=== PATIENT | male | born 1945 | race Caucasian/White ===

== ENCOUNTER → 2016-09-13 | Outpatient (CLI) | payer OTHER, MEDICARE ==
[~2016-09-13] MED LIST: ASPI81TA28 PO; ATOR-24 PO; CIPR-255 PO; CLOP1TAB15 PO; GLIP-199 PO; LEVO175T3 PO; NTRGSL/4 UT; OXYC5TAB PO; POLYSOL4 OPR; ZNTT/150 PO
--- NOTE | 2016-09-13 12:56 | DIAGNOSTIC IMAGING REPORT ---
MRI OF THE BRAIN WITHOUT AND WITH IV CONTRAST CLINICAL HISTORY: Moderate cognitive impairment. COMPARISON STUDY: MRI the brain November 24, 2015. TECHNIQUE: Utilizing a 1.5 Eryn magnet and dedicated coil, multiplanar, multiecho imaging of the brain was performed pre and postcontrast administration. IV administration of 8 mL of Gadavist contrast was uneventful. FINDINGS: There are no areas of restricted diffusion. No acute intracranial hemorrhage, midline shift or mass effect is present. No intracranial mass or pathologic enhancement is present. There is moderate cerebral atrophy and moderate white matter T2 hyperintensity which suggests small vessel disease. Basilar cisterns are patent. There are no extra axial collections. Flow-voids for the major intracranial vessels are present. Calvarial signal is normal. Orbits and sinuses are unremarkable. The appearance of the brain is similar to exam of November 05, 2015. IMPRESSION: 1. No acute intracranial findings. 2. No intracranial masses or pathologic enhancement. 3. Moderate cerebral atrophy and small vessel disease, similar to exam of November 05, 2015. Electronically signed by: Ted Bell M.D. 09/13/2016 12:54 PM Dictated Date/Time: 09/13/2016 12:50 PM
== END | disposition home or self-care (01) ==
LOC: C.MRI 11:56
PROVIDERS: ATTEND Psychiatry & Neurology Neurology
DX: G31.84 Mild cognitive impairment of uncertain or unknown etiology (principal)

== ENCOUNTER → 2016-11-13 | Day surgery (SDC) | payer OTHER, MEDICARE ==
[2016-10-27 15:32] VITALS: Ht 170.2 cm; Wt 77.7 kg
[~2016-11-13] VITALS: Ht 170.2 cm; Wt 77.7 kg
[~2016-11-13] MED LIST changes: +500ML BSS 0.3ML EPI 1:1000PF IRRIG ONE; +ACETAMINOPHEN 325 MG TAB PO PRN; +AMVISC PLUS 0.8ML SYRINGE INT OCU ONE; -ATOR-24 PO; +ATROPINE SULFATE 0.1 MG/ML 5ML SYR IV PRN; +BRIMONIDINE TART 0.2% OP SOLN PER DROP CHARGE ONE; +BSS FLUSH ONE; -CIPR-255 PO; +ENDOCOAT 0.85ML SYRINGE INT OCU ONE; +EpINEphrine INJ 1MG/ML AMP 1 MG/ML AMP ONE; +LACTATED RINGER'S 1000ML 500 ML IV SCH; +LIDOCAINE 4% OP SOLN DROP CHARGE ONE; +LIDOCAINE 4% OP SOLN DROP CHARGE OPR SCH; +LIDOCAINE HCL 1% MPF 2 ML VIAL ONE; +LIDOCAINE HCL 2% 2 ML VIAL (20MG/ML) ONE; +MIDAZOLAM HCL 1 MG/ML 2ML VIAL ONE; +MIX: 3ML BSS AND 1ML EPI(PF) TOP ONE; +MOXIFLOXACIN OPH SOLN PER DROP CHARGE ONE; +ONDANSETRON INJ 2 MG/ML 2 ML VIAL ONE; -OXYC5TAB PO; +POVIDONE-IODINE OP SOLN 30 ML BTL ONE; +PROPARACAINE 0.5% OP SOLN PER DROP CHARGE OPR SCH; +PROPOFOL IV EMULSION 10 MG/ML 20 ML VIAL IV ONE; +TOBRAMYCIN/DEXAMETHASONE OPH OINT PER APPLN CHARGE ONE
[2016-11-13] MEDS: PHENYLEPHRINE HCL 2.5% OP SOLN PER DROP CHARGE OPR SCH ×2 (07:29→07:34)
[2016-11-13] MEDS: TROPICAMIDE 1% OP SOLN PER DROP CHARGE OPR SCH ×2 (07:30→07:35)
[2016-11-13] MEDS: CYCLOPENTOLATE HCL 1% OP SOLN PER DROP CHARGE OPR SCH ×2 (07:31→07:36)
[2016-11-13] MEDS: KETOROLAC 0.5% OP SOLN PER DROP CHARGE OPR SCH ×2 (07:32→07:37)
[2016-11-13] MEDS: MOXIFLOXACIN OPH SOLN PER DROP CHARGE OPR SCH ×2 (07:33→07:45)
--- NOTE | 2016-11-13 07:47 | History & Physical Bridge - [place] ---
H&P Re-Evaluation Bridge Note: I have examined the patient, reviewed the History & Physical and in the interval since the performance of the History & Physical I have noted the following changes of clinical significance: No changes noted
--- NOTE | 2016-11-13 08:59 | Discharge Instructions-SurgCtr ---
Discharge Instructions Date of Service Nov 13, 2016. Visit Reason for Visit: Cataract Right Eye Discharge Discharge Diagnosis / Problem: cataract right eye Discharge Goals Goal(s): Improve function Activity Recommendations Activity Limitations: per Instructions/Follow-up section Lifting Limitations: no more than 5 pounds Anesthesia . Post Anesthesia Instructions: If you have had General Anesthesia or IV Sedation: * Do not drive today. * Resume driving when surgeon permits. * Do not make important decisions or sign legal documents today. * Call surgeon for: 1. Temperature elevations greater than 101 degrees F. 2. Uncontrollable pain. 3. Excessive bleeding. 4. Persistent nausea and vomiting. 5. Medication intolerance (nausea, vomiting or rash). * For nausea and vomiting use only clear liquids such as: tea, soda, bouillon until nausea subsides, then gradually increase diet as tolerated. * If you have any concerns or questions, call your surgeon's office. If physician is unavailable and it is an emergency, call 911 or go to the nearest emergency room. . Instructions / Follow-Up Instructions / Follow-Up ACTIVITY RECOMMENDATIONS: * Light activities * You may walk outside, read, watch television. * Mild irritation and blurred vision are common for the first few days, redness around the white part of the eye is common. MEDICATIONS: Resume previous medications unless instructed otherwise by your surgeon. Eye drops (today and tomorrow): Ofloxacin - one drop in operative eye every 2 hours while awake Prednisolone 1% - one drop in operative eye every 2 hours while awake Prolensa - one drop operative eye 1 times daily SPECIAL CARE INSTRUCTIONS: * If any problems or concerns, please call Dr. Henriquez's office at . * Keep plastic shield taped over eye to sleep at night. * Keep plastic shield taped over eye except to administer eye drops. * Keep plastic shield on until office visit the following day. FOLLOW UP VISIT: Follow-up with Dr. Henriquez in the [facility] [place] [facility] office as scheduled. If not already scheduled, please call the office at . Diet Recommendations Home Diet: resume previous diet Procedures Procedures Performed: Right Cataract Phacoemulsification With Intraocular Lens Implant Pending Studies Studies pending at discharge: no Medical Emergencies . Who to Call and When: Medical Emergencies: If at any time you feel your situation is an emergency, please call 911 immediately. . Non-Emergent Contact Non-Emergency issues call your: Neurology Epilepsy Physician . . "Provider Documentation" section prepared by Agusto Henriquez. .
--- NOTE | 2016-11-13 09:03 | [facility] Operative Report ---
Operative Report Operative Date Nov 13, 2016. Pre-Operative Diagnosis Cataract Right Eye Post-Operative Diagnosis Same Procedure(s) Performed Right Cataract Phacoemulsification With Intraocular Lens Implant Surgeon Dr. Henriquez Jewel Gauger Surgeon(s) None Estimated Blood Loss 0 Findings cataract right eye Specimens None Anesthesia general with LMA Complication(s) None Disposition Recovery Room / PACU Implants MX60 20.5 Indications decreased vision right eye Description of Procedure After informed consent was obtained in the holding area the patient was wheeled back to the operating room where cardiac monitoring leads and oxygen by nasal cannula was administered by Anesthesia. Gentle IV sedation was given, and the patient's right eye was prepped and draped in usual sterile fashion. A wire lid speculum was placed into the right eye and the operating microscope was swung into position. Using 0.12 forceps and a Supersharp blade a paracentesis port was made 3 o'clock hours away from the 9 o'clock position of the patient's right eye. 1% non-preserved Lidocaine was then injected into the anterior chamber for anesthesia. A 2.2 mm keratotome blade was then used to make a shelved clear corneal incision at the 9 o'clock position of the right eye. Amvisc was injected into the anterior chamber and a cystotome and Utrata forceps were used to perform a curvilinear capsulorrhexis. BSS on a hydrodissection cannula was used to hydrodissect the lens nucleus away from the capsular bag. The phacoemulsification handpiece was then used in a stop and chop fashion to remove the lens nucleus. The irrigation and aspiration handpiece was then used to remove the residual cortical material. Amvisc was injected into the capsular bag and anterior chamber and a Bausch & Lomb MX60 20.5 Diopter intraocular lens was injected into the capsular bag. Irrigation and aspiration handpiece was used to remove the residual viscoelastic material. The wounds were hydrated and noted to be watertight. The wire lid speculum was removed from the eye. Vigamox, Brimonidine, and TobraDex ointment were placed on the eye and it was shielded. It should be noted that EndoCoat was used extensively during the case to protect the cornea endothelium. A mixture of 1ml of 1% nonpreserved epinephrine in 3ml of bss was injected into the eye at the beginning of the case to aid with pupillary dilation in this flomax patient. DISPOSITION: The patient tolerated the procedure well and was wheeled to the post anesthesia care unit in stable condition. I attest to the content of the Intraoperative Record and any orders documented therein. Any exceptions are noted below. I attest to the content of the Intraoperative Record and any orders documented therein. Any exceptions are noted below.
[2016-11-13 09:50] VITALS: TEMP 36.7
--- NOTE | 2016-11-13 09:57 | Anesthesia Progress Nt - [facility] ---
Anesthesia Post Op Note Date & Time Nov 13, 2016 at 09:57 Vital Signs Pain Intensity: 0 Vital Signs Past 12 Hours Date Time Temp Pulse Resp B/P (MAP) Pulse Ox O2 Delivery O2 Flow Rate FiO2 11/13/16 09:42 78 19 92 11/13/16 09:42 78 19 11/13/16 09:41 36.4 74 16 135/85 95 Room Air 11/13/16 09:41 135/85 11/13/16 09:37 78 32 11/13/16 09:37 77 32 97 11/13/16 09:36 164/96 11/13/16 09:32 72 15 11/13/16 09:32 73 15 99 11/13/16 09:30 167/95 11/13/16 09:27 73 12 11/13/16 09:27 72 12 98 11/13/16 09:26 154/98 11/13/16 09:22 71 14 99 11/13/16 09:22 71 14 11/13/16 09:21 152/93 11/13/16 09:20 73 15 99 11/13/16 09:20 73 15 11/13/16 09:15 73 15 145/101 99 11/13/16 09:15 73 15 11/13/16 09:14 77 22 11/13/16 09:14 77 22 98 11/13/16 09:11 143/92 11/13/16 09:09 73 15 11/13/16 09:09 73 15 98 11/13/16 09:06 152/97 11/13/16 09:04 71 4 152/95 99 11/13/16 09:04 36.4 73 16 152/95 99 Diffusion Mask 6 11/13/16 09:04 71 4 11/13/16 07:17 36.6 89 16 126/84 (98) 96 Room Air Notes Mental Status: alert / awake / arousable, participated in evaluation Pt Amnestic to Procedure: Yes Nausea / Vomiting: adequately controlled Pain: adequately controlled Airway Patency, RR, SpO2: stable & adequate BP & HR: stable & adequate Hydration State: stable & adequate Anesthetic Complications: no major complications apparent
[2016-11-13 10:17] VITALS: BP 121/77; PULSE 78; O2SAT 94
== END | disposition home or self-care (01) ==
LOC: X.SURG 06:53
PROVIDERS: ATTEND Ophthalmology
DX: H25.11 Age-related nuclear cataract, right eye (principal); E11.9 Type 2 diabetes mellitus without complications; G30.9 Alzheimer's disease, unspecified; F02.80 Dementia in other diseases classified elsewhere, unspecified severity, without behavioral disturbance, psychotic disturbance, mood disturbance, and anxiety; E03.9 Hypothyroidism, unspecified; F17.210 Nicotine dependence, cigarettes, uncomplicated; Z79.82 Long term (current) use of aspirin; Z79.899 Other long term (current) drug therapy

== ENCOUNTER → 2017-01-22 | Day surgery (SDC) | payer OTHER, MEDICARE ==
[2016-12-20 11:32] VITALS: Ht 170.2 cm; Wt 77.7 kg
[~2017-01-22] VITALS: Ht 170.2 cm; Wt 77.7 kg
[~2017-01-22] MED LIST changes: +EpHEDrine SULFATE INJ 50 MG/ML AMP IV PRN; +FENTANYL CITRATE INJ 50 MCG/1 ML 2 ML VIAL ONE; +LIDOCAINE 4% OP SOLN DROP CHARGE OPL SCH; -LIDOCAINE 4% OP SOLN DROP CHARGE OPR SCH; -LIDOCAINE HCL 2% 2 ML VIAL (20MG/ML) ONE; -ONDANSETRON INJ 2 MG/ML 2 ML VIAL ONE; +PROPARACAINE 0.5% OP SOLN PER DROP CHARGE OPL SCH; -PROPARACAINE 0.5% OP SOLN PER DROP CHARGE OPR SCH
[2017-01-22] MEDS: PHENYLEPHRINE HCL 2.5% OP SOLN PER DROP CHARGE OPL SCH ×2 (07:34→07:41)
[2017-01-22] MEDS: TROPICAMIDE 1% OP SOLN PER DROP CHARGE OPL SCH ×2 (07:35→07:42)
[2017-01-22] MEDS: CYCLOPENTOLATE HCL 1% OP SOLN PER DROP CHARGE OPL SCH ×2 (07:36→07:43)
[2017-01-22] MEDS: KETOROLAC 0.5% OP SOLN PER DROP CHARGE OPL SCH ×2 (07:37→07:45)
[2017-01-22] MEDS: MOXIFLOXACIN OPH SOLN PER DROP CHARGE OPL SCH ×2 (07:38→07:48)
--- NOTE | 2017-01-22 09:17 | Discharge Instructions-SurgCtr ---
Discharge Instructions Date of Service Jan 22, 2017. Visit Reason for Visit: Cataract Left Eye Discharge Discharge Diagnosis / Problem: cataract left eye Discharge Goals Goal(s): Improve function Activity Recommendations Activity Limitations: per Instructions/Follow-up section Lifting Limitations: no more than 5 pounds Anesthesia . Post Anesthesia Instructions: If you have had General Anesthesia or IV Sedation: * Do not drive today. * Resume driving when surgeon permits. * Do not make important decisions or sign legal documents today. * Call surgeon for: 1. Temperature elevations greater than 101 degrees F. 2. Uncontrollable pain. 3. Excessive bleeding. 4. Persistent nausea and vomiting. 5. Medication intolerance (nausea, vomiting or rash). * For nausea and vomiting use only clear liquids such as: tea, soda, bouillon until nausea subsides, then gradually increase diet as tolerated. * If you have any concerns or questions, call your surgeon's office. If physician is unavailable and it is an emergency, call 911 or go to the nearest emergency room. . Instructions / Follow-Up Instructions / Follow-Up ACTIVITY RECOMMENDATIONS: * Light activities * You may walk outside, read, watch television. * Mild irritation and blurred vision are common for the first few days, redness around the white part of the eye is common. MEDICATIONS: Resume previous medications unless instructed otherwise by your surgeon. Eye drops (today and tomorrow): Ofloxacin - one drop in operative eye every 2 hours while awake Prednisolone 1% - one drop in operative eye every 2 hours while awake Prolensa - one drop operative eye 1 times daily SPECIAL CARE INSTRUCTIONS: * If any problems or concerns, please call Dr. Henriquez's office at . * Keep plastic shield taped over eye to sleep at night. * Keep plastic shield taped over eye except to administer eye drops. * Keep plastic shield on until office visit the following day. FOLLOW UP VISIT: Follow-up with Dr. Henriquez in the [place] office as scheduled. If not already scheduled, please call the office at . Diet Recommendations Home Diet: resume previous diet Procedures Procedures Performed: Left Cataract Phacoemulsification With Intraocular Lens Implant Pending Studies Studies pending at discharge: no Medical Emergencies . Who to Call and When: Medical Emergencies: If at any time you feel your situation is an emergency, please call 911 immediately. . Non-Emergent Contact Non-Emergency issues call your: Graphic Design Assistant . . "Provider Documentation" section prepared by Agusto Henriquez. .
--- NOTE | 2017-01-22 09:18 | [facility] Operative Report ---
Operative Report Operative Date Jan 22, 2017. Pre-Operative Diagnosis Cataract Left Eye Post-Operative Diagnosis Same Procedure(s) Performed Left Cataract Phacoemulsification With Intraocular Lens Implant Surgeon Dr. Henriquez Water Service Supervisor Surgeon(s) None Estimated Blood Loss 0 mL Findings cataract left eye Fluids (cc crystalloids) see anesthesia record Specimens None Drains none Anesthesia local with sedation Complication(s) None Disposition Recovery Room / PACU Implants mx60 20.5 Indications decreased vision left eye Description of Procedure After informed consent was obtained in the holding area the patient was wheeled back to the operating room where cardiac monitoring leads and oxygen by nasal cannula was administered by Anesthesia. Gentle IV sedation was given, and the patient's left eye was prepped and draped in usual sterile fashion. A wire lid speculum was placed into the left eye and the operating microscope was swung into position. Using 0.12 forceps and a Supersharp blade a paracentesis port was made 2 o'clock hours away from the 3 o'clock position of the patient's left eye. 1% non-preserved Lidocaine was then injected into the anterior chamber for anesthesia. A 2.0 mm keratotome blade was then used to make a shelved clear corneal incision at the 3 o'clock position of the left eye. Amvisc was injected into the anterior chamber and a cystotome and Utrata forceps were used to perform a curvilinear capsulorrhexis. BSS on a hydrodissection cannula was used to hydrodissect the lens nucleus away from the capsular bag. The phacoemulsification handpiece was then used in a stop and chop fashion to remove the lens nucleus. The irrigation and aspiration handpiece was then used to remove the residual cortical material. Amvisc was injected into the capsular bag and anterior chamber and a Bausch & Lomb MX60 20.5 Diopter intraocular lens was injected into the capsular bag. Irrigation and aspiration handpiece was used to remove the residual viscoelastic material. The wounds were hydrated and noted to be watertight. The wire lid speculum was removed from the eye. Vigamox, Brimonidine, and TobraDex ointment were placed on the eye and it was shielded. It should be noted that EndoCoat was used extensively during the case to protect the cornea endothelium. DISPOSITION: The patient tolerated the procedure well and was wheeled to the post anesthesia care unit in stable condition. I attest to the content of the Intraoperative Record and any orders documented therein. Any exceptions are noted below. I attest to the content of the Intraoperative Record and any orders documented therein. Any exceptions are noted below.
--- NOTE | 2017-01-22 09:46 | Anesthesia Progress Nt - [facility] ---
Anesthesia Post Op Note Date & Time Jan 22, 2017 at 09:46 Vital Signs Pain Intensity: 0 Vital Signs Past 12 Hours Date Time Temp Pulse Resp B/P (MAP) Pulse Ox O2 Delivery O2 Flow Rate FiO2 01/22/17 07:22 36.6 88 16 109/76 (87) 96 Room Air Notes Mental Status: alert / awake / arousable, participated in evaluation Pt Amnestic to Procedure: Yes Nausea / Vomiting: adequately controlled Pain: adequately controlled Airway Patency, RR, SpO2: stable & adequate BP & HR: stable & adequate Hydration State: stable & adequate Anesthetic Complications: no major complications apparent
[2017-01-22 09:58] VITALS: BP 102/66; PULSE 67; TEMP 36.8; O2SAT 99
== END | disposition home or self-care (01) ==
LOC: X.SURG 07:12
PROVIDERS: ATTEND Ophthalmology
DX: H25.12 Age-related nuclear cataract, left eye (principal); E11.9 Type 2 diabetes mellitus without complications; E07.9 Disorder of thyroid, unspecified; G30.9 Alzheimer's disease, unspecified; F02.80 Dementia in other diseases classified elsewhere, unspecified severity, without behavioral disturbance, psychotic disturbance, mood disturbance, and anxiety; Z85.118 Personal history of other malignant neoplasm of bronchus and lung

== ENCOUNTER 2017-03-12 22:12 | Emergency (ER) | payer OTHER, MEDICARE ==
[~2017-03-12] VITALS: Ht 175.3 cm; Wt 92.4 kg
[~2017-03-12 22:12] MED LIST changes: -500ML BSS 0.3ML EPI 1:1000PF IRRIG ONE; -ACETAMINOPHEN 325 MG TAB PO PRN; -AMVISC PLUS 0.8ML SYRINGE INT OCU ONE; -ATROPINE SULFATE 0.1 MG/ML 5ML SYR IV PRN; -BRIMONIDINE TART 0.2% OP SOLN PER DROP CHARGE ONE; -BSS FLUSH ONE; -ENDOCOAT 0.85ML SYRINGE INT OCU ONE; -EpHEDrine SULFATE INJ 50 MG/ML AMP IV PRN; -EpINEphrine INJ 1MG/ML AMP 1 MG/ML AMP ONE; -FENTANYL CITRATE INJ 50 MCG/1 ML 2 ML VIAL ONE; -LACTATED RINGER'S 1000ML 500 ML IV SCH; -LIDOCAINE 4% OP SOLN DROP CHARGE ONE; -LIDOCAINE 4% OP SOLN DROP CHARGE OPL SCH; -LIDOCAINE HCL 1% MPF 2 ML VIAL ONE; -MIDAZOLAM HCL 1 MG/ML 2ML VIAL ONE; -MIX: 3ML BSS AND 1ML EPI(PF) TOP ONE; -MOXIFLOXACIN OPH SOLN PER DROP CHARGE ONE; -POVIDONE-IODINE OP SOLN 30 ML BTL ONE; -PROPARACAINE 0.5% OP SOLN PER DROP CHARGE OPL SCH; -PROPOFOL IV EMULSION 10 MG/ML 20 ML VIAL IV ONE; -TOBRAMYCIN/DEXAMETHASONE OPH OINT PER APPLN CHARGE ONE
[2017-03-12 22:33] VITALS: TEMP 36.5; Ht 175.3 cm; Wt 92.4 kg
[2017-03-12 23:02] LABS: BASO % 0.6 %; BASO ABS # 0.05 K/uL (0-0.2); COMPLETE YES; EOS % 4.3 %; HEMATOCRIT 46.9 % (42-52); IG% 1.6 %; LYMPH % 31.5 %; MEAN CELL VOLUME 99.6 fL (80-100); MEAN CORPUSCULAR HEMOGLOBIN 36.9 pg (25-34); MEAN CORPUSCULAR HGB CONC 37.1 g/dl (32-36); MEAN PLATELET VOLUME 10.6 fL (7.4-10.4); PLATELET COUNT 194 K/uL (130-400); RED BLOOD COUNT 4.71 M/uL (4.7-6.1); WHITE BLOOD COUNT 8.89 K/uL (4.8-10.8)
--- NOTE | 2017-03-12 23:14 | EMERGENCY ROOM VISIT NOTE ---
History Report prepared by Jan: Cheri Fried Under the Supervision of: Dr. Edgar Andrade M.D. 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 History of Present Illness The patient is a 71 year old male who presents to the Emergency Room with complaints of altered mental status that started 2 hours ago. The patient is unable to state the year or president. Per the patient's , AMS is normal for him. The patient notes he does not normally wear oxygen. He has inhalers at home but does not use them. The patient's states that he smokes 1 pack of cigarettes or more per day. She notes that the patient experienced a severe headache 3 hours ago and he was very confused. The patient states that he felt like the room was spinning. She reports that he has a history of headaches that occur about once per month. The patient has not been previously diagnosed with migraines. The patient vomited before coming to the ED but did not feel any better afterwards. He has not eaten in 7 1/2 hours. He was supposed to get blood work today but he refused to go. The patient's states that he is supposed to take glipizide every day but does not want to take it. The patient denies having a headache or dizziness at this time. He denies any shortness of breath, chest pain, cough, or abdominal pain. The patient was experiencing headache, nausea, vomiting, and dizziness. Source of History: patient, spouse/significant other Onset: 2 hours ago Position: other (global) Quality: other (AMS) Associated Symptoms: + headache, + nausea, + vomiting, No cough, No chest pain, No SOB, No abdominal pain Note: Additional symptoms: dizziness. Review of Systems See HPI for pertinent positives and negatives. A total of ten systems were reviewed and were otherwise negative. Past Medical & Surgical Medical Problems: (1) AAA (abdominal aortic aneurysm) (2) Carotid stenosis, non-symptomatic (3) CKD (chronic kidney disease) stage 3, GFR 30-59 ml/min (4) Coronary artery disease (5) Diabetes (6) Hyperlipidemia (7) Lung nodule (8) Malignant neoplasm of bladder (9) Malignant neoplasm of ureter (10) NH (myocardial infarction) (11) Primary cancer of right upper lobe of lung Surgical Problems: (1) History of left-sided carotid endarterectomy (2) S/P AAA repair (3) S/P angioplasty (4) S/P appendectomy (5) S/P cardiac catheterization (6) S/P colonoscopy with polypectomy (7) S/P coronary artery stent placement (8) S/p cystourethroscopy (9) S/P laparoscopic cholecystectomy (10) S/p nephrectomy (11) S/P rotator cuff repair (12) S/P tonsillectomy and adenoidectomy Family History FH: CAD (coronary artery disease) FATHER FH: colon cancer MOTHER AUNT Hypertension Stroke GRANDFATHER Social History Smoking Status: Current Every Day Smoker Alcohol Use: none Drug Use: none Marital Status: Housing Status: lives with significant other Occupation Status: retired Current/Historical Medications Scheduled Ciprofloxacin Hcl (Cipro), 500 MG PO BID Allergies Coded Allergies: Iodinated Diagnostic Agents (Verified Allergy, Intermediate, swelling, ) Physical Exam Vital Signs Date Time Temp Pulse Resp B/P (MAP) Pulse Ox O2 Delivery O2 Flow Rate FiO2 03/13/17 03:58 93 15 157/98 94 03/13/17 03:01 83 17 142/97 95 Room Air 03/13/17 02:20 84 03/13/17 02:01 85 23 146/89 96 Room Air 03/13/17 01:01 94 23 147/83 95 Room Air 03/13/17 00:01 95 17 123/82 93 Room Air 03/12/17 23:47 96 17 118/79 92 Room Air 03/12/17 23:01 97 17 115/82 93 Room Air 03/12/17 22:33 36.5 99 18 118/83 97 Nasal Cannula 2.0 03/12/17 22:26 100 Physical Exam GENERAL: Awake, alert, fatigued appearing, in no distress HENT: Normocephalic, atraumatic. Dry mucus membranes. EYES: Normal conjunctiva. Sclera non-icteric. NECK: Supple. No nuchal rigidity. FROM. No JVD. RESPIRATORY: Clear to auscultation. CARDIAC: Regular rate, normal rhythm. Extremities warm and well perfused. Pulses equal. ABDOMEN: Soft, non-distended. No tenderness to palpation. No rebound or guarding. No masses. Obese. RECTAL: Deferred. MUSCULOSKELETAL: Chest examination reveals no tenderness. The back is symmetrical on inspection without obvious abnormality. There is no CVA tenderness to palpation. No joint edema. LOWER EXTREMITIES: Calves are equal size bilaterally and non-tender. No edema. No discoloration. NEURO: Normal sensorium. No sensory or motor deficits noted. SKIN: No rash or jaundice noted. Medical Decision & Procedures ER Provider Diagnostic Interpretation: Radiology results as stated below per my review and radiologist interpretation: CHEST X-RAY: Mild cardiomegaly. No focal consolidation. CT HEAD: Comparison 10/25/2015 and MRI 09/13/2016 No intracranial hemorrhage, mass effect or CT evidence of large vascular territory acute infarct. Ventricles are within limits and midline. Chronic and involutional changes. Visualized paranasal sinuses, mastoid, and orbits are within limits. REPEAT EKG: Sinus rhythm, first degree AV block, rate of 90, QRS 144. Unchanged from earlier today Laboratory Results 03/12/17 22:39 Red Blood Count 4.71, Mean Corpuscular Volume 99.6, Mean Corpuscular Hemoglobin 36.9, Mean Corpuscular Hemoglobin Concent 37.1, Mean Platelet Volume 10.6, Neutrophils (%) (Auto) 56.0, Lymphocytes (%) (Auto) 31.5, Monocytes (%) (Auto) 6.0, Eosinophils (%) (Auto) 4.3, Basophils (%) (Auto) 0.6, Neutrophils # (Auto) 4.99, Lymphocytes # (Auto) 2.80, Monocytes # (Auto) 0.53, Eosinophils # (Auto) 0.38, Basophils # (Auto) 0.05 03/12/17 22:39 Test 03/12/17 22:39 03/12/17 22:57 03/13/17 00:10 03/13/17 01:39 White Blood Count 8.89 K/uL (4.8-10.8) Red Blood Count 4.71 M/uL (4.7-6.1) Hemoglobin 17.4 g/dL (14.0-18.0) Hematocrit 46.9 % (42-52) Mean Corpuscular Volume 99.6 fL (80-100) Mean Corpuscular Hemoglobin 36.9 pg (25-34) Mean Corpuscular Hemoglobin Concent 37.1 g/dl (32-36) Platelet Count 194 K/uL (130-400) Mean Platelet Volume 10.6 fL (7.4-10.4) Neutrophils (%) (Auto) 56.0 % Lymphocytes (%) (Auto) 31.5 % Monocytes (%) (Auto) 6.0 % Eosinophils (%) (Auto) 4.3 % Basophils (%) (Auto) 0.6 % Neutrophils # (Auto) 4.99 K/uL (1.4-6.5) Lymphocytes # (Auto) 2.80 K/uL (1.2-3.4) Monocytes # (Auto) 0.53 K/uL (0.11-0.59) Eosinophils # (Auto) 0.38 K/uL (0-0.5) Basophils # (Auto) 0.05 K/uL (0-0.2) RDW Standard Deviation 49.6 fL (36.4-46.3) RDW Coefficient of Variation 13.6 % (11.5-14.5) Immature Granulocyte % (Auto) 1.6 % Immature Granulocyte # (Auto) 0.14 K/uL (0.00-0.02) Anion Gap 11.0 mmol/L (3-11) Est Creatinine Clear Calc Drug Dose 45.2 ml/min Estimated GFR () 47.0 Estimated GFR (Non- 40.6 BUN/Creatinine Ratio 10.3 (10-20) Calcium Level 8.6 mg/dl (8.5-10.1) Total Bilirubin 0.3 mg/dl (0.2-1) Direct Bilirubin mg/dl (0-0.2) Aspartate Amino Transf (AST/SGOT) 35 U/L (15-37) Alanine Aminotransferase (ALT/SGPT) 92 U/L (12-78) Alkaline Phosphatase 135 U/L (45-117) Total Protein 6.6 gm/dl (6.4-8.2) Albumin 3.6 gm/dl (3.4-5.0) Lipase 137 U/L (73-393) Thyroid Stimulating Hormone (TSH) 66.500 uIu/ml (0.300-4.500) Free Thyroxine 0.38 ng/dl (0.80-1.60) Chemistry Specimen Hemolysis Bedside Glucose 224 mg/dl (70-99) Urine Color YELLOW Urine Appearance CLEAR (CLEAR) Urine pH 6.5 (4.5-7.5) Urine Specific Mobile 1.016 (1.000-1.030) Urine Protein 2+ (NEG) Urine Glucose (UA) TRACE (NEG) Urine Ketones NEG (NEG) Urine Occult Blood NEG (NEG) Urine Nitrite POS (NEG) Urine Bilirubin NEG (NEG) Urine Urobilinogen NEG (NEG) Urine Leukocyte Esterase NEG (NEG) Urine WBC (Auto) >30 /hpf (0-5) Urine RBC (Auto) 0-4 /hpf (0-4) Urine Hyaline Casts (Auto) 5-10 /lpf (0-5) Urine Epithelial Cells (Auto) >30 /lpf (0-5) Urine Bacteria (Auto) NEG (NEG) Urine Renal Epithelial Cells /lpf (0-5) Bedside Troponin I 0.060 ng/ml (0-0.045) Test 03/13/17 01:43 Troponin I 0.052 ng/ml (0-0.045) Laboratory results reviewed by me Medications Administered Medications (Trade) Dose Ordered Sig/Chari Route Start Time Stop Time Status Last Admin Dose Admin Ciprofloxacin (Cipro Tab) 500 mg NOW STAT PO 03/13/17 01:44 03/13/17 01:47 DC 03/13/17 01:58 500 MG Aspirin (Aspirin Chew) 324 mg NOW STAT PO 03/13/17 03:14 03/13/17 03:16 DC 03/13/17 03:38 324 MG ECG Indication: other (dizziness) Rate (beats per minute): 102 Rhythm: sinus tachycardia Findings: 1st degree AV block, RBBB, no acute ischemic change Comparison ECG Date: Change: RBBB is new in comparison to April 27, 2016. ED Course 2236: The patient was evaluated in room A9B. A complete history and physical exam was performed. 0144: Cipro Tab 500 mg PO. 0200: The patient's point of care troponin was 0.06. Since asymptomatic, will confirm with serum troponin. Medical Decision I reviewed the patient's past medical history, medications, and the nursing notes as described above. 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 On note, patient has been non-complaint with all of his medications, including his plavix and synthroid for an unknown period of time. On arrival the patient reports resolution of sx. EKG shows RBBB, which is new from prior but otherwise no signs of acute ischemia. CXR negative for PNA. Labs notable for elevated TSH 66 and dereased Free T4 0.38, Cr 1.6 approximate to prior values. Initial trop negative approximately 2 hours after episode of symptoms. UA with +nitriate and great than [address] head negative with 6 hours of patient's DE LEÓN therefore SAH not likely. Given patient's cardiac hx and ? of episode of n/v as anginal equivalent repeat trop send and was elevate to 0.052. Repeat EKG with persistent RBBB but no signs of acute ischemia. Thus it was recommended to patent he be admitted but patient was adamant that he would not stay because he does not likely staying in hospitals and he "feels fine". Patient demonstrates full decision making capacity of risk and benefits with a bedside. Patient follows with Dr. Hernandez, [facility], and so case with d/w Gela Solano cards on-call so as to facility close cards f /u. Given patient with marginal trop elevation, non-ischemic EKG and no chest pain recs that primary cardiac etiology unlikely. Rather, likely related to his non-compliance and numerous metabolic imbalances. Recs that primary emphasis should be f/u with his pcp to re-establish compliance with his medications. Note will be forwarded to so he is aware and patient will f/u as needed. Findings and plan for follow-up reviewed with patient. Patient agreeable and d/c'd AMA per discharge instructions. Medication Reconcilliation Current Medication List: was personally reviewed by me Blood Pressure Screening Patient's blood pressure: Elevated blood pressure Blood pressure disposition: Referred to PCP Impression Primary Impression: Headache Additional Impressions: Vertigo Nausea & vomiting Urinary tract infection Elevated troponin Right bundle branch block (RBBB) Scribe Attestation The scribe's documentation has been prepared under my direction and personally reviewed by me in its entirety. I confirm that the note above accurately reflects all work, treatment, procedures, and medical decision making performed by me. Departure Information Dispostion Home / Self-Care Prescriptions Ciprofloxacin Hcl (CIPRO) 500 Mg Tab 500 MG PO BID, #14 TAB Prov: Edgar Andrade M.D. 03/13/17 Referrals Vik Charles M.D. (PCP) Jelani Hernandez D.O. 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 Your evaluation demonstrated abnormalities that are consistent with your noncompliance with your medications, including and rising troponin during your observation, elevated TSH and low thyroid hormone. You were also found to have a urinary tract infection. Take your antibiotic as prescribed. Resume taking your medications as prescribed. We recommended admission for further management but you declined. However, you did not want to be admitted and preferred to be discharged AGAINST MEDICAL ADVICE. Please note, by leaving AGAINST MEDICAL ADVICE you risk a worse condition, disability, and . However, we're open 24 hours a day and 7 days a week if you were to change your mind or have any worsening symptoms and should not hesitate to return. Return to the emergency department for worsening symptoms as described in the accompanying instructions. Problem Qualifiers
[2017-03-13 00:13] LABS: BLOOD UREA NITROGEN 17 mg/dl (7-18); BUN/CREATININE RATIO 10.3 (10-20); CALCIUM 8.6 mg/dl (8.5-10.1); CARBON DIOXIDE 26 mmol/L (21-32); CHLORIDE 103 mmol/L (98-107); CREATININE 1.66 mg/dl (0.60-1.40); GLUCOSE 221 mg/dl (70-99); POTASSIUM 4.7 mmol/L (3.5-5.1); SODIUM 140 mmol/L (136-145)
[2017-03-13 00:18] LABS: ALKALINE PHOSPHATASE 135 U/L (45-117); ALT/SGPT 92 U/L (12-78); AST/SGOT 35 U/L (15-37)
[2017-03-13 00:47] LABS: URINE APPEARANCE CLEAR (CLEAR); URINE BILIRUBIN NEG (NEG); URINE COLOR YELLOW; URINE EPITHELIAL CELL AUTO >30 /lpf (0-5); URINE NITRITE POS (NEG); URINE PH 6.5 (4.5-7.5); URINE SPECIFIC GRAVITY 1.016 (1.000-1.030); UROBILINOGEN NEG (NEG); ZZUR CULT IF INDIC CLEAN CATCH YES
[2017-03-13 00:50] LABS: MANUAL MICROSCOPIC REQUIRED? NO; REVIEW REQ? YES
[2017-03-13] MEDS ORDERED: CIPROFLOXACIN 500 MG TAB PO STA (01:44)
[2017-03-13] MEDS ORDERED: CIPR-255 PO (01:49)
[2017-03-13] MEDS ORDERED: ASPIRIN 81 MG CHEW PO STA (03:14)
[2017-03-13 03:58] VITALS: BP 157/98; PULSE 93; O2SAT 94
--- NOTE | 2017-03-13 06:23 | DIAGNOSTIC IMAGING REPORT ---
CHEST ONE VIEW PORTABLE CLINICAL HISTORY: ABDOMINAL PAIN/GI pain COMPARISON STUDY: 04/16/2016 FINDINGS: Moderate cardiac megaly. Diaphragms smooth. Lungs are clear. Old fracture of the clavicles bilaterally. IMPRESSION: Moderate cardiomegaly. Otherwise negative study. The above report was generated using voice recognition software. It may contain grammatical, syntax or spelling errors. Electronically signed by: Jak Reardon M.D. 03/13/2017 6:22 AM Dictated Date/Time: 03/13/2017 6:22 AM
--- NOTE | 2017-03-13 06:50 | DIAGNOSTIC IMAGING REPORT ---
CT HEAD WITHOUT CONTRAST (CT) CLINICAL HISTORY: NA, vertigo. COMPARISON STUDY: 10/25/2015 TECHNIQUE: Axial CT of the brain is performed from the vertex to the skull base. IV contrast was not administered for this examination. A dose lowering technique was utilized adhering to the principles of ALARA. CT DOSE: 614.27 mGy.cm FINDINGS: No intra or extra-axial mass lesions are visualized. There is no CT evidence of acute cortical infarction. There is no evidence of midline shift. There is no acute hemorrhage. No calvarial fractures are visualized. There are patchy white matter hypodensities likely on a small vessel basis. There is no evidence of pathologic ventricular dilatation. There is no evidence of acute sinusitis IMPRESSION: No acute intracranial findings Electronically signed by: David Rodriguez M.D. 03/13/2017 6:49 AM Dictated Date/Time: 03/13/2017 6:48 AM
--- NOTE | 2017-03-16 12:06 | Pharmacy Progress Note ---
ED Pharmacist Culture FollowUp Date of Service: Mar 16, 2017. Patient was sent home with a prescription for Ciprofloxacin 500mg PO BID x 7 days, which should cover the CoN Staph growing from the patient's URINE culture (I spoke with Jay in [facility] to determine if sensitivity was tested and it was).
== END 2017-03-13 04:01 | disposition left against medical advice (07) ==
LOC: EDBD 22:12 → C.EDA 22:13
DX: R51 Headache (principal); R42 Dizziness and giddiness; R11.2 Nausea with vomiting, unspecified; N39.0 Urinary tract infection, site not specified; R79.89 Other specified abnormal findings of blood chemistry; I45.10 Unspecified right bundle-branch block; N18.3 Chronic kidney disease, stage 3 (moderate); E11.22 Type 2 diabetes mellitus with diabetic chronic kidney disease; E03.9 Hypothyroidism, unspecified; J44.9 Chronic obstructive pulmonary disease, unspecified; F17.210 Nicotine dependence, cigarettes, uncomplicated; Z82.49 Family history of ischemic heart disease and other diseases of the circulatory system; Z80.0 Family history of malignant neoplasm of digestive organs; Z82.3 Family history of stroke; Z95.5 Presence of coronary angioplasty implant and graft

== ENCOUNTER → 2017-06-29 | Outpatient (CLI) | payer OTHER, MEDICARE ==
[~2017-06-29] MED LIST changes: -ASPI81TA28 PO; +CIPR-255 PO; -CLOP1TAB15 PO; -GLIP-199 PO; -LEVO175T3 PO; -NTRGSL/4 UT; -POLYSOL4 OPR; -ZNTT/150 PO
--- NOTE | 2017-06-29 13:21 | DIAGNOSTIC IMAGING REPORT ---
(CHEST) THORAX WITHOUT CT DOSE: 338.32 mGycm HISTORY: C34.90 Adenocarcinoma of lung, stage 1 [id number] TECHNIQUE: Multiaxial CT images of the chest were performed without contrast. A dose lowering technique was utilized adhering to the principles of ALARA. COMPARISON: Outside hospital chest CT 12/05/2016. FINDINGS: There again noted postoperative changes consistent with a prior right upper lobectomy. A few linear scarlike densities within the right lung remain stable. There are suture material within the right hilum and along the right mediastinal border. Trace mucoid material within the right mainstem bronchus. Emphysema. A few scattered subpleural nodular densities are again noted within the lungs. These are not simply changed and are likely benign. Dominant subpleural nodule within the right lower lobe on image 127 measures 4 mm. No new or suspicious pulmonary nodules identified. Old, healed right-sided rib fractures. No suspicious lytic or blastic osseous lesions. Limited views of the upper abdomen demonstrate a normal liver and spleen. No mediastinal or hilar lymphadenopathy. Calcified subcarinal lymph nodes are again noted. Calcified plaque within the aortic arch. Normal caliber thoracic aorta. No pneumothorax. No pleural effusions. IMPRESSION: 1. No significant change compared the prior study. 2. No evidence for metastatic disease within the chest. 3. Prior right upper lobectomy. Electronically signed by: Miko Vazquez M.D. 06/29/2017 1:20 PM Dictated Date/Time: 06/29/2017 1:02 PM
== END | disposition home or self-care (01) ==
LOC: C.CTS 12:17
PROVIDERS: ATTEND Surgery
DX: C34.90 Malignant neoplasm of unspecified part of unspecified bronchus or lung (principal)

== ENCOUNTER 2018-01-04 11:41 | Inpatient (IN) | payer OTHER, MEDICARE ==
[~2018-01-04] VITALS: Ht 177.8 cm; Wt 83.5 kg
[~2018-01-04 11:41] MED LIST changes: +ASPI81TA28 PO; -CIPR-255 PO; +CLOP1TAB15 PO; +GLIP-197 PO; +LEVO200T6 PO; +NTRGSL/4 UT; +RANI150T3 PO
[2018-01-04] MEDS ORDERED: SODIUM CHLORIDE 0.9% 1000ML 1,000 ML IV STA (12:08)
--- NOTE | 2018-01-04 12:28 | DIAGNOSTIC IMAGING REPORT ---
SINGLE VIEW CHEST CLINICAL HISTORY: Generalized weakness. FINDINGS: An AP, portable, upright chest radiograph is compared to study dated 10/22/2017 and correlated with chest CT dated 06/29/2017. The examination is degraded by portable technique and patient rotation. The heart is enlarged and there is atherosclerotic calcification of the thoracic aorta. The pulmonary vasculature is noncongested. Emphysema and chronic interstitial thickening are similar to previous. There is volume loss and postoperative change consistent with previous right-sided pulmonary resection. No airspace consolidation is identified typical for pneumonia. No large pleural effusion or pneumothorax is seen. The skeletal structures are osteopenic. Degenerative change is noted throughout the thoracic spine. IMPRESSION: 1. Cardiomegaly and emphysema with no acute cardiopulmonary abnormality. 2. There are postoperative changes from right upper lobe resection. Electronically signed by: Valdemar Low M.D. 01/04/2018 12:26 PM Dictated Date/Time: 01/04/2018 12:22 PM
[2018-01-04] MEDS ORDERED: ATOR-24 PO (12:38)
[2018-01-04] MEDS ORDERED: GLIP10TA9 PO (12:38)
[2018-01-04 12:55] LABS: BASO % 0.2 %; BASO ABS # 0.03 K/uL (0-0.2); EOS % 0.3 %; EOS ABS # 0.05 K/uL (0-0.5); HEMATOCRIT 48.4 % (42-52); HEMOGLOBIN 16.8 g/dL (14.0-18.0); IG# 0.36 K/uL (0.00-0.02); LYMPH % 11.7 %; MEAN CELL VOLUME 99.6 fL (80-100); MEAN CORPUSCULAR HEMOGLOBIN 34.6 pg (25-34); MEAN CORPUSCULAR HGB CONC 34.7 g/dl (32-36); MEAN PLATELET VOLUME 10.4 fL (7.4-10.4); MONO % 5.8 %; MONO ABS # 0.89 K/uL (0.11-0.59); NEUT % 79.7 %; PLATELET COUNT 212 K/uL (130-400); RED CELL DISTRIBUTION WIDTH SD 51.2 fL (36.4-46.3); WHITE BLOOD COUNT 15.33 K/uL (4.8-10.8)
[2018-01-04 13:17] LABS: PTT PATIENT 26.4 SECONDS (21.0-31.0)
--- NOTE | 2018-01-04 13:34 | DIAGNOSTIC IMAGING REPORT ---
HEAD WITHOUT CONTRAST (CT) CLINICAL HISTORY: 72 years-old Male presenting with EVALUATE WEAKNESS. TECHNIQUE: Multidetector CT imaging of the head was performed without the use of intravenous contrast. IV contrast: None. A dose lowering technique was used consistent with the principles of ALARA (as low as reasonably achievable). COMPARISON: 03/13/2017. CT DOSE (mGy.cm): The estimated cumulative dose is 1277.12 mGycm. 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 Ventricles and sulci normal in size. Periventricular and subcortical white matter hypoattenuation, nonspecific but likely indicative of chronic small vessel ischemic change. Old lacunar infarcts in the basal ganglia. No mass effect or midline shift. No hemorrhage or acute territorial infarct. No extra-axial fluid collection. Paranasal sinuses and mastoid air cells clear. Calvarium intact. Intracranial atherosclerosis noted. Bilateral [place] lenses of the globes are absent. IMPRESSION: 1. Chronic small vessel ischemic change. No acute intracranial abnormality. 2. Basal ganglia lacunar infarcts are chronic though new from prior. Electronically signed by: Nick Adame M.D. 01/04/2018 1:33 PM Dictated Date/Time: 01/04/2018 1:28 PM
[2018-01-04 13:39] LABS: ALBUMIN 3.7 gm/dl (3.4-5.0); CALCIUM 8.6 mg/dl (8.5-10.1); CKMB 3.7 ng/ml (0.5-3.6); CREATININE 1.39 mg/dl (0.60-1.40); TOTAL PROTEIN 7.1 gm/dl (6.4-8.2)
[2018-01-04] MEDS ORDERED: ASPIRIN 81 MG CHEW PO STA (13:44)
[2018-01-04] MEDS ORDERED: NovoLIN-R INSULIN PER UNIT CHARGE IV STA (13:52)
[2018-01-04 14:12] LABS: POTASSIUM 4.6 mmol/L (3.5-5.1)
--- NOTE | 2018-01-04 14:36 | History and Physical ---
History & Physical Date & Time of Service: Jan 04, 2018 at 14:36 Chief Complaint: Chest Pain/Confusion Primary Care Physician: Vik Charles M.D. History of Present Illness Source: patient, spouse The patient is a 72 year old male who presents to the Emergency Room after malaise in the [facility]. Patient was reportedly having poor appetite at home but then ate many foods at the fair. Also history of nonadherence to home dose glipizide for diabetes. Patient received aspirin 324 mg in the ED for concern of cardiac chest pain given history of CAD with stents but patient denied chest pain when assessed at bedside by hospitalist. He described the chest discomfort at the fair as a pain all over the body from chest to abdomen to back and it was a feeling like the body was "closing down on on him." Patient is a poor historian about medical issues and other health history from his . No acute complaints of symptoms at the bedside when assessed by hospitalist. Patient was found to be hyperglycemic. 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 (19) VA (myocardial infarction) (20) Nausea (21) Nausea & vomiting (22) Pneumonia (23) Precordial chest pain (24) Primary cancer of right upper lobe of lung (25) Retrosternal chest pain (26) Right bundle branch block (RBBB) (27) Urinary tract infection (28) Vertigo Surgical Problems: (1) History of left-sided carotid endarterectomy (2) S/P AAA repair (3) S/P angioplasty (4) S/P appendectomy (5) S/P cardiac catheterization (6) S/P colonoscopy with polypectomy (7) S/P coronary artery stent placement (8) S/p cystourethroscopy (9) S/P laparoscopic cholecystectomy (10) S/p nephrectomy (11) S/P rotator cuff repair (12) S/P tonsillectomy and adenoidectomy Family History FH: CAD (coronary artery disease) FATHER FH: colon cancer MOTHER AUNT Hypertension Stroke GRANDFATHER Social History Smoking Status: Current Every Day Smoker Drug Use: none Marital Status: Housing status: lives with family Occupational Status: retired Immunizations History of Influenza Vaccine: Unknown History of Tetanus Vaccine?: Unknown Tetanus Immunization Date: Jun 17, 2005 History of Pneumococcal: Unknown History of Hepatitis B Vaccine: Unknown Allergies Coded Allergies: Iodinated Diagnostic Agents (Verified Allergy, Intermediate, swelling, ) Home Medications Scheduled Aspirin (Aspirin Ec), 81 MG PO DAILY Atorvastatin (Lipitor), 40 MG PO DAILY Glipizide (Glucotrol), 10 MG PO DAILY Levothyroxine Sodium (Levothyroxine Sodium), 200 MCG PO DAILY Nitroglycerin (Nitrostat), 0.4 MG UT PRN Ranitidine Hcl (Zantac), 150 MG PO DAILY Review of Systems Constitutional: No fever Eyes: No worsening of vision ENT: No hearing loss Respiratory: No cough, No wheezing, No shortness of breath, No dyspnea on exertion, No dyspnea at rest Cardiovascular: + problem reported (generalized pain all over the chest abdomen and back at the fair. no pain currently) Abdomen: + problem reported (generalized pain all over the chest abdomen and back at the fair. no pain currently), No nausea, No vomiting, No diarrhea, No constipation Musculoskeletal: No joint pain, No muscle pain, No swelling Genitourinary - Male: No dysuria Neurologic: No paralysis, No numbness/tingling Psychiatric: No substance abuse Endocrine: No fatigue Hematologic / Lymphatic: No abnormal bleeding/bruising Integumentary: No rash, No itch Physical Exam Vital Signs Date Time Temp Pulse Resp B/P (MAP) Pulse Ox O2 Delivery O2 Flow Rate FiO2 01/04/18 14:00 100 01/04/18 13:06 88 Room Air 01/04/18 11:55 109 01/04/18 11:45 94 Room Air 01/04/18 11:45 94 Room Air 01/04/18 11:45 37.3 105 18 122/80 94 Room Air General Appearance: no apparent distress Head: normocephalic, atraumatic Eyes: normal inspection, EOMI, sclerae normal ENT: hearing grossly normal, pharynx normal Neck: no JVD, trachea midline Respiratory/Chest: chest non-tender, lungs clear, normal breath sounds, no respiratory distress, no accessory muscle use Cardiovascular: no JVD, + pertinent finding (mild tachycardia) Abdomen/GI: normal bowel sounds, non tender, soft, no organomegaly, no pulsatile mass Back: normal inspection, no CVA tenderness, no muscle spasm Extremities/Musculoskelatal: no calf tenderness Neurologic/Psych: statistical assistant II-XII nml as tested, no motor/sensory deficits, alert, normal mood/affect, + pertinent finding (poor historian, history of dementia) Skin: warm/dry Diagnostics Laboratory Results Results Past 24 Hours Test 01/04/18 12:45 Range/Units White Blood Count 15.33 4.8-10.8 K/uL Red Blood Count 4.86 4.7-6.1 M/uL Hemoglobin 16.8 14.0-18.0 g/dL Hematocrit 48.4 42-52 % Mean Corpuscular Volume 99.6 80-100 fL Mean Corpuscular Hemoglobin 34.6 25-34 pg Mean Corpuscular Hemoglobin Concent 34.7 32-36 g/dl Platelet Count 212 130-400 K/uL Mean Platelet Volume 10.4 7.4-10.4 fL Neutrophils (%) (Auto) 79.7 % Lymphocytes (%) (Auto) 11.7 % Monocytes (%) (Auto) 5.8 % Eosinophils (%) (Auto) 0.3 % Basophils (%) (Auto) 0.2 % Neutrophils # (Auto) 12.20 1.4-6.5 K/uL Lymphocytes # (Auto) 1.80 1.2-3.4 K/uL Monocytes # (Auto) 0.89 0.11-0.59 K/uL Eosinophils # (Auto) 0.05 0-0.5 K/uL Basophils # (Auto) 0.03 0-0.2 K/uL RDW Standard Deviation 51.2 36.4-46.3 fL RDW Coefficient of Variation 14.0 11.5-14.5 % Immature Granulocyte % (Auto) 2.3 % Immature Granulocyte # (Auto) 0.36 0.00-0.02 K/uL Prothrombin Time 10.6 9.0-12.0 SECONDS Prothromb Time International Ratio 1.0 0.9-1.1 Activated Partial Thromboplast Time 26.4 21.0-31.0 SECONDS Partial Thromboplastin Ratio 1.0 Sodium Level 133 136-145 mmol/L Potassium Level 4.6 3.5-5.1 mmol/L Chloride Level 97 98-107 mmol/L Carbon Dioxide Level 28 21-32 mmol/L Anion Gap 8.0 3-11 mmol/L Blood Urea Nitrogen 22 7-18 mg/dl Creatinine 1.39 0.60-1.40 mg/dl Est Creatinine Clear Calc Drug Dose 50.1 ml/min Estimated GFR () 57.9 Estimated GFR (Non- 49.9 BUN/Creatinine Ratio 15.7 10-20 Random Glucose 353 70-99 mg/dl Calcium Level 8.6 8.5-10.1 mg/dl Magnesium Level 2.2 1.8-2.4 mg/dl Total Bilirubin 0.7 0.2-1 mg/dl Direct Bilirubin 0-0.2 mg/dl Aspartate Amino Transf (AST/SGOT) 20 15-37 U/L Alanine Aminotransferase (ALT/SGPT) 25 12-78 U/L Alkaline Phosphatase 118 45-117 U/L Total Creatine Kinase 89 39-308 U/L Creatine Kinase MB 3.7 0.5-3.6 ng/ml Creatine Kinase MB Ratio 4.2 0-3.0 Troponin I 0.091 0-0.045 ng/ml Total Protein 7.1 6.4-8.2 gm/dl Albumin 3.7 3.4-5.0 gm/dl Lipase 96 73-393 U/L Beta-Hydroxybutyric Acid 0.2-2.81 mg/dL Thyroid Stimulating Hormone (TSH) 1.350 0.300-4.500 uIu/ml Chemistry Specimen Hemolysis Impression Assessment and Plan Hyperglycemia likely due to medication non adherence as per patient's patient should be taking glipizide 10 mg daily at home but sometimes declines recently went to [employer] and may have eaten foods high in sugars received 10 units of regular insulin in the ED when blood sugar glucose 353 on comprehensive metabolic panel outpatient lab 12/24/2017 HEMOGLOBIN, A1C 8.1 will repeat HbA1c as inpatient ordered glipizide 10 mg to ensure some baseline glucose control likely will need additional insulin pharmacy glycemic control consulted possible Hypertension in the ED on admission systolic 122. not on blood pressure medications at home as per his as his blood pressure generally controlled when initially seen buy hospitalist systolic blood pressure noted to be 185 and asked nurse to stop IV fluids enalaprilat IV ordered in case further blood pressure control needed however on repeat without medication the blood pressure 128 systolic hold enalaprilat IV continue to monitor BP History of CAD with stents / history of dyslipidemia with elevate triglycerides trend troponins in the ED when evaluated by hospitalist patient denied chest pain was given aspirin 324 mg in the ED monitor on telemetry continue aspirin and statin evaluate whether patient needs to be on aspirin and plavix Mildly tachycardic to 105 when evaluated by hospitalist in the ED hold off Levothyroxine for now. normal TSH History of Hypothyroidism on Levothyroxine hold off medication and monitor heart rate Leukocytosis WBC on admission 15. Infection workup - send UA and blood cultures currently afebrile consider whether antibiotics needed History of malignancies in the past and in remission as per his History of one kidney due to nephrectomy in the past review of outpatient labs suggests chronic kidney disease monitor renal function History of Vascular dementia patient is a poor historian Yodit [phone] Code Status: after discussion with patient and his , their wishes are DO NOT INTUBATE however medical team can do Chest Compressions and Defibrillations if needed DVT ppx Resuscitation Status VTE Prophylaxis Will order VTE Prophylaxis: Yes
[2018-01-04] MEDS ORDERED: DEXTROSE 50% 50 ML SYR IV PRN (14:45)
[2018-01-04] MEDS ORDERED: GLUCOSE 10 TABS/TUBE PO PRN (14:45)
[2018-01-04] MEDS ORDERED: GLUCOSE 40% GEL 15 GM TUBE PO PRN (14:45)
[2018-01-04] MEDS ORDERED: CARBOHYDRATES FOR HYPOGLYCEMIA PO PRN (14:45)
[2018-01-04] MEDS ORDERED: GLUCAGON FOR INJ 1 MG VIAL SQ PRN (14:45)
[2018-01-04] MEDS ORDERED: PHARMACY GLYCEMIC MGMT CONSULT SCH (14:57)
[2018-01-04 16:00] VITALS: BP 161/99; PULSE 97; TEMP 36.6; O2SAT 96; Ht 177.8 cm; Wt 83.5 kg
[2018-01-04] MEDS ORDERED: INSULIN ASPART 100 UNITS/ML 3 ML PEN SC SCH (16:00)
--- NOTE | 2018-01-04 16:26 | Pharmacy Progress Note ---
Glycemic Control Intl Consult Date of Service Jan 04, 2018. Scope Glycemic Pharmacist consulted by Dr Hodgson on 01/04/18 for glycemic control and to write orders per [facility] inpatient glycemic control protocol Objective Weight (Kilograms): 84.40 Accuchecks BSG (last 24hrs): Test 01/04/18 12:45 01/04/18 15:17 01/04/18 15:55 Random Glucose 353 mg/dl (70-99) Bedside Glucose 227 mg/dl (70-99) 228 mg/dl (70-99) Laboratory Data (last 24hrs) Test 01/04/18 12:45 Anion Gap 8.0 mmol/L BUN/Creatinine Ratio 15.7 Blood Urea Nitrogen 22 mg/dl Creatinine 1.39 mg/dl Potassium Level 4.6 mmol/L Sodium Level 133 mmol/L White Blood Count 15.33 K/uL Red Blood Count 4.86 M/uL Hemoglobin 16.8 g/dL Hematocrit 48.4 % Mean Corpuscular Volume 99.6 fL Mean Corpuscular Hemoglobin 34.6 pg Mean Corpuscular Hemoglobin Concent 34.7 g/dl Platelet Count 212 K/uL Mean Platelet Volume 10.4 fL Neutrophils (%) (Auto) 79.7 % Lymphocytes (%) (Auto) 11.7 % Monocytes (%) (Auto) 5.8 % Eosinophils (%) (Auto) 0.3 % Basophils (%) (Auto) 0.2 % Neutrophils # (Auto) 12.20 K/uL Lymphocytes # (Auto) 1.80 K/uL Monocytes # (Auto) 0.89 K/uL Eosinophils # (Auto) 0.05 K/uL Basophils # (Auto) 0.03 K/uL HbA1c Test 01/04/18 12:45 Recent Pertinent Medications Outpatient Anti-diabetic Regimen: * Glipizide 10mg daily * A1c = 8.1 % (12/25/17) Risk Factors for Insulin Resistance: * None identified at this time Assessment & Plan ASSESSMENT: * Patient admitted with hyperglycemia secondary to medication non-adherence. Recent HbA1c was 8.1% from outpatient records, indicating suboptimal control. Unclear insulin needs and given liquid diet, will give conservative dose of Lantus. * BSG was 353 upon admission, but trended down to 227 after 10 units of IV insulin given in ED. PLAN FOR INPATIENT GLYCEMIC CONTROL: * Continue outpatient oral diabetes medications per Dr. Hodgson - he wants patient to receive Glipizide 10mg qAM breakfast * Basal insulin with LANTUS SQ BID per scale * 0 units if BSG 119 or less * 5 units if BSG 120-159 * 10 units if BSG 160 or higher * Correctional Insulin with NOVOLOG per scale ACHS or Q6hrs while NPO * Goal Range: Low 110 mg/dL - High 150 mg/dL * Correction Factor: 40 mg/dL/unit * Nutritional / Prandial insulin per carb ratio of 1 unit per 15 grams CHO consumed * Please note that the plan above was derived based on current level of insulin resistance and hospital stress. These recommendations are appropriate for inpatient admission only. Plan of care upon discharge will need to be reassessed to avoid potential outpatient hypo/hyperglycemia. Thank you.
[2018-01-04] MEDS ORDERED: ENALAPRILAT IV 1.25 MG in DEXTROSE 5% 25ML 25 ML IV ONE (16:30)
[2018-01-04] MEDS: INSULIN ASPART 100 UNITS/ML 3 ML PEN SC SCH ×3 (17:37→20:21)
--- NOTE | 2018-01-04 17:43 | EMERGENCY ROOM VISIT NOTE ---
History Report prepared by Jan: Fiona Barone Under the Supervision of: Dr. Germán Sorensen M.D. First contact with patient: 12:01 Chief Complaint: CHEST PAIN Stated Complaint: CHEST PAIN/CONFUSION History of Present Illness The patient is a 72 year old male who presents to the Emergency Room with complaints of an episode of chest pain that onset today. Per , the patient was complaining of chest pain and abdominal pain last night. The patient presents to the ED from the [facility]. His called 911 because he was complaining of chest pain and seemed more confused than normal. She notes that he has a history of dementia and non insulin dependent type 2 diabetes. The patient notes that he doesn't currently have chest pain and that the last time he remembers having pain as last night. Per EMS, the patient's glucose level was 435. The patient notes that he was eating "whatever he could get his hands on at the [facility]". His states that his appetite had been off lately. The patient complains of fatigue and urinary symptoms. Pt denies LOC, headache , fevers, chills, diaphoresis, visual changes, neck pain, chest pain, breathing difficulties, nausea, vomiting, abdominal pain, back pain, melena, hematochezia , numbness, weakness, lymphadenopathy, rash, or other complaints. Per , the patient has a 90% blockage on his right carotid artery pending surgery. Source of History: patient, EMS, nursing staff Onset: today Position: chest Quality: other (pain) Timing: resolved Associated Symptoms: + urinary symptoms, + fatigue Review of Systems See HPI for pertinent positives and negatives. A total of ten systems were reviewed and were otherwise negative. 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 (12) TX (myocardial infarction) (13) Primary cancer of right upper lobe of lung Surgical Problems: (1) History of left-sided carotid endarterectomy (2) S/P AAA repair (3) S/P angioplasty (4) S/P appendectomy (5) S/P cardiac catheterization (6) S/P colonoscopy with polypectomy (7) S/P coronary artery stent placement (8) S/p cystourethroscopy (9) S/P laparoscopic cholecystectomy (10) S/p nephrectomy (11) S/P rotator cuff repair (12) S/P tonsillectomy and adenoidectomy Family History FH: CAD (coronary artery disease) FATHER FH: colon cancer MOTHER AUNT Hypertension Stroke GRANDFATHER Social History Smoking Status: Current Every Day Smoker Alcohol Use: none Drug Use: none Marital Status: Housing Status: lives with significant other Occupation Status: retired Current/Historical Medications Scheduled Aspirin (Aspirin Ec), 81 MG PO DAILY Atorvastatin (Lipitor), 40 MG PO DAILY Glipizide (Glucotrol), 10 MG PO DAILY Levothyroxine Sodium (Levothyroxine Sodium), 200 MCG PO DAILY Nitroglycerin (Nitrostat), 0.4 MG UT PRN Ranitidine Hcl (Zantac), 150 MG PO DAILY Allergies Coded Allergies: Iodinated Diagnostic Agents (Verified Allergy, Intermediate, swelling, ) Physical Exam Vital Signs Date Time Temp Pulse Resp B/P (MAP) Pulse Ox O2 Delivery O2 Flow Rate FiO2 01/04/18 14:30 101 16 125/85 97 Nasal Cannula 2.0 01/04/18 14:00 100 01/04/18 13:06 88 Room Air 01/04/18 11:55 109 01/04/18 11:45 94 Room Air 01/04/18 11:45 94 Room Air 01/04/18 11:45 37.3 105 18 122/80 94 Room Air Physical Exam GENERAL: Awake, alert, tired-appearing, in no distress HENT: Normocephalic, atraumatic. Oropharynx unremarkable. EYES: Normal conjunctiva. Sclera non-icteric. NECK: Supple. No nuchal rigidity. FROM. No masses. RESPIRATORY: Clear to auscultation. No wheezes. No rales. Normal respiratory effort. CARDIAC: Borderline tachycardic rate. Normal rhythm. No murmurs. No rubs. Extremities warm and well perfused. Pulses equal. No JVD. GI: Soft, non-distended. No tenderness to palpation. No rebound or guarding. No masses. RECTAL: Deferred. MUSCULOSKELETAL: Atraumatic. Chest examination reveals no tenderness. The back is symmetrical on inspection without obvious abnormality. There is no CVA tenderness to palpation. No joint edema. LOWER EXTREMITIES: Calves are equal size bilaterally and non-tender. No edema. No discoloration. NEURO: Slightly confused on fine detail otherwise normal sensorium. No focal sensory or motor deficits noted. Normal [id number]. Normal rapid alternating movements. SKIN: No rash or jaundice noted. Medical Decision & Procedures ER Provider Diagnostic Interpretation: Radiology results as stated below per my review and radiologist interpretation: HEAD WITHOUT CONTRAST (CT) CLINICAL HISTORY: 72 years-old Male presenting with EVALUATE WEAKNESS. TECHNIQUE: Multidetector CT imaging of the head was performed without the use of intravenous contrast. IV contrast: None. A dose lowering technique was used consistent with the principles of ALARA (as low as reasonably achievable). COMPARISON: 03/13/2017. CT DOSE (mGy.cm): The estimated cumulative dose is 1277.12 mGycm. FINDINGS: Jig Boring [employer] topogram: Unremarkable. Ventricles and sulci normal in size. Periventricular and subcortical white matter hypoattenuation, nonspecific but likely indicative of chronic small vessel ischemic change. Old lacunar infarcts in the basal ganglia. No mass effect or midline shift. No hemorrhage or acute territorial infarct. No extra-axial fluid collection. Paranasal sinuses and mastoid air cells clear. Calvarium intact. Intracranial atherosclerosis noted. Bilateral [place] lenses of the globes are absent. IMPRESSION: 1. Chronic small vessel ischemic change. No acute intracranial abnormality. 2. Basal ganglia lacunar infarcts are chronic though new from prior. Electronically signed by: Nick Adame M.D. 01/04/2018 1:33 PM Dictated Date/Time: 01/04/2018 1:28 PM SINGLE VIEW CHEST CLINICAL HISTORY: Generalized weakness. FINDINGS: An AP, portable, upright chest radiograph is compared to study dated 10/22/2017 and correlated with chest CT dated 06/29/2017. The examination is degraded by portable technique and patient rotation. The heart is enlarged and there is atherosclerotic calcification of the thoracic aorta. The pulmonary vasculature is noncongested. Emphysema and chronic interstitial thickening are similar to previous. There is volume loss and postoperative change consistent with previous right-sided pulmonary resection. No airspace consolidation is identified typical for pneumonia. No large pleural effusion or pneumothorax is seen. The skeletal structures are osteopenic. Degenerative change is noted throughout the thoracic spine. IMPRESSION: 1. Cardiomegaly and emphysema with no acute cardiopulmonary abnormality. 2. There are postoperative changes from right upper lobe resection. Electronically signed by: Valdemar Low M.D. 01/04/2018 12:26 PM Dictated Date/Time: 01/04/2018 12:22 PM Laboratory Results 01/04/18 12:45 Red Blood Count 4.86, Mean Corpuscular Volume 99.6, Mean Corpuscular Hemoglobin 34.6, Mean Corpuscular Hemoglobin Concent 34.7, Mean Platelet Volume 10.4, Neutrophils (%) (Auto) 79.7, Lymphocytes (%) (Auto) 11.7, Monocytes (%) (Auto) 5.8, Eosinophils (%) (Auto) 0.3, Basophils (%) (Auto) 0.2, Neutrophils # (Auto) 12.20, Lymphocytes # (Auto) 1.80, Monocytes # (Auto) 0.89, Eosinophils # (Auto) 0.05, Basophils # (Auto) 0.03 01/04/18 12:45 Test 01/04/18 12:45 White Blood Count 15.33 K/uL (4.8-10.8) Red Blood Count 4.86 M/uL (4.7-6.1) Hemoglobin 16.8 g/dL (14.0-18.0) Hematocrit 48.4 % (42-52) Mean Corpuscular Volume 99.6 fL (80-100) Mean Corpuscular Hemoglobin 34.6 pg (25-34) Mean Corpuscular Hemoglobin Concent 34.7 g/dl (32-36) Platelet Count 212 K/uL (130-400) Mean Platelet Volume 10.4 fL (7.4-10.4) Neutrophils (%) (Auto) 79.7 % Lymphocytes (%) (Auto) 11.7 % Monocytes (%) (Auto) 5.8 % Eosinophils (%) (Auto) 0.3 % Basophils (%) (Auto) 0.2 % Neutrophils # (Auto) 12.20 K/uL (1.4-6.5) Lymphocytes # (Auto) 1.80 K/uL (1.2-3.4) Monocytes # (Auto) 0.89 K/uL (0.11-0.59) Eosinophils # (Auto) 0.05 K/uL (0-0.5) Basophils # (Auto) 0.03 K/uL (0-0.2) RDW Standard Deviation 51.2 fL (36.4-46.3) RDW Coefficient of Variation 14.0 % (11.5-14.5) Immature Granulocyte % (Auto) 2.3 % Immature Granulocyte # (Auto) 0.36 K/uL (0.00-0.02) Prothrombin Time 10.6 SECONDS (9.0-12.0) Prothromb Time International Ratio 1.0 (0.9-1.1) Activated Partial Thromboplast Time 26.4 SECONDS (21.0-31.0) Partial Thromboplastin Ratio 1.0 Anion Gap 8.0 mmol/L (3-11) Est Creatinine Clear Calc Drug Dose 50.1 ml/min Estimated GFR () 57.9 Estimated GFR (Non- 49.9 BUN/Creatinine Ratio 15.7 (10-20) Calcium Level 8.6 mg/dl (8.5-10.1) Magnesium Level 2.2 mg/dl (1.8-2.4) Total Bilirubin 0.7 mg/dl (0.2-1) Direct Bilirubin mg/dl (0-0.2) Aspartate Amino Transf (AST/SGOT) 20 U/L (15-37) Alanine Aminotransferase (ALT/SGPT) 25 U/L (12-78) Alkaline Phosphatase 118 U/L (45-117) Total Creatine Kinase 89 U/L (39-308) Creatine Kinase MB 3.7 ng/ml (0.5-3.6) Creatine Kinase MB Ratio 4.2 (0-3.0) Pro-B-Type Natriuretic Peptide 1466 pg/ml (0-900) Total Protein 7.1 gm/dl (6.4-8.2) Albumin 3.7 gm/dl (3.4-5.0) Lipase 96 U/L (73-393) Thyroid Stimulating Hormone (TSH) 1.350 uIu/ml (0.300-4.500) Chemistry Specimen Hemolysis Laboratory results reviewed by me Medications Administered Medications (Trade) Dose Ordered Sig/Chari Route Start Time Stop Time Status Last Admin Dose Admin Sodium Chloride 1,000 ml @ 125 mls/hr Q8H STAT IV 01/04/18 12:08 01/04/18 14:42 DC 01/04/18 13:57 125 MLS/HR Aspirin (Aspirin Chew) 324 mg NOW STAT PO 01/04/18 13:44 01/04/18 13:45 DC 01/04/18 13:57 324 MG Insulin Human Regular (novoLIN-R U-100 PER UNIT) 10 units NOW STAT IV 01/04/18 13:52 01/04/18 13:54 DC 01/04/18 14:01 10 UNITS ECG Per My Interpretation Indication: chest pain Rate (beats per minute): 109 Rhythm: sinus tachycardia Findings: RBBB, other (Inferior q waves, no ST elevation) ED Course 1205: The patient was evaluated in room C11. A complete history and physical exam was performed. 1208: Ordered Sodium Chloride 1,000 ml @ 125 mls/hr IV. 1300: Upon reexamination, the patient was resting comfortably. I discussed the test results and treatment plan with him. The patient will be evaluated for further management. 1344: Ordered Aspirin 324 mg PO. 1351: Upon reexamination, the patient was resting comfortably. I discussed the test results and treatment plan with patient's and family. The patient will be evaluated for further management. 1352: Ordered Insulin Human Regular 10 units IV. 1353: Discussed the patient's case with Tiesha Rodriguez PA-C, Hospitalist Gela. The patient will be evaluated for further treatment and disposition. Medical Decision Prior records/ancillary studies reviewed and summarized above. Nursing notes reviewed and agree them. Additional history obtained from the patient's The patient's history was concerning for altered mental status. Differential diagnosis: Etiologies such as infection, hypoglycemia, electrolyte abnormalities, cardiac sources, intracerebral event, toxicologic, neurologic, as well as others were entertained. Physical examination: As above. Nonfocal. ER treatment provided: IV Lock Normal saline hydration at 125 mL an hour. Oral aspirin Supplemental oxygen IV insulin On reassessment the patient felt better. Diagnostics interpretation by me: ECG: No acute ischemia or dysrhythmia The labs revealed a mild leukocytosis on CBC. Chemistry panel revealed moderate hyperglycemia. The patient was found to have an elevated troponin. Urinalysis was pending. Imaging studies: CT scan and chest x-ray as above. The patient has hyperglycemia, altered mental status, complaint of chest pain and had an elevated troponin. Further management will be necessary. Evaluation of his urinalysis will also be necessary. Consultation: A consultation was placed with the hospitalist. The case was discussed and diagnostics were reviewed. The patient was evaluated in the ER for further treatment. Medication Reconcilliation Current Medication List: was personally reviewed by me Blood Pressure Screening Patient's blood pressure: Normal blood pressure Consults Time Called: 1352 Consulting Physician: Tiesha Rodriguez PA-C, Hospitalkristin Ren. Returned Call: [phone]: Discussed the patient's case with Tiesha Rodriguez PA-C, Hospitalist Gela. The patient will be evaluated for further treatment and disposition. Impression Primary Impression: Altered mental status Additional Impressions: Elevated troponin Hypoglycemia Leukocytosis Scribe Attestation The scribe's documentation has been prepared under my direction and personally reviewed by me in its entirety. I confirm that the note above accurately reflects all work, treatment, procedures, and medical decision making performed by me. Departure Information Dispostion Being Evaluated By Hospitalist Vik Wasserman M.D. (PCP) Patient Instructions My [facility] Problem Qualifiers
[2018-01-04 18:53] VITALS: BP 146/88; PULSE 92; TEMP 37.4; O2SAT 96
[2018-01-04] MEDS ORDERED: PNEUMOCOCCAL POLYSACCHARIDES 25 MCG/0.5 ML VIAL/SYR IM. ONE (19:30)
[2018-01-04] MEDS ORDERED: PNEUMOCOCCAL ADMINISTRATION CHARGE ONE (19:30)
[2018-01-04] MEDS: INSULIN GLARGINE SOLOSTAR 100 UNITS/ML 3 ML PEN SC SCH (20:22)
[2018-01-04 23:39] VITALS: BP 172/115; PULSE 95; TEMP 37.6; O2SAT 97
[2018-01-05] VITALS (11 sets, daily range): BP systolic 87–144; BP diastolic 59–86; PULSE 65–90; TEMP 36.9–37.3; O2SAT 93–97
[2018-01-05] MEDS ORDERED: CLONIDINE HCL 0.1 MG TAB PO PRN
[2018-01-05 02:27] LABS: BASO % 0.3 %; BASO ABS # 0.04 K/uL (0-0.2); EOS % 0.6 %; EOS ABS # 0.08 K/uL (0-0.5); HEMATOCRIT 47.5 % (42-52); HEMOGLOBIN 16.3 g/dL (14.0-18.0); IG# 0.32 K/uL (0.00-0.02); LYMPH % 15.7 %; MEAN CELL VOLUME 99.2 fL (80-100); MEAN CORPUSCULAR HGB CONC 34.3 g/dl (32-36); MEAN PLATELET VOLUME 10.2 fL (7.4-10.4); MONO % 5.1 %; MONO ABS # 0.71 K/uL (0.11-0.59); NEUT ABS # 10.63 K/uL (1.4-6.5); PLATELET COUNT 190 K/uL (130-400); RED CELL DISTRIBUTION WIDTH CV 13.8 % (11.5-14.5); RED CELL DISTRIBUTION WIDTH SD 49.6 fL (36.4-46.3); WHITE BLOOD COUNT 13.98 K/uL (4.8-10.8)
[2018-01-05 02:55] LABS: ALBUMIN 3.4 gm/dl (3.4-5.0); CALCIUM 8.1 mg/dl (8.5-10.1); CREATININE 1.05 mg/dl (0.60-1.40); TOTAL PROTEIN 6.3 gm/dl (6.4-8.2)
[2018-01-05] MEDS: INSULIN ASPART 100 UNITS/ML 3 ML PEN SC SCH ×6 (04:19→20:20)
[2018-01-05 06:39] LABS: HEMOGLOBIN A1C 8.8 % (4.5-5.6)
[2018-01-05] MEDS: ATORVASTATIN 40 MG TAB PO SCH (08:08)
[2018-01-05] MEDS: ASPIRIN 81 MG ECTAB PO SCH (08:09)
[2018-01-05] MEDS: RANITIDINE HCL 150 MG TAB PO SCH (08:09)
[2018-01-05] MEDS: INSULIN GLARGINE SOLOSTAR 100 UNITS/ML 3 ML PEN SC SCH ×2 (08:11→20:21)
[2018-01-05] MEDS ORDERED: LEVOTHYROXINE 200 MCG TAB PO SCH (09:00)
[2018-01-05] MEDS ORDERED: AMLODIPINE BESYLATE 5 MG TAB PO SCH (09:00)
[2018-01-05] MEDS ORDERED: PERFLUTREN LIPID MICROSPHERE (DEFINITY) IV ONE (11:21)
--- NOTE | 2018-01-05 12:34 | Pharmacy Progress Note ---
Pharmacy Glycemic Short Note 2 Date of Service Jan 05, 2018. OUTPATIENT ANTIDIABETIC REGIMEN: * Glipizide 10mg daily * A1c = 8.1 % (12/25/17) Item Value Date Time Bedside Glucose 251 mg/dl H 01/05/18 1119 Bedside Glucose 212 mg/dl H 01/05/18 0718 Bedside Glucose 205 mg/dl H 01/05/18 0416 Bedside Glucose 143 mg/dl H 01/04/18 2359 Random Glucose 187 mg/dl H 01/05/18 0217 Bedside Glucose 184 mg/dl H 01/04/18 195 ASSESSMENT: * Patient admitted with hyperglycemia secondary to medication non-adherence. Recent HbA1c was 8.1% from outpatient records, indicating suboptimal control. * Blood sugars remain above goal, despite having Glipizide + Lantus + Novolog CR and CF * Further titrate Lantus dose up and tighten CR and CF, continue Glipizide as inpatient per Dr Hodgson PLAN FOR INPATIENT GLYCEMIC CONTROL: * Basal insulin - INCREASE * Lantus SQ BID * 0 units BSG < 100mg/dl * 10 units BSG 100-140mg/dl * 15 units BSG > 140mg/dl * Bolus insulin * NovoLog per scale ACHS or Q6hrs while NPO * Goal Range: Low 110 mg/dL - High 140 mg/dL * TIGHTEN: Correction Factor: 20 mg/dL/unit * TIGHTEN: Nutritional / Prandial insulin per carb ratio of 1 unit per 7 grams CHO consumed PLAN FOR DISCHARGE: * At this time patient would benefit from daily Lantus, unknown dose at this time, still titrating, and discontinuing Glipizide, as it does not seem to be helping glycemic control very much.
--- NOTE | 2018-01-05 13:02 | ECHOCARDIOGRAM REPORT ---
*NOTICE TO RECEIVING [employer] This information is strictly Confidential and protected under [place] law. [place] law prohibits you from making any further disclosure of this information unless further disclosure is expressly permitted by the written consent of the person to whom it pertains or is authorized by law. A general authorization for the release of medical or other information is not sufficient for this purpose. Hospital accepts no responsibility if the information is made available to any other person, INCLUDING THE PATIENT. Interpretation Summary * Name: PATRICK MARSHALL Study Date: 01/05/2018 10:33 AM BP: 144/86 mmHg * Patient Location: C.2T\S\S242\S\1 HR: 87 * : 1945 (M/d/yyy) Gender: Male Height: 70 in * Age: 72 yrs Ethnicity: CA Weight: 184 lb * Ordering Physician: Jemal Hodgson * Referring Physician: Self, Referred * Performed By: Micky Yin RDCS * * Reason For Study: Mildly elevated troponins, rule out wall motion abnormalities * BSA: 2.0 m2 * -- Conclusions -- * The left ventricular wall motion is normal. * There is mild concentric left ventricular hypertrophy. * Left ventricular systolic function is normal. * Ejection Fraction = 50-55%. * The right ventricular systolic function is normal. * No significant valvular pathology. Procedure Details * A complete two-dimensional transthoracic echocardiogram was performed (2D, M-mode, Doppler and color flow Doppler). * The study was technically difficult, but visualization was adequate with the administration of Definity ultrasound contrast. * A contrast injection of Definity was performed to improve assessment of LV function. * Contrast was injected into an intravenous site in the right arm. * One vial of Definity ultrasound contrast was diluted in normal saline to a total volume of 10 ml. A total of '3' ml of solution was administered during imaging. * Lot # [id number] of Definity utilized for procedure. * Expiration date . * The attending nurse who injected the contrast agent was Radha Ramires RN. Left Ventricle * The left ventricle is normal in size. * There is mild concentric left ventricular hypertrophy. * Left ventricular systolic function is normal. * Ejection Fraction = 50-55%. * The left ventricular wall motion is normal. Right Ventricle * The right ventricle is normal size. * The right ventricular systolic function is normal. Atria * The left atrial size is normal. * Right atrial size is normal. * No ASD detected; PFO is not assessed. Mitral Valve * The mitral valve anatomy is normal. * Significant mitral regurgitation is absent. Tricuspid Valve * The tricuspid valve anatomy is normal. * Significant tricuspid regurgitation is absent. Aortic Valve * The aortic valve is normal in structure and function. * Aortic stenosis is absent. * There is no significant aortic regurgitation. Great Vessels * The aortic root and proximal ascending aorta are normal sized. Pericardium/Pleural * There is no pericardial effusion. MMode 2D Measurements and Calculations IVSd 1.3 cm IVSs 1.6 cm LVIDd 4.3 cm LVIDs 3.0 cm LVPWd 1.3 cm LVPWs 1.7 cm IVS/LVPW 0.99 FS 28.7 % EDV(Teich) 81.8 ml ESV(Teich) 36.3 ml EF(Teich) 55.6 % EDV(cubed) 77.9 ml ESV(cubed) 28.3 ml EF(cubed) 63.7 % % IVS thick 27.2 % % LVPW thick 31.8 % LV mass(C)d 200.6 grams LV mass(C)dI 99.6 grams/m\S\2 LV mass(C)s 190.7 grams LV mass(C)sI 94.7 grams/m\S\2 SV(Teich) 45.4 ml SI(Teich) 22.6 ml/m\S\2 SV(cubed) 49.7 ml SI(cubed) 24.6 ml/m\S\2 EPSS 0.78 cm Ao root diam 3.5 cm Ao root area 9.6 cm\S\2 ACS 1.4 cm LA dimension 3.7 cm asc Aorta Diam 3.3 cm LA/Ao 1.0 LVOT diam 2.2 cm LVOT area 3.8 cm\S\2 LVAd ap4 22.2 cm\S\2 LVLd ap4 7.3 cm EDV(MOD-sp4) 55.4 ml EDV(sp4-el) 57.7 ml LVAs ap4 16.0 cm\S\2 LVLs ap4 7.4 cm ESV(MOD-sp4) 29.3 ml ESV(sp4-el) 29.4 ml EF(MOD-sp4) 47.2 % EF(sp4-el) 49.0 % LVAd ap2 24.0 cm\S\2 LVLd ap2 7.0 cm EDV(MOD-sp2) 67.3 ml EDV(sp2-el) 70.0 ml LVAs ap2 17.0 cm\S\2 LVLs ap2 6.8 cm ESV(MOD-sp2) 35.2 ml ESV(sp2-el) 35.9 ml EF(MOD-sp2) 47.6 % EF(sp2-el) 48.7 % LVLd %diff -3.50 % EDV(MOD-bp) 60.1 ml LVLs %diff -7.79 % ESV(MOD-bp) 33.2 ml EF(MOD-bp) 44.7 % SV(MOD-sp4) 26.2 ml SI(MOD-sp4) 13.0 ml/m\S\2 SV(MOD-sp2) 32.1 ml SI(MOD-sp2) 15.9 ml/m\S\2 SV(MOD-bp) 26.9 ml SI(MOD-bp) 13.3 ml/m\S\2 SV(sp4-el) 28.3 ml SI(sp4-el) 14.0 ml/m\S\2 SV(sp2-el) 34.1 ml SI(sp2-el) 16.9 ml/m\S\2 Doppler Measurements and Calculations PA V2 max 64.9 cm/sec PA max PG 1.7 mmHg
--- NOTE | 2018-01-05 18:55 | Progress Note ---
Progress Note Date of Service Jan 05, 2018. Progress Note Subjective: Patient denies chest pain or abdominal pain or shortness of breath Physical Exam General Appearance: no apparent distress Head: normocephalic, atraumatic Eyes: normal inspection, EOMI ENT: hearing grossly normal, pharynx normal Neck: no JVD, trachea midline Respiratory/Chest: chest non-tender, lungs clear, normal breath sounds, no respiratory distress, no accessory muscle use Cardiovascular: no JVD, regular rate Abdomen/GI: normal bowel sounds, non tender, soft, no organomegaly Back: normal inspection, no CVA tenderness, no muscle spasm Extremities/Musculoskelatal: no calf tenderness, no edema Neurologic/Psych: awake and alert, verbal Assessment and Plan Hyperglycemia admission date: likely due to medication non adherence as per patient's ; patient should be taking glipizide 10 mg daily at home but sometimes declines; recently went to [employer] and may have eaten foods high in sugars; received 10 units of regular insulin in the ED when blood sugar glucose 353 on comprehensive metabolic panel outpatient lab 12/24/2017 HEMOGLOBIN, A1C 8.1 will repeat HbA1c as inpatient as 8.8 pharmacy glycemic control consulted Blood sugars remain above goal, despite having Glipizide + Lantus + Novolog CR and CF Further titrate Lantus dose up and tighten CR and CF, continue Glipizide as inpatient per Dr Hodgson PLAN FOR INPATIENT GLYCEMIC CONTROL: * Basal insulin - INCREASE * Lantus SQ BID * 0 units BSG < 100mg/dl * 10 units BSG 100-140mg/dl * 15 units BSG > 140mg/dl * Bolus insulin * NovoLog per scale ACHS or Q6hrs while NPO * Goal Range: Low 110 mg/dL - High 140 mg/dL * TIGHTEN: Correction Factor: 20 mg/dL/unit * TIGHTEN: Nutritional / Prandial insulin per carb ratio of 1 unit per 7 grams CHO consumed Labile blood pressure in the ED on admission systolic 122. not on blood pressure medications at home as per his as his blood pressure generally controlled when initially seen buy hospitalist systolic blood pressure noted to be 185 and asked nurse to stop IV fluids but the blood pressure in the 120s systolic was given clonidine overnight when blood pressure elevated was started on amlodipine 5 mg daily with blood pressure low normotensive will hold further amlodipine for now History of CAD with stents / history of dyslipidemia with elevate triglycerides trend troponins in the ED when evaluated by hospitalist patient denied chest pain was given aspirin 324 mg in the ED monitor on telemetry continue aspirin and statin no wall motion abnormality on echocardiogram 01/05/18 * The left ventricular wall motion is normal. * There is mild concentric left ventricular hypertrophy. * Left ventricular systolic function is normal. * Ejection Fraction = 50-55%. * The right ventricular systolic function is normal. * No significant valvular pathology. Mildly tachycardic to 105 when evaluated by hospitalist in the ED tachycardia has resolved will resume Levothyroxine home dose starting 01/06/18 History of Hypothyroidism on Levothyroxine normal TSH will resume Levothyroxine home dose starting 01/06/18 Leukocytosis WBC on admission 15,000 downtrended to 13,000 without antibiotics and without fever blood cultures from emergency room pending UA still awaiting to be sent History of malignancies in the past and in remission as per his history of LUNG CANCER: Was diagnosed with adenocarcinoma of his right upper lobe that was resected by Dr. Hernandez from [facility] in 01/2016. 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 S/P left radical nephroureterectomy by Dr. 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 CKD. monitor renal function ABDOMINAL AORTIC ANEURYSM: S/P Zenith stent graft repair of his AAA by Dr. Austin 04/06/09. CAROTID DISEASE: s/p left CEA (2000) now with right asymptomatic carotid stenosis at per his outpatient notes 01/09/2018 11:00 AM Presurgical Assessment Education5 [facility] PERIPHERAL VASCULAR DISEASE: History of Underwent recannulization of total right SFA occlusion with angioplasty balloons/stents 10/27/[address] Cali History of Vascular dementia patient is a poor historian Yodit [phone] Code Status: after discussion with patient and his , their wishes are DO NOT INTUBATE however medical team can do Chest Compressions and Defibrillations if needed DVT ppx
[2018-01-06 02:50] VITALS: BP 124/84; PULSE 76; TEMP 37.1; O2SAT 100
[2018-01-06] MEDS ORDERED: LEVOTHYROXINE 200 MCG TAB PO SCH (06:00)
[2018-01-06 07:16] LABS: BASO % 0.3 %; BASO ABS # 0.04 K/uL (0-0.2); EOS % 1.5 %; EOS ABS # 0.21 K/uL (0-0.5); HEMATOCRIT 49.1 % (42-52); HEMOGLOBIN 16.4 g/dL (14.0-18.0); IG# 0.31 K/uL (0.00-0.02); LYMPH % 17.8 %; LYMPH ABS # 2.48 K/uL (1.2-3.4); MEAN CELL VOLUME 98.8 fL (80-100); MEAN CORPUSCULAR HGB CONC 33.4 g/dl (32-36); MEAN PLATELET VOLUME 9.7 fL (7.4-10.4); MONO % 7.9 %; NEUT % 70.3 %; PLATELET COUNT 189 K/uL (130-400); RED CELL DISTRIBUTION WIDTH CV 13.7 % (11.5-14.5); RED CELL DISTRIBUTION WIDTH SD 48.6 fL (36.4-46.3); WHITE BLOOD COUNT 13.94 K/uL (4.8-10.8)
[2018-01-06 07:24] VITALS: BP 123/82; PULSE 86; TEMP 37; O2SAT 90
[2018-01-06] MEDS: INSULIN ASPART 100 UNITS/ML 3 ML PEN SC SCH ×2 (07:58→13:35)
[2018-01-06] MEDS: ATORVASTATIN 40 MG TAB PO SCH (08:00)
[2018-01-06] MEDS: ASPIRIN 81 MG ECTAB PO SCH (08:00)
[2018-01-06] MEDS: RANITIDINE HCL 150 MG TAB PO SCH (08:00)
[2018-01-06] MEDS: INSULIN GLARGINE SOLOSTAR 100 UNITS/ML 3 ML PEN SC SCH (08:04)
[2018-01-06 11:13] VITALS: BP 116/72; PULSE 80; TEMP 36.8; O2SAT 96
--- NOTE | 2018-01-06 12:32 | Pharmacy Progress Note ---
Pharmacy Glycemic Short Note 2 Date of Service Jan 06, 2018. OUTPATIENT ANTIDIABETIC REGIMEN: * Glipizide 10mg daily * A1c = 8.1 % (12/25/17) Item Value Date Time Bedside Glucose 114 mg/dl H 01/06/18 1125 Bedside Glucose 127 mg/dl H 01/06/18 0728 Bedside Glucose 148 mg/dl H 01/05/182010 Bedside Glucose 93 mg/dl 01/05/18 1617 ASSESSMENT: * Patient admitted with hyperglycemia secondary to medication non-adherence. Recent HbA1c was 8.1% from outpatient records, indicating suboptimal control. * Blood sugars at goal, only need to change Lantus dosing slightly to ensure patient gets 12 units Q12 blood sugar at goal PLAN FOR INPATIENT GLYCEMIC CONTROL: * Basal insulin - INCREASE * Lantus SQ BID * 0 units BSG < 100mg/dl * 12 units BSG 100-140mg/dl * 15 units BSG > 140mg/dl * Bolus insulin * NovoLog per scale ACHS or Q6hrs while NPO * Goal Range: Low 110 mg/dL - High 140 mg/dL * Correction Factor: 20 mg/dL/unit * Nutritional / Prandial insulin per carb ratio of 1 unit per 7 grams CHO consumed RECOMMENDATION FOR DISCHARGE: * Recommend starting Lantus 25 units SQ Daily and titrating per outpatient provider. * Recommend discontinuing Glipizide as it does not seem to be helping glycemic control very much.
--- NOTE | 2018-01-06 13:02 | Progress Note ---
Internal Med Progress Note Date of Service: Jan 06, 2018. Provider Documentation: Subjective: Patient denies chest pain or abdominal pain or shortness of breath Physical Exam General Appearance: no apparent distress Head: normocephalic, atraumatic Eyes: normal inspection, EOMI ENT: hearing grossly normal Neck: no JVD, trachea midline Respiratory/Chest: chest non-tender, lungs clear, normal breath sounds, no respiratory distress, no accessory muscle use Cardiovascular: no JVD, regular rate Abdomen/GI: normal bowel sounds, non tender, soft, no organomegaly Extremities/Musculoskelatal: no calf tenderness, no edema Neurologic/Psych: awake and alert, verbal ASSESSMENT & PLAN: Hospital Progress and Discharge Plan Hyperglycemia secondary to poorly controlled Diabetes Mellitus Type 2 admission date: likely due to medication non adherence as per patient's ; patient should be taking glipizide 10 mg daily at home but sometimes declines; recently went to [place] and may have eaten foods high in sugars; received 10 units of regular insulin in the ED when blood sugar glucose 353 on comprehensive metabolic panel outpatient lab 12/24/2017 HEMOGLOBIN, A1C 8.1 will repeat HbA1c as inpatient as 8.8 pharmacy glycemic control consulted and recommends that patient be off glipizide and be on Lantus (glargine insulin) 25 units daily Labile blood pressure in the ED on admission systolic 122. not on blood pressure medications at home as per his as his blood pressure generally controlled when initially seen buy hospitalist systolic blood pressure noted to be 185 and asked nurse to stop IV fluids but the blood pressure in the 120s systolic was given clonidine overnight when blood pressure elevated was started on amlodipine 5 mg daily with blood pressure low normotensive will hold further blood pressure medications History of CAD with stents / history of dyslipidemia with elevate triglycerides trend troponins in the ED when evaluated by hospitalist patient denied chest pain was given aspirin 324 mg in the ED monitor on telemetry continue aspirin and statin no wall motion abnormality on echocardiogram 01/05/18 * The left ventricular wall motion is normal. * There is mild concentric left ventricular hypertrophy. * Left ventricular systolic function is normal. * Ejection Fraction = 50-55%. * The right ventricular systolic function is normal. * No significant valvular pathology. 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 Hernandez from [facility] in 01/2016. 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 S/P left radical nephroureterectomy by Dr. 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 Chronic Kidney Disease ABDOMINAL AORTIC ANEURYSM: S/P Zenith stent graft repair of his AAA by Dr. Austin 04/06/09. CAROTID DISEASE: s/p left CEA (2000) now with right asymptomatic carotid stenosis at per his outpatient notes 01/09/2018 11:00 AM Presurgical Assessment Education5 [facility] Surgery [facility] PERIPHERAL VASCULAR DISEASE: History of Underwent recannulization of total right SFA occlusion with angioplasty balloons/stents 10/27/[address] Cali History of Vascular dementia Discharge instructions Please stop glipizide medication. Use Lantus (glargine insulin) 25 units daily. Monitor blood sugars at least once daily and bring the glucose levels readings to your primary care doctor. Give juice to drink if blood sugar less than 70 and reduce or stop Lantus use for that day. Try to maintain patient's blood sugar between 100 to 200. Follow your primary care doctor's advice on further diabetes management Upcoming appointments 01/09/2018 11:00 AM Presurgical Assessment Education5 [facility] 01/10/2018 2:20 PM Vik Charles MD [facility] Date: 01/17/2018 Time: 7:15 AM Status: Scheduled [place] [facility] [place] [id number] 01/28/2018 1:45 PM Donte Black MD Hematology/Oncology [facility] Vital Signs: Date Time Temp Pulse Resp B/P (MAP) Pulse Ox O2 Delivery O2 Flow Rate FiO2 01/06/18 11:13 36.8 80 18 116/72 (87) 96 01/06/18 08:00 Room Air 01/06/18 07:24 37.0 86 18 123/82 (96) 90 Room Air 01/06/18 02:50 37.1 76 18 124/84 (97) 100 Room Air 01/05/18 22:56 37.3 81 18 119/82 (94) 97 Room Air 01/05/18 20:00 Room Air 01/05/18 18:44 37.0 88 20 96/61 (73) 94 Room Air 01/05/18 16:00 Room Air 01/05/18 15:04 90 23 87/59 (68) 96 Room Air 01/05/18 15:02 90 22 97/63 (74) 95 Room Air 01/05/18 15:01 37.2 81 19 102/68 (79) 93 Room Air Lab Results: Results Past 24 Hours Test 01/05/18 16:17 01/05/18 20:11 01/06/18 02:15 01/06/18 06:39 Range/Units Bedside Glucose 93 148 70-99 mg/dl Urine Color DK YELLOW Urine Appearance CLEAR CLEAR Urine pH 5.0 4.5-7.5 Urine Specific [place] 1.031 1.000-1.030 Urine Protein 2+ NEG Urine Glucose (UA) 2+ NEG Urine Ketones NEG NEG Urine Occult Blood NEG NEG Urine Nitrite NEG NEG Urine Bilirubin NEG NEG Urine Urobilinogen NEG NEG Urine Leukocyte Esterase NEG NEG Urine WBC (Auto) 1-5 0-5 /hpf Urine RBC (Auto) 0-4 0-4 /hpf Urine Hyaline Casts (Auto) 1-5 0-5 /lpf Urine Epithelial Cells (Auto) 5-10 0-5 /lpf Urine Bacteria (Auto) NEG NEG White Blood Count 13.94 4.8-10.8 K/uL Red Blood Count 4.97 4.7-6.1 M/uL Hemoglobin 16.4 14.0-18.0 g/dL Hematocrit 49.1 42-52 % Mean Corpuscular Volume 98.8 80-100 fL Mean Corpuscular Hemoglobin 33.0 25-34 pg Mean Corpuscular Hemoglobin Concent 33.4 32-36 g/dl Platelet Count 189 130-400 K/uL Mean Platelet Volume 9.7 7.4-10.4 fL Neutrophils (%) (Auto) 70.3 % Lymphocytes (%) (Auto) 17.8 % Monocytes (%) (Auto) 7.9 % Eosinophils (%) (Auto) 1.5 % Basophils (%) (Auto) 0.3 % Neutrophils # (Auto) 9.80 1.4-6.5 K/uL Lymphocytes # (Auto) 2.48 1.2-3.4 K/uL Monocytes # (Auto) 1.10 0.11-0.59 K/uL Eosinophils # (Auto) 0.21 0-0.5 K/uL Basophils # (Auto) 0.04 0-0.2 K/uL RDW Standard Deviation 48.6 36.4-46.3 fL RDW Coefficient of Variation 13.7 11.5-14.5 % Immature Granulocyte % (Auto) 2.2 % Immature Granulocyte # (Auto) 0.31 0.00-0.02 K/uL Test 01/06/18 07:28 01/06/18 11:25 Range/Units Bedside Glucose 127 114 70-99 mg/dl Microbiology Results 01/06/18 Urine Culture, Received Pending
[2018-01-06] MEDS ORDERED: INSDGIPEN SC ×2 (14:02→15:08)
[2018-01-06] MEDS ORDERED: BLOO1KIT92 ×2 (14:03→15:08)
[2018-01-06] MEDS ORDERED: LANC-393 ×2 (14:12→15:08)
--- NOTE | 2018-01-06 14:23 | Discharge Instructions ---
Discharge Instructions Date of Service Jan 06, 2018. Admission Reason for Admission: Hyperglycemia; Hypertension Discharge Discharge Diagnosis / Problem: Hyperglycemia secondary to poorly controlled Diabetes Mellitus Type 2 Discharge Goals Goal(s): Improve disease control Activity Recommendations Activity Limitations: per Instructions/Follow-up section . Instructions / Follow-Up Instructions / Follow-Up Hospital Progress and Discharge Plan Hyperglycemia secondary to poorly controlled Diabetes Mellitus Type 2 admission date: likely due to medication non adherence as per patient's ; patient should be taking glipizide 10 mg daily at home but sometimes declines; recently went to [employer] and may have eaten foods high in sugars; received 10 units of regular insulin in the ED when blood sugar glucose 353 on comprehensive metabolic panel outpatient lab 12/24/2017 HEMOGLOBIN, A1C 8.1 will repeat HbA1c as inpatient as 8.8 pharmacy glycemic control consulted and recommends that patient be off glipizide and be on Lantus (glargine insulin) 25 units daily Labile blood pressure in the ED on admission systolic 122. not on blood pressure medications at home as per his as his blood pressure generally controlled when initially seen [facility] hospitalist systolic blood pressure noted to be 185 and asked nurse to stop IV fluids but the blood pressure in the 120s systolic was given clonidine overnight when blood pressure elevated was started on amlodipine 5 mg daily with blood pressure low normotensive will hold further blood pressure medications History of CAD with stents / history of dyslipidemia with elevate triglycerides trend troponins in the ED when evaluated by hospitalist patient denied chest pain was given aspirin 324 mg in the ED monitor on telemetry continue aspirin and statin no wall motion abnormality on echocardiogram 01/05/18 * The left ventricular wall motion is normal. * There is mild concentric left ventricular hypertrophy. * Left ventricular systolic function is normal. * Ejection Fraction = 50-55%. * The right ventricular systolic function is normal. * No significant valvular pathology. 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 Hernandez from [facility] in 01/2016. 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 S/P left radical nephroureterectomy by Dr. 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 Chronic Kidney Disease ABDOMINAL AORTIC ANEURYSM: S/P Zenith stent graft repair of his AAA by Dr. Austin 04/06/09. CAROTID DISEASE: s/p left CEA (2000) now with right asymptomatic carotid stenosis at per his outpatient notes 01/09/2018 11:00 AM Presurgical Assessment Education5 [facility] Surgery [facility] PERIPHERAL VASCULAR DISEASE: History of Underwent recannulization of total right SFA occlusion with angioplasty balloons/stents 10/27/[address] Cali History of Vascular dementia Discharge instructions Please stop glipizide medication. Use Lantus (glargine insulin) 25 units daily. Monitor blood sugars at least once daily and bring the glucose levels readings to your primary care doctor. Give juice to drink if blood sugar less than 70 and reduce or stop Lantus use for that day. Try to maintain patient's blood sugar between 100 to 200. Follow your primary care doctor's advice on further diabetes management Upcoming appointments 01/09/2018 11:00 AM Presurgical Assessment Education5 [facility] 01/10/2018 2:20 PM Vik Charles MD [facility] Date: 01/17/2018 Time: 7:15 AM Status: Scheduled Location: [place] [facility] [place]: [place] [id number] 01/28/2018 1:45 PM Donte Black MD Hematology/Oncology [facility] Current Hospital Diet Patient's current hospital diet: Diabetes Type 2 Diet Discharge Diet Recommended Diet: Diabetes Type 2 Diet Pending Studies Studies pending at discharge: no Laboratory Results 01/06/18 06:39 Red Blood Count 4.97, Mean Corpuscular Volume 98.8, Mean Corpuscular Hemoglobin 33.0, Mean Corpuscular Hemoglobin Concent 33.4, Mean Platelet Volume 9.7, Neutrophils (%) (Auto) 70.3, Lymphocytes (%) (Auto) 17.8, Monocytes (%) (Auto) 7.9, Eosinophils (%) (Auto) 1.5, Basophils (%) (Auto) 0.3, Neutrophils # (Auto) 9.80, Lymphocytes # (Auto) 2.48, Monocytes # (Auto) 1.10, Eosinophils # (Auto) 0.21, Basophils # (Auto) 0.04 01/05/18 02:17 Test 01/04/18 12:45 01/04/18 16:14 01/04/18 16:27 01/05/18 02:17 Prothrombin Time 10.6 SECONDS (9.0-12.0) Prothromb Time International Ratio 1.0 (0.9-1.1) Activated Partial Thromboplast Time 26.4 SECONDS (21.0-31.0) Partial Thromboplastin Ratio 1.0 Estimated Average Glucose 206 mg/dl Hemoglobin A1c 8.8 % (4.5-5.6) Magnesium Level 2.2 mg/dl (1.8-2.4) Direct Bilirubin mg/dl (0-0.2) Total Creatine Kinase 89 U/L (39-308) Creatine Kinase MB 3.7 ng/ml (0.5-3.6) Creatine Kinase MB Ratio 4.2 (0-3.0) Pro-B-Type Natriuretic Peptide 1466 pg/ml (0-900) Lipase 96 U/L (73-393) Thyroid Stimulating Hormone (TSH) 1.350 uIu/ml (0.300-4.500) Chemistry Specimen Hemolysis Beta-Hydroxybutyric Acid 1.90 mg/dL (0.2-2.81) Procalcitonin 0.06 ng/ml (0-0.5) Lactic Acid Level 1.5 mmol/L (0.4-2.0) Anion Gap 7.0 mmol/L (3-11) Est Creatinine Clear Calc Drug Dose 64.7 ml/min Estimated GFR () 81.2 Estimated GFR (Non- 70.1 BUN/Creatinine Ratio 20.8 (10-20) Calcium Level 8.1 mg/dl (8.5-10.1) Total Bilirubin 0.8 mg/dl (0.2-1) Aspartate Amino Transf (AST/SGOT) 14 U/L (15-37) Alanine Aminotransferase (ALT/SGPT) 21 U/L (12-78) Alkaline Phosphatase 85 U/L (45-117) Troponin I 0.062 ng/ml (0-0.045) Total Protein 6.3 gm/dl (6.4-8.2) Albumin 3.4 gm/dl (3.4-5.0) Globulin 2.9 gm/dl (2.5-4.0) Albumin/Globulin Ratio 1.2 (0.9-2) Test 01/06/18 02:15 01/06/18 06:39 01/06/18 11:25 Urine Color DK YELLOW Urine Appearance CLEAR (CLEAR) Urine pH 5.0 (4.5-7.5) Urine Specific [place] 1.031 (1.000-1.030) Urine Protein 2+ (NEG) Urine Glucose (UA) 2+ (NEG) Urine Ketones NEG (NEG) Urine Occult Blood NEG (NEG) Urine Nitrite NEG (NEG) Urine Bilirubin NEG (NEG) Urine Urobilinogen NEG (NEG) Urine Leukocyte Esterase NEG (NEG) Urine WBC (Auto) 1-5 /hpf (0-5) Urine RBC (Auto) 0-4 /hpf (0-4) Urine Hyaline Casts (Auto) 1-5 /lpf (0-5) Urine Epithelial Cells (Auto) 5-10 /lpf (0-5) Urine Bacteria (Auto) NEG (NEG) White Blood Count 13.94 K/uL (4.8-10.8) Red Blood Count 4.97 M/uL (4.7-6.1) Hemoglobin 16.4 g/dL (14.0-18.0) Hematocrit 49.1 % (42-52) Mean Corpuscular Volume 98.8 fL (80-100) Mean Corpuscular Hemoglobin 33.0 pg (25-34) Mean Corpuscular Hemoglobin Concent 33.4 g/dl (32-36) Platelet Count 189 K/uL (130-400) Mean Platelet Volume 9.7 fL (7.4-10.4) Neutrophils (%) (Auto) 70.3 % Lymphocytes (%) (Auto) 17.8 % Monocytes (%) (Auto) 7.9 % Eosinophils (%) (Auto) 1.5 % Basophils (%) (Auto) 0.3 % Neutrophils # (Auto) 9.80 K/uL (1.4-6.5) Lymphocytes # (Auto) 2.48 K/uL (1.2-3.4) Monocytes # (Auto) 1.10 K/uL (0.11-0.59) Eosinophils # (Auto) 0.21 K/uL (0-0.5) Basophils # (Auto) 0.04 K/uL (0-0.2) RDW Standard Deviation 48.6 fL (36.4-46.3) RDW Coefficient of Variation 13.7 % (11.5-14.5) Immature Granulocyte % (Auto) 2.2 % Immature Granulocyte # (Auto) 0.31 K/uL (0.00-0.02) Bedside Glucose 114 mg/dl (70-99) Date/Time Source Procedure Growth Status 01/04/18 16:27 Blood Blood Culture - Preliminary NO GROWTH TO DATE. Resulted 01/06/18 02:15 Urine , Clean Catch Urine Culture Pending Received Hemoglobin A1c Test 01/04/18 12:45 Range/Units Estimated Average Glucose 206 mg/dl Hemoglobin A1c 8.8 H 4.5-5.6 % Medical Emergencies . Who to Call and When: Medical Emergencies: If at any time you feel your situation is an emergency, please call 911 immediately. . Non-Emergent Contact Non-Emergency issues call your: Primary Care Provider, Specialist Call Non-Emergent contact if: you have any medication questions . . "Provider Documentation" section prepared by Jemal Hodgson. .
--- NOTE | 2018-01-06 14:24 | Discharge Summary ---
Discharge Summary Date of Service Jan 06, 2018. Discharge Summary Admission Date: Jan 04, 2018 at 14:33 Discharge Date: Jan 06, 2018 Discharge Disposition: Home with services Principal Diagnosis: Hyperglycemia secondary to poorly controlled Diabetes Mellitus Type 2 Secondary Diagnoses/Problems: Labile blood pressure Leukocytosis History of CAD with stents / history of dyslipidemia with elevate triglycerides History of Hypothyroidism on Levothyroxine history of right asymptomatic carotid stenosis Medication Reconciliation New Medications: Blood Glucose Monitoring Suppl ([employer] Verio W/Device) 1 Kit Kit UNIT, #1 Lancets ([employer] Lancets) 1 Mis Mis UNIT, #30 Insulin Glargine (Lantus Solostar) 100 Unit/Ml Inj 25 UNITS SC DAILY for 30 Days, #30 PEN Continued Medications: Aspirin (Aspirin Ec) 81 Mg Tab 81 MG PO DAILY Atorvastatin (Lipitor) 40 Mg Tab 40 MG PO DAILY, TAB Levothyroxine Sodium (Levothyroxine Sodium) 200 Mcg Tab 200 MCG PO DAILY Nitroglycerin (Nitrostat) 0.4 Mg Tab 0.4 MG UT PRN, BTL Ranitidine Hcl (Zantac) 150 Mg Tab 150 MG PO DAILY, TAB Discontinued Medications: Glipizide (Glucotrol) 10 Mg Tab 10 MG PO DAILY, TAB Admission Information HPI (per Admitting provider): The patient is a 72 year old male who presents to the Emergency Room after malaise in the [facility]. Patient was reportedly having poor appetite at home but [place] Also history of nonadherence to home dose glipizide for diabetes. Patient received aspirin 324 mg in the ED for concern of cardiac chest pain given history of CAD with stents but patient denied chest pain when assessed at bedside by hospitalist. He [place] chest [place] as a pain all over the body from chest to abdomen to back and it was a feeling like the body was "closing down on on him." Patient is a poor historian about medical issues and other health history from his . No acute complaints of symptoms at the bedside when assessed by hospitalist. Patient was found to be hyperglycemic. Denied lightheadedness or vomiting Physical Exam (per Admitting): General Appearance: no apparent distress Head: normocephalic, atraumatic Eyes: normal inspection, EOMI, sclerae normal ENT: hearing grossly normal, pharynx normal Neck: no JVD, trachea midline Respiratory/Chest: chest non-tender, lungs clear, normal breath sounds, no respiratory distress, no accessory muscle use Cardiovascular: no JVD, + pertinent finding (mild tachycardia) Abdomen/GI: normal bowel sounds, non tender, soft, no organomegaly, no pulsatile mass Back: normal inspection, no CVA tenderness, no muscle spasm Extremities/Musculoskelatal: no calf tenderness Neurologic/Psych: correctional guard II-XII nml as tested, no motor/sensory deficits, alert , normal mood/affect, + pertinent finding (poor historian, history of dementia) Skin: warm/dry Hospital Course Hospital Progress and Discharge Plan Hyperglycemia secondary to poorly controlled Diabetes Mellitus Type 2 admission date: likely due to medication non adherence as per patient's ; patient should be taking glipizide 10 mg daily at home but sometimes declines; recently went to [employer] and may have eaten foods high in sugars; received 10 units of regular insulin in the ED when blood sugar glucose 353 on comprehensive metabolic panel outpatient lab 12/24/2017 HEMOGLOBIN, A1C 8.1 will repeat HbA1c as inpatient as 8.8 pharmacy glycemic control consulted and recommends that patient be off glipizide and be on Lantus (glargine insulin) 25 units daily Labile blood pressure in the ED on admission systolic 122. not on blood pressure medications at home as per his as his blood pressure generally controlled when initially seen [facility] hospitalist systolic blood pressure noted to be 185 and asked nurse to stop IV fluids but the blood pressure in the 120s systolic was given clonidine overnight when blood pressure elevated was started on amlodipine 5 mg daily with blood pressure low normotensive will hold further blood pressure medications History of CAD with stents / history of dyslipidemia with elevate triglycerides trend troponins in the ED when evaluated by hospitalist patient denied chest pain was given aspirin 324 mg in the ED monitor on telemetry continue aspirin and statin no wall motion abnormality on echocardiogram 01/05/18 * The left ventricular wall motion is normal. * There is mild concentric left ventricular hypertrophy. * Left ventricular systolic function is normal. * Ejection Fraction = 50-55%. * The right ventricular systolic function is normal. * No significant valvular pathology. 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 Hernandez from [facility] in 01/2016. history of BLADDER CANCER: 04/28 he underwent RURBT at [facility], [place], [place] with pathology showing "Low grade papillary urothelial cancer without lamina propria or muscularis propria invasion". S/P left radical nephroureterectomy by Dr. 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 Chronic Kidney Disease ABDOMINAL AORTIC ANEURYSM: S/P Zenith stent graft repair of his AAA by Dr. Austin 04/06/09. CAROTID DISEASE: s/p left CEA (2000) now with right asymptomatic carotid stenosis at per his outpatient notes 01/09/2018 11:00 AM Presurgical Assessment Education5 [facility] Surgery [facility] PERIPHERAL VASCULAR DISEASE: History of Underwent recannulization of total right SFA occlusion with angioplasty balloons/stents 10/27/[address] Cali History of Vascular dementia Discharge instructions Please stop glipizide medication. Use Lantus (glargine insulin) 25 units daily. Monitor blood sugars at least once daily and bring the glucose levels readings to your primary care doctor. Give juice to drink if blood sugar less than 70 and reduce or stop Lantus use for that day. Try to maintain patient's blood sugar between 100 to 200. Follow your primary care doctor's advice on further diabetes management Upcoming appointments 01/09/2018 11:00 AM Presurgical Assessment Education5 [facility] 01/10/2018 2:20 PM Vik Charles MD [facility] Date: 01/17/2018 Time: 7:15 AM Status: Scheduled Location: [facility] Room: [place] [id number] 01/28/2018 1:45 PM Donte Black MD Hematology/Oncology [facility] Total time spent on discharge = 40 minutes This includes examination of the patient, discharge planning, medication reconciliation, and communication with other providers. Discharge Instructions see above
[2018-01-06 14:43] VITALS: BP 116/72; PULSE 80; TEMP 36.8; O2SAT 96
[2018-01-06 15:07] VITALS: BP 133/86; PULSE 84; TEMP 36.9; O2SAT 92
== END 2018-01-06 17:07 | disposition home health service (06) | DRG 639 ==
LOC: EDBD 11:41 → C.EDC 11:44 → C.2T 14:33 → ENRESERV 14:43
PROVIDERS: ADMIT Hospitalist; ATTEND Hospitalist
DX: E11.65 Type 2 diabetes mellitus with hyperglycemia (principal); Z91.14 Patient's other noncompliance with medication regimen; Z91.11 Patient's noncompliance with dietary regimen; R09.89 Other specified symptoms and signs involving the circulatory and respiratory systems; I12.9 Hypertensive chronic kidney disease with stage 1 through stage 4 chronic kidney disease, or unspecified chronic kidney disease; D72.829 Elevated white blood cell count, unspecified; R79.89 Other specified abnormal findings of blood chemistry; R00.0 Tachycardia, unspecified; R41.82 Altered mental status, unspecified; N18.9 Chronic kidney disease, unspecified; I25.10 Atherosclerotic heart disease of native coronary artery without angina pectoris; E03.9 Hypothyroidism, unspecified; E78.5 Hyperlipidemia, unspecified; E78.1 Pure hyperglyceridemia; I73.9 Peripheral vascular disease, unspecified; F01.50 Vascular dementia, unspecified severity, without behavioral disturbance, psychotic disturbance, mood disturbance, and anxiety; F17.200 Nicotine dependence, unspecified, uncomplicated; Z95.5 Presence of coronary angioplasty implant and graft; Z90.5 Acquired absence of kidney; Z90.6 Acquired absence of other parts of urinary tract; Z79.82 Long term (current) use of aspirin; Z79.84 Long term (current) use of oral hypoglycemic drugs; Z79.899 Other long term (current) drug therapy; Z91.041 Radiographic dye allergy status

== ENCOUNTER 2018-07-16 19:35 | Inpatient (IN) ==
[2018-07-16] MEDS ORDERED: CEFEPIME 2,000 MG in SYRINGE 7.5 ML IV STA (20:03)
[2018-07-16] MEDS ORDERED: ALBUT/IPRATROP 3MG/0.5MG NEB 3 ML VIAL NEB STA (20:03)
[2018-07-16] MEDS ORDERED: SODIUM CHLORIDE 0.9% 1000ML 1,000 ML IV ONE (20:03)
[2018-07-16 20:39] LABS: Basophils # (auto) 0.02 K/uL (0-0.2); Basophils % (auto) 0.2 %; Eosinophils # (auto) 0.01 K/uL (0-0.5); Eosinophils % (auto) 0.1 %; Hematocrit (blood only) 56.1 % (42-52); Hemoglobin 19.6 g/dL (14.0-18.0); Immature Granulocytes # (auto) 0.11 K/uL (0.00-0.02); Immature Granulocytes % (auto) 1.1 %; Lymphocytes # (auto) 1.23 K/uL (1.2-3.4); Lymphocytes % (auto) 11.9 %; Mean Corpuscular Volume 102.6 fL (80-100); Mean Platelet Volume 10.7 fL (7.4-10.4); Monocytes # (auto) 1.18 K/uL (0.11-0.59); Monocytes % (auto) 11.4 %; Neutrophils # (auto) 7.82 K/uL (1.4-6.5); Neutrophils % (auto) 75.3 %; Platelet Count 122 K/uL (130-400); RDW Coefficient of Variation 14.3 % (11.5-14.5); Red Blood Count 5.47 M/uL (4.7-6.1); White Blood Count 10.37 K/uL (4.8-10.8)
[2018-07-16 20:44] LABS: Mean Corpuscular Hgb Conc 34.9 g/dL (32-36)
--- NOTE | 2018-07-16 20:47 | XRay Report ---
SINGLE VIEW CHEST CLINICAL HISTORY: Sepsis. FINDINGS: 2 AP, portable, upright chest radiographs are compared to study dated 01/04/2018 and correla tequila with chest CT dated 01/08/2018. The heart is enlarged and there is atherosclerotic calcification o f the thoracic aorta. The pulmonary vasculature is noncongested. Enlargement of the central pulmonary arteries indicates pulmonary artery hypertension. A coronary artery stent is noted. Emphysema and ch ronic interstitial thickening are unchanged. There are postoperative changes and volume loss are cons istent with previous right-sided pulmonary resection. No airspace consolidation or large pleural effu kobe is identified. No pneumothorax is seen. The skeletal structures are osteopenic. There are healed bilateral rib fractures. Chronic posttraumatic deformity is seen in the clavicles. IMPRESSION: 1. Cardiomegaly, emphysema, and postoperative change from right-sided pulmonary resection as above. 2. No acute cardiopulmonary abnormality is seen. Electronically signed by: Valdemar Low M.D. 07/16/2018 8:46 PM
[2018-07-16 20:54] LABS: Influenza B virus by PCR Neg for Influ B (Neg)
--- NOTE | 2018-07-16 20:57 | CT Scan Report ---
CT SCAN OF THE BRAIN WITHOUT IV CONTRAST CLINICAL HISTORY: Generalized weakness. COMPARISON STUDY: CT of the brain dated 01/04/2018. TECHNIQUE: Unenhanced axial CT scan of the brain is performed from the vertex to the skull base. A do se lowering technique was utilized adhering to the principles of ALARA. CT DOSE: 884.08 mGy.cm FINDINGS: Brain parenchyma: There are age-related involutional changes noting moderate confluent subcortical a nd periventricular microangiopathic change. Chronic lacunar infarcts are noted in the right internal capsule and the left caudate head. There is no hemorrhage, mass effect, or evidence of acute territor ial ischemia by CT criteria. [place]-white matter differentiation is preserved. No extra-axial fluid col lection is seen. Ventricles, sulci, cisterns: Prominent secondary to involutional change. Intracranial vasculature: There is atherosclerotic calcification of the cavernous carotid and vertebr al arteries. Calvarium: Unremarkable. Sinuses and mastoids: The visualized paranasal sinuses are clear. The mastoid air cells are well pneu matized. Orbits: The bony orbits are grossly intact. There are bilateral ocular lens implants. IMPRESSION: There is no hemorrhage, mass effect, or evidence of acute territorial ischemia by CT madalyn che. Electronically signed by: Valdemar Low M.D. 07/16/2018 8:56 PM
[2018-07-16 21:08] LABS: Appearance Urine Clear (Clear); Bacteria Urine Automated Negative (Negative); Bilirubin Urine Negative (Negative); Blood Urine Negative (Negative); Cast Urine Automated 0 /lpf (0-5); Color Urine Dark Yellow; Epithelial Cell Urine Auto 0-5 /lpf (0-5); Glucose Urine UA 2+ (Negative); Ketones Urine Trace (Negative); Leukocyte Esterase Urine Negative (Negative); Nitrite Urine Negative (Negative); Protein Urine 2+ (Negative); RBC Urine Automated 0-4 /hpf (0-4); Specific Gravity Urine 1.023 (1.000-1.030); Urobilinogen Urine Negative (Negative); WBC Urine Automated 0 /hpf (0-5)
[2018-07-16] MEDS ORDERED: OSELTAMIVIR PHOSPHATE 75 MG CAP PO STA (21:19)
[2018-07-16 21:33] LABS: Partial Thromboplastin Ratio 1.1; Partial Thromboplastin Time 30.8 Seconds (21.0-31.0); Prothrombin Time 10.7 Seconds (9.0-12.0)
[2018-07-16 21:46] LABS: BUN Creatinine Ratio 14.6 (10-20); Calcium 8.7 mg/dl (8.5-10.1); Creatinine Clr Calc Pharmacy 46.4 ml/min; Est GFR (African American) 53.2; Est GFR (Non-African American) 45.9; Potassium 4.3 mmol/L (3.5-5.1)
[2018-07-16] MEDS ORDERED: SODIUM CHLORIDE 0.9% 1000ML 500 ML IV ONE (21:47)
--- NOTE | 2018-07-16 21:55 | Emergency Department Note ---
Entered by Gretel Elkins acting as a scribe for Valdemar Oro MD History of Present Illness General Chief complaint: Weakness Stated complaint: WEAKNESS, CAN'T EAT RIGHT, JUST NOT HIMSELF Time Seen by Provider: 07/16/18 19:52 Source: patient History of Present Illness Onset (ago): day(s) (yesterday) Location: upper extremity and lower extremity Pain Consistency: + other (worsening) Quality: + other (weakness) Associated symptoms: + denies other symptoms (diarrhea, abdominal pain, urinary symptoms), + loss of appetite and + other (urinary incontinence, chronic bilateral leg pain); no chest pain, no cough, no fever/chills (fever), no nausea/vomiting (vomiting) and no shortness of breath The patient is a 72 year old male who presents to the Emergency Room with complaints of worsening weakness starting yesterday. The patient�s states that the patient has been very weak. She states that he hasn�t been able to walk. She reports that today she decided to bring him in because he couldn�t even sit up on his own to eat. She notes that he hasn�t really eaten or drank anything for the last 2 days. She states that along with this, he stated having urinary incontinence which is not usual for him. The patient complains of chronic bilateral leg pain. The patient denies fever, cough, vomiting, diarrhea, chest pain, abdominal pain, urinary burning, and shortness of breath. Home Medications Home Medications Medication Instructions Recorded Confirmed Type ASPIRIN (ASPIRIN EC) 81 mg PO DAILY #0 10/22/17 History LEVOTHYROXINE SODIUM 200 mcg PO DAILY 90 Days #0 tab 10/22/17 History Nitroglycerin (Nitrostat) 0.4 mg UT PRN #0 btl 10/22/17 History Ranitidine Hcl (ZANTAC) 150 mg PO DAILY #0 tab 10/22/17 History ATORVASTATIN (LIPITOR) 40 mg PO DAILY #0 tab 01/04/18 History Blood Glucose Monitoring Suppl unit #1 01/06/18 Rx (Onetouch Verio W/Device) Insulin Glargine (Lantus Solostar) 25 unit SC DAILY 30 Days #30 pen 01/06/18 Rx LANCETS (ONETOUCH DELICA LANCETS) unit #30 01/06/18 Rx Allergies Allergy/AdvReac Type Severity Reaction Status Date / Time Iodinated Contrast- Oral and Allergy Intermediate swelling Verified 01/04/18 12:39 IV Dye Past Med/Surg History Medical History Coronary artery disease (Chronic) Diabetes (Chronic) "type 2" GA (myocardial infarction) (Chronic) "2008 and 2013 s/p multiple stent placements " Hyperlipidemia (Chronic) CKD (chronic kidney disease) stage 3, GFR 30-59 ml/min (Chronic) Lung nodule AAA (abdominal aortic aneurysm) (Chronic) Nausea (Acute) Carotid stenosis, non-symptomatic (Chronic) Primary cancer of right upper lobe of lung (Chronic) Malignant neoplasm of ureter (Chronic) Malignant neoplasm of bladder (Chronic) Hyperglycemia Hypertension Surgical History S/P AAA repair (Resolved) S/P angioplasty (Resolved) "04/09/09 Bare metal stent to circumflex and RCA " S/P cardiac catheterization (Resolved) S/p nephrectomy (Resolved) "left nephrectomy with partial ureterectomy" S/P coronary artery stent placement (Resolved) S/P tonsillectomy and adenoidectomy S/P appendectomy (Chronic) History of left-sided carotid endarterectomy (Chronic) S/P colonoscopy with polypectomy (Chronic) S/P laparoscopic cholecystectomy (Chronic) "with umbilical hernia repair" S/P rotator cuff repair (Chronic) Family History Other Family history non-contributory Social History marital status: Current Living Situation: Spouse current occupational status: retired Feels Safe at Home: Yes Smoking Status: Current every day smoker Review of Systems See HPI for pertinent positives & negatives. and A total of 10 systems reviewed and were otherwise negative Physical Exam Vital Signs Vital Signs - 24 hr 07/16/18 19:44 07/16/18 20:01 07/16/18 20:02 Temperature 36.7 C Temperature Source Oral Sepsis Recent Fever Within 48 Hours No Sepsis New/Unexplained Change in Mental Status No Sepsis Action Taken by Nursing No Action Required Pulse Rate 121 H Respiratory Rate 20 Blood Pressure 134/85 Blood Pressure Mean 101 Pulse Oximetry 94 93 89 L Oxygen Delivery Method Room Air Room Air Room Air GENERAL: Patient is in no acute distress. HEENT: No acute trauma, normocephalic atraumatic, mucous membranes are dry, no nasal congestion, no scleral icterus. NECK: No stridor, no adenopathy, no meningismus, trachea is midline. LUNGS: Diminished breath sounds with bilateral wheezes and increased respiratory rate. No respiratory distress. HEART: Tachycardic with regular rhythm. No murmurs. ABDOMEN: Soft, nontender, bowel sounds positive, no hernias, no peritonitis. EXTREMITIES: No cyanosis or edema, full range of motion of all the joints without pain or difficulty, no signs for acute trauma. NEUROLOGIC: Oriented x 3, no acute motor or sensory deficits, no focal weakness. No cerebellar deficits or pronator drift. SKIN: No rash, no jaundice, no diaphoresis. Course 1955: Past medical records reviewed. The patient was evaluated in room A2, and a complete history and physical examination were performed. 2150: I reevaluated the patient and updated him on his test results. I discussed the treatment plan with him. He verbally agrees and understands. 2153: I reviewed the patient's case with ROSLYN Benedict. She will evaluate the patient for further management. Consultations Consultation #1: I reviewed the patient's case with ROSLYN Benedict. She will evaluate the patient for further management. Time: 21:54 Administered Medications Discontinued Medications Albuterol (Duoneb) 3 ml NEB NOW STA Stop: 07/16/18 20:04 Last Admin: 07/16/18 20:21 Dose: 3 ml Documented by: [id number] Cefepime HCl 2,000 mg/ Syringe 20 mls @ 5.5 mls/min IV NOW STA Stop: 07/16/18 20:06 Last Admin: 07/16/18 20:34 Dose: 5.5 mls/min Documented by: [id number] Sodium Chloride (Nss 1000ml) 1,000 mls @ 999 mls/hr IV .Q1H1M ONE Stop: 07/16/18 21:03 Last Infusion: 07/16/18 21:41 Dose: 0 mls/hr Documented by: [id number] Admin: 07/16/18 20:34 Dose: 999 mls/hr Documented by: [id number] Oseltamivir Phosphate (Tamiflu) 75 mg PO NOW STA Stop: 07/16/18 21:20 Last Admin: 07/16/18 21:27 Dose: 75 mg Documented by: [id number] Medical Decision Making Differential Diagnosis Differential diagnoses include dehydration, sepsis, bacteremia, pneumonia or bronchitis, UTI, anemia, electrolyte imbalance, influenza or flu like illness, cellulitis, stroke. Medical Records Attestation: I reviewed the patient's medical records. Home Medications Current Medication List: was personally reviewed by me Laboratory Data Attestation: I reviewed the patient's lab results. Result diagrams: 07/16/18 20:18 07/16/18 21:13 Lab Results 07/16/18 07/16/18 07/16/18 Range/Units 20:10 20:14 20:18 WBC 10.37 (4.8-10.8) K/uL RBC 5.47 (4.7-6.1) M/uL Hgb 19.6 H (14.0-18.0) g/dL Hct 56.1 H (42-52) % MCV 102.6 H (80-100) fL MCH 35.8 H (25-34) pg MCHC 34.9 (32-36) g/dL RDW Std Deviation 54.0 H (36.4-46.3) fL RDW Coeff of [place] 14.3 (11.5-14.5) % Plt Count 122 L (130-400) K/uL MPV 10.7 H (7.4-10.4) fL Immature Gran % (Auto) 1.1 % Neut % (Auto) 75.3 % Lymph % (Auto) 11.9 % [place] % (Auto) 11.4 % Eos % (Auto) 0.1 % Baso % (Auto) 0.2 % Immature Gran # (Auto) 0.11 H (0.00-0.02) K/uL Neut # (Auto) 7.82 H (1.4-6.5) K/uL Lymph # (Auto) 1.23 (1.2-3.4) K/uL [place] # (Auto) 1.18 H (0.11-0.59) K/uL Eos # (Auto) 0.01 (0-0.5) K/uL Baso # (Auto) 0.02 (0-0.2) K/uL PT INR APTT PTT Ratio Sodium Potassium Chloride Carbon Dioxide Anion Gap BUN Creatinine Est Cr Clr Drug Dosing Est GFR ( Amer) Est GFR (Non-Af Amer) BUN/Creatinine Ratio Glucose Lactate (0.4-2.0) mmol/L Calcium Total Bilirubin AST ALT Alkaline Phosphatase Total Protein Albumin Globulin Albumin/Globulin Ratio Specimen Hemolysis Urine Color Dark Yellow Urine Appearance Clear (Clear) Urine pH 5.0 (4.5-7.5) Ur Specific [place] 1.023 (1.000-1.030) Urine Protein 2+ H (Negative) Urine Glucose (UA) 2+ H (Negative) Urine Ketones Trace H (Negative) Urine Blood Negative (Negative) Urine Nitrite Negative (Negative) Urine Bilirubin Negative (Negative) Urine Urobilinogen Negative (Negative) Ur Leukocyte Esterase Negative (Negative) Urine WBC (Auto) 0 (0-5) /hpf Urine RBC (Auto) 0-4 (0-4) /hpf U Hyaline Cast (Auto) 0 (0-5) /lpf U Epithel Cells (Auto) 0-5 (0-5) /lpf Urine Bacteria (Auto) Negative (Negative) Influenza Type A (PCR) Pos for Influ A A* (Neg) Influenza Type B (PCR) Neg for Influ B (Neg) 07/16/18 07/16/18 07/16/18 Range/Units 20:18 20:18 20:18 WBC (4.8-10.8) K/uL RBC (4.7-6.1) M/uL Hgb (14.0-18.0) g/dL Hct (42-52) % MCV (80-100) fL MCH (25-34) pg MCHC (32-36) g/dL RDW Std Deviation (36.4-46.3) fL RDW Coeff of [place] (11.5-14.5) % Plt Count (130-400) K/uL MPV (7.4-10.4) fL Immature Gran % (Auto) % Neut % (Auto) % Lymph % (Auto) % [place] % (Auto) % Eos % (Auto) % Baso % (Auto) % Immature Gran # (Auto) (0.00-0.02) K/uL Neut # (Auto) (1.4-6.5) K/uL Lymph # (Auto) (1.2-3.4) K/uL [place] # (Auto) (0.11-0.59) K/uL Eos # (Auto) (0-0.5) K/uL Baso # (Auto) (0-0.2) K/uL PT Cancelled INR Cancelled APTT Cancelled PTT Ratio Cancelled Sodium Cancelled Potassium Cancelled Chloride Cancelled Carbon Dioxide Cancelled Anion Gap Cancelled BUN Cancelled Creatinine Cancelled Est Cr Clr Drug Dosing Cancelled Est GFR ( Amer) Cancelled Est GFR (Non-Af Amer) Cancelled BUN/Creatinine Ratio Cancelled Glucose Cancelled Lactate 1.9 (0.4-2.0) mmol/L Calcium Cancelled Total Bilirubin Cancelled AST Cancelled ALT Cancelled Alkaline Phosphatase Cancelled Total Protein Cancelled Albumin Cancelled Globulin Cancelled Albumin/Globulin Ratio Cancelled Specimen Hemolysis Urine Color Urine Appearance (Clear) Urine pH (4.5-7.5) Ur Specific [place] (1.000-1.030) Urine Protein (Negative) Urine Glucose (UA) (Negative) Urine Ketones (Negative) Urine Blood (Negative) Urine Nitrite (Negative) Urine Bilirubin (Negative) Urine Urobilinogen (Negative) Ur Leukocyte Esterase (Negative) Urine WBC (Auto) (0-5) /hpf Urine RBC (Auto) (0-4) /hpf U Hyaline Cast (Auto) (0-5) /lpf U Epithel Cells (Auto) (0-5) /lpf Urine Bacteria (Auto) (Negative) Influenza Type A (PCR) (Neg) Influenza Type B (PCR) (Neg) 07/16/18 07/16/18 Range/Units 21:13 21:13 WBC (4.8-10.8) K/uL RBC (4.7-6.1) M/uL Hgb (14.0-18.0) g/dL Hct (42-52) % MCV (80-100) fL MCH (25-34) pg MCHC (32-36) g/dL RDW Std Deviation (36.4-46.3) fL RDW Coeff of [place] (11.5-14.5) % Plt Count (130-400) K/uL MPV (7.4-10.4) fL Immature Gran % (Auto) % Neut % (Auto) % Lymph % (Auto) % [place] % (Auto) % Eos % (Auto) % Baso % (Auto) % Immature Gran # (Auto) (0.00-0.02) K/uL Neut # (Auto) (1.4-6.5) K/uL Lymph # (Auto) (1.2-3.4) K/uL [place] # (Auto) (0.11-0.59) K/uL Eos # (Auto) (0-0.5) K/uL Baso # (Auto) (0-0.2) K/uL PT 10.7 INR 1.0 APTT 30.8 PTT Ratio 1.1 Sodium 134 L Potassium 4.3 Chloride 98 Carbon Dioxide 27 Anion Gap 9.0 BUN 22 H Creatinine 1.49 H Est Cr Clr Drug Dosing 46.4 Est GFR ( Amer) 53.2 Est GFR (Non-Af Amer) 45.9 BUN/Creatinine Ratio 14.6 Glucose 179 H Lactate (0.4-2.0) mmol/L Calcium 8.7 Total Bilirubin AST ALT Alkaline Phosphatase Total Protein Albumin Globulin Albumin/Globulin Ratio Specimen Hemolysis Urine Color Urine Appearance (Clear) Urine pH (4.5-7.5) Ur Specific [place] (1.000-1.030) Urine Protein (Negative) Urine Glucose (UA) (Negative) Urine Ketones (Negative) Urine Blood (Negative) Urine Nitrite (Negative) Urine Bilirubin (Negative) Urine Urobilinogen (Negative) Ur Leukocyte Esterase (Negative) Urine WBC (Auto) (0-5) /hpf Urine RBC (Auto) (0-4) /hpf U Hyaline Cast (Auto) (0-5) /lpf U Epithel Cells (Auto) (0-5) /lpf Urine Bacteria (Auto) (Negative) Influenza Type A (PCR) (Neg) Influenza Type B (PCR) (Neg) Imaging Data Radiologist's Impression: Radiology results as stated below per my review and the radiologist's interpretation: SINGLE VIEW CHEST CLINICAL HISTORY: Sepsis. FINDINGS: 2 AP, portable, upright chest radiographs are compared to study dated 01/04/2018 and correlated with chest CT dated 01/08/2018. The heart is enlarged and there is atherosclerotic calcification of the thoracic aorta. The pulmonary vasculature is noncongested. Enlargement of the central pulmonary arteries indicates pulmonary artery hypertension. A coronary artery stent is noted. Emphysema and chronic interstitial thickening are unchanged. There are postoperative changes and volume loss are consistent with previous right-sided pulmonary resection. No airspace consolidation or large pleural effusion is identified. No pneumothorax is seen. The skeletal structures are osteopenic. There are healed bilateral rib fractures. Chronic posttraumatic deformity is seen in the clavicles. IMPRESSION: 1. Cardiomegaly, emphysema, and postoperative change from right-sided pulmonary resection as above. 2. No acute cardiopulmonary abnormality is seen. Electronically signed by: Valdemar Low M.D. 07/16/2018 8:[address] SCAN OF THE BRAIN WITHOUT IV CONTRAST CLINICAL HISTORY: Generalized weakness. COMPARISON STUDY: CT of the brain dated 01/04/2018. TECHNIQUE: Unenhanced axial CT scan of the brain is performed from the vertex to the skull base. A dose lowering technique was utilized adhering to the principles of ALARA. CT DOSE: 884.08 mGy.cm FINDINGS: Brain parenchyma: There are age-related involutional changes noting moderate confluent subcortical and periventricular microangiopathic change. Chronic lacunar infarcts are noted in the right internal capsule and the left caudate head. There is no hemorrhage, mass effect, or evidence of acute territorial ischemia by CT criteria. [place]-white matter differentiation is preserved. No extra-axial fluid collection is seen. Ventricles, sulci, cisterns: Prominent secondary to involutional change. Intracranial vasculature: There is atherosclerotic calcification of the cavernous carotid and vertebral arteries. Calvarium: Unremarkable. Sinuses and mastoids: The visualized paranasal sinuses are clear. The mastoid air cells are well pneumatized. Orbits: The bony orbits are grossly intact. There are bilateral ocular lens implants. IMPRESSION: There is no hemorrhage, mass effect, or evidence of acute territori al ischemia by CT criteria. Electronically signed by: Valdemar Low M.D. 07/16/2018 8:56 PM ECG Data Attestation: I personally reviewed and interpreted this ECG as follows: Indication: weakness Rate (beats per minute): 118 Rhythm: sinus tachycardia Findings: + other (old inferior infarct) and + RBBB; no ST elevation Comparison ECG Date: from (01/05/2018) Change: the following changes noted (increased rate) Blood Pressure Blood Pressure Findings: Normal blood pressure Blood Pressure Disposition: did not require urgent referral MDM Narrative There is no leukocytosis. The patient is not anemic, his hemoglobin is actually elevated consistent with dehydration. Platelet count slightly low at 122. No coagulopathy. There was a slight elevation to the creatinine, this is consistent with some dehydration. No significant electrolyte abnormality requiring correction. Lactic acid level was not elevated making severe sepsis less likely. Urinalysis showed some dehydration, no signs of infection. Influe nza testing was positive for influenza A. Chest x-ray did not show pneumonia or CHF. Brain CT showed no acute bleed or mass-effect. Blood cultures are pending. EKG showed a sinus tachycardia, no acute ischemia. The patient presents with weakness. He was wheezing on exam and seemed slightly short of breath. He was given a DuoNeb, he was given IV saline, he received a liter bolus and then a 500 cc bolus. He received IV cefepime as antibiotic coverage. He was given oral Tamiflu when the influenza test was noted positive. He received a dose of IV Solu-Medrol. The patient is in need of a hospital stay. He is tachycardic, dehydrated, short of breath and weak. He does appear to suffering from an exacerbation of COPD. I think this all stems from influenza. He is in no condition for discharge. I discussed the findings with the patient and his , I talked with case management. The on-call hospitalist has been consulted. The patient does seem improved since treatment here in the ED. Impression & Plan Tachycardia, Dehydration, Weakness, Influenza A, COPD exacerbation Critical Care Time I have personally spent greater than 34 minutes of critical care time in the direct management of this patient. This includes bedside care, interpretation of diagnostic studies and testing, discussion with consultants, the patient, and family members, and other required patient management activities. This 34 minutes is in excess of all separately billable procedures. Critical Care Time: Yes Total Critical Care Time: 34 Discharge Plan Visit Data Chief Complaint: Weakness Stated Complaint: WEAKNESS, CAN'T EAT RIGHT, JUST NOT HIMSELF ED Provider: Valdemar Oro Discharge Problem: Tachycardia, Dehydration, Weakness, Influenza A, COPD exacerbation Patient Disposition: Being Evaluated by Hospitalist Forms Stand Alone Forms: My [facility] Prescriptions Prescriptions: No Action ASPIRIN (ASPIRIN EC) 81 MG tablet 81 mg PO DAILY Qty: 0 RF: 0 LEVOTHYROXINE SODIUM 200 MCG tablet 200 mcg PO DAILY 90 Days Qty: 0 RF: 0 Nitroglycerin (Nitrostat) 0.4 MG tablet 0.4 mg UT PRN Qty: 0 RF: 0 Ranitidine Hcl (ZANTAC) 150 MG tablet 150 mg PO DAILY Qty: 0 RF: 0 ATORVASTATIN (LIPITOR) 40 MG tablet 40 mg PO DAILY Qty: 0 RF: 0 Blood Glucose Monitoring Suppl ([employer] Verio W/Device) 1 KIT [id number] Qty: 1 RF: 0 Insulin Glargine (Lantus Solostar) 100 UNIT/ML INJECTION 25 unit SC DAILY 30 Days Qty: 30 RF: 0 LANCETS (StoneCast[employer] PartnersTOUCH DELICA LANCETS) 1 MIS MIS Qty: 30 RF: 0 Referrals Referrals: Vik Charles [Primary Care Provider] - The scribe's documentation has been prepared under my direction and personally reviewed by me in its entirety. I confirm that the note above accurately reflects all work, treatment, procedures, and medical decision making performed by me.
[2018-07-16] MEDS ORDERED: methylPREDNISolone 60 MG in SYRINGE 1 ML IV STA (21:57)
--- NOTE | 2018-07-16 23:09 | History & Physical Report ---
Date of Service July 16, 2018 Assessment & Plan (1) Influenza A: This is a 72yo M with a PMH of CAD (s/p stents), PVD (s/p R fem pop stent in 2018), CKD III (s/p nephrectomy), DM II, h/o lung cancer (s/p RUL resection), hypothyroidism, vascular dementia and other medical problems listed below who presents with generalized weakness since yesterday and was found to have influenza A. -Afebrile, tachycardic, no leukocytosis, lactate wnl -Underlying lung disease from longstanding tobacco use, lung cancer s/p RUL resection -Mild hypoxia at 89% requiring 2L NC. Now 97% on 2L NC. Diffuse wheezing on lung exam -Initially there was concern for sepsis so blood cultures obtained, given dose o f cefepime in ED -No evidence of infiltrate on CXR, urinalysis clean. Will not continue antibiotics at this time -IV fluid resuscitation, with improvement of HR to 102 -Continue Tamiflu (renally dosed), solu-medrol 40mg Q8H, Xopenex nebs Q6H -PT/OT evaluation, conditioning -Supplemental O2 to maintain sat >92% -Two step test prior to discharge home (2) Abnormal hemoglobin: Hgb elevated at 19 upon admission (baseline ~16) -Ddx hemoconcentration in setting of dehydration vs. polycythemia -Monitor with CBC. Expect improvement tomrorow (3) Type 2 diabetes mellitus: A1c of 9.3 in Apr 2018 -Repeat a1c -Hold home agents -Basal/bolus insulin while in-patient -[facility] (4) Coronary artery disease: S/p stents, h/o stable angina -No chest pain -EKG without acute ischemic changes -Sublingual NTG PRN, EKG if chest pain -Continue aspirin, statin (5) CKD (chronic kidney disease) stage 3, GFR 30-59 ml/min: S/p L nephrectomy in 2007 Cr elevated at 1.49 in setting of dehydration (baseline Cr ~1.2) -Expect improvement with IV fluid resuscitation -Avoid nephrotoxic agents when able -BMP in AM (6) PVD (peripheral vascular disease): S/p Fem/pop artery revascularization with stent in 2018 at [facility] [place] -Follow up with Dr. Cali next month -Continue aspirin, plavix (7) Hypothyroidism: Continue levothyroxine (8) Primary cancer of right upper lobe of lung: S/p RUL resection by Dr. Pittman in 2016 (9) Malignant neoplasm of bladder: H/o bladder neck and anterior bladder cancer resection in 2016 -Following with Dr. Price DVT Ppx: SQ heparin Code status: FULL per discussion with patient and (POA) PCP: Araceli Dispo: Admitted to [facility]. Discharge planning ordered. Patient seen in collaboration with Dr. Aguilar. Please see addendum. History of Present Illness Chief Complaint: generalized weakness, malaise Primary Care Provider: Vik Charles This is a 72yo M with a PMH of CAD (s/p stents), PVD (s/p R fem pop stent in 2018), CKD III (s/p nephrectomy), DM II, h/o lung cancer (s/p RUL resection), hypothyroidism, vascular dementia and other medical problems listed below who presents with generalized weakness since yesterday. Most of history obtained from at bedside due to patient being hard of hearing and having vascular dementia. Patient was in normal state of health until yesterday, when he began to complain of a headache and generalized aching, especially in legs. Was also having difficulty ambulating from bedroom to bathroom, requiring his 's help. This is unusual for him, since he can ambulate independently at baseline. Had an episode of urinary and fecal incontinence this morning. was instructed to bring patient to ED for further evaluation. Patient is afebrile. Heart rate initially elevated at 121 but has decreased to 102 after IV fluid resuscitation. Oxygen saturation 94% on 2 L NC. Influenza A is positive. CT head without acute abnormality. Chest x-ray with cardiomegaly and emphysema but no evidence of infiltrates. Urinalysis without evidence of infection. Has had decreased appetite for the past few days, as well as a dry cough. Denies fever, chills, headache, lightheadedness, chest pain, shortness of breath, nausea, vomiting, abdominal pain, dysuria or diarrhea. Patient with significant smoking history, currently smoking 1-1.5 ppd. Allergies Allergy/AdvReac Type Severity Reaction Status Date / Time Iodinated Contrast- Oral and Allergy Intermediate swelling Verified 07/16/18 23:28 IV Dye Home Medications Home Medications Medication Instructions Recorded Confirmed Type aspirin 81 mg PO DAILY 07/16/18 07/16/18 History atorvastatin 40 mg PO HS 07/16/18 07/16/18 History clopidogrel 75 mg PO DAILY 07/16/18 07/16/18 History glipizide 10 mg PO BID 07/16/18 07/16/18 History levothyroxine 100 mcg PO 3XWK 07/16/18 07/16/18 History levothyroxine 200 mcg PO 4XWK 07/16/18 07/16/18 History nitroglycerin [Nitrostat] 1 tab SUBLINGUAL UD 07/16/18 07/16/18 History ranitidine HCl 150 mg PO HS PRN 07/16/18 07/16/18 History Past Med/Surg History Medical History Hypothyroidism (Chronic) PVD (peripheral vascular disease) (Chronic) Vascular dementia (Chronic) Tobacco use disorder (Chronic) Type 2 diabetes mellitus (Chronic) Coronary artery disease (Chronic) LA (myocardial infarction) (Chronic) "2008 and 2013 s/p multiple stent placements " CKD (chronic kidney disease) stage 3, GFR 30-59 ml/min (Chronic) Carotid stenosis, non-symptomatic (Chronic) Primary cancer of right upper lobe of lung (Chronic) Malignant neoplasm of ureter (Chronic) Malignant neoplasm of bladder (Chronic) Surgical History S/P AAA repair (Resolved) S/p nephrectomy (Resolved) "left nephrectomy with partial ureterectomy" S/P coronary artery stent placement (Resolved) S/P tonsillectomy and adenoidectomy (Chronic) S/P appendectomy (Chronic) History of left-sided carotid endarterectomy (Chronic) S/P colonoscopy with polypectomy (Chronic) S/P laparoscopic cholecystectomy (Chronic) "with umbilical hernia repair" S/P rotator cuff repair (Chronic) Social History Preferred Language: Korean Communication Ability: Impaired Communication Ability Comment: deaf/[place]- took hearing aide home Bilingual Trainer Required: No Beliefs That Will Affect Care: None marital status: Current Living Situation: Spouse current occupational status: retired Feels Safe at Home: Yes Smoking Status: Current every day smoker Hx Alcohol Use: No Review of Systems Constitutional: + body aches, + malaise, + weakness and + anorexia; no fever and no chills Eyes: no worsening vision Ear, Nose, Mouth, Throat: + hearing loss (chronic); no sore throat and no dysphagia Respiratory: + cough, + dyspnea on exertion and + wheezing; no change in sputum, no hemoptysis and no stopping breathing during sleep Cardiovascular: no chest pain, no radiating jaw, neck or arm pain, no dyspnea on exertion, no palpitations and no edema Gastrointestinal: + fecal incontinence; no abdominal pain, no nausea and no vomiting Genitourinary (Male): + urinary incontinence; no dysuria Musculoskeletal: + joint pain and + stiffness; no muscle weakness Integumentary: no rash, no skin ulcer and no change in skin color Neurologic: no localized weakness, no numbness and no paresthesia Physical Exam Vital Signs (Past 24 Hours): Last Vital Signs Temp 36.7 C 07/16/18 19:44 Pulse 107 H 07/16/18 22:28 Resp 22 07/16/18 22:28 BP 131/86 07/16/18 22:28 Pulse Ox 95 07/16/18 22:28 Physical Exam: General Appearance: WD/WN, no apparent distress, resting comfortably Head: normocephalic, atraumatic Eyes: normal inspection, PERRL, EOMI ENT: hard of hearing, pharynx normal (dry mucous membranes) Neck: supple, no JVD, no adenopathy Respiratory/Chest: Expiratory wheezes noted in bilateral lung medrano. No rales or rhonci. No respiratory distress or accessory muscle use Cardiovascular: tachycardic, regular rhythm, no murmur, BLE warm to touch, PT and DP pulses 1+, no BLE edema Abdomen/GI: normal bowel sounds, soft, non-tender to palpation Extremities/Musculoskelatal: normal inspection, no calf tenderness, normal capillary refill, no pedal edema Neurologic/Psych: alert, normal mood/affect, oriented x 2, pleasantly confused Skin: normal color, warm/dry Results & Data Laboratory Results Short CBC 07/16/18 Range/Units 20:18 WBC 10.37 (4.8-10.8) K/uL Hgb 19.6 H (14.0-18.0) g/dL Hct 56.1 H (42-52) % Plt Count 122 L (130-400) K/uL BMP 07/16/18 07/16/18 20:18 21:13 Sodium Cancelled 134 L Potassium Cancelled 4.3 Chloride Cancelled 98 Carbon Dioxide Cancelled 27 BUN Cancelled 22 H Creatinine Cancelled 1.49 H Glucose Cancelled 179 H Calcium Cancelled 8.7 Urine 07/16/18 Range/Units 20:14 Urine Color Dark Yellow Urine Appearance Clear (Clear) Urine pH 5.0 (4.5-7.5) Ur Specific Ortley 1.023 (1.000-1.030) Urine Protein 2+ H (Negative) Urine Glucose (UA) 2+ H (Negative) Diagnostic Findings CT head: IMPRESSION: There is no hemorrhage, mass effect, or evidence of acute territorial ischemia by CT criteria. CXR: IMPRESSION: 1. Cardiomegaly, emphysema, and postoperative change from right-sided pulmonary resection as above. 2. No acute cardiopulmonary abnormality is seen. ECG Rhythm: sinus tachycardia Additional Comments: Old inferior infarct, + RBBB, no ST elevation Comparison ECG Date: from (01/05/2018) Change: the following changes noted (increased rate) Code Status & VTE Plan Code Status FULL VTE Prophylaxis Plan VTE Prophylaxis will be ordered: Yes Supervising Physician Co-Signing Physician Notes HISTORY: Record reviewed. Patient interviewed and examined. Care coordinated with Tiesha Rodriguez PA-C. Please refer to her documentation for patient's history. Briefly, 72 YO M with history of ischemic heart disease, COPD, lung cancer, dementia, and other problems. Presented to ED with 2 day history of malaise, poor PO intake, cough. EXAM: General- no distress ENT- hard of hearing Lungs- scattered rhonchi, diffuse moderate wheezing; no respiratory distress Cardiovascular- RRR; no murmur or gallop appreciated; no JVD; no pretibial edema Abdomen- + bowel sounds, soft, nontender Extremities- no cyanosis; no calf tenderness Neuro- alert, moderately confused Skin- warm & dry DATA: Hemoglobin 19.6, white count 10,370, platelet count 122,000. BUN 22, creatinine 1.49. Random glucose 179. UA showed 2+ glucose, trace ketones, negative nitrite, negative leukocyte esterase, 0 WBCs, no bacteria. Nasopharyngeal swab for influenza A was positive. Other lab studies as noted. Chest x-ray showed postsurgical changes, cardiomegaly, emphysema, no infiltrates. CT head demonstrated age-related atrophy and small vessel ischemic changes, no apparent acute event. EKG performed at 0022 reviewed and demonstrated sinus tachycardia at 100/ minute, right bundle branch block, possible age-indeterminate inferior infarct. ASSESSMENT AND PLAN: Influenza A. Rx with oseltamivir. Dehydration. IV fluids. Exacerbation COPD. IV steroids, nebs. Elevated H/H. ? hemoconcentration. ? secondary polycythemia secondary to COPD. Follow H/H. DM Expected elevated blood sugars due to acute illness + steroids. Lantus / NovoLog per protocol. Dementia. Monitor for delirium. Please refer to JEWELL Rodriguez's documentation for discussion of other issues.
[2018-07-17] MEDS ORDERED: GLUCAGON FOR INJ 1 MG VIAL SQ PRN (00:06)
[2018-07-17] MEDS ORDERED: CARBOHYDRATES FOR HYPOGLYCEMIA PO PRN (00:06)
[2018-07-17] MEDS ORDERED: ACETAMINOPHEN 325 MG TAB PO PRN (00:06)
[2018-07-17] MEDS ORDERED: SODIUM CHLORIDE 0.9% 1000ML 1,000 ML IV SCH ×2 (00:06→20:00)
[2018-07-17] MEDS ORDERED: POLYETHYLENE (MIRALAX) 17 GM PACK PO PRN (00:06)
[2018-07-17] MEDS ORDERED: GLUCOSE 10 TABS/TUBE PO PRN (00:06)
[2018-07-17] MEDS ORDERED: DEXTROSE 50% 50 ML SYRINGE IV PRN (00:06)
[2018-07-17] MEDS ORDERED: GLUCOSE 40% GEL 15 GM TUBE PO PRN (00:06)
[2018-07-17] MEDS ORDERED: ONDANSETRON INJ 2 MG/ML 2 ML VIAL IV PRN (00:06)
[2018-07-17] MEDS ORDERED: NITROGLYCERIN SL 0.4 MG/TAB TAB SL PRN (00:06)
[2018-07-17] MEDS: LEVALBUTEROL HCL 0.63 MG/3 ML NEB NEB SCH ×4 (01:59→19:09)
[2018-07-17] MEDS: INSULIN GLARGINE SOLOSTAR 100 UNITS/ML 3 ML PEN SC SCH ×4 (02:04→20:55)
[2018-07-17] MEDS: methylPREDNISolone 40 MG in SYRINGE 0 ML IV SCH ×3 (02:05→17:23)
[2018-07-17] MEDS: INSULIN ASPART 100 UNITS/ML 3 ML PEN SC SCH ×7 (02:06→20:55)
[2018-07-17] MEDS: OSELTAMIVIR PHOSPHATE SUSP 30 MG/5 ML UDP PO SCH ×2 (02:06→20:44)
[2018-07-17] MEDS: HEPARIN SOD 5,000 UNIT/0.5 ML VIAL SQ SCH ×4 (05:30→20:55)
[2018-07-17] MEDS ORDERED: INFLUENZA ADMINISTRATION CHARGE ONE (06:00)
[2018-07-17] MEDS ORDERED: INFLUENZA VACCINE HIGH DOSE 65+ 0.5 ML SYR IM ONE (06:00)
[2018-07-17] MEDS ORDERED: LEVOTHYROXINE SODIUM 200 MCG TABLET PO SCH (06:00)
[2018-07-17 07:31] LABS: Hematocrit (blood only) 50.6 % (42-52); Hemoglobin 17.1 g/dL (14.0-18.0); Mean Corpuscular Hgb Conc 33.8 g/dL (32-36); Mean Corpuscular Volume 102.8 fL (80-100); Mean Platelet Volume 10.4 fL (7.4-10.4); Platelet Count 113 K/uL (130-400); RDW Coefficient of Variation 14.4 % (11.5-14.5); RDW Standard Deviation 54.6 fL (36.4-46.3); Red Blood Count 4.92 M/uL (4.7-6.1); White Blood Count 5.87 K/uL (4.8-10.8)
[2018-07-17 08:03] LABS: BUN Creatinine Ratio 15.5 (10-20); Creatinine Clr Calc Pharmacy 48.2 ml/min; Est GFR (African American) 56.9; Est GFR (Non-African American) 49.1; Potassium 4.5 mmol/L (3.5-5.1)
[2018-07-17] MEDS: CLOPIDOGREL BISULFATE 75 MG TAB PO SCH (08:36)
[2018-07-17 09:48] LABS: Estimated Average Glucose 240 mg/dl
--- NOTE | 2018-07-17 19:44 | Hospitalist Progress Note ---
Date of Service July 17, 2018 Assessment & Plan (1) Influenza A: This is a 72yo M with a PMH of CAD (s/p stents), PVD (s/p R fem pop stent in 2018), CKD III (s/p nephrectomy), DM II, h/o lung cancer (s/p RUL resection), hypothyroidism, vascular dementia and other medical problems listed below who presents with generalized weakness since yesterday and was found to have influenza A. -Afebrile, tachycardic, no leukocytosis, lactate wnl -Underlying lung disease from longstanding tobacco use, lung cancer s/p RUL resection -Initially there was concern for sepsis so blood cultures obtained, given dose of cefepime in ED -No evidence of infiltrate on CXR, urinalysis clean. Will hold antibiotics at this time -Heart rate stable -Continue Tamiflu (renally dosed), Xopenex nebs Q6H -will transition from solumedrol to prednisone -PT/OT evaluation -Supplemental O2 to maintain sat >92% (2) Abnormal hemoglobin: Hgb elevated at 19 upon admission (baseline ~16) hemoconcentration in setting of dehydration Hgb as 17 today after IV fluids (3) Type 2 diabetes mellitus: A1c of 9.3 in Apr 2018 -Repeat a1c -Hold home agents -Basal/bolus insulin while in-patient -[facility] (4) Coronary artery disease: S/p stents, h/o stable angina -No chest pain -EKG without acute ischemic changes -Sublingual NTG PRN, EKG if chest pain -Continue aspirin, statin (5) CKD (chronic kidney disease) stage 3, GFR 30-59 ml/min: S/p L nephrectomy in 2007 Cr elevated at 1.49 in setting of dehydration (baseline Cr ~1.2) -creatinine downtrended to 1.41 after IV fluids -continue IV fluids (6) PVD (peripheral vascular disease): S/p Fem/pop artery revascularization with stent in 2017 at [facility] [place] -Follow up with Dr. Cali next month -Continue aspirin, plavix (7) Hypothyroidism: Continue levothyroxine (8) Primary cancer of right upper lobe of lung: S/p RUL resection by Dr. Pittman in 2016 (9) Malignant neoplasm of bladder: H/o bladder neck and anterior bladder cancer resection in 2016 -Following with Dr. Price DVT Ppx: SQ heparin Code status: FULL per discussion with patient and (POA) Subjective Patient is hard of hearing. Patient with some rhonchi on exam. Patient denies other medial concerns such as pain. Extended conversation difficult to carry given patient's hearing impairments Physical Exam Vital Signs (Past 24 Hours): Last Vital Signs Temp 36.7 C 07/17/18 16:08 Pulse 91 H 07/17/18 19:10 Resp 18 07/17/18 19:10 BP 163/89 H 07/17/18 16:08 Pulse Ox 92 07/17/18 19:10 Constitutional: WD/WN, vitals as above Eyes: PERRL, conjunctivae normal, anicteric sclerae EOM intact bilaterally ENMT: Ears: + hearing impairment Neck: normal visual inspection and trachea midline Respiratory: Auscultation: + rhonchi Cardiovascular: Rate/Rhythm: regular rhythm Gastrointestinal (Abdomen): normal bowel sounds, soft, nontender, no hepatosplenomegaly Musculoskeletal: Head/Neck/Chest: normocephalic and head atraumatic Neurologic: PERRL, EOMI, accommodation nl, no face palsy, no dysarthria Psychiatric: Orientation: alert
[2018-07-17] MEDS ORDERED: ATORVASTATIN 40 MG TAB PO SCH (21:00)
[2018-07-18] MEDS: LEVALBUTEROL HCL 0.63 MG/3 ML NEB NEB SCH ×3 (02:07→13:54)
[2018-07-18] MEDS: HEPARIN SOD 5,000 UNIT/0.5 ML VIAL SQ SCH ×2 (05:20→12:22)
[2018-07-18] MEDS ORDERED: LEVOTHYROXINE SODIUM 200 MCG TABLET PO SCH (06:00)
[2018-07-18 06:15] LABS: Hematocrit (blood only) 48.3 % (42-52); Hemoglobin 16.7 g/dL (14.0-18.0); Mean Corpuscular Hgb Conc 34.6 g/dL (32-36); Mean Corpuscular Volume 100.6 fL (80-100); Mean Platelet Volume 10.2 fL (7.4-10.4); Platelet Count 121 K/uL (130-400); RDW Coefficient of Variation 13.9 % (11.5-14.5); White Blood Count 13.86 K/uL (4.8-10.8)
[2018-07-18 06:42] LABS: Calcium 7.8 mg/dl (8.5-10.1); Creatinine Clr Calc Pharmacy 59.1 ml/min; Est GFR (African American) 73.5; Est GFR (Non-African American) 63.4; Potassium 4.3 mmol/L (3.5-5.1)
[2018-07-18] MEDS: OSELTAMIVIR PHOSPHATE SUSP 30 MG/5 ML UDP PO SCH (07:51)
[2018-07-18] MEDS: CLOPIDOGREL BISULFATE 75 MG TAB PO SCH (07:51)
[2018-07-18] MEDS: INSULIN ASPART 100 UNITS/ML 3 ML PEN SC SCH ×2 (08:59→12:22)
[2018-07-18] MEDS: INSULIN GLARGINE SOLOSTAR 100 UNITS/ML 3 ML PEN SC SCH (08:59)
[2018-07-18] MEDS ORDERED: predniSONE 20 MG TAB PO SCH (09:00)
[2018-07-18] MEDS ORDERED: SODIUM CHLORIDE 0.9% 1000ML 1,000 ML IV SCH (12:30)
--- NOTE | 2018-07-18 15:51 | Hospitalist Progress Note ---
Date of Service July 18, 2018 Assessment & Plan (1) Influenza A: This is a 72yo M with a PMH of CAD (s/p stents), PVD (s/p R fem pop stent in 2018), CKD III (s/p nephrectomy), DM II, h/o lung cancer (s/p RUL resection), hypothyroidism, vascular dementia and other medical problems listed below who presents with generalized weakness since yesterday and was found to have influenza A and perhaps -Afebrile, tachycardic, no leukocytosis, lactate wnl -Underlying lung disease from longstanding tobacco use, lung cancer s/p RUL resection -Initially there was concern for sepsis so blood cultures obtained, given dose of cefepime in ED; No evidence of infiltrate on CXR, urinalysis clean. Will hold antibiotics at this time; Heart rate stable -patient breathing on room air -does not need scheduled nebulizers treatments at this time -oseltamivir 30 mg BID for 4 more days -will stop all steroids to prevent steroid induced hyperglycemia and because respiratory status has improved -PT/OT evaluations were performed and patient has been ambulatory (2) Abnormal hemoglobin: Hgb elevated at 19 upon admission (baseline ~16) hemoconcentration in setting of dehydration Hgb as 17 today after IV fluids (3) Type 2 diabetes mellitus: Type 2 Diabetes Mellitus not on longer term current use of insulin with hyperglycemia, Medical Noncompliance -Patient has been refusing insulin from nurses and has had episodes of hyperglycemia -as per patient's , patient's diabetes control has been a problem at home -Medical doctor has discussed with patient's that with a Hemglobin A1c of 10, that oral medications such as glipizide is unlikely to make any remarkable difference in patient's overall glucose control. have discussed with his to come in to hospital to learn how to give insulin shots to patient for when he goes home -continue glipizide as 20 mg total daily in case patient continues to be noncompliant to insulin use -New discharge medication of Lantus (glargine) 5 units daily Paper prescription written for 1 blood glucose meter and 30 test strips compatible with blood glucose meter and also 30 insulin pen needles (4) Coronary artery disease: S/p stents, h/o stable angina -No chest pain -EKG without acute ischemic changes -Sublingual NTG PRN, EKG if chest pain -Continue aspirin, statin (5) CKD (chronic kidney disease) stage 3, GFR 30-59 ml/min: Acute Kidney Injury on CKD (chronic kidney disease) stage 3, GFR 30-59 ml/min from Dehydration, S/p L nephrectomy in 2007 creatinine downtrended to baseline with IV fluids (6) PVD (peripheral vascular disease): S/p [place] [facility] [place]Follow up with Dr. Cali next month -Continue aspirin, plavix (7) Hypothyroidism: Continue levothyroxine (8) Primary cancer of right upper lobe of lung: S/p RUL resection by Dr. Pittman in 2016 (9) Malignant neoplasm of bladder: H/o bladder neck and anterior bladder cancer resection in 2016 -Following with Dr. Price DVT Ppx: SQ heparin Patient's Alida Code status: FULL per discussion with patient and (POA) Discharge Diagnosis Influenza A, COPD, Acute Kidney Injury on CKD (chronic kidney disease) stage 3, GFR 30-59 ml/min from Dehydration, Type 2 Diabetes Mellitus not on longer term current use of insulin with hyperglycemia, Medical Noncompliance Discharge Instructions Discharge to Home to care of his New discharge medication of oseltamivir 30 mg BID for 4 more days New discharge medication of Lantus (glargine) 5 units daily Paper prescription written for 1 blood glucose meter and 30 test strips compatible with blood glucose meter and also 30 insulin pen needles 07/24/2018 1:00 PM Provider Deja Layton MD Department [facility] 08/13/2018 10:30 AM Provider [address] Department Radiology [facility] 08/13/2018 1:00 PM [facility] Department Radiology [address] 08/13/2018 3:00 PM Provider [address] Radiology [address] 08/19/2018 1:00 PM Provider Marcia Cali MD Department Vascular Surgery, [facility] 08/19/2018 3:30 PM Provider Jelani Hernandez DO Department Cardiology, [facility] 09/13/2018 9:20 AM Provider Vik Charles MD Department [facility] Subjective Patient has been breathing on room air. His breathing sounds has improved. He have been seen to be ambulatory Patient denies acute pain. Has auditory impairments and difficult to carry out extended conversations Patient has been refusing insulin from nurses and has had episodes of hyperglycemia as per patient's , patient's diabetes control has been a problem at home Medical doctor has discussed with patient's that with a Hemglobin A1c of 10, that oral medications such as glipizide is unlikely to make any remarkable difference in patient's overall glucose control. have discussed with his to come in to hospital to learn how to give insulin shots to patient for when he goes home Physical Exam Vital Signs (Past 24 Hours): Last Vital Signs Temp 36.7 C 07/18/18 15:00 Pulse 70 07/18/18 15:00 Resp 20 07/18/18 15:00 BP 137/73 07/18/18 15:00 Pulse Ox 90 07/18/18 15:00 Constitutional: WD/WN, vitals as above Eyes: PERRL, conjunctivae normal, anicteric sclerae EOM intact bilaterally ENMT: Ears: + hearing impairment Neck: normal visual inspection and trachea midline Respiratory: normal respiratory effort, lungs clear to auscultation Cardiovascular: Rate/Rhythm: regular rhythm Gastrointestinal (Abdomen): normal bowel sounds, soft, nontender, no hepatosp lenomegaly Musculoskeletal: Head/Neck/Chest: normocephalic and head atraumatic Neurologic: PERRL, EOMI, accommodation nl, no face palsy, no dysarthria Psychiatric: Orientation: alert
[2018-07-18] MEDS ORDERED: glipiZIDE ER 2.5 MG TABCR PO ONE (15:53)
--- NOTE | 2018-07-18 16:09 | Discharge Summary ---
Date of Service July 18, 2018 Admission HPI Per Admitting Provider This is a 72yo M with a PMH of CAD (s/p stents), PVD (s/p R fem pop stent in 2018), CKD III (s/p nephrectomy), DM II, h/o lung cancer (s/p RUL resection), hypothyroidism, vascular dementia and other medical problems listed below who presents with generalized weakness since yesterday. Most of history obtained from at bedside due to patient being hard of hearing and having vascular dementia. Patient was in normal state of health until yesterday, when he began to complain of a headache and generalized aching, especially in legs. Was also having difficulty ambulating from bedroom to bathroom, requiring his 's help. This is unusual for him, since he can ambulate independently at baseline. Had an episode of urinary and fecal incontinence this morning. was instructed to bring patient to ED for further evaluation. Patient is afebrile. Heart rate initially elevated at 121 but has decreased to 102 after IV fluid resuscitation. Oxygen saturation 94% on 2 L NC. Influenza A is positive. CT head without acute abnormality. Chest x-ray with cardiomegaly and emphysema but no evidence of infiltrates. Urinalysis without evidence of infection. Has had decreased appetite for the past few days, as well as a dry cough. Denies fever, chills, headache, lightheadedness, chest pain, shortness of breath, nausea, vomiting, abdominal pain, dysuria or diarrhea. Patient with significant smoking history, currently smoking 1-1.5 ppd. Admission Exam Per Admitting Provider General Appearance: WD/WN, no apparent distress, resting comfortably Head: normocephalic, atraumatic Eyes: normal inspection, PERRL, EOMI ENT: hard of hearing, pharynx normal (dry mucous membranes) Neck: supple, no JVD, no adenopathy Respiratory/Chest: Expiratory wheezes noted in bilateral lung medrano. No rales or rhonci. No respiratory distress or accessory muscle use Cardiovascular: tachycardic, regular rhythm, no murmur, BLE warm to touch, PT and DP pulses 1+, no BLE edema Abdomen/GI: normal bowel sounds, soft, non-tender to palpation Extremities/Musculoskelatal: normal inspection, no calf tenderness, normal capillary refill, no pedal edema Neurologic/Psych: alert, normal mood/affect, oriented x 2, pleasantly confused Skin: normal color, warm/dry Principal Diagnosis Influenza A, COPD, Acute Kidney Injury on CKD (chronic kidney disease) stage 3, GFR 30-59 ml/min from Dehydration, Type 2 Diabetes Mellitus not on longer term current use of insulin with hyperglycemia, Medical Noncompliance Discharge Exam Constitutional WD/WN, vitals as above Eyes PERRL, conjunctivae normal, anicteric sclerae EOM intact bilaterally ENMT Ears: + hearing impairment Neck normal visual inspection and trachea midline Respiratory normal respiratory effort, lungs clear to auscultation Auscultation: + rhonchi Cardiovascular Rate/Rhythm: regular rhythm Gastrointestinal (Abdomen) normal bowel sounds, soft, nontender, no hepatosplenomegaly Musculoskeletal Head/Neck/Chest: normocephalic and head atraumatic Neurologic PERRL, EOMI, accommodation nl, no face palsy, no dysarthria Psychiatric Orientation: alert Discharge Data Allergies Allergy/AdvReac Type Severity Reaction Status Date / Time Iodinated Contrast- Oral and Allergy Intermediate swelling Verified 07/16/18 23:28 IV Dye Consultations 07/16/18 22:06 ED Decision to Admit Stat 07/17/18 00:06 Consult Case Management - Discharge Planning Routine Ordered Studies 07/16/18 20:06 CT head/brain wo con Stat Hospital Course (1) Influenza A: This is a 72yo M with a PMH of CAD (s/p stents), PVD (s/p R fem pop stent in 2018), CKD III (s/p nephrectomy), DM II, h/o lung cancer (s/p RUL resection), hypothyroidism, vascular dementia and other medical problems listed below who presents with generalized weakness since yesterday and was found to have in fluenza A and perhaps -Afebrile, tachycardic, no leukocytosis, lactate wnl -Underlying lung disease from longstanding tobacco use, lung cancer s/p RUL resection -Initially there was concern for sepsis so blood cultures obtained, given dose of cefepime in ED; No evidence of infiltrate on CXR, urinalysis clean. Will hold antibiotics at this time; Heart rate stable -patient breathing on room air -does not need scheduled nebulizers treatments at this time -oseltamivir 30 mg BID for 4 more days -will stop all steroids to prevent steroid induced hyperglycemia and because respiratory status has improved -PT/OT evaluations were performed and patient has been ambulatory (2) Abnormal hemoglobin: Hgb elevated at 19 upon admission (baseline ~16) hemoconcentration in setting of dehydration Hgb as 17 today after IV fluids (3) Type 2 diabetes mellitus: Type 2 Diabetes Mellitus not on longer term current use of insulin with hyperglycemia, Medical Noncompliance -Patient has been refusing insulin from nurses and has had episodes of hyperglycemia -as per patient's , patient's diabetes control has been a problem at home -Medical doctor has discussed with patient's that with a Hemglobin A1c of 10, that oral medications such as glipizide is unlikely to make any remarkable difference in patient's overall glucose control. have discussed with his to come in to hospital to learn how to give insulin shots to patient for when he goes home -continue glipizide as 20 mg total daily in case patient continues to be noncompliant to insulin use -New discharge medication of Lantus (glargine) 5 units daily Paper prescription written for 1 blood glucose meter and 30 test strips compatible with blood glucose meter and also 30 insulin pen needles (4) Coronary artery disease: S/p stents, h/o stable angina -No chest pain -EKG without acute ischemic changes -Sublingual NTG PRN, EKG if chest pain -Continue aspirin, statin (5) CKD (chronic kidney disease) stage 3, GFR 30-59 ml/min: Acute Kidney Injury on CKD (chronic kidney disease) stage 3, GFR 30-59 ml/min from Dehydration, S/p L nephrectomy in 2007 creatinine downtrended to baseline with IV fluids (6) PVD (peripheral vascular disease): S/p Fem/pop artery revascularization with stent in 2017 at [facility] [place] -Follow up with Dr. Cali next month -Continue aspirin, plavix (7) Hypothyroidism: Continue levothyroxine (8) Primary cancer of right upper lobe of lung: S/p RUL resection by Dr. Pittman in 2016 (9) Malignant neoplasm of bladder: H/o bladder neck and anterior bladder cancer resection in 2016 -Following with Dr. Price DVT Ppx: SQ heparin Patient's Alida Code status: FULL per discussion with patient and (POA) Discharge Diagnosis Influenza A, COPD, Acute Kidney Injury on CKD (chronic kidney disease) stage 3, GFR 30-59 ml/min from Dehydration, Type 2 Diabetes Mellitus not on longer term current use of insulin with hyperglycemia, Medical Noncompliance Discharge Instructions Discharge to Home to care of his New discharge medication of oseltamivir 30 mg BID for 4 more days New discharge medication of Lantus (glargine) 5 units daily Paper prescription written for 1 blood glucose meter and 30 test strips compatible with blood glucose meter and also 30 insulin pen needles 07/24/2018 1:00 PM Provider Deja Layton MD Department [facility] 08/13/2018 10:30 AM Provider [address] Department Radiology [facility] 08/13/2018 1:00 PM Provider [address] Department Radiology [facility] 08/13/2018 3:00 PM Provider [address] Radiology [facility] 08/19/2018 1:00 PM Provider Marcia Cali MD Department Vascular Surgery, [facility] 08/19/2018 3:30 PM Provider Jelani Hernandez DO Department Cardiology, [facility] 09/13/2018 9:20 AM Provider Vik Charles MD Department [facility] Total Time Total Time Spent Total Time Spent (In Minutes): 40 minutes Total Time Includes: Examination of the Patient, Discharge Planning and Medication Reconciliation Discharge Plan Discharge Items Patient Disposition: Home - Home Health Services Reason For Visit: GENERALIZED WEAKNESS,FLU A Discharge Diagnosis: Influenza A, Acute Kidney Injury on CKD (chronic kidney disease) stage 3, GFR 30-59 ml/min from Dehydration, Type 2 Diabetes Mellitus no t on longer term current use of insulin with hyperglycemia, Medical Noncompliance Condition: Good Discharge Goals: Improve disease control Activity: Resume your previous activity Non-emergency contact: Primary Care Provider Call non-emergency contact if: you have any medication questions Follow-up/Referrals: Vik Charles [Primary Care Provider] - Diet: Carb Consistent or DM2 Addtl Provider Instructions: Discharge to Home to care of his New discharge medication of oseltamivir 30 mg BID for 4 more days New discharge medication of Lantus (glargine) 5 units daily Paper prescription written for 1 blood glucose meter and 30 test strips compatible with blood glucose meter and also 30 insulin pen needles 07/24/2018 1:00 PM Provider Deja Layton MD Department [facility] 08/13/2018 10:30 AM Provider [address] Rad[address] 08/13/2018 1:00 PM Provider [address] Rad[address] 08/13/2018 3:00 PM Provider [address] Rad[address] 08/19/2018 1:00 PM Provider Marcia Cali MD Department Vascular Surgery, [facility] 08/19/2018 3:30 PM Provider Jelani Hernandez DO Department Cardiology, [facility] 09/13/2018 9:20 AM Provider Vik Charles MD Department [facility] Prescriptions: New oseltamivir [Tamiflu] 30 mg capsule 30 mg PO BID 4 Days Qty: 8 RF: 0 insulin glargine U-300 conc 300 unit/mL (1.5 mL) insulin pen 5 units SQ DAILY 30 Days Qty: 0.6 RF: 0 Continued atorvastatin 40 mg tablet 40 mg PO HS RF: 0 glipizide 10 mg tablet extended release 24hr 10 mg PO BID RF: 0 clopidogrel 75 mg tablet 75 mg PO DAILY RF: 0 nitroglycerin [Nitrostat] 0.4 mg Tablet, Sublingual 1 tab Sublingual UD RF: 0 levothyroxine 200 mcg tablet 200 mcg PO 4XWK RF: 0 levothyroxine 200 mcg tablet 100 mcg PO 3XWK RF: 0 ranitidine HCl 150 mg Tablet 150 mg PO HS PRN (Reason: Heartburn) RF: 0 aspirin 81 mg Tablet,Delayed Release (Dr/Ec) 81 mg PO DAILY RF: 0 Stand-Alone Forms: [facility] Discharge Orders: Discharge Order (Routine); Ordered 07/18/18 Ordered By: Jemal Hodgson Admission Data Admit Date/Time: 07/16/18 22:55 Attending Provider: Jemal Hodgson Admit Provider: Germán Aguilar Primary Care Provider: Oesterling,Vik Other Providers: Germán Aguilar Service: Telemetry Other Interventions: Discharge Summary Assessment (RN) Last Done: 07/18/18 11:17
[2018-07-19] MEDS ORDERED: INSULIN GLARGINE SOLOSTAR 100 UNITS/ML 3 ML PEN SC SCH (09:00)
== END 2018-07-18 17:15 | disposition home health service (06) ==
LOC: ED 19:35 → 2W 22:55

== ENCOUNTER 2018-07-20 13:14 | Observation (INO) ==
--- NOTE | 2018-07-20 13:43 | XRay Report ---
XR chest 1V portable HISTORY: weakness COMPARISON: Chest 07/16/2018. FINDINGS: Slightly rotated study. The heart remains mildly enlarged. No pneumothorax. No pleural effu sions. Emphysema. Mild interstitial thickening again noted at the lung bases. No new focal lung conso lidations to suggest pneumonia. No evidence for pulmonary edema. Old, healed bilateral clavicle fract ures. There are postoperative changes within the right lung. IMPRESSION: No change in the mild cardiomegaly, emphysema, and postoperative changes within the right hemithorax. No acute process within the chest. Electronically signed by: Miko Vazquez M.D. 07/20/2018 1:41 PM
[2018-07-20] MEDS ORDERED: ALBUT/IPRATROP 3MG/0.5MG NEB 3 ML VIAL NEB STA ×2 (13:57→15:43)
[2018-07-20] MEDS ORDERED: methylPREDNISolone 125 MG/2 ML VIAL IV STA (15:43)
--- NOTE | 2018-07-20 16:17 | History & Physical Report ---
Date of Service July 20, 2018 Assessment & Plan (1) Hypoxia: (2) Influenza: (3) COPD (chronic obstructive pulmonary disease): This is a 73yo M with a PMH of CAD (s/p stents), PVD (s/p R fem pop stent in 2018), CKD III (s/p nephrectomy), DM II, h/o lung cancer (s/p RUL resection), hypothyroidism, vascular dementia and other medical problems listed below who presents with hypoxia and shortness of breath. -Has starting smoking again since discharge in setting of Flu A, COPD exacerbation -Strongly encouraged smoking cessation -Given solu-medrol 125mg in ED. Will reassess need for continued steroids tomorrow -Continue droplet precautions, Tamiflu -Duonebs QIDR -Supplemental O2 PRN, will likely need for O2 upon discharge (4) Type 2 diabetes mellitus: Poorly controlled DM II, with a1c of 10 - states patient is forgetful about what he eats due to dementia -Hold home agents -Glycemic consult placed in setting of IV steroids, recommendations for discharge -BSG AC HS (5) Coronary artery disease: S/p stents, h/o stable angina -No chest pain -EKG without acute changes -Sublingual NTG PRN, EKG if chest pain -Continue aspirin, statin (6) PVD (peripheral vascular disease): S/p Fem/pop artery [place] [facility] [place]Follow up with Dr. Cali next month -Continue aspirin, plavix (7) CKD (chronic kidney disease) stage 3, GFR 30-59 ml/min: S/p L nephrectomy in 2007 Patient refused blood draw in ED. Will be attempted again on the floor -Baseline Cr ~1.2 (8) Vascular dementia: Monitor for delirium One-to-one ordered due to vascular dementia (9) Hypothyroidism: Continue levothyroxine (10) Primary cancer of right upper lobe of lung: S/p RUL resection by Dr. Pittman in 2016 (11) Malignant neoplasm of bladder: H/o bladder neck and anterior bladder cancer resection in 2016 -Following with Dr. Price DVT Ppx: SQ heparin Code status: FULL per discussion with patient and (POA) PCP: [facility]is[facility]andana Dispo: Observation med tele. Discharge planning ordered. Patient seen in collaboration with Dr. Hodgson. Please see addendum. History of Present Illness Chief Complaint: hypoxia, SOB Primary Care Provider: Vik Charles This is a 73yo M with a PMH of CAD (s/p stents), PVD (s/p R fem pop stent in 2018), CKD III (s/p nephrectomy), DM II, h/o lung cancer (s/p RUL resection), hypothyroidism, vascular dementia and other medical problems listed below who presents with hypoxia and shortness of breath. Was recently admitted to our service from 07/16/18-07/18/18 for acute hypoxia in setting of Influenza A and COPD exacerbation. Patient was treated with Tamiflu and steroids and was saturating at 90% on room air by time of discharge. Was noted to be hypoxic at 82% on room air by home health nurse yesterday and encouraged to come to ED, but patient refused. Was seen at [facility] weekend clinic today and found to be hypoxic at 84%. states that patient has been smoking at home since discharge and she has noticed "gurgling sounds" in his throat. Still generally weak and more confused than baseline. Has been taking tamiflu and new regimen for DM II (a1c of 10 during last admission). Denies fever, chills, lightheadedness, chest pain, palpitations, nausea, vomiting, diarrhea or constipation. No BLE edema. Allergies Allergy/AdvReac Type Severity Reaction Status Date / Time Iodinated Contrast- Oral and Allergy Intermediate swelling Verified 07/20/18 14:59 IV Dye Home Medications Home Medications Medication Instructions Recorded Confirmed Type aspirin 81 mg PO QAM 07/16/18 07/20/18 History atorvastatin 40 mg PO HS 07/16/18 07/20/18 History clopidogrel 75 mg PO QAM 07/16/18 07/20/18 History glipizide 10 mg PO BID 07/16/18 07/20/18 History levothyroxine 100 mcg PO 3XWK 07/16/18 07/20/18 History levothyroxine 200 mcg PO 4XWK 07/16/18 07/20/18 History nitroglycerin [Nitrostat] 1 tab SUBLINGUAL UD 07/16/18 07/20/18 History ranitidine HCl 150 mg PO HS PRN 07/16/18 07/20/18 History oseltamivir [Tamiflu] 30 mg PO BID 4 Days #8 cap 07/18/18 07/20/18 Rx insulin glargine U-300 conc 5 units SQ QAM 07/20/18 07/20/18 History Past Med/Surg History Medical History Hypothyroidism (Chronic) PVD (peripheral vascular disease) (Chronic) Vascular dementia (Chronic) Tobacco use disorder (Chronic) Type 2 diabetes mellitus (Chronic) Coronary artery disease (Chronic) UT (myocardial infarction) (Chronic) "2008 and 2013 s/p multiple stent placements " CKD (chronic kidney disease) stage 3, GFR 30-59 ml/min (Chronic) Carotid stenosis, non-symptomatic (Chronic) Primary cancer of right upper lobe of lung (Chronic) Malignant neoplasm of ureter (Chronic) Malignant neoplasm of bladder (Chronic) Surgical History S/P AAA repair (Resolved) S/p nephrectomy (Resolved) "left nephrectomy with partial ureterectomy" S/P coronary artery stent placement (Resolved) S/P tonsillectomy and adenoidectomy (Chronic) S/P appendectomy (Chronic) History of left-sided carotid endarterectomy (Chronic) S/P colonoscopy with polypectomy (Chronic) S/P laparoscopic cholecystectomy (Chronic) "with umbilical hernia repair" S/P rotator cuff repair (Chronic) Family History Father Heart attack Mother Colon cancer Social History Preferred Language: [place] Communication Ability: Impaired Communication Ability Comment: [place] with hearing aides Historic Sites Supervisor Required: No Beliefs That Will Affect Care: None marital status: Current Living Situation: Spouse current occupational status: retired Other Information That Helps Us Care for You: No Feels Safe at Home: Yes Safety Concerns: Feels Safe At This Time Smoking Status: Current every day smoker Hx Alcohol Use: No Hx Substance Use: No Review of Systems All systems reviewed & are unremarkable except as noted in HPI & below Physical Exam Vital Signs (Past 24 Hours): Last Vital Signs Temp 36.4 C L 07/20/18 13:19 Pulse 89 07/20/18 15:31 Resp 20 07/20/18 15:31 BP 119/76 07/20/18 15:31 Pulse Ox 93 07/20/18 15:31 Physical Exam: General Appearance: WD/WN, no apparent distress, resting comfortably Head: normocephalic, atraumatic Eyes: normal inspection, PERRL, EOMI ENT: hearing grossly normal, pharynx normal (moist mucous membranes) Neck: supple, no JVD, no adenopathy Respiratory/Chest: Rhonci and scattered wheezes noted. No rales. No respiratory distress or accessory muscle use. Saturating at 93% on 2L NC Cardiovascular: regular rate, rhythm, no murmur, normal peripheral pulses Abdomen/GI: normal bowel sounds, soft, non-tender to palpation Extremities/Musculoskelatal: normal inspection, no calf tenderness, normal capillary refill, no pedal edema Neurologic/Psych: alert, normal mood/affect, oriented x 3 Skin: normal color, warm/dry Supervising Physician Co-Signing Physician Notes I have seen and examined the patient with physician anesthetic assistant and agree with the assessment and plan as above and would like to comment that Patient returns to the hospital after being brought back by is for shortness of breath and hypoxia. he was recently discharged from previous hospitalization for influenza A when he was discharged while maintaining oxygen saturation on room air He has not yet completed the full course of Tamiflu yet for Influenza A. While post-viral induced pneumonia is possible, on chest X ray there is no evidence for pneumonia as per radiologist reading. Patient has smoking history and has emphysema and apparently used tobacco products when he was discharged home. Likely this episode of hypoxia is due to COPD exacerbation from tobacco use. On previous hospitalization, patient was resistant to taking insulin. Patient's reports that she has been able to give to him insulin that he was discharged on as HbA1c of 10 of Type 2 Diabetes Mellitus and originally only on glipizide at home. Because it is unclear whether patient will taking insulin from nursing staff, would hold off further steroids for respiratory purposes. He already got steroids in the ER. Main treatment at this time would be scheduled nebulizer treatments and oxygen to maintain oxygen saturation between 88 to 92%. Would give azithromycin in context of COPD exacerbation otherwise agree with assessment and plan as documented by physician anesthetic assistant On physical Exam general: no acute distress Lungs: has rhonchi, no wheezing, on nasal cannula Heart: regular rate Abdomen: soft, nontender, bowel sounds present Extremities: no edema Neuro: awake, alert, verbal (1) COPD (chronic obstructive pulmonary disease) COPD type: unspecified COPD Qualified Code(s): J44.9 - Chronic obstructive pulmonary disease, unspecified
--- NOTE | 2018-07-20 17:30 | Emergency Department Note ---
Entered by Ricardo Wei acting as a scribe for Germán Sorensen MD ED Provider Note CHIEF COMPLAINT: hypoxia HISTORY OF PRESENT ILLNESS: The patient is a 73 year old male who presents to the Emergency Room with hypoxia found at his PCPs office prior to arrival. Records show that the patients oxygen saturation was in the low 80s at the office today, and he was sent to the ER for a chest x-ray and further workup. Family states that yesterday the patients oxygen levels were dropping with walking when being evaluated by his home health nurse. The patient was discharged two days ago from the hospital for weakness and influenza. Family reports that the patient is still taking Tamiflu and has two days remaining. She states that the patient is chronically weak and was diagnosed with dementia in 2016. The patient states that he is unsure if the supplemental oxygen has improved his breathing. Family denies recent changes in his cough. She notes that the patient does not usually have breathing treatments at home. The patient has a history of cancer in the right upper lung with surgical removal of a tumor. Pt denies LOC, headache, fevers, chills, diaphoresis, visual changes, loss of appetite, neck pain, chest pain, nausea, vomiting, abdominal pain, back pain, melena, hematochezia, urinary symptoms, numbness, lymphadenopathy, rash, or other complaints. REVIEW OF SYSTEMS: See HPI for pertinent positives and negatives. A total of ten systems were reviewed and were otherwise negative. PMHx/PSHx: hypothyroidism, diabetes, PVD, dementia, COPD, CAD, SC, CKD, lung cancer, AAA SOCIAL HISTORY: Patient lives at home. PHYSICAL EXAM: GENERAL: Awake, alert, well-appearing, in no distress HENT: Normocephalic, atraumatic. Oropharynx unremarkable. EYES: Normal conjunctiva. Sclera non-icteric. NECK: Inspection normal. Non-tender. Supple. No nuchal rigidity. FROM. No masses. RESPIRATORY: Wheezing and coarse breath sounds bilaterally. No rales. Increased work of breathing. CARDIAC: Normal rate. Normal rhythm. No murmurs. No rubs. Extremities warm and well perfused. Pulses equal. No JVD. GI: Soft, non-distended. No tenderness to palpation. No rebound or guarding. No masses. RECTAL: Deferred. MUSCULOSKELETAL: Atraumatic. Chest examination reveals no tenderness. The back is symmetrical on inspection without obvious abnormality. There is no CVA tenderness to palpation. No joint edema. LOWER EXTREMITIES: Calves are equal size bilaterally and non-tender. No edema. No discoloration. NEURO: Demented sensorium. No sensory or motor deficits noted. SKIN: No rash or jaundice noted. EMERGENCY DEPARTMENT COURSE: 1343: Past medical records reviewed. The patient was evaluated in room C1A, and a complete history and physical examination were performed. 1536: I updated the family. The patient has refused bloodwork. 1541: I consulted Tiesha Rodriguez PA-C: [facility] Hospitalist with Dr. Hodgson. The patient will be reevaluated for hospitalization. 1553: The nurse states that the patient is also refusing medications. Patient to be admitted by the [facility] team. MEDICAL DECISION MAKING: Prior records/ancillary studies reviewed. Patient was admitted for weakness and influenza. Outpatient office visit reviewed. The patient had a pulse oximetry of 84%. Triage Nursing notes reviewed and agree them. Additional history obtained from the family. The patient's history was concerning for shortness of breath. Differential diagnosis: Etiologies such as pneumonia, COPD, reactive airway disease, CHF, cardiac isch emia, pulmonary embolism, pneumothorax, musculoskeletal, infections, gastrointestinal, as well as others were entertained. Physical examination: As above. Requiring supplemental oxygen. The patient has wheezing and coarse breath sounds. ER treatment provided: Supplemental oxygen DuoNeb On reassessment the patient felt better. Solu-Medrol and DuoNeb were ordered and patient refused. Diagnostic interpretation by me: The electrocardiogram was negative for pathologic change. Laboratory testing including blood cultures were ordered. The nurse was unable to get blood work from his IV placement. The patient refused additional blood work. Imaging studies: Chest x-ray performed and was negative for any obvious pneumonia. No acute pathology noted. The patient has COPD history. He has influenza. He has hypoxia requiring supplemental oxygen. Consultation: A consultation was placed with the hospitalist. The case was discussed and diagnostics were reviewed. The patient was evaluated in the ER for further treatment. IMPRESSION: Hypoxia, influenza, COPD PLAN: evaluation by hospitalist ATTESTATION: The scribe's documentation has been prepared under my direction and personally reviewed by me in its entirety. I confirm that the note above accurately reflects all work, treatment, procedures, and medical decision making performed by me. 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) Malignant neoplasm of bladder (Chronic) Surgical History S/P AAA repair (Resolved) S/p nephrectomy (Resolved) "left nephrectomy with partial ureterectomy" S/P coronary artery stent placement (Resolved) S/P tonsillectomy and adenoidectomy (Chronic) S/P appendectomy (Chronic) History of left-sided carotid endarterectomy (Chronic) S/P colonoscopy with polypectomy (Chronic) S/P laparoscopic cholecystectomy (Chronic) "with umbilical hernia repair" S/P rotator cuff repair (Chronic) Family History Father Heart attack Mother Colon cancer Social History Preferred Language: Greek Beliefs That Will Affect Care: None marital status: Current Living Situation: Spouse current occupational status: retired Feels Safe at Home: Yes Smoking Status: Current every day smoker Hx Alcohol Use: No Results & Data Vital Signs Vital Signs - 24 hr 07/20/18 13:19 07/20/18 13:24 07/20/18 13:31 Temperature 36.4 C L Temperature Source Oral Sepsis Recent Fever Within 48 Hours No Sepsis New/Unexplained Change in Mental Status No Sepsis Action Taken by Nursing No Action Required Pulse Rate 98 H 90 Pulse Rate from SpO2 Sensor 90 Respiratory Rate 20 20 Blood Pressure 115/75 118/82 Blood Pressure Mean 88 94 Blood Pressure Position Sitting Pulse Oximetry 89 L 89 L 97 Oxygen Delivery Method Room Air Room Air Nasal Cannula Oxygen Flow Rate 0 2 07/20/18 13:34 07/20/18 15:31 Temperature Temperature Source Sepsis Recent Fever Within 48 Hours Sepsis New/Unexplained Change in Mental Status Sepsis Action Taken by Nursing Pulse Rate 89 Pulse Rate from SpO2 Sensor 90 Respiratory Rate 20 Blood Pressure 119/76 Blood Pressure Mean 90 Blood Pressure Position Pulse Oximetry 96 93 Oxygen Delivery Method Nasal Cannula Nasal Cannula Oxygen Flow Rate 2 2 Home Medications Current Medication List: was personally reviewed by me Administered Medications Discontinued Medications Albuterol (Duoneb) 3 ml NEB NOW STA Stop: 07/20/18 13:58 Last Admin: 07/20/18 14:36 Dose: 3 ml Documented by: [id number] Albuterol (Duoneb) 3 ml NEB NOW STA Stop: 07/20/18 15:44 Last Admin: 07/20/18 15:59 Dose: Not Given Documented by: [id number] Methylprednisolone (Solumedrol) 125 mg IV NOW STA Stop: 07/20/18 15:44 Last Admin: 07/20/18 15:59 Dose: Not Given Documented by: [id number] Imaging Data Radiologist's Impression: Radiology results as stated below per my review and the radiologist's interpretation: XR chest 1V portable HISTORY: weakness COMPARISON: Chest 07/16/2018. FINDINGS: Slightly rotated study. The heart remains mildly enlarged. No pneumot horax. No pleural effusions. Emphysema. Mild interstitial thickening again noted at the lung bases. No new focal lung consolidations to suggest pneumonia. No evidence for pulmonary edema. Old, healed bilateral clavicle fractures. There are postoperative changes within the right lung. IMPRESSION: No change in the mild cardiomegaly, emphysema, and postoperative changes within the right hemithorax. No acute process within the chest. Electronically signed by: Miko Vazquez M.D. 07/20/2018 1:41 PM ECG Data Attestation: I personally reviewed and interpreted this ECG as follows: Indication: weakness Rate (beats per minute): 91 Rhythm: sinus with SA Findings: + Q waves (Inferior); no PVC, no ST depression and no ST elevation Blood Pressure Blood Pressure Findings: Normal blood pressure Blood Pressure Disposition: did not require urgent referral Discharge Plan Visit Data Chief Complaint: Congestion Stated Complaint: LOW OXYGEN,CHEST CONGESTION ED Provider: Germán Sorensen Discharge Problem: Hypoxia, Influenza, COPD (chronic obstructive pulmonary disease) Patient Disposition: Being Evaluated by Hospitalist Forms Stand Alone Forms: My [facility] Prescriptions Prescriptions: No Action atorvastatin 40 mg tablet 40 mg PO HS RF: 0 glipizide 10 mg tablet extended release 24hr 10 mg PO BID RF: 0 clopidogrel 75 mg tablet 75 mg PO QAM RF: 0 nitroglycerin [Nitrostat] 0.4 mg Tablet, Sublingual 1 tab Sublingual UD RF: 0 levothyroxine 200 mcg tablet 200 mcg PO 4XWK RF: 0 levothyroxine 200 mcg tablet 100 mcg PO 3XWK RF: 0 ranitidine HCl 150 mg Tablet 150 mg PO HS PRN (Reason: Heartburn) RF: 0 aspirin 81 mg Tablet,Delayed Release (Dr/Ec) 81 mg PO QAM RF: 0 oseltamivir [Tamiflu] 30 mg capsule 30 mg PO BID 4 Days Qty: 8 RF: 0 insulin glargine U-300 conc 300 unit/mL (1.5 mL) insulin pen 5 units SQ QAM RF: 0 Referrals Referrals: Vik Charles [Primary Care Provider] - Discharge Problem: COPD (chronic obstructive pulmonary disease) Qualifiers: COPD type: unspecified COPD Qualified Code(s): J44.9 - Chronic obstructive pulmonary disease, unspecified The scribe's documentation has been prepared under my direction and personally reviewed by me in its entirety. I confirm that the note above accurately reflects all work, treatment, procedures, and medical decision making performed by me.
[2018-07-20] MEDS ORDERED: NITROGLYCERIN SL 0.4 MG/TAB TAB SL PRN (18:16)
[2018-07-20] MEDS ORDERED: ACETAMINOPHEN 325 MG TAB PO PRN (18:16)
[2018-07-20] MEDS ORDERED: GLUCOSE 10 TABS/TUBE PO PRN (18:16)
[2018-07-20] MEDS ORDERED: DEXTROSE 50% 50 ML SYRINGE IV PRN (18:16)
[2018-07-20] MEDS ORDERED: GLUCOSE 40% GEL 15 GM TUBE PO PRN (18:16)
[2018-07-20] MEDS ORDERED: GLUCAGON FOR INJ 1 MG VIAL SQ PRN (18:16)
[2018-07-20] MEDS ORDERED: CARBOHYDRATES FOR HYPOGLYCEMIA PO PRN (18:16)
[2018-07-20 18:28] LABS: Basophils # (auto) 0.03 K/uL (0-0.2); Basophils % (auto) 0.3 %; Eosinophils # (auto) 0.12 K/uL (0-0.5); Eosinophils % (auto) 1.2 %; Hematocrit (blood only) 46.9 % (42-52); Hemoglobin 16.3 g/dL (14.0-18.0); Immature Granulocytes # (auto) 0.11 K/uL (0.00-0.02); Immature Granulocytes % (auto) 1.1 %; Lymphocytes # (auto) 2.38 K/uL (1.2-3.4); Lymphocytes % (auto) 24.2 %; Mean Corpuscular Hgb Conc 34.8 g/dL (32-36); Mean Corpuscular Volume 101.5 fL (80-100); Mean Platelet Volume 10.3 fL (7.4-10.4); Monocytes # (auto) 0.78 K/uL (0.11-0.59); Monocytes % (auto) 7.9 %; Neutrophils % (auto) 65.3 %; Platelet Count 112 K/uL (130-400); RDW Coefficient of Variation 13.9 % (11.5-14.5); RDW Standard Deviation 52.1 fL (36.4-46.3); Red Blood Count 4.62 M/uL (4.7-6.1); White Blood Count 9.82 K/uL (4.8-10.8)
[2018-07-20] MEDS ORDERED: AZITHROMYCIN 500 MG in DEXTROSE 5% 250 ML IV STA (18:28)
[2018-07-20 18:47] LABS: Alanine Aminotransferase 40 U/L (12-78); Albumin Level 2.8 gm/dl (3.4-5.0); Aspartate Aminotransferase 27 U/L (15-37); BUN Creatinine Ratio 20.3 (10-20); Blood Urea Nitrogen 26 mg/dl (7-18); Calcium 7.5 mg/dl (8.5-10.1); Carbon Dioxide 31 mmol/L (21-32); Chloride 99 mmol/L (98-107); Creatinine Clr Calc Pharmacy 52.2 ml/min; Est GFR (African American) 63.5; Est GFR (Non-African American) 54.8; Glucose 252 mg/dl (70-99); Magnesium 1.8 mg/dl (1.8-2.4); Potassium 3.5 mmol/L (3.5-5.1); Sodium 135 mmol/L (136-145)
[2018-07-20 18:59] LABS: Alkaline Phosphatase 88 U/L (45-117); Bilirubin,Total 0.8 mg/dl (0.2-1); Globulin 2.9 gm/dl (2.5-4.0); Total Protein 5.7 gm/dl (6.4-8.2); Troponin I < 0.015 ng/ml (0-0.045)
[2018-07-20 19:12] LABS: T4 Free Thyroxine 1.14 ng/dl (0.8-1.6)
[2018-07-20] MEDS ORDERED: PHARMACY GLYCEMIC MGMT CONSULT PRN (19:29)
[2018-07-20 19:39] LABS: Appearance Urine Clear (Clear); Bacteria Urine Automated Negative (Negative); Bilirubin Urine Negative (Negative); Blood Urine Negative (Negative); Color Urine Dark Yellow; Epithelial Cell Urine Auto 0-5 /lpf (0-5); Glucose Urine UA 2+ (Negative); Ketones Urine Negative (Negative); Leukocyte Esterase Urine Negative (Negative); Nitrite Urine Negative (Negative); Protein Urine 1+ (Negative); RBC Urine Automated 0-4 /hpf (0-4); Specific Gravity Urine 1.026 (1.000-1.030); Urobilinogen Urine Positive (Negative)
[2018-07-20] MEDS: LEVALBUTEROL HCL 0.63 MG/3 ML NEB NEB SCH (19:45)
[2018-07-20] MEDS ORDERED: INSULIN GLARGINE SOLOSTAR 100 UNITS/ML 3 ML PEN SC ONE (20:15)
[2018-07-20] MEDS ORDERED: INFLUENZA VACCINE HIGH DOSE 65+ 0.5 ML SYR IM ONE (21:00)
[2018-07-20] MEDS ORDERED: INFLUENZA ADMINISTRATION CHARGE ONE (21:00)
[2018-07-20] MEDS: ATORVASTATIN 40 MG TAB PO SCH (21:02)
[2018-07-20] MEDS: INSULIN ASPART 100 UNITS/ML 3 ML PEN SC SCH ×2 (21:05→23:55)
[2018-07-20] MEDS: HEPARIN SOD 5,000 UNIT/0.5 ML VIAL SQ SCH (21:06)
[2018-07-20] MEDS: OSELTAMIVIR PHOSPHATE SUSP 30 MG/5 ML UDP PO SCH (21:12)
[2018-07-20] MEDS ORDERED: QUETIAPINE FUMARATE 25 MG TABLET PO PRN (22:47)
[2018-07-21] MEDS: LEVALBUTEROL HCL 0.63 MG/3 ML NEB NEB SCH ×4 (01:36→19:17)
[2018-07-21] MEDS: INSULIN ASPART 100 UNITS/ML 3 ML PEN SC SCH ×5 (04:33→20:39)
[2018-07-21] MEDS: HEPARIN SOD 5,000 UNIT/0.5 ML VIAL SQ SCH ×4 (04:33→20:49)
[2018-07-21] MEDS ORDERED: LEVOTHYROXINE SODIUM 200 MCG TABLET PO SCH (06:30)
[2018-07-21] MEDS: ASPIRIN 81 MG ECTAB PO SCH (10:25)
[2018-07-21] MEDS: CLOPIDOGREL BISULFATE 75 MG TAB PO SCH (10:26)
[2018-07-21] MEDS: AZITHROMYCIN 250 MG TAB PO SCH (10:26)
[2018-07-21] MEDS ORDERED: INSULIN GLARGINE SOLOSTAR 100 UNITS/ML 3 ML PEN SC ONE ×3 (11:00→12:15)
[2018-07-21] MEDS: OSELTAMIVIR PHOSPHATE SUSP 30 MG/5 ML UDP PO SCH ×2 (11:34→20:38)
--- NOTE | 2018-07-21 12:22 | Hospitalist Progress Note ---
Date of Service July 21, 2018 Assessment & Plan (1) Hypoxia: This is a 73yo M with a PMH of CAD (s/p stents), PVD (s/p R fem pop stent in 2018), CKD III (s/p nephrectomy), DM II, h/o lung cancer (s/p RUL resection), hypothyroidism, vascular dementia and other medical problems listed below who returns to the hospital after being brought back by his on 07/20/18 for shortness of breath and hypoxia. he was recently discharged from previous hospitalization for influenza A and when he was discharged on 07/18/18, he was able to maintaining oxygen saturation on room air On re-admission on 07/20/18 chest X ray, there is no evidence for pneumonia as per radiologist reading. Patient has smoking history and has emphysema and apparently used tobacco products when he was discharged home. Likely this episode of hypoxia is due to COPD exacerbation from tobacco use procalcitonin level also negative for pneumonia patient was given solu-medrol 125mg in ED for COPD exacerbation secondary to smoking. was also given 500 mg IV azithromycin on admission for pulmonary coverage because of COPD, with plans for daily azithromycin further steroids was stopped because of patient's nonadherence to insulin from nursing staff as seen from previous hospitalization while patient was ordered for scheduled nebulizer treatments, he has declined from respiratory therapist have asked case picker to see if patient can get nebulizer machine after hospital stay patient continues to have hypoxia less than 90% as per nursing staff but has refused to wear the nasal cannula Patient's Medical Noncompliance is likely to limit hospital staff to help him with his health and increase the chances of hospital re-admission (2) Influenza: continue Tamiflu if patient accepts the medications (3) COPD (chronic obstructive pulmonary disease): as described above (4) Type 2 diabetes mellitus: Type 2 Diabetes Mellitus not on longer term current use of insulin with hyperglycemia, Medical Noncompliance -recent HbA1c of 10 and had previously been intermittently taking glipizide 10 mg BID -Patient had been refusing insulin from nurses on previous hospital stay and has had episodes of hyperglycemia; subsequently was discharged to care of his on 07/18/18 with discharge medication of Lantus (glargine) 5 units daily with outpatient plans to increase with follow up to family medical doctor -patient's reports he has been able to take Lantus at home -on this current hospital presentation, pharmacy glycemic consult requested because of patient's Medical Noncompliance. (5) Coronary artery disease: S/p stents, h/o stable angina -No chest pain -EKG without acute changes -Sublingual NTG PRN, EKG if chest pain -Continue aspirin, statin (6) PVD (peripheral vascular disease): S/p Fem/pop artery revascularization with stent in 2018 at [facility] -Continue aspirin, plavix -outpatient vascular studies and appointment dates 08/13/2018 10:30 AM Provider [address] Department Radiology [address] 08/13/2018 1:00 PM Provider [address] Department Radiology [address] 08/13/2018 3:00 PM Provider [address] Radiology [address] 08/19/2018 1:00 PM Provider Marcia Cali MD Department Vascular Surgery, [facility] (7) CKD (chronic kidney disease) stage 3, GFR 30-59 ml/min: S/p L nephrectomy in 2007 (8) Vascular dementia: Patient's Medical Noncompliance is likely to limit hospital staff to help him with his health and increase the chances of hospital re-admission no labs drawn on 07/21/18 due to patient's lack of cooperation (9) Hypothyroidism: Continue levothyroxine (10) Primary cancer of right upper lobe of lung: S/p RUL resection by Dr. Pittman in 2016 (11) Malignant neoplasm of bladder: H/o bladder neck and anterior bladder cancer resection in 2016 -Following with Dr. Price DVT Ppx: SQ heparin Code status: FULL Patient's Alida Subjective Patient has declined oxygen nasal cannula despite oxygen saturation below 90%. Patient also declining nebulizer treatments as per respiratory service Patient has stated to medical doctor that he does not the recommended medical treatments and he feels fine Medical doctor also discussed the need for insulin for the Type 2 Diabetes Mellitus, and patient appears to be not interested in taking this Medical doctor also discussed with patient that when he does not adhere to medical treatments he will likely have medical problems that will lead him to return to hospital and that he has has been under the care of his . Patient has poor insight. Physical Exam Vital Signs (Past 24 Hours): Last Vital Signs Temp 36.6 C 07/21/18 07:36 Pulse 83 07/21/18 08:00 Resp 18 07/21/18 07:36 BP 138/81 07/21/18 07:36 Pulse Ox 90 07/21/18 07:36 Constitutional: WD/WN, vitals as above Eyes: EOM intact bilaterally ENMT: external ear and nose normal, oropharynx normal Neck: trachea midline, no thyromegaly Respiratory: normal respiratory effort, lungs clear to auscultation Cardiovascular: Rate/Rhythm: regular rate Gastrointestinal (Abdomen): normal bowel sounds, soft, nontender, no hepatosplenomegaly Musculoskeletal: Head/Neck/Chest: normocephalic and head atraumatic Neurologic: CN's II-XI intact bilaterally Psychiatric: Orientation: alert Insight: + poor insight (1) COPD (chronic obstructive pulmonary disease) COPD type: unspecified COPD Qualified Code(s): J44.9 - Chronic obstructive pulmonary disease, unspecified
--- NOTE | 2018-07-21 13:39 | Pharmacy Report ---
Glycemic Control Consultation - Date of Service July 21, 2018 - Scope Scope: Glycemic Pharmacist consulted by KRYSTA Benedict on 07/20 for glycemic control and to write orders per [facility] inpatient glycemic control protocol - Objective Weight: 88.2 kg Accuchecks BSG (last 24hrs): 07/20/18 07/20/18 07/20/18 17:53 18:19 20:13 Glucose 252 H POC Glucose 263 H 293 H 07/20/18 07/21/18 07/21/18 23:52 03:24 07:33 Glucose POC Glucose 201 H 92 111 H 07/21/18 11:51 Glucose POC Glucose 276 H Laboratory Data (last 24hrs): 07/20/18 18:19 Potassium 3.5 Carbon Dioxide 31 Anion Gap 5.0 Creatinine 1.28 Est Cr Clr Drug Dosing 52.2 - Recent Pertinent Medications Outpatient Anti-diabetic Regimen: * Glipizide XL 10 mg BID * Lantus 5 units qAM (this was just started on discharge of last admission) * A1c = 10 % 07/17/18 The patient is currently receiving: * Basal insulin: Received Lantus 25 units last evening; currently ordered a BID scale for 10,15, or 20 units * Correctional Insulin: Novolog Correction per scale ACHS Goal Range: Low 110 mg/dL - High 140 mg/dL Correction Factor: 25 mg/dL/unit * Prandial insulin: Per carb ratio of 1 unit per 10 grams CHO consumed * Oral Agents: None at this time Risk Factors for Insulin Resistance: * Infection: on Tamiflu and Zithromax * Diet: type 2 diabetes - Assessment & Plan Assessment & Plan: ASSESSMENT: * Mr. Reeves was admitted last evening for for hypoxia and influenza. He has a history of type 2 diabetes, not well controlled, due to his refusal of insulin until the last discharge from the hospital. He also has vascular dementia so has times that he refuses his medical treatment, including insulin. * He received 25 units of Lantus last evening and BSGs had dropped significantly from 252 -> 92 mg/dL this AM. He is now refusing most of his insulin and BSGs have increased. The nurse is going to call back if unable to give him his Lantus and lunch Novolog coverage. In the meantime, will plan to continue a weight-based regimen of basal + bolus insulin. If he continues to refuse insulin, may need to consider resuming his glipizide to provide some form of glycemic control; although, would run the risk of hypoglycemia if he has decreased po intake. PLAN FOR INPATIENT GLYCEMIC CONTROL: * Hold outpatient oral diabetes medications - may consider resuming if patient continues to refuse insulin * Basal insulin * Lantus 15 units x 1 now, then * Lantus BID per the following scale: * 10 units for BSG < 120 * 15 units for BSG 120-180 * 20 units for BSG > 180 * Bolus insulin * NovoLog per scale ACHS or Q6hrs while NPO * Goal Range: Low 110 mg/dL - High 140 mg/dL * Correction Factor: 25 mg/dL/unit * Nutritional / Prandial insulin per carb ratio of 1 unit per 10 grams CHO consumed * Please note that the plan above was derived based on current level of insulin resistance and hospital stress. These recommendations are appropriate for inpatient admission only. Plan of care upon discharge will need to be reassessed to avoid potential outpatient hypo/hyperglycemia. Thank you.
[2018-07-21 15:56] LABS: Hematocrit (blood only) 47.6 % (42-52); Hemoglobin 16.7 g/dL (14.0-18.0); Mean Corpuscular Hgb Conc 35.1 g/dL (32-36); Mean Corpuscular Volume 100.2 fL (80-100); Mean Platelet Volume 10.3 fL (7.4-10.4); Platelet Count 114 K/uL (130-400); RDW Coefficient of Variation 13.6 % (11.5-14.5); RDW Standard Deviation 50.4 fL (36.4-46.3); Red Blood Count 4.75 M/uL (4.7-6.1); White Blood Count 9.93 K/uL (4.8-10.8)
[2018-07-21 16:14] LABS: BUN Creatinine Ratio 19.7 (10-20); Calcium 7.9 mg/dl (8.5-10.1); Creatinine Clr Calc Pharmacy 56.7 ml/min; Est GFR (African American) 69.3; Est GFR (Non-African American) 59.8; Potassium 3.8 mmol/L (3.5-5.1)
[2018-07-21] MEDS: ATORVASTATIN 40 MG TAB PO SCH (20:38)
[2018-07-21] MEDS: INSULIN GLARGINE SOLOSTAR 100 UNITS/ML 3 ML PEN SC SCH (20:39)
[2018-07-22] MEDS: LEVALBUTEROL HCL 0.63 MG/3 ML NEB NEB SCH ×2 (01:42→07:42)
[2018-07-22] MEDS: HEPARIN SOD 5,000 UNIT/0.5 ML VIAL SQ SCH ×2 (06:04→13:40)
[2018-07-22] MEDS ORDERED: LEVOTHYROXINE SODIUM 100 MCG TABLET PO SCH (06:30)
[2018-07-22 07:35] LABS: Hematocrit (blood only) 49.1 % (42-52); Mean Corpuscular Hgb Conc 34.6 g/dL (32-36); Mean Platelet Volume 10.6 fL (7.4-10.4); Platelet Count 120 K/uL (130-400); RDW Coefficient of Variation 13.7 % (11.5-14.5); RDW Standard Deviation 50.4 fL (36.4-46.3); Red Blood Count 4.91 M/uL (4.7-6.1); White Blood Count 11.08 K/uL (4.8-10.8)
[2018-07-22 08:14] LABS: Calcium 8.1 mg/dl (8.5-10.1); Creatinine Clr Calc Pharmacy 57.4 ml/min; Est GFR (African American) 70.8; Est GFR (Non-African American) 61.1; Potassium 3.8 mmol/L (3.5-5.1)
[2018-07-22] MEDS: AZITHROMYCIN 250 MG TAB PO SCH (09:00)
[2018-07-22] MEDS: INSULIN GLARGINE SOLOSTAR 100 UNITS/ML 3 ML PEN SC SCH (09:00)
[2018-07-22] MEDS: INSULIN ASPART 100 UNITS/ML 3 ML PEN SC SCH ×2 (09:00→12:23)
[2018-07-22] MEDS: CLOPIDOGREL BISULFATE 75 MG TAB PO SCH (09:00)
[2018-07-22] MEDS: ASPIRIN 81 MG ECTAB PO SCH (09:01)
[2018-07-22] MEDS: OSELTAMIVIR PHOSPHATE SUSP 30 MG/5 ML UDP PO SCH (09:03)
[2018-07-22] MEDS ORDERED: ALBUTEROL 0.5% NEB SOLN 2.5 MG/0.5 ML VIAL NEB PRN (13:45)
[2018-07-22] MEDS ORDERED: ALBUT/IPRATROP 3MG/0.5MG NEB 3 ML VIAL NEB PRN (14:09)
[2018-07-22] MEDS ORDERED: ALBUT/IPRATROP 3MG/0.5MG NEB 3 ML VIAL NEB SCH (14:13)
--- NOTE | 2018-07-22 15:11 | Hospitalist Progress Note ---
Date of Service July 22, 2018 Assessment & Plan (1) Hypoxia: This is a 73yo M with a PMH of CAD (s/p stents), PVD (s/p R fem pop stent in 2018), CKD III (s/p nephrectomy), DM II, h/o lung cancer (s/p RUL resection), hypothyroidism, vascular dementia and other medical problems listed below who returns to the hospital after being brought back by his on 07/20/18 for shortness of breath and hypoxia. he was recently discharged from previous hospitalization for influenza A and when he was discharged on 07/18/18, he was able to maintaining oxygen saturation on room air On re-admission on 07/20/18 chest X ray, there is no evidence for pneumonia as per radiologist reading. Patient has smoking history and has emphysema and apparently used tobacco products when he was discharged home. Likely this episode of hypoxia is due to COPD exacerbation from tobacco use procalcitonin level also negative for pneumonia patient was given solu-medrol 125mg in ED for COPD exacerbation secondary to smoking. was also given 500 mg IV azithromycin on admission for pulmonary coverage because of COPD, with plans for daily azithromycin further steroids was stopped because of patient's nonadherence to insulin from nursing staff as seen from previous hospitalization while patient was ordered for scheduled nebulizer treatments, he has declined from respiratory therapist have asked protective services case worker to see if patient can get nebulizer machine after hospital stay patient continues to have hypoxia less than 90% as per nursing staff but has refused to wear the nasal cannula Patient's Medical Noncompliance is likely to limit hospital staff to help him with his health and increase the chances of hospital re-admission 07/22/18: patient breathing without distress, on room air with oxygen saturation in low 90s, continue on azithromycin, prescription made for azithromycin for 3 more days for antibiotic coverage in context of COPD exacerbations (2) Influenza: patient continued Tamiflu, patient can complete the Tamiflu medications that patient had received on last hospitalization for which his reports she has the pills left over. No new prescription or Tamiflu needed (3) COPD (chronic obstructive pulmonary disease): as described above (4) Type 2 diabetes mellitus: Type 2 Diabetes Mellitus not on longer term current use of insulin with hyperglycemia, Medical Noncompliance -recent HbA1c of 10 and had previously been intermittently taking glipizide 10 mg BID -Patient had been refusing insulin from nurses on previous hospital stay and has had episodes of hyperglycemia; subsequently was discharged to care of his on 07/18/18 with discharge medication of Lantus (glargine) 5 units daily with outpatient plans to increase with follow up to family medical doctor -patient's reports he has been able to take Lantus at home -on this current hospital presentation, pharmacy glycemic consult requested because of patient's Medical Noncompliance -pharmacy glycemic consult did report patient received Lantus 25 units during this hospitalization without hypoglyemic effects will discharge with with prescription for Lantus 15 units daily and outpatient monitoring with home gluconometer to avoid hypoglycemia (target glucose should be between 140 to 180) (5) Coronary artery disease: S/p stents, h/o stable angina -No chest pain -EKG without acute changes -Sublingual NTG PRN, EKG if chest pain -Continue aspirin, statin (6) PVD (peripheral vascular disease): S/p Fem/pop artery revascularization with stent in 2018 at [facility] [place] -Continue aspirin, plavix -outpatient vascular studies and appointment dates 08/13/2018 10:30 AM Provider [address] Department Radiology [facility] 08/13/2018 1:00 PM Provider [address] Department Radiology [address] 08/13/2018 3:00 PM Provider [address] Department Radiology [address] 08/19/2018 1:00 PM Provider Marcia Cali MD Department Vascular Surgery, [facility] (7) CKD (chronic kidney disease) stage 3, GFR 30-59 ml/min: S/p L nephrectomy in 2007 stable renal function (8) Vascular dementia: Patient's Medical Noncompliance is likely to limit hospital staff to help him with his health and increase the chances of hospital re-admission Patient will be discharged to care of his Patient has a [facility] case manger and requests have been sent whether patient qualifies for [facility] services (9) Hypothyroidism: Continue levothyroxine (10) Primary cancer of right upper lobe of lung: S/p RUL resection by Dr. Pittman in 2016 (11) Malignant neoplasm of bladder: H/o bladder neck and anterior bladder cancer resection in 2016 -Following with Dr. Price DVT Ppx: SQ heparin Code status: FULL Patient's Alida Discharge Instructions Discharge to home under care of his patient can complete the Tamiflu medications that patient had received on last hospitalization for which his reports she has the pills left over. No new prescription or Tamiflu needed prescription made for azithromycin for 3 more days for antibiotic coverage in context of COPD exacerbations discharge with prescription for Lantus 15 units daily and outpatient monitoring with home gluconometer to avoid hypoglycemia (target glucose should be between 140 to 180) it security project manager: is working on having patient's be able to nut picker nebulizer machine with as needed albuterol/ipratroprium nebulizer treatments for shortness of breath or wheezing Patient has a [facility] case manger and requests have been sent whether patient qualifies for [facility] Follow up appointments 07/24/2018 1:00 PM Provider Deja Layton MD [facility] Patient been able to breath on room air while and maintain oxygen saturation in low 90s. No respiratory distress and lungs sound clear on exam. Patient denies acute plain. Have discussed with patient's and protective services case worker on discharge plans Physical Exam Vital Signs (Past 24 Hours): Last Vital Signs Temp 36.6 C 07/22/18 10:48 Pulse 86 07/22/18 10:48 Resp 18 07/22/18 10:48 BP 106/73 07/22/18 10:48 Pulse Ox 91 07/22/18 10:48 Constitutional: WD/WN, vitals as above Eyes: EOM intact bilaterally ENMT: external ear and nose normal, oropharynx normal Neck: trachea midline, no thyromegaly Respiratory: normal respiratory effort, lungs clear to auscultation Cardiovascular: Rate/Rhythm: regular rate Gastrointestinal (Abdomen): normal bowel sounds, soft, nontender, no hepatosplenomegaly Musculoskeletal: Head/Neck/Chest: normocephalic and head atraumatic Neurologic: CN's II-XI intact bilaterally Psychiatric: Orientation: alert Insight: + poor insight (1) COPD (chronic obstructive pulmonary disease) COPD type: unspecified COPD Qualified Code(s): J44.9 - Chronic obstructive pulmonary disease, unspecified
--- NOTE | 2018-07-23 13:29 | Discharge Summary ---
Date of Service July 22, 2018 Admission HPI Per Admitting Provider This is a 73yo M with a PMH of CAD (s/p stents), PVD (s/p R fem pop stent in 2018), CKD III (s/p nephrectomy), DM II, h/o lung cancer (s/p RUL resection), hypothyroidism, vascular dementia and other medical problems listed below who presents with hypoxia and shortness of breath. Was recently admitted to our service from 07/16/18-07/18/18 for acute hypoxia in setting of Influenza A and COPD exacerbation. Patient was treated with Tamiflu and steroids and was saturating at 90% on room air by time of discharge. Was noted to be hypoxic at 82% on room air by home health nurse yesterday and encouraged to come to ED, but patient refused. Was seen at [facility] weekend clinic today and found to be hypoxic at 84%. states that patient has been smoking at home since discharge and she has noticed "gurgling sounds" in his throat. Still generally weak and more confused than baseline. Has been taking tamiflu and new regimen for DM II (a1c of 10 during last admission). Denies fever, chills, lightheadedness, chest pain, palpitations, nausea, vomiting, diarrhea or constipation. No BLE edema. Admission Exam Per Admitting Provider General Appearance: WD/WN, no apparent distress, resting comfortably Head: normocephalic, atraumatic Eyes: normal inspection, PERRL, EOMI ENT: hearing grossly normal, pharynx normal (moist mucous membranes) Neck: supple, no JVD, no adenopathy Respiratory/Chest: Rhonci and scattered wheezes noted. No rales. No respiratory distress or accessory muscle use. Saturating at 93% on 2L NC Cardiovascular: regular rate, rhythm, no murmur, normal peripheral pulses Abdomen/GI: normal bowel sounds, soft, non-tender to palpation Extremities/Musculoskelatal: normal inspection, no calf tenderness, normal c apillary refill, no pedal edema Neurologic/Psych: alert, normal mood/affect, oriented x 3 Skin: normal color, warm/dry Principal Diagnosis Influenza, COPD exacerbation, Hypoxia (resolved), Tobacco Use, Type 2 diabetes mellitus without detention current use of insulin, Dementia, Medically noncompliant Discharge Exam Constitutional WD/WN, vitals as above Eyes EOM intact bilaterally ENMT external ear and nose normal, oropharynx normal Neck trachea midline, no thyromegaly Respiratory normal respiratory effort, lungs clear to auscultation Cardiovascular Rate/Rhythm: regular rate Gastrointestinal (Abdomen) normal bowel sounds, soft, nontender, no hepatosplenomegaly Musculoskeletal Head/Neck/Chest: normocephalic and head atraumatic Neurologic CN's II-XI intact bilaterally Psychiatric Orientation: alert Insight: + poor insight Discharge Data Allergies Allergy/AdvReac Type Severity Reaction Status Date / Time Iodinated Contrast- Oral and Allergy Intermediate swelling Verified 07/20/18 14:59 IV Dye Consultations 07/20/18 15:43 ED Decision to Admit Stat 07/20/18 18:16 Consult Case Management - Discharge Planning Routine Hospital Course (1) Hypoxia: This is a 73yo M with a PMH of CAD (s/p stents), PVD (s/p R fem pop stent in 2018), CKD III (s/p nephrectomy), DM II, h/o lung cancer (s/p RUL resection), hypothyroidism, vascular dementia and other medical problems listed below who returns to the hospital after being brought back by his on 07/20/18 for shortness of breath and hypoxia. he was recently discharged from previous hospitalization for influenza A and when he was discharged on 07/18/18, he was able to maintaining oxygen saturation on room air On re-admission on 07/20/18 chest X ray, there is no evidence for pneumonia as per radiologist reading. Patient has smoking history and has emphysema and apparently used tobacco products when he was discharged home. Likely this episode of hypoxia is due to COPD exacerbation from tobacco use procalcitonin level also negative for pneumonia patient was given solu-medrol 125mg in ED for COPD exacerbation secondary to smoking. was also given 500 mg IV azithromycin on admission for pulmonary coverage because of COPD, with plans for daily azithromycin further steroids was stopped because of patient's nonadherence to insulin from nursing staff as seen from previous hospitalization while patient was ordered for scheduled nebulizer treatments, he has declined from respiratory therapist have asked case picker to see if patient can get nebulizer machine after hospital stay patient continues to have hypoxia less than 90% as per nursing staff but has refused to wear the nasal cannula Patient's Medical Noncompliance is likely to limit hospital staff to help him with his health and increase the chances of hospital re-admission 07/22/18: patient breathing without distress, on room air with oxygen saturation in low 90s, continue on azithromycin, prescription made for azithromycin for 3 more days for antibiotic coverage in context of COPD exacerbations (2) Influenza: patient continued Tamiflu, patient can complete the Tamiflu medications that patient had received on last hospitalization for which his reports she has the pills left over. No new prescription or Tamiflu needed (3) COPD (chronic obstructive pulmonary disease): as described above (4) Type 2 diabetes mellitus: Type 2 Diabetes Mellitus not on longer term current use of insulin with hyperglycemia, Medical Noncompliance -recent HbA1c of 10 and had previously been intermittently taking glipizide 10 mg BID -Patient had been refusing insulin from nurses on previous hospital stay and has had episodes of hyperglycemia; subsequently was discharged to care of his on 07/18/18 with discharge medication of Lantus (glargine) 5 units daily with outpatient plans to increase with follow up to family medical doctor -patient's reports he has been able to take Lantus at home -on this current hospital presentation, pharmacy glycemic consult requested because of patient's Medical Noncompliance -pharmacy glycemic consult did report patient received Lantus 25 units during this hospitalization without hypoglyemic effects will discharge with with prescription for Lantus 15 units daily and outpatient monitoring with home gluconometer to avoid hypoglycemia (target glucose should be between 140 to 180) (5) Coronary artery disease: S/p stents, h/o stable angina -No chest pain -EKG without acute changes -Sublingual NTG PRN, EKG if chest pain -Continue aspirin, statin (6) PVD (peripheral vascular disease): S/p Fem/pop artery revascularization with stent in 2018 at [facility] [place] -Continue aspirin, plavix -outpatient vascular studies and appointment dates 08/13/2018 10:30 AM [facility] Department Radiology [facility] 08/13/2018 1:00 PM Provider KELLI Kev [facility] Department Radiology [facility] 08/13/2018 3:00 PM Provider [address] Department Radiology [facility] 08/19/2018 1:00 PM Provider Marcia Cali MD Department Vascular Surgery, [facility] (7) CKD (chronic kidney disease) stage 3, GFR 30-59 ml/min: S/p L nephrectomy in 2008 stable renal function (8) Vascular dementia: Patient's Medical Noncompliance is likely to limit hospital staff to help him with his health and increase the chances of hospital re-admission Patient will be discharged to care of his Patient has a [facility] case manger and requests have been sent whether patient qualifies for [facility] (9) Hypothyroidism: Continue levothyroxine (10) Primary cancer of right upper lobe of lung: S/p RUL resection by Dr. Pittman in 2016 (11) Malignant neoplasm of bladder: H/o bladder neck and anterior bladder cancer resection in 2016 -Following with Dr. Price DVT Ppx: SQ heparin Code status: FULL Patient's Alida Discharge Instructions Discharge to home under care of his patient can complete the Tamiflu medications that patient had received on last hospitalization for which his reports she has the pills left over. No new prescription or Tamiflu needed prescription made for azithromycin for 3 more days for antibiotic coverage in context of COPD exacerbations discharge with prescription for Lantus 15 units daily and outpatient monitoring with home gluconometer to avoid hypoglycemia (target glucose should be between 140 to 180) business control manager: is working on having patient's be able to bead picker nebulizer machine with as needed albuterol/ipratroprium nebulizer treatments for shortness of breath or wheezing [facility] and requests have been sent whether patient qualifies for [facility] Follow up appointments 07/24/2018 1:00 PM Provider Deja Layton MD [facility] Total Time Total Time Spent Total Time Spent (In Minutes): 40 minutes Total Time Includes: Examination of the Patient, Discharge Planning and Medication Reconciliation Discharge Plan Discharge Items Patient Disposition: Home - Home Health Services Reason For Visit: LOW OXYGEN,CHEST CONGESTION Discharge Diagnosis: Influenza, COPD exacerbation, Hypoxia (resolved), Tobacco Use, Type 2 diabetes mellitus 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 No new prescription or Tamiflu needed prescription made for azithromycin for 3 more days for antibiotic coverage in context of COPD exacerbations discharge with prescription for Lantus 15 units daily and outpatient monitoring with home gluconometer to avoid hypoglycemia (target glucose should be between 140 to 180) business control manager: is working on having patient's be able to bead picker nebulizer machine with as needed albuterol/ipratroprium nebulizer treatments for shortness of breath or wheezing Patient has a [facility] case manger and requests have been sent whether patient qualifies for [facility] Follow up appointments 07/24/2018 1:00 PM Provider Deja Layton MD [facility] Prescriptions: New Lantus Solostar U-100 Insulin 100 unit/mL (3 mL) insulin pen 15 unit subcut DAILY 30 Days Qty: 6 RF: 0 azithromycin [Zithromax] 250 mg Tablet 250 mg PO QAM 3 Days Qty: 3 RF: 0 ipratropium-albuterol 0.5 mg-3 mg(2.5 mg base)/3 mL Solution For Nebulization 3 ml NEB Q6H PRN (Reason: shortness of breath or wheezing) 30 Days Qty: 60 RF: 0 Continued atorvastatin 40 mg tablet 40 mg PO HS RF: 0 glipizide 10 mg tablet extended release 24hr 10 mg PO BID RF: 0 clopidogrel 75 mg tablet 75 mg PO QAM RF: 0 nitroglycerin [Nitrostat] 0.4 mg Tablet, Sublingual 1 tab Sublingual UD RF: 0 levothyroxine 200 mcg tablet 200 mcg PO 4XWK RF: 0 levothyroxine 200 mcg tablet 100 mcg PO 3XWK RF: 0 ranitidine HCl 150 mg Tablet 150 mg PO HS PRN (Reason: Heartburn) RF: 0 aspirin 81 mg Tablet,Delayed Release (Dr/Ec) 81 mg PO QAM RF: 0 Discontinued insulin glargine U-300 conc 300 unit/mL (1.5 mL) insulin pen 5 units SQ QAM RF: 0 Stand-Alone Forms: My [facility] Discharge Orders: Discharge Order (Routine); Ordered 07/22/18 Ordered By: Jemal Hodgson Admission Data Admit Date/Time: 07/20/18 17:13 Attending Provider: Jemal Hodgson Admit Provider: Jemal Hodgson Primary Care Provider: Vik Charles Other Providers: Jemal Hodgson Service: Telemetry Other Interventions: Discharge Summary Assessment (RN) Last Done: 07/22/18 16:21 DC Date/Time DO NOT enter until pt leaves facility: 07/22/18 18:03
== END 2018-07-22 18:03 | disposition home health service (06) ==
LOC: 2W 13:14 → ED 13:14 → 2W 17:42

== ENCOUNTER 2019-06-10 12:07 | Inpatient (IN) ==
[2019-06-10] MEDS ORDERED: ACETAMINOPHEN 1,000 MG/100 ML VIAL IV STA (12:38)
[2019-06-10] MEDS ORDERED: SODIUM CHLORIDE 0.9% 1000ML 1,000 ML IV ONE ×2 (12:38→13:48)
--- NOTE | 2019-06-10 13:09 | XRay Report ---
XR chest 1V portable HISTORY: 73 years-old Male SEPSIS acute sepsis COMPARISON: Chest radiograph 12/24/2018 TECHNIQUE: Portable AP view of the chest FINDINGS: Cardiac silhouette is enlarged, unchanged. Calcified plaque of the thoracic aortic arch. Emphysema. S urgical suture material is noted about the right hilum. There is no pneumothorax, pleural effusion, f ocal airspace consolidation or overt pulmonary edema. Chronic interstitial coarsening of the lung bas es. Degenerative changes of the shoulders and spine. Healed remote fractures of the bilateral clavicl es. IMPRESSION: 1. Emphysema without acute process. 2. Cardiomegaly. ACT 112: Negative or not required by law. The above report was generated using voice recognition software. It may contain grammatical, syntax o r spelling errors. Electronically signed by: Arnaldo Medellin M.D. 06/10/2019 1:07 PM
[2019-06-10] MEDS ORDERED: PIPERACILLIN/TAZOBACTAM 4.5 GM/120 ML BAG IV ONE (13:23)
[2019-06-10] MEDS ORDERED: DAPTOmycin 425 MG in SYRINGE 0 ML IV ONE (13:23)
[2019-06-10] MEDS ORDERED: PIPERACILL/TAZOBAC CONSULT ACTIVE PRN (13:23)
[2019-06-10 13:24] LABS: INR 1.2 (0.9-1.1); Partial Thromboplastin Ratio 1.2; Partial Thromboplastin Time 31.4 Seconds (21.0-31.0); Prothrombin Time 11.9 Seconds (9.0-12.0)
[2019-06-10] MEDS ORDERED: MAGNESIUM SULFATE / D5W 1 GM/100 ML BAG IV ONE ×2 (13:29→15:34)
[2019-06-10 13:41] LABS: Influenza A virus by PCR Neg for Influ A (Neg); Influenza B virus by PCR Neg for Influ B (Neg)
[2019-06-10] MEDS ORDERED: SODIUM CHLORIDE 0.9% 1000ML 250 ML IV ONE (13:48)
[2019-06-10] MEDS ORDERED: SODIUM CHLORIDE 0.9% 1000ML 500 ML IV ONE (13:48)
--- NOTE | 2019-06-10 14:45 | Emergency Department Note ---
Entered by Naida Trujillo acting as a scribe for Catracho Espinal MD History of Present Illness General Chief complaint: Weakness Stated complaint: cardiac Time Seen by Provider: 06/10/19 12:34 Source: patient and EMS Mode of arrival: EMS Limitations: other (dementia) History of Present Illness Onset (ago): hour(s) (unknown time) Location: head (weakness) Pain Consistency: + other (persistent) Quality: + other (weakness) Associated symptoms: + weakness Treatments prior to arrival: none The patient is a 73 year old male presenting to the Emergency Department via EMS complaining of persistent weakness starting at an unknown time. EMS reports that the patient was complaining of weakness that started at an unknown time. 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 They note that the patient isnt able to answer most questions due to his dementia. They add that the patient is currently prescribed Bactrim. The HPI and ROS are limited due to dementia. Home Medications Home Medications Medication Instructions Recorded Confirmed Type aspirin 81 mg PO QAM 07/16/18 06/10/19 History atorvastatin 40 mg PO HS 07/16/18 06/10/19 History clopidogrel 75 mg PO QAM 07/16/18 06/10/19 History glipizide 10 mg PO BID 07/16/18 06/10/19 History levothyroxine 100 mcg PO MOWEFR 07/16/18 06/10/19 History levothyroxine 200 mcg PO SUTUTHSA 07/16/18 06/10/19 History nitroglycerin [Nitrostat] 1 tab SUBLINGUAL UD 07/16/18 06/10/19 History famotidine 20 mg PO 06/10/19 06/10/19 History metformin 1,000 mg PO DAILY 06/10/19 06/10/19 History sulfamethoxazole-trimethoprim 1 tab PO BID 06/10/19 06/10/19 History Allergies Allergy/AdvReac Type Severity Reaction Status Date / Time Iodinated Contrast Media Allergy Intermediate swelling Verified 06/10/19 13:35 Past Med/Surg History Medical History AAA (abdominal aortic aneurysm) Carotid stenosis, non-symptomatic (Chronic) CKD (chronic kidney disease) stage 3, GFR 30-59 ml/min (Chronic) Coronary artery disease (Chronic) Dyslipidemia History of nonmelanoma skin cancer Hypothyroidism (Chronic) Malignant neoplasm of bladder (Chronic) Malignant neoplasm of ureter (Chronic) ME (myocardial infarction) (Chronic) "2008 and 2013 s/p multiple stent placements " Primary cancer of right upper lobe of lung (Chronic) PVD (peripheral vascular disease) (Chronic) Tobacco use disorder (Chronic) Type 2 diabetes mellitus (Chronic) Vascular dementia (Chronic) Surgical History History of left-sided carotid endarterectomy (Chronic) S/P AAA repair (Resolved) S/P appendectomy (Chronic) S/P colonoscopy with polypectomy (Chronic) S/P coronary artery stent placement (Resolved) S/P laparoscopic cholecystectomy (Chronic) "with umbilical hernia repair" S/p nephrectomy (Resolved) "left nephrectomy with partial ureterectomy" S/P rotator cuff repair (Chronic) S/P tonsillectomy and adenoidectomy (Chronic) Family History Father Myocardial infarction Mother Colon cancer Social History Preferred Language: Setswana Communication Ability: Impaired 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 Physical Exam Vital Signs Vital Signs - 24 hr 06/10/19 12:26 06/10/19 12:50 06/10/19 12:53 Temperature 37.9 C H Temperature Source Oral Pulse Rate 128 H Pulse Rate [Apical] 125 H Pulse Rhythm [Apical] Regular Respiratory Rate 22 24 Respiratory Effort / Characteristics Respiratory Depth Normal Normal Respiratory Pattern Blood Pressure 89/66 L Blood Pressure [Left Arm] 89/62 L Blood Pressure Mean 73 Blood Pressure Mean [Left Arm] 71 Blood Pressure Position [Left Arm] Pulse Oximetry 96 98 98 Oxygen Delivery Method Nasal Cannula Nasal Cannula Nasal Cannula Oxygen Flow Rate 3 3 2 Sepsis Recent Fever Within 48 Hours Yes Sepsis New/Unexplained Change in Mental Status Yes Sepsis Action Taken by Nursing Physician Notified 06/10/19 13:04 06/10/19 14:00 06/10/19 14:20 Temperature Temperature Source Pulse Rate Pulse Rate [Apical] 118 H 97 H 95 H Pulse Rhythm [Apical] Regular Regular Regular Respiratory Rate 18 24 20 Respiratory Effort / Characteristics Non-Labored Non-Labored Respiratory Depth Normal Normal Normal Respiratory Pattern Regular Blood Pressure Blood Pressure [Left Arm] 93/67 L 77/49 L 91/54 L Blood Pressure Mean Blood Pressure Mean [Left Arm] 75 58 66 Blood Pressure Position [Left Arm] Sitting Sitting Pulse Oximetry 98 100 95 Oxygen Delivery Method Nasal Cannula Nasal Cannula Nasal Cannula Oxygen Flow Rate 3 3 3 Sepsis Recent Fever Within 48 Hours Sepsis New/Unexplained Change in Mental Status Sepsis Action Taken by Nursing 06/10/19 14:40 Temperature Temperature Source Pulse Rate Pulse Rate [Apical] 90 Pulse Rhythm [Apical] Regular Respiratory Rate 18 Respiratory Effort / Characteristics Non-Labored Respiratory Depth Normal Respiratory Pattern Blood Pressure Blood Pressure [Left Arm] 76/40 L Blood Pressure Mean Blood Pressure Mean [Left Arm] 52 Blood Pressure Position [Left Arm] Lying Pulse Oximetry 100 Oxygen Delivery Method Nasal Cannula Oxygen Flow Rate 3 Sepsis Recent Fever Within 48 Hours Sepsis New/Unexplained Change in Mental Status Sepsis Action Taken by Nursing GENERAL: Awake, alert, well-appearing, in no acute distress HENT: Normocephalic, atraumatic. Oropharynx unremarkable. EYES: Normal conjunctiva. Sclera non-icteric. NECK: Supple. No nuchal rigidity. FROM. No JVD. RESPIRATORY: Distant lung sounds. CARDIAC: Regular rate, normal rhythm. Extremities warm and well perfused. Pulses equal. ABDOMEN: Soft, non-distended. No tenderness to palpation. No rebound or guarding. No masses. RECTAL: Deferred. MUSCULOSKELETAL: Chest examination reveals no tenderness. The back is symmetrical on inspection without obvious abnormality. There is no CVA tenderness to palpation. No joint edema. LOWER EXTREMITIES: Calves are equal size bilaterally and non-tender. No edema. No discoloration. NEURO: Normal sensorium. No sensory or motor deficits noted. SKIN: No rash or jaundice noted. Course Course 1236: The patient was evaluated in room A11B, and a complete history and physical examination were performed. 1323: I discussed the patient's case with Beata oCle PA-C. Dr. [facility] hospitalist will evaluate the patient for further management. 1338: I updated the patient at this time. The patients family at the bedside. They state that the patient has been severely weak. They explain that the patient wasnt able to get out of bed. They note that the patient is currently on an antibiotic for a UTI. They add that the patient has never been previously anemic or had black or tarry stool. Administered Medications Famotidine (Pepcid) 20 mg PO HS EUN Stop: 07/10/19 20:59 Last Admin: 06/14/19 20:23 Dose: 20 mg Documented by: [id number] Admin: 06/13/19 20:59 Dose: 20 mg Documented by: [id number] Admin: 06/12/19 20:30 Dose: 20 mg Documented by: [id number] Admin: 06/11/19 20:42 Dose: 20 mg Documented by: [id number] Admin: 06/10/19 20:46 Dose: Not Given Documented by: [id number] Ceftriaxone Sodium 2,000 mg/ (Dextrose) 70 mls @ 100 mls/hr IV Q24H EUN; Protocol Stop: 06/27/19 12:59 Last Admin: 06/15/19 14:14 Dose: Not Given Documented by: [id number] Infusion: 06/14/19 13:39 Dose: 0 mls/hr Documented by: [id number] Admin: 06/14/19 12:52 Dose: 100 mls/hr Documented by: [id number] Infusion: 06/13/19 15:12 Dose: 0 mls/hr Documented by: [id number] Admin: 06/13/19 14:30 Dose: 100 mls/hr Documented by: [id number] Insulin Aspart (Novolog Flexpen) 0 units SC ACHS EUN Stop: 07/11/19 16:29 Last Admin: 06/15/19 12:48 Dose: 5 units Documented by: [id number] Cosigned by: [id number] Admin: 06/15/19 08:54 Dose: 6 units Documented by: [id number] Cosigned by: [id number] Admin: 06/14/19 20:56 Dose: 1 units Documented by: [id number] Cosigned by: [id number] Admin: 06/14/19 16:51 Dose: 18 units Documented by: [id number] Cosigned by: [id number] Admin: 06/14/19 12:02 Dose: 5 units Documented by: [id number] Cosigned by: [id number] Admin: 06/14/19 09:00 Dose: 5 units Documented by: [id number] Cosigned by: [id number] Admin: 06/14/19 08:47 Dose: Not Given Documented by: [id number] Cosigned by: [id number] Admin: 06/13/19 20:54 Dose: 2 units Documented by: [id number] Cosigned by: [id number] Admin: 06/13/19 17:23 Dose: 2 units Documented by: [id number] Cosigned by: [id number] Admin: 06/13/19 11:54 Dose: 4 units Documented by: [id number] Cosigned by: [id number] Admin: 06/13/19 07:48 Dose: 6 units Documented by: [id number] Cosigned by: [id number] Admin: 06/12/19 20:46 Dose: 7 units Documented by: [id number] Cosigned by: [id number] Admin: 06/12/19 17:01 Dose: 11 units Documented by: [id number] Cosigned by: [id number] Admin: 06/12/19 11:49 Dose: 11 units Documented by: [id number] Cosigned by: [id number] Admin: 06/12/19 08:34 Dose: 11 units Documented by: [id number] Cosigned by: [id number] Admin: 06/11/19 20:51 Dose: 10 units Documented by: [id number] Cosigned by: [id number] Admin: 06/11/19 16:45 Dose: 8 units Documented by: [id number] Cosigned by: [id number] Insulin Glargine (Lantus Solostar Pen) 30 units SC BID EUN Stop: 07/13/19 08:59 Last Admin: 06/15/19 08:55 Dose: 30 units Documented by: [id number] Cosigned by: [id number] Admin: 06/14/19 20:55 Dose: 30 units Documented by: [id number] Cosigned by: [id number] Admin: 06/14/19 08:48 Dose: 30 units Documented by: [id number] Cosigned by: [id number] Admin: 06/13/19 20:53 Dose: 30 units Documented by: [id number] Cosigned by: [id number] Admin: 06/13/19 07:49 Dose: 30 units Documented by: [id number] Cosigned by: [id number] Lactobacillus Acidophilus (Floranex) 4 tab PO QIDM EUN Stop: 07/13/19 16:59 Last Admin: 06/15/19 12:47 Dose: 4 tab Documented by: [id number] Admin: 06/15/19 07:46 Dose: 4 tab Documented by: [id number] Admin: 06/14/19 20:23 Dose: 4 tab Documented by: [id number] Admin: 06/14/19 16:50 Dose: 4 tab Documented by: [id number] Admin: 06/14/19 12:01 Dose: 4 tab Documented by: [id number] Admin: 06/14/19 08:47 Dose: 4 tab Documented by: [id number] Admin: 06/13/19 20:50 Dose: 4 tab Documented by: [id number] Admin: 06/13/19 17:24 Dose: 4 tab Documented by: [id number] Levothyroxine Sodium (Synthroid) 200 mcg PO [id number] [facility] Stop: 07/12/19 06:29 Last Admin: 06/15/19 06:17 Dose: 200 mcg Documented by: [id number] Admin: 06/14/19 06:31 Dose: 200 mcg Documented by: [id number] Admin: 06/12/19 05:52 Dose: Not Given Documented by: [id number] Levothyroxine Sodium (Synthroid) 100 mcg PO MoWeFr@30 [facility] Stop: 07/11/19 06:29 Last Admin: 06/13/19 06:28 Dose: 100 mcg Documented by: [id number] Admin: 06/11/19 06:04 Dose: 100 mcg Documented by: [id number] Miscellaneous (Remove Nicoderm Patch) 1 ea N/A [id number] [facility] Stop: 07/13/19 08:58 Last Admin: 06/15/19 07:47 Dose: 1 ea Documented by: [id number] Admin: 06/14/19 08:48 Dose: 1 ea Documented by: [id number] Admin: 06/13/19 07:49 Dose: 1 ea Documented by: [id number] Nicotine (Nicoderm Cq) 21 mg TD QAM [facility] Stop: 07/12/19 15:14 Last Admin: 06/15/19 07:46 Dose: 21 mg Documented by: [id number] Admin: 06/14/19 09:32 Dose: 21 mg Documented by: [id number] Admin: 06/13/19 07:47 Dose: 21 mg Documented by: [id number] Admin: 06/12/19 16:59 Dose: 21 mg Documented by: [id number] Discontinued Medications Sodium Chloride (Nss 1000ml) 1,000 mls @ 999 mls/hr IV .Q1H1M ONE Stop: 06/10/19 13:38 Last Infusion: 06/10/19 14:08 Dose: 0 mls/hr Documented by: [id number] Admin: 06/10/19 12:53 Dose: 999 mls/hr Documented by: [id number] Acetaminophen (Ofirmev) 1,000 mg in 100 mls @ 400 mls/hr IV NOW STA Stop: 06/10/19 12:52 Last Infusion: 06/10/19 14:07 Dose: 0 mls/hr Documented by: [id number] Infusion: 06/10/19 13:10 Dose: 0 mls/hr Documented by: [id number] Admin: 06/10/19 12:53 Dose: 400 mls/hr Documented by: [id number] Piperacillin Sod/Tazobactam Sod (Zosyn) 4.5 gm in 120 mls @ 240 mls/hr IV NOW ONE Stop: 06/10/19 13:52 Last Infusion: 06/10/19 15:00 Dose: 0 mls/hr Documented by: [id number] Admin: 06/10/19 14:01 Dose: 240 mls/hr Documented by: [id number] Daptomycin 425 mg/ Syringe 8.5 mls @ 4.25 mls/min IV NOW ONE; Protocol Stop: 06/10/19 13:24 Last Admin: 06/10/19 14:08 Dose: 4.25 mls/min Documented by: [id number] Magnesium Sulfate/Dextrose (Magnesium Sulfate / D5w) 1 gm in 100 mls @ 100 mls/hr IV ONE ONE Stop: 06/10/19 14:28 Last Infusion: 06/10/19 15:00 Dose: 0 mls/hr Documented by: [id number] Admin: 06/10/19 14:01 Dose: 100 mls/hr Documented by: [id number] Sodium Chloride (Nss 1000ml) 1,000 mls @ 999 mls/hr IV .Q1H1M ONE Stop: 06/10/19 14:48 Last Infusion: 06/10/19 14:41 Dose: 0 mls/hr Documented by: [id number] Admin: 06/10/19 14:03 Dose: 999 mls/hr Documented by: [id number] Sodium Chloride (Nss 1000ml) 250 mls @ 999 mls/hr IV .Q16M ONE Stop: 06/10/19 14:03 Last Infusion: 06/10/19 15:46 Dose: 0 mls/hr Documented by: [id number] Admin: 06/10/19 15:30 Dose: 999 mls/hr Documented by: [id number] Sodium Chloride (Nss 1000ml) 500 mls @ 999 mls/hr IV .Q31M ONE Stop: 06/10/19 14:18 Last Infusion: 06/10/19 15:30 Dose: 0 mls/hr Documented by: [id number] Admin: 06/10/19 15:00 Dose: 999 mls/hr Documented by: [id number] Magnesium Sulfate/Dextrose (Magnesium Sulfate / D5w) 1 gm in 100 mls @ 100 mls/hr IV ONE ONE Stop: 06/10/19 16:33 Last Infusion: 06/10/19 17:26 Dose: 0 mls/hr Documented by: [id number] Admin: 06/10/19 16:20 Dose: 100 mls/hr Documented by: [id number] Calcium Gluconate 1,000 mg/ (Sodium Chloride) 60 mls @ 240 mls/hr IV NOW STA Stop: 06/10/19 15:48 Last Infusion: 06/10/19 16:47 Dose: 0 mls/hr Documented by: [id number] Admin: 06/10/19 16:20 Dose: 240 mls/hr Documented by: [id number] Piperacillin Sod/Tazobactam (Sod 3.375 gm/ Dextrose) 115 mls @ 28.75 mls/hr IV Q8H [facility]; Protocol Stop: 06/20/19 19:59 Last Infusion: 06/13/19 13:27 Dose: 0 mls/hr Documented by: [id number] Admin: 06/13/19 11:54 Dose: 28.8 mls/hr Documented by: [id number] Infusion: 06/13/19 08:58 Dose: 0 mls/hr Documented by: [id number] Admin: 06/13/19 04:45 Dose: 28.8 mls/hr Documented by: [id number] Infusion: 06/13/19 00:25 Dose: 0 mls/hr Documented by: [id number] Admin: 06/12/19 20:38 Dose: 28.8 mls/hr Documented by: [id number] Infusion: 06/12/19 15:42 Dose: 0 mls/hr Documented by: [id number] Admin: 06/12/19 11:42 Dose: 28.8 mls/hr Documented by: [id number] Infusion: 06/12/19 08:39 Dose: 0 mls/hr Documented by: [id number] Admin: 06/12/19 04:39 Dose: 28.8 mls/hr Documented by: [id number] Infusion: 06/12/19 00:38 Dose: 0 mls/hr Documented by: [id number] Admin: 06/11/19 20:41 Dose: 28.8 mls/hr Documented by: [id number] Infusion: 06/11/19 19:17 Dose: 0 mls/hr Documented by: [id number] Admin: 06/11/19 13:20 Dose: 28.8 mls/hr Documented by: [id number] Infusion: 06/11/19 08:02 Dose: 0 mls/hr Documented by: [id number] Admin: 06/11/19 04:00 Dose: 28.8 mls/hr Documented by: [id number] Infusion: 06/11/19 00:33 Dose: 0 mls/hr Documented by: [id number] Admin: 06/10/19 20:45 Dose: 28.8 mls/hr Documented by: [id number] Vancomycin HCl 2,250 mg/ (Sodium Chloride) 545 mls @ 200 mls/hr IV ONE ONE Stop: 06/10/19 21:13 Last Infusion: 06/10/19 21:56 Dose: 0 mls/hr Documented by: [id number] Admin: 06/10/19 19:00 Dose: 200 mls/hr Documented by: [id number] Vancomycin HCl 1,250 mg/ (Sodium Chloride) 275 mls @ 125 mls/hr IV Q12H EUN Stop: 06/21/19 07:59 Last Infusion: 06/11/19 10:03 Dose: 0 mls/hr Documented by: [id number] Admin: 06/11/19 07:30 Dose: 125 mls/hr Documented by: [id number] Sodium Chloride (Nss 1000ml) 1,000 mls @ 75 mls/hr IV .[id number] EUN Stop: 07/11/19 11:29 Last Infusion: 06/11/19 20:57 Dose: 0 mls/hr Documented by: [id number] Infusion: 06/11/19 19:41 Dose: 0 mls/hr Documented by: [id number] Admin: 06/11/19 13:11 Dose: 75 mls/hr Documented by: [id number] Methylprednisolone 60 mg/ (Syringe) 0.96 mls @ 1.5 mls/min IV NOW STA Stop: 06/11/19 17:16 Last Admin: 06/11/19 18:06 Dose: 1.5 mls/min Documented by: [id number] Vancomycin HCl 1,250 mg/ (Sodium Chloride) 275 mls @ 125 mls/hr IV Q12H EUN; Protocol Stop: 06/21/19 20:59 Last Infusion: 06/13/19 12:33 Dose: 0 mls/hr Documented by: [id number] Admin: 06/13/19 10:19 Dose: 125 mls/hr Documented by: [id number] Infusion: 06/12/19 22:51 Dose: 0 mls/hr Documented by: [id number] Admin: 06/12/19 20:39 Dose: 125 mls/hr Documented by: [id number] Infusion: 06/12/19 10:40 Dose: 0 mls/hr Documented by: [id number] Admin: 06/12/19 08:28 Dose: 125 mls/hr Documented by: [id number] Infusion: 06/11/19 23:06 Dose: 0 mls/hr Documented by: [id number] Admin: 06/11/19 20:42 Dose: 125 mls/hr Documented by: [id number] Insulin Glargine (Lantus Solostar Pen) 15 units SC BID EUN Stop: 07/11/19 20:59 Last Admin: 06/11/19 20:51 Dose: 15 units Documented by: [id number] Cosigned by: [id number] Insulin Glargine (Lantus Solostar Pen) 15 units SC .EXTRA DOSE ONE Stop: 06/11/19 15:31 Last Admin: 06/11/19 16:43 Dose: 15 units Documented by: [id number] Cosigned by: [id number] Insulin Glargine (Lantus Solostar Pen) 5 units SC NOW STA Stop: 06/11/19 21:43 Last Admin: 06/11/19 22:41 Dose: 5 units Documented by: [id number] Cosigned by: [id number] Insulin Glargine (Lantus Solostar Pen) 20 units SC BID EUN Stop: 07/12/19 08:59 Last Admin: 06/12/19 20:42 Dose: 20 units Documented by: [id number] Cosigned by: [id number] Admin: 06/12/19 08:33 Dose: 20 units Documented by: [id number] Cosigned by: [id number] Insulin Glargine (Lantus Solostar Pen) 10 units SC NOW STA Stop: 06/12/19 20:59 Last Admin: 06/12/19 21:24 Dose: 10 units Documented by: [id number] Cosigned by: [id number] Ipratropium Roggen (Atrovent 0.02% 0.5mg/2.5ml) 0.5 mg INH NOW STA Stop: 06/11/19 17:14 Last Admin: 06/11/19 17:29 Dose: 0.5 mg Documented by: [id number] Levalbuterol HCl (Xopenex 1.25mg/0.5ml Neb) 1.25 mg INH NOW STA Stop: 06/11/19 17:14 Last Admin: 06/11/19 17:29 Dose: 1.25 mg Documented by: [id number] Perflutren Lipid Microsphere (Definity) 2 ml IV ONCE ONE Stop: 06/12/19 07:39 Last Admin: 06/12/19 07:39 Dose: 2 ml Documented by: [id number] Medical Decision Making Differential Diagnosis Differential Diagnosis includes but is not limited to dehydration, stroke, anemia, hypoglycemia, hyponatremia, hypernatremia, urinary tract infection, pn eumonia, bronchitis, sepsis, gastroenteritis, additional abdominal pathology, metabolic abnormalities and infections. Medical Records Attestation: I reviewed the patient's medical records. Home Medications Current Medication List: was personally reviewed by me Laboratory Data Attestation: I reviewed the patient's lab results. Result diagrams: 06/14/19 06:30 06/14/19 06:30 Lab Results 06/10/19 06/10/19 06/10/19 Range/Units 12:20 12:45 12:45 WBC (4.8-10.8) K/uL RBC (4.7-6.1) M/uL Hgb (14.0-18.0) g/dL Hct (42-52) % MCV (80-100) fL MCH (25-34) pg MCHC (32-36) g/dL RDW Std Deviation (36.4-46.3) fL RDW Coeff of Martinez (11.5-14.5) % Plt Count (130-400) K/uL MPV (7.4-10.4) fL Immature Gran % (Auto) % Neut % (Auto) % Lymph % (Auto) % Hutchinson % (Auto) % Eos % (Auto) % Baso % (Auto) % Immature Gran # (Auto) (0.00-0.02) K/uL Neut # (Auto) (1.4-6.5) K/uL Lymph # (Auto) (1.2-3.4) K/uL Hutchinson # (Auto) (0.11-0.59) K/uL Eos # (Auto) (0-0.5) K/uL Baso # (Auto) (0-0.2) K/uL PT 11.9 (9.0-12.0) Seconds INR 1.2 H (0.9-1.1) APTT 31.4 H (21.0-31.0) Seconds PTT Ratio 1.2 Sodium (136-145) mmol/L Potassium (3.5-5.1) mmol/L Chloride (98-107) mmol/L Carbon Dioxide (21-32) mmol/L Anion Gap (3-11) BUN (7-18) mg/dl Creatinine (0.6-1.4) mg/dl Est Cr Clr Drug Dosing ml/min Est GFR ( Amer) Est GFR (Non-Af Amer) BUN/Creatinine Ratio (10-20) Glucose (70-99) mg/dl Lactate (0.4-2.0) mmol/L Calcium (8.5-10.1) mg/dl Magnesium (1.8-2.4) mg/dl Total Bilirubin (0.2-1) mg/dl AST (15-37) U/L ALT (12-78) U/L Alkaline Phosphatase (45-117) U/L POC Troponin I (0-0.045) ng/ml Troponin I (0-0.045) ng/ml Total Protein (6.4-8.2) gm/dl Albumin (3.4-5.0) gm/dl Globulin (2.5-4.0) gm/dl Albumin/Globulin Ratio (0.9-2) Procalcitonin (0-0.5) ng/ml TSH (0.300-4.500) uIu/ml Influenza Type A (PCR) (Neg) Influenza Type B (PCR) (Neg) Bld Cult Staph aureus PCR Positive A (Negative) Blood Culture MRSA PCR Negative (Negative) Blood Type Antibody Screen 06/10/19 06/10/19 06/10/19 Range/Units 12:45 12:45 12:45 WBC (4.8-10.8) K/uL RBC (4.7-6.1) M/uL Hgb (14.0-18.0) g/dL Hct (42-52) % MCV (80-100) fL MCH (25-34) pg MCHC (32-36) g/dL RDW Std Deviation (36.4-46.3) fL RDW Coeff of Martinez (11.5-14.5) % Plt Count (130-400) K/uL MPV (7.4-10.4) fL Immature Gran % (Auto) % Neut % (Auto) % Lymph % (Auto) % Hutchinson % (Auto) % Eos % (Auto) % Baso % (Auto) % Immature Gran # (Auto) (0.00-0.02) K/uL Neut # (Auto) (1.4-6.5) K/uL Lymph # (Auto) (1.2-3.4) K/uL Hutchinson # (Auto) (0.11-0.59) K/uL Eos # (Auto) (0-0.5) K/uL Baso # (Auto) (0-0.2) K/uL PT (9.0-12.0) Seconds INR (0.9-1.1) APTT (21.0-31.0) Seconds PTT Ratio Sodium (136-145) mmol/L Potassium (3.5-5.1) mmol/L Chloride (98-107) mmol/L Carbon Dioxide (21-32) mmol/L Anion Gap (3-11) BUN (7-18) mg/dl Creatinine (0.6-1.4) mg/dl Est Cr Clr Drug Dosing ml/min Est GFR ( Amer) Est GFR (Non-Af Amer) BUN/Creatinine Ratio (10-20) Glucose (70-99) mg/dl Lactate 1.0 (0.4-2.0) mmol/L Calcium (8.5-10.1) mg/dl Magnesium (1.8-2.4) mg/dl Total Bilirubin (0.2-1) mg/dl AST (15-37) U/L ALT (12-78) U/L Alkaline Phosphatase (45-117) U/L POC Troponin I (0-0.045) ng/ml Troponin I (0-0.045) ng/ml Total Protein (6.4-8.2) gm/dl Albumin (3.4-5.0) gm/dl Globulin (2.5-4.0) gm/dl Albumin/Globulin Ratio (0.9-2) Procalcitonin 1.08 H (0-0.5) ng/ml TSH (0.300-4.500) uIu/ml Influenza Type A (PCR) (Neg) Influenza Type B (PCR) (Neg) Bld Cult Staph aureus PCR (Negative) Blood Culture MRSA PCR (Negative) Blood Type Antibody Screen 06/10/19 06/10/19 06/10/19 Range/Units 12:45 12:49 12:51 WBC (4.8-10.8) K/uL RBC (4.7-6.1) M/uL Hgb (14.0-18.0) g/dL Hct (42-52) % MCV (80-100) fL MCH (25-34) pg MCHC (32-36) g/dL RDW Std Deviation (36.4-46.3) fL RDW Coeff of Martinez (11.5-14.5) % Plt Count (130-400) K/uL MPV (7.4-10.4) fL Immature Gran % (Auto) % Neut % (Auto) % Lymph % (Auto) % Hutchinson % (Auto) % Eos % (Auto) % Baso % (Auto) % Immature Gran # (Auto) (0.00-0.02) K/uL Neut # (Auto) (1.4-6.5) K/uL Lymph # (Auto) (1.2-3.4) K/uL Hutchinson # (Auto) (0.11-0.59) K/uL Eos # (Auto) (0-0.5) K/uL Baso # (Auto) (0-0.2) K/uL PT (9.0-12.0) Seconds INR (0.9-1.1) APTT (21.0-31.0) Seconds PTT Ratio Sodium (136-145) mmol/L Potassium (3.5-5.1) mmol/L Chloride (98-107) mmol/L Carbon Dioxide (21-32) mmol/L Anion Gap (3-11) BUN (7-18) mg/dl Creatinine (0.6-1.4) mg/dl Est Cr Clr Drug Dosing ml/min Est GFR ( Amer) Est GFR (Non-Af Amer) BUN/Creatinine Ratio (10-20) Glucose (70-99) mg/dl Lactate (0.4-2.0) mmol/L Calcium (8.5-10.1) mg/dl Magnesium (1.8-2.4) mg/dl Total Bilirubin (0.2-1) mg/dl AST (15-37) U/L ALT (12-78) U/L Alkaline Phosphatase (45-117) U/L POC Troponin I < 0.03 (0-0.045) ng/ml Troponin I (0-0.045) ng/ml Total Protein (6.4-8.2) gm/dl Albumin (3.4-5.0) gm/dl Globulin (2.5-4.0) gm/dl Albumin/Globulin Ratio (0.9-2) Procalcitonin (0-0.5) ng/ml TSH 3.140 (0.300-4.500) uIu/ml Influenza Type A (PCR) Neg for Influ A (Neg) Influenza Type B (PCR) Neg for Influ B (Neg) Bld Cult Staph aureus PCR (Negative) Blood Culture MRSA PCR (Negative) Blood Type Antibody Screen 06/10/19 06/10/19 Range/Units 13:23 13:56 WBC (4.8-10.8) K/uL RBC (4.7-6.1) M/uL Hgb (14.0-18.0) g/dL Hct (42-52) % MCV (80-100) fL MCH (25-34) pg MCHC (32-36) g/dL RDW Std Deviation (36.4-46.3) fL RDW Coeff of Martinez (11.5-14.5) % Plt Count (130-400) K/uL MPV (7.4-10.4) fL Immature Gran % (Auto) % Neut % (Auto) % Lymph % (Auto) % Hutchinson % (Auto) % Eos % (Auto) % Baso % (Auto) % Immature Gran # (Auto) (0.00-0.02) K/uL Neut # (Auto) (1.4-6.5) K/uL Lymph # (Auto) (1.2-3.4) K/uL Hutchinson # (Auto) (0.11-0.59) K/uL Eos # (Auto) (0-0.5) K/uL Baso # (Auto) (0-0.2) K/uL PT (9.0-12.0) Seconds INR (0.9-1.1) APTT (21.0-31.0) Seconds PTT Ratio Sodium (136-145) mmol/L Potassium (3.5-5.1) mmol/L Chloride (98-107) mmol/L Carbon Dioxide (21-32) mmol/L Anion Gap (3-11) BUN (7-18) mg/dl Creatinine (0.6-1.4) mg/dl Est Cr Clr Drug Dosing ml/min Est GFR ( Amer) Est GFR (Non-Af Amer) BUN/Creatinine Ratio (10-20) Glucose (70-99) mg/dl Lactate (0.4-2.0) mmol/L Calcium (8.5-10.1) mg/dl Magnesium (1.8-2.4) mg/dl Total Bilirubin (0.2-1) mg/dl AST (15-37) U/L ALT (12-78) U/L Alkaline Phosphatase (45-117) U/L POC Troponin I (0-0.045) ng/ml Troponin I (0-0.045) ng/ml Total Protein (6.4-8.2) gm/dl Albumin (3.4-5.0) gm/dl Globulin (2.5-4.0) gm/dl Albumin/Globulin Ratio (0.9-2) Procalcitonin (0-0.5) ng/ml TSH (0.300-4.500) uIu/ml Influenza Type A (PCR) (Neg) Influenza Type B (PCR) (Neg) Bld Cult Staph aureus PCR (Negative) Blood Culture MRSA PCR (Negative) Blood Type Cancelled O Positive Antibody Screen Cancelled NEGATIVE Imaging Data Radiologist's Impression: Radiology results as stated below per my review and the radiologist's interpretation: XR chest 1V portable HISTORY: 73 years-old Male SEPSIS acute sepsis COMPARISON: Chest radiograph 12/24/2018 TECHNIQUE: Portable AP view of the chest FINDINGS: Cardiac silhouette is enlarged, unchanged. Calcified plaque of the thoracic aortic arch. Emphysema. Surgical suture material is noted about the right hilum. There is no pneumothorax, pleural effusion, focal airspace consolidation or overt pulmonary edema. Chronic interstitial coarsening of the lung bases. Degenerative changes of the shoulders and spine. Healed remote fractures of the bilateral clavicles. IMPRESSION: 1. Emphysema without acute process. 2. Cardiomegaly. ACT 112: Negative or not required by law. The above report was generated using voice recognition software. It may contain grammatical, syntax or spelling errors. Electronically signed by: Arnaldo Medellin M.D. 06/10/2019 1:07 PM ECG Data Attestation: I personally reviewed and interpreted this ECG as follows: Indication: + weakness Rate (beats per minute): 132 Rhythm: + other (Wide QRS tachycardia) ECG Intervals/blocks: + Right Bundle branch block and + Normal QT-c (QT-c 488.); no Normal QRS (Wide QRS.) ECG ST segments: + T-wave inversions (in lateral lead) Comparison ECG Date: from (12/24/18) Change: the following changes noted (TWI in lateral lead is new. ) Blood Pressure Blood Pressure Findings: Low blood pressure Blood Pressure Disposition: further management by hospitalist [facility] Narrative This is a 73-year-old male who presents emergency department currently being treated with Bactrim for urinary tract infection. The patient is altered per family members and was unable to get up off the couch today and had increased diaphoresis. Patient does have an elevation in his white blood cell count. He was started on broad-spectrum antibiotics and given fluid here in the emergency department. I did discuss the case with the hospitalist service who did agree to admit the patient. Patient and family were in agreement with the treatment plan peer Impression & Plan Vascular dementia, Sepsis, Anemia Discharge Plan Visit Data *Final* Discharge Date/Time: 06/10/19 17:27 Chief Complaint: Weakness Stated Complaint: cardiac ED Provider: Catracho Espinal Discharge Problem: Vascular dementia, Sepsis, Anemia Patient Disposition: Admitted As Inpatient Discharge Instructions Interventions: ED Discharge Assessment Last Done: 06/10/19 17:27 Discharge Problem: Vascular dementia Qualifiers: Dementia behavioral disturbance: without behavioral disturbance Qualified Code(s): F01.50 - Vascular dementia without behavioral disturbance Sepsis Qualifiers: Sepsis type: sepsis due to unspecified organism Sepsis acute organ dysfunction status: unspecified Qualified Code(s): A41.9 - Sepsis, unspecified organism Anemia Qualifiers: Anemia type: unspecified type Qualified Code(s): D64.9 - Anemia, unspecified The scribe's documentation has been prepared under my direction and personally reviewed by me in its entirety. I confirm that the note above accurately reflec ts all work, treatment, procedures, and medical decision making performed by me.
--- NOTE | 2019-06-10 15:02 | History & Physical Report ---
Date of Service June 10, 2019 Assessment & Plan (1) Sepsis: Unclear source at present but seems likely urinary due to recent partially treated UTI and urinary incontinence. Also noted to have abd pain this AM - CT Abd/Pel pending - Blood cultures collected - Lactate 1.0 - no need for repeat at this time - Empiric antibiotics started in ED - Zosyn/daptomycin - Urine culture has not yet been collected - may need to consider straight cath for collection - PCU vs ICU pending response to 30 ml/kg bolus in ED. If MAP persistently <65, may need to consider ICU (2) Anemia: Suspect due to blood loss since Hgb in December was 16.7. Pt does have a history of multiple adenomatous polyps and is overdue for follow-up colonoscopy. Mother from colon cancer. Personal hx of lung and bladder CA. - Repeat H&H this evening s/p hydration - ?hemoconcentrated on presentation - FOBT ordered - rectal exam in ED deferred due to pt combativeness - Check iron studies, B12, folate (3) Type 2 diabetes mellitus: Per , pt is non-compliant with recommendations and does not monitor glucose at home. Last A1c 05/16/2019 was 10.1 - Insulin sliding scale while admitted - BSG ACHS or Q6hrs if NPO (4) Hypothyroidism: - Check TSH - Continue outpatient levothyroxine (5) Dyslipidemia: - Continue outpatient statin therapy (6) CKD (chronic kidney disease) stage 3, GFR 30-59 ml/min: Creatinine appears to be at baseline - continue to monitor (7) Coronary artery disease: Elevated troponin on initial evaluation. Will trend Q6 hours x 3 - Bedside ECHO - Monitor on telemetry Patient seen and examined with collaborating physician, Dr. Booth. Plan of care discussed and as outlined above. For additional details, please see attending's addendum. No medical DVT prophylaxis at present due to anemia with concern for ongoing blood loss. Full code status for now per my discussion with pt's Silverio Cole PA-C History of Present Illness Primary Care Provider: Vik Charles MD This is a 73 y/o male with a PMH of DM2, CAD w/ hx of TN, CKD3, dyslipidemia, PVD, hypothyroidism, vascular dementia, hx of bladder CA s/p resection, hx of lung CA s/p resection and AAA who presented to ED today with increased confusion and generalized weakness. History from patient is unobtainable due to worsened confusion with underlying vascular dementia. at bedside provided most of history but pt's [facility] chart was also extensively reviewed. Pt was in his usual state of health yesterday other than diminished appetite. This AM, his noted increased confusion from baseline. He also c/o abdominal pain around 9:30 am. She states that he spent most of the morning on the couch doing nothing. When she attempted to get him up, he was "limp like a rag doll" and seemed to have significant generalized weakness. He was also saturated with urine. She is unsure how long he was sitting in it but thinks it was 3-4 hours. No other complaints of pain. No vomiting or diarrhea. She did not check temperature at home. Of note, pt was recently treated for UTI by PCP. Urine culture from 05/23/2019 grew out staph aureus and pt was started on ten day course of Bactrim, which he was to complete today. Allergies Allergy/AdvReac Type Severity Reaction Status Date / Time Iodinated Contrast Media Allergy Intermediate swelling Verified 06/10/19 13:35 Home Medications Home Medications Medication Instructions Recorded Confirmed Type aspirin 81 mg PO QAM 07/16/18 06/10/19 History atorvastatin 40 mg PO HS 07/16/18 06/10/19 History clopidogrel 75 mg PO QAM 07/16/18 06/10/19 History glipizide 10 mg PO BID 07/16/18 06/10/19 History levothyroxine 100 mcg PO MOWEFR 07/16/18 06/10/19 History levothyroxine 200 mcg PO SUTUTHSA 07/16/18 06/10/19 History nitroglycerin [Nitrostat] 1 tab SUBLINGUAL UD 07/16/18 06/10/19 History famotidine 20 mg PO HS 06/10/19 06/10/19 History metformin 1,000 mg PO DAILY 06/10/19 06/10/19 History sulfamethoxazole-trimethoprim 1 tab PO BID 06/10/19 06/10/19 History Past Med/Surg History Medical History AAA (abdominal aortic aneurysm) Carotid stenosis, non-symptomatic (Chronic) CKD (chronic kidney disease) stage 3, GFR 30-59 ml/min (Chronic) Coronary artery disease (Chronic) Dyslipidemia History of nonmelanoma skin cancer Hypothyroidism (Chronic) Malignant neoplasm of bladder (Chronic) Malignant neoplasm of ureter (Chronic) TN (myocardial infarction) (Chronic) "2008 and 2013 s/p multiple stent placements " Primary cancer of right upper lobe of lung (Chronic) PVD (peripheral vascular disease) (Chronic) Tobacco use disorder (Chronic) Type 2 diabetes mellitus (Chronic) Vascular dementia (Chronic) Surgical History History of left-sided carotid endarterectomy (Chronic) S/P AAA repair (Resolved) S/P appendectomy (Chronic) S/P colonoscopy with polypectomy (Chronic) S/P coronary artery stent placement (Resolved) S/P laparoscopic cholecystectomy (Chronic) "with umbilical hernia repair" S/p nephrectomy (Resolved) "left nephrectomy with partial ureterectomy" S/P rotator cuff repair (Chronic) S/P tonsillectomy and adenoidectomy (Chronic) Family History Father Myocardial infarction Mother Colon cancer Social History Preferred Language: Somali Communication Ability: Impaired Communication Ability Comment: dementia 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 Beliefs That Will Affect Care: None marital status: Current Living Situation: Spouse current occupational status: retired Other Information That Helps Us Care for You: No Feels Safe at Home: Yes Safety Concerns: Feels Safe At This Time Smoking Status: Current every day smoker Tobacco Type: cigarettes ; Cigarettes Per Day: 30 ; Hx Alcohol Use: No Hx Substance Use: No Review of Systems Review of Systems: Unobtainable due to cognitive status Physical Exam Constitutional: + obese; no acute distress Fell asleep during the visit - reported combative earlier in visit but not during our examination Oriented to person and place but not time Eyes: + anicteric sclerae; no conjunctival abnormality ENMT: Ears: + hearing impairment Nose: no external nose abnormality Neck: trachea midline Respiratory: no respiratory distress, no labored breathing and does not use accessory muscles Auscultation: lungs clear to auscultation bilaterally; no rales, no rhonchi and no wheezes Cardiovascular: Rate/Rhythm: regular rhythm and + tachycardic Heart Sounds: no gallop and no cardiac rub Extremities: no pedal edema Gastrointestinal (Abdomen): Inspection/Auscultation: normal bowel sounds; abdomen not distended Percussion/Palpation: abdomen soft Musculoskeletal: Head/Neck/Chest: normocephalic, head atraumatic and neck supple Extremities: no cyanosis and no clubbing Skin: no rashes, warm and dry no jaundice Neurologic: moves all extremities and + confused Psychiatric: Orientation: oriented to person and oriented to place; + not oriented to time Results & Data Vital Signs (Past 12 Hours) Vital Signs Temp Pulse Pulse Resp BP BP Pulse Ox 06/10/19 14:40 90 18 76/40 L 100 06/10/19 14:20 95 H 20 91/54 L 95 06/10/19 14:00 97 H 24 77/49 L 100 06/10/19 13:04 118 H 18 93/67 L 98 06/10/19 12:53 98 06/10/19 12:50 125 H 24 89/62 L 98 06/10/19 12:26 37.9 C H 128 H 22 89/66 L 96 Laboratory Results Laboratory Results - last 24 hr 06/10/19 06/10/19 06/10/19 12:45 12:45 12:45 WBC 12.44 H RBC 2.43 L Hgb 8.4 L Hct 25.4 L MCV 104.5 H MCH 34.6 H MCHC 33.1 RDW Std Deviation 51.0 H RDW Coeff of [place] 13.3 Plt Count 110 L MPV 9.4 Immature Gran % (Auto) 0.8 Neut % (Auto) 93.3 Lymph % (Auto) 2.7 [place] % (Auto) 3.0 Eos % (Auto) 0.0 Baso % (Auto) 0.2 Immature Gran # (Auto) 0.10 H Neut # (Auto) 11.62 H Lymph # (Auto) 0.33 L [place] # (Auto) 0.37 Eos # (Auto) 0.00 Baso # (Auto) 0.02 PT 11.9 INR 1.2 H APTT 31.4 H PTT Ratio 1.2 Sodium 142 Potassium 3.7 Chloride 118 H Carbon Dioxide 17 L Anion Gap 7.0 BUN 19 H Creatinine 1.25 Est Cr Clr Drug Dosing 57.2 Est GFR ( Amer) 65.3 Est GFR (Non-Af Amer) 56.4 BUN/Creatinine Ratio 15.0 Glucose 248 H Lactate Calcium 5.2 L* Magnesium 0.9 L* Total Bilirubin 0.5 AST 12 L ALT 20 Alkaline Phosphatase 55 POC Troponin I Troponin I 0.074 H* Total Protein 4.1 L Albumin 2.0 L Globulin 2.1 L Albumin/Globulin Ratio 1.0 Procalcitonin Influenza Type A (PCR) Influenza Type B (PCR) Blood Type Antibody Screen 06/10/19 06/10/19 06/10/19 12:45 12:45 12:49 WBC RBC Hgb Hct MCV MCH MCHC RDW Std Deviation RDW Coeff of [place] Plt Count MPV Immature Gran % (Auto) Neut % (Auto) Lymph % (Auto) [place] % (Auto) Eos % (Auto) Baso % (Auto) Immature Gran # (Auto) Neut # (Auto) Lymph # (Auto) [place] # (Auto) Eos # (Auto) Baso # (Auto) PT INR APTT PTT Ratio Sodium Potassium Chloride Carbon Dioxide Anion Gap BUN Creatinine Est Cr Clr Drug Dosing Est GFR ( Amer) Est GFR (Non-Af Amer) BUN/Creatinine Ratio Glucose Lactate 1.0 Calcium Magnesium Total Bilirubin AST ALT Alkaline Phosphatase POC Troponin I < 0.03 Troponin I Total Protein Albumin Globulin Albumin/Globulin Ratio Procalcitonin 1.08 H Influenza Type A (PCR) Influenza Type B (PCR) Blood Type Antibody Screen 06/10/19 06/10/19 06/10/19 12:51 13:23 13:56 WBC RBC Hgb Hct MCV MCH MCHC RDW Std Deviation RDW Coeff of [place] Plt Count MPV Immature Gran % (Auto) Neut % (Auto) Lymph % (Auto) [place] % (Auto) Eos % (Auto) Baso % (Auto) Immature Gran # (Auto) Neut # (Auto) Lymph # (Auto) [place] # (Auto) Eos # (Auto) Baso # (Auto) PT INR APTT PTT Ratio Sodium Potassium Chloride Carbon Dioxide Anion Gap BUN Creatinine Est Cr Clr Drug Dosing Est GFR ( Amer) Est GFR (Non-Af Amer) BUN/Creatinine Ratio Glucose Lactate Calcium Magnesium Total Bilirubin AST ALT Alkaline Phosphatase POC Troponin I Troponin I Total Protein Albumin Globulin Albumin/Globulin Ratio Procalcitonin Influenza Type A (PCR) Neg for Influ A Influenza Type B (PCR) Neg for Influ B Blood Type Cancelled O Positive Antibody Screen Cancelled NEGATIVE Diagnostic Findings Chest X-ray 06/10/19 - IMPRESSION: 1. Emphysema without acute process. 2. Cardiomegaly. Medications Administered Discontinued Medications Sodium Chloride (Nss 1000ml) 1,000 mls @ 999 mls/hr IV .Q1H1M ONE Stop: 06/10/19 13:38 Last Infusion: 06/10/19 14:08 Dose: 0 mls/hr Documented by: [id number] Admin: 06/10/19 12:53 Dose: 999 mls/hr Documented by: [id number] Acetaminophen (Ofirmev) 1,000 mg in 100 mls @ 400 mls/hr IV NOW STA Stop: 06/10/19 12:52 Last Infusion: 06/10/19 14:07 Dose: 0 mls/hr Documented by: [id number] Infusion: 06/10/19 13:10 Dose: 0 mls/hr Documented by: [id number] Admin: 06/10/19 12:53 Dose: 400 mls/hr Documented by: [id number] Piperacillin Sod/Tazobactam Sod (Zosyn) 4.5 gm in 120 mls @ 240 mls/hr IV NOW ONE Stop: 06/10/19 13:52 Last Admin: 06/10/19 14:01 Dose: 240 mls/hr Documented by: [id number] Daptomycin 425 mg/ Syringe 8.5 mls @ 4.25 mls/min IV NOW ONE; Protocol Stop: 06/10/19 13:24 Last Admin: 06/10/19 14:08 Dose: 4.25 mls/min Documented by: [id number] Magnesium Sulfate/Dextrose (Magnesium Sulfate / D5w) 1 gm in 100 mls @ 100 mls/hr IV ONE ONE Stop: 06/10/19 14:28 Last Admin: 06/10/19 14:01 Dose: 100 mls/hr Documented by: [id number] Sodium Chloride (Nss 1000ml) 1,000 mls @ 999 mls/hr IV .Q1H1M ONE Stop: 06/10/19 14:48 Last Infusion: 06/10/19 14:41 Dose: 0 mls/hr Documented by: [id number] Admin: 06/10/19 14:03 Dose: 999 mls/hr Documented by: [id number] Sodium Chloride (Nss 1000ml) 500 mls @ 999 mls/hr IV .Q31M ONE Stop: 06/10/19 14:18 Last Admin: 06/10/19 15:00 Dose: 999 mls/hr Documented by: [id number] Code Status & VTE Plan Code Status Discussed code status with pt's at the bedside. She would like to proceed with full code status for now but does realize that pt is critically ill. She is not aware of any living will that outlines pt's specific wishes. Supervising Physician Co-Signing Physician Notes 73-year-old man with history of DM type II, CAD, TN, CKD 3, dyslipidemia, PVD, hypothyroidism, vascular dementia, history of bladder cancer status post resection, history of lung cancer status post resection, AAA who presented to the ED today for increased confusion and generalized weakness. History and physical exam obtained by me. Detailed history as documented by Beata Cole PA-C. History is notable for recent Staphylococcus aureus UTI and started on Bactrim as opposed to be completed today, increased confusion and generalized weakness today with urinary incontinence. Physical exam notable for alert and oriented to person and place only, hearing deficits, tachycardia. WBC of 12.44 Hemoglobin of 8.4 [was 16.7 in December 2018], MCV 104.5 Platelet count of 110 Chloride of 118, bicarb of 17, anion gap of 7, blood glucose of 248, lactate of 1 Calcium of 5.2 [corrected for hypoalbuminemia is 6.8] Troponin was 0.074 Procalcitonin of 1.08 Urine has 5-10 WBC, negative esterase and nitrite. Chest x-ray 1. Emphysema without acute process. 2. Cardiomegaly. CT abdomen and pelvis 1. No acute intra-abdominal or pelvic findings. 2. Aortobiiliac stent graft 3. Surgically absent left kidney 4. No evidence of bowel obstruction. No evidence of free air 5. No right renal ureteral or bladder calculi identified 6. Diverticulosis. No evidence of acute diverticulitis. No evidence of acute appendicitis 7. No evidence of retroperitoneal hemorrhage Blood pressure on presentation was 89/66, pulse rate of 162. Sepsis Possible source-urinary, recent UTI Got daptomycin and Zosyn in ER We will continue on vancomycin and Zosyn for now Follow-up blood cultures already sent Get urine cultures Got 30 cc/kg with improvement of blood pressure and tachycardia Appreciate in class special education teacher consult Got IV calcium gluconate for hypocalcemia. Monitor calcium levels. Gave additional magnesium repletion of hypomagnesemia. Monitor electrolytes. Get TSH. Continue levothyroxine EKG showed right bundle branch block [old], rate of 132. Trend troponins Macrocytic anemia. Hemoglobin drop from 16.7 in December 2018. Check anemia work-up with iron studies, B12 and folate Patient was combative when digital rectal was tried in ER. Get FOBT Monitor H&H and transfuse as needed to keep hemoglobin above 7 Discussed CODE STATUS with . Patient is to be full code and is open to pressors if needed and intubation. Other plans as detailed by Betaa Cole PA-C (1) Type 2 diabetes mellitus Chronic kidney disease stage: stage 3 (moderate) Diabetes mellitus complication detail: with chronic kidney disease Diabetes mellitus complication status: with kidney complications Diabetes mellitus long term care social worker insulin use: without long term care social worker use Qualified Code(s): E11.22 - Type 2 diabetes mellitus with diabetic chronic kidney disease; N18.3 - Chronic kidney disease, stage 3 (moderate) (2) Coronary artery disease Associated angina: without angina Coronary Disease-Associated Artery/Lesion type: [place] artery [place] vs. transplanted heart: [place] heart Qualified Code(s): I25.10 - Atherosclerotic heart disease of [place] coronary artery without angina pectoris (3) Anemia Anemia type: unspecified type Qualified Code(s): D64.9 - Anemia, unspecified (4) Hypothyroidism Hypothyroidism type: unspecified Qualified Code(s): E03.9 - Hypothyroidism, unspecified (5) Sepsis Sepsis type: sepsis due to unspecified organism
[2019-06-10] MEDS ORDERED: CALCIUM GLUCONATE 10% 1,000 MG in SODIUM CHLORIDE 0.9% 50 ML IV STA (15:34)
--- NOTE | 2019-06-10 16:17 | Critical Care Consultation ---
Date of Consultation June 10, 2019 Assessment & Plan (1) Sepsis: --Sepsis Source likely urinary tract infection Patient responded to IV fluids Blood pressure at the time of examination 126/69, repeat blood pressure 131/84 Continue with broad-spectrum antibiotics Follow-up septic work-up --COPD Not in exacerbation Continue with inhaled bronchodilator --Probable JUSTO BiPAP nightly I highly doubt that patient is going to use it given that the patient has vascular dementia At the current time patient is hemodynamically stable to be sent to medical floor. If there is any clinical deterioration please recall. I have personally spent 40 minutes of critical care time in the direct man agement of this patient. This is a life/limb threatening event. This includes time spent evaluating patient, direct bedside care, chart review, placing orders, interpretation of diagnostic studies, discussion with consultants, patient, and family members, as well as other required patient management activities. This time is exclusive of all separately billable procedures, and teaching time and separate from and in addition to any other critical care service time. Please note the above document was generated using voice recognition software. It may contain grammatical, syntax or spelling errors. (2) PVD (peripheral vascular disease): (3) Vascular dementia: History of Present Illness History of Present Illness 73 male past medical history of coronary artery disease, diabetes mellitus type 2, COPD, hypothyroidism, vascular dementia, history of bladder cancer status post election, history of lung cancer status post resection presented to ED with increased confusion, generalized weakness as well as h ypotension. MICU evaluation was made as the patient was still hypotensive while getting 2 L of IV fluid. was present at bedside at the time of examination. Patient was sleeping at the time of examination but following simple commands. Asking to leave him alone. Patient blood pressure the time of examination was in the 120s systolic and diastolic in the high 80s. Patient denied any chest pain, no shortness of breath, no belly pain. Patient is overall a poor historian. All history was obtained from at bedside and previous charting. Social history: Patient is greater than [id number] smoker Allergies Allergy/AdvReac Type Severity Reaction Status Date / Time Iodinated Contrast Media Allergy Intermediate swelling Verified 06/10/19 13:35 Home Medications Home Medications Medication Instructions Recorded Confirmed Type aspirin 81 mg PO QAM 07/16/18 06/10/19 History atorvastatin 40 mg PO HS 07/16/18 06/10/19 History clopidogrel 75 mg PO QAM 07/16/18 06/10/19 History glipizide 10 mg PO BID 07/16/18 06/10/19 History levothyroxine 100 mcg PO MOWEFR 07/16/18 06/10/19 History levothyroxine 200 mcg PO SUTUTHSA 07/16/18 06/10/19 History nitroglycerin [Nitrostat] 1 tab SUBLINGUAL UD 07/16/18 06/10/19 History famotidine 20 mg PO HS 06/10/19 06/10/19 History metformin 1,000 mg PO DAILY 06/10/19 06/10/19 History sulfamethoxazole-trimethoprim 1 tab PO BID 06/10/19 06/10/19 History Patient History Medical History AAA (abdominal aortic aneurysm) Carotid stenosis, non-symptomatic (Chronic) CKD (chronic kidney disease) stage 3, GFR 30-59 ml/min (Chronic) Coronary artery disease (Chronic) Dyslipidemia History of nonmelanoma skin cancer Hypothyroidism (Chronic) Malignant neoplasm of bladder (Chronic) Malignant neoplasm of ureter (Chronic) MO (myocardial infarction) (Chronic) "2008 and 2013 s/p multiple stent placements " Primary cancer of right upper lobe of lung (Chronic) PVD (peripheral vascular disease) (Chronic) Tobacco use disorder (Chronic) Type 2 diabetes mellitus (Chronic) Vascular dementia (Chronic) Surgical History History of left-sided carotid endarterectomy (Chronic) S/P AAA repair (Resolved) S/P appendectomy (Chronic) S/P colonoscopy with polypectomy (Chronic) S/P coronary artery stent placement (Resolved) S/P laparoscopic cholecystectomy (Chronic) "with umbilical hernia repair" S/p nephrectomy (Resolved) "left nephrectomy with partial ureterectomy" S/P rotator cuff repair (Chronic) S/P tonsillectomy and adenoidectomy (Chronic) Family History Father Myocardial infarction Mother Colon cancer Social History Preferred Language: Vietnamese Communication Ability: Impaired Communication Ability Comment: dementia 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 Beliefs That Will Affect Care: None marital status: Current Living Situation: Spouse current occupational status: retired Other Information That Helps Us Care for You: No Feels Safe at Home: Yes Safety Concerns: Feels Safe At This Time Smoking Status: Current every day smoker Tobacco Type: cigarettes ; Cigarettes Per Day: 30 ; Hx Alcohol Use: No Hx Substance Use: No Review of Systems Review of Systems: All systems reviewed & are unremarkable except as noted in HPI & below Physical Exam Physical Exam: Constitutional: No acute distress HEENT: EOMI, PERRLA Respiratory system: Decreased air entry bilaterally, no crackles, no wheeze, no rhonchi CVS: S1-S2 positive, no murmurs or gallops Abdomen: Soft, nontender, nondistended, positive bowel sounds x4 Extremities: +2 pulses bilaterally radialis/ dorsalis pedis, no cyanosis, no edema Neuro: Awake alert oriented x3 Psych: Normal mood and affect G/U: No Toure Bedside Ultrasound: Lung: No B-lines appreciated bilaterally, no pleural effusion bilaterally Heart: Right ventricle normal in size, fair ejection fraction, no pericardial effusion, IVC 2.1 cm with insignificant variance. Abdomen: No ascites, urine in the urinary bladder not significantly distended. Results & Data Vital Signs (Past 12 Hours) Vital Signs Temp Pulse Pulse Resp BP BP Pulse Ox 06/10/19 16:01 90 14 131/84 100 06/10/19 16:00 89 20 100 06/10/19 15:50 91 H 21 129/69 100 06/10/19 15:46 90 21 99 06/10/19 15:45 90 18 116/78 100 06/10/19 15:31 90 18 97 06/10/19 15:30 89 17 116/66 100 06/10/19 15:16 90 18 102/77 94 06/10/19 15:15 90 18 06/10/19 15:12 92 H 21 88/60 L 06/10/19 15:01 92 H 16 06/10/19 15:00 90 17 66/51 L 06/10/19 14:53 91 H 20 86/46 L 100 06/10/19 14:46 90 17 100 06/10/19 14:45 88 17 80/43 L 100 06/10/19 14:40 90 18 76/40 L 100 06/10/19 14:38 91 H 18 76/40 L 100 06/10/19 14:31 91 H 17 06/10/19 14:30 93 H 19 74/40 L 06/10/19 14:20 95 H 20 91/54 L 95 06/10/19 14:16 96 H 20 96 06/10/19 14:15 97 H 24 91/54 L 96 06/10/19 14:09 100 H 20 77/49 L 97 06/10/19 14:06 99 H 22 71/46 L 92 06/10/19 14:01 102 H 20 98 06/10/19 14:00 103 H 97 H 23 72/48 L 77/49 L 99 06/10/19 13:46 104 H 21 06/10/19 13:45 104 H 22 93/61 L 06/10/19 13:31 109 H 21 97 06/10/19 13:30 108 H 24 102/66 97 06/10/19 13:16 117 H 15 114/68 06/10/19 13:15 119 H 12 06/10/19 13:04 118 H 18 93/67 L 98 06/10/19 13:01 120 H 22 06/10/19 13:00 120 H 22 93/67 L 06/10/19 12:53 98 06/10/19 12:50 125 H 24 89/62 L 98 06/10/19 12:45 127 H 25 H 89/62 L 97 06/10/19 12:30 129 H 26 H 96 06/10/19 12:26 37.9 C H 128 H 22 89/66 L 96 06/10/19 12:16 178 H 30 H 06/10/19 12:12 162 H 30 H 89/66 L 06/10/19 12:45 06/10/19 12:45 Coding Level of Care Code Critical Care 1st 30-74 mins Diagnoses Sepsis A41.9 Sepsis type: sepsis due to unspecified organism PVD (peripheral vascular disease) I73.9 Vascular dementia F01.50 Time Spent (min) 40 (1) Sepsis Sepsis type: sepsis due to unspecified organism
[2019-06-10 17:06] LABS: Appearance Urine Clear (Clear); Bacteria Urine Automated Negative (Negative); Bilirubin Urine Negative (Negative); Blood Urine Negative (Negative); Color Urine Yellow; Glucose Urine UA 3+ (Negative); Ketones Urine Negative (Negative); Leukocyte Esterase Urine Negative (Negative); Nitrite Urine Negative (Negative); Protein Urine 1+ (Negative); RBC Urine Automated 0-4 /hpf (0-4); Specific Gravity Urine 1.025 (1.000-1.030); Urobilinogen Urine Negative (Negative)
--- NOTE | 2019-06-10 17:38 | CT Scan Report ---
CT SCAN OF THE ABDOMEN AND PELVIS WITHOUT CONTRAST CLINICAL HISTORY: abd pain, sepsis, new anemia COMPARISON STUDY: CT scan performed October 2015 TECHNIQUE: CT scan of the abdomen and pelvis was performed from the lung bases to the proximal femurs . Images are reviewed in the axial, sagittal, and coronal planes. IV contrast was not administered fo r this examination. A dose lowering technique was utilized adhering to the principles of ALARA. CT DOSE: 746.40 mGy.cm FINDINGS: Lower chest: There is respiratory motion artifact. Postsurgical changes are suspected within the righ t lung. There are dependent atelectatic changes. There is a small hiatal hernia Liver: There is mild hepatic steatosis. No focal masses are visualized in this noncontrast study Gallbladder: Surgically absent Spleen: Normal in size and attenuation. Pancreas: No pancreatic masses are visualized. There is a stable calcification in the region of the p ancreatic head Adrenal glands: There is stable mild adrenal gland thickening Kidneys: The left kidney is surgically absent. There is no right-sided hydronephrosis. No renal urete ral or bladder calculi are visualized. Bowel: There are no transition zones indicate bowel obstruction. There is pancolonic diverticulosis. There is no evidence of acute diverticulitis. There is no evidence of acute appendicitis. Peritoneum: There is no intraperitoneal free air or abdominal ascites. Vasculature: There is an aortic biiliac stent graft. There is a right common femoral artery stents. T here is a left renal artery stent. Adenopathy: None. Pelvic viscera: There is mild prostatomegaly Skeletal structures: No destructive osseous lesions are seen. IMPRESSION: 1. No acute intra-abdominal or pelvic findings. 2. Aortobiiliac stent graft 3. Surgically absent left kidney 4. No evidence of bowel obstruction. No evidence of free air 5. No right renal ureteral or bladder calculi identified 6. Diverticulosis. No evidence of acute diverticulitis. No evidence of acute appendicitis 7. No evidence of retroperitoneal hemorrhage ACT 112: Negative or not required by law. Electronically signed by: David Rodriguez M.D. 06/10/2019 5:37 PM
[2019-06-10] MEDS ORDERED: ICU PROTOCOL FOR HYPERGLYCEMIA PRN (17:50)
[2019-06-10] MEDS ORDERED: VANCOMYCIN CONSULT ACTIVE PRN (18:08)
[2019-06-10] MEDS ORDERED: VANCOMYCIN HCL 2,250 MG in SODIUM CHLORIDE 0.9% 500 ML IV ONE (18:30)
[2019-06-10] MEDS: PIPERACILLIN/TAZOBACTAM 3.375 GM in DEXTROSE 5% 100 ML IV SCH (20:45)
[2019-06-10] MEDS: FAMOTIDINE 20 MG TAB PO SCH (20:46)
--- NOTE | 2019-06-10 20:53 | Pharmacy Report ---
Pharmacy Abx Dose Short Note - Date of Service June 10, 2019 - Assessment & Plan Assessment 73 year old M admitted on 06/10/19 for sepsis secondary to possible UTI source. * History of DM, CKD Stage III. * Previously treated with Bactrim DS bid x 10 days for UTI from Staph Aureus. Last dose was to be today. * SCr at baseline * Blood cultures pending Plan Pharmacy consulted to dose Vancomycin and Zosyn for sepsis/UTI Vancomycin * Patient meets criteria for vancomycin AUC dosing nomogram * AUC/VERO is the preferred PK/PD target for vancomycin * Target AUC/VERO = 400-600 * AUC guided dosing is effective and associated with decreased risk of nephrotoxicity * Trough levels poorly correlate with AUC/VERO and trough monitoring has been associated with increased risk of nephrotoxicity * Loading dose: 2250mg x 1 (25mg/kg) * Maintenance dose per AUC nomogram: 1250mg (14mg/kg) IV Q12H * Trough ordered prior to 3rd maintenance dose for correlation on 06/12@0730 Zosyn * Pt received 4.5gm x 1 in the ER * Maintenance dose of 3.375gm IV Q8H Pharmacy will continue to follow and will adjust dose/frequency as necessary. Thank you.
[2019-06-11] MEDS: PIPERACILLIN/TAZOBACTAM 3.375 GM in DEXTROSE 5% 100 ML IV SCH ×3 (04:00→20:41)
[2019-06-11] MEDS: LEVOTHYROXINE SODIUM 100 MCG TABLET PO SCH (06:04)
[2019-06-11] MEDS ORDERED: VANCOMYCIN HCL 1,250 MG in SODIUM CHLORIDE 0.9% 250 ML IV SCH (08:00)
--- NOTE | 2019-06-11 09:19 | Hospitalist Progress Note ---
Date of Service June 11, 2019 Assessment & Plan (1) Sepsis: (1) Sepsis, Gram Positive Cocci Clusters - Blood cultures: gram positive cocci clusters repeat Blood cultures: pending - fever improving - ID consulted recommend echo given aortoiliac graft continue Farhad appreciate Dr. Luo's input (2) Anemia: Suspect due to blood loss since Hgb in December was 16.7. Pt does have a history of multiple adenomatous polyps and is overdue for follow-up colonoscopy. Mother from colon cancer. Personal hx of lung and bladder CA. - Hg 14 no signs of active bleeding (3) Type 2 diabetes mellitus: Per , pt is non-compliant with recommendations and does not monitor glucose at home. Last A1c 05/16/2019 was 10.1 - Insulin sliding scale while admitted - BSG ACHS or Q6hrs if NPO (4) Hypothyroidism: - Check TSH: normal - Continue outpatient levothyroxine (5) Dyslipidemia: - Continue outpatient statin therapy (6) CKD (chronic kidney disease) stage 3, GFR 30-59 ml/min: Creatinine appears to be at baseline - continue to monitor (7) Coronary artery disease: Trop 0.06--> 0.3--> 0.3 likely from Sepsis no acute ischemia on EKG Echo: pending Disposition pending case discussed in detail and at length with patient and his on the phone all questions answered they are understanding, agreeable, comfortable with the plan of care Subjective ff up for sepsis seen resting in bed, 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 SPECIALIST at bedside not in distress, comfortable has declined blood work oriented to person only was mostly cooperative on exam denies abdominal pain, dysuria, nausea/vomiting, chills denies chest pain, dyspnea, palpitations, dizziness no other symptoms Review of Systems Review of Systems: All systems reviewed & are unremarkable except as noted in HPI & below Physical Exam Physical Exam: General- oriented x 1, not in distress, speaks in sentences with no effort or accessory muscle use Head- atraumatic Eyes- PERRL, EOMI, anicteric ENT- oropharynx clear Neck- supple, no JVD, no adenopathy, no thyromegaly; carotids +2/2, no bruits appreciated Lungs- clear to auscultation bilaterally, no rales/wheezes Heart- normal rate, regular rhythm; no murmur, no gallop, no rub appreciated Abdomen- normal bowel sounds, nondistended, soft, nontender, no masses or hepatosplenomegaly Extremities- no pretibial edema, no calf tenderness; peripheral pulses intact Neuro- alert, oriented x 1; CN 2-12 grossly intact; motor 5/5 bilaterally ;sensation 100% on all extremities; no other gross focal neurologic deficits Skin- warm & dry Results & Data Vital Signs (Past 12 Hours) Vital Signs Temp Pulse Pulse Resp BP BP Pulse Ox 06/11/19 07:01 37.0 C 101 H 18 146/80 H 90 06/11/19 04:00 36.8 C 92 H 19 139/74 87 L 06/11/19 00:00 102 H 20 122/76 95 Laboratory Results Laboratory Results - last 24 hr 06/10/19 06/10/19 06/10/19 12:20 12:45 12:45 WBC RBC Hgb Hct MCV MCH MCHC RDW Std Deviation RDW Coeff of Martinez Plt Count MPV Immature Gran % (Auto) Neut % (Auto) Lymph % (Auto) [place] % (Auto) Eos % (Auto) Baso % (Auto) Reticulocyte % (Auto) Immature Gran # (Auto) Neut # (Auto) Lymph # (Auto) [place] # (Auto) Eos # (Auto) Baso # (Auto) Reticulocyte # RBC Morphology Sodium Potassium Chloride Carbon Dioxide Anion Gap BUN Creatinine Est Cr Clr Drug Dosing Est GFR ( Amer) Est GFR (Non-Af Amer) BUN/Creatinine Ratio Glucose POC Glucose Calcium Magnesium Iron TIBC Transferrin Total Bilirubin AST ALT Alkaline Phosphatase Troponin I Total Protein Albumin Globulin Albumin/Globulin Ratio Vitamin B12 Folate TSH Urine Color Urine Appearance Urine pH Ur Specific [place] Urine Protein Urine Glucose (UA) Urine Ketones Urine Blood Urine Nitrite Urine Bilirubin Urine Urobilinogen Ur Leukocyte Esterase Urine WBC (Auto) Urine RBC (Auto) U Hyaline Cast (Auto) U Epithel Cells (Auto) Urine Bacteria (Auto) Nasal Screen MRSA (PCR) Bld Cult Staph aureus PCR Positive A Blood Culture MRSA PCR Negative 06/10/19 06/10/19 06/10/19 12:45 17:00 18:30 WBC RBC Hgb Hct MCV MCH MCHC RDW Std Deviation RDW Coeff of Martinez Plt Count MPV Immature Gran % (Auto) Neut % (Auto) Lymph % (Auto) [place] % (Auto) Eos % (Auto) Baso % (Auto) Reticulocyte % (Auto) Immature Gran # (Auto) Neut # (Auto) Lymph # (Auto) [place] # (Auto) Eos # (Auto) Baso # (Auto) Reticulocyte # RBC Morphology Sodium Potassium Chloride Carbon Dioxide Anion Gap BUN Creatinine Est Cr Clr Drug Dosing Est GFR ( Amer) Est GFR (Non-Af Amer) BUN/Creatinine Ratio Glucose POC Glucose Calcium Magnesium Iron TIBC Transferrin Total Bilirubin AST ALT Alkaline Phosphatase Troponin I Total Protein Albumin Globulin Albumin/Globulin Ratio Vitamin B12 Folate TSH 3.140 Urine Color Yellow Urine Appearance Clear Urine pH 5.0 Ur Specific [place] 1.025 Urine Protein 1+ H Urine Glucose (UA) 3+ H Urine Ketones Negative Urine Blood Negative Urine Nitrite Negative Urine Bilirubin Negative Urine Urobilinogen Negative Ur Leukocyte Esterase Negative Urine WBC (Auto) 5-10 H Urine RBC (Auto) 0-4 U Hyaline Cast (Auto) 5-10 H U Epithel Cells (Auto) 10-20 H Urine Bacteria (Auto) Negative Nasal Screen MRSA (PCR) Negative Bld Cult Staph aureus PCR Blood Culture MRSA PCR 06/11/19 06/11/19 06/11/19 07:39 09:49 09:49 WBC RBC Hgb Hct MCV MCH MCHC RDW Std Deviation RDW Coeff of Martinez Plt Count MPV Immature Gran % (Auto) Neut % (Auto) Lymph % (Auto) [place] % (Auto) Eos % (Auto) Baso % (Auto) Reticulocyte % (Auto) Immature Gran # (Auto) Neut # (Auto) Lymph # (Auto) [place] # (Auto) Eos # (Auto) Baso # (Auto) Reticulocyte # RBC Morphology Sodium 132 L Potassium 5.2 H Chloride 102 Carbon Dioxide 28 Anion Gap 2.0 L BUN 24 H Creatinine 1.58 H Est Cr Clr Drug Dosing 46.2 Est GFR ( Amer) 49.2 Est GFR (Non-Af Amer) 42.5 BUN/Creatinine Ratio 15.2 Glucose 229 H POC Glucose 198 H Calcium 8.4 L Magnesium 2.1 Iron 20 L TIBC 282 Transferrin 226 Total Bilirubin AST ALT Alkaline Phosphatase Troponin I 0.367 H* Total Protein Albumin Globulin Albumin/Globulin Ratio Vitamin B12 184 L Folate 8.18 TSH Urine Color Urine Appearance Urine pH Ur Specific [place] Urine Protein Urine Glucose (UA) Urine Ketones Urine Blood Urine Nitrite Urine Bilirubin Urine Urobilinogen Ur Leukocyte Esterase Urine WBC (Auto) Urine RBC (Auto) U Hyaline Cast (Auto) U Epithel Cells (Auto) Urine Bacteria (Auto) Nasal Screen MRSA (PCR) Bld Cult Staph aureus PCR Blood Culture MRSA PCR 06/11/19 06/11/19 06/11/19 09:49 09:49 11:35 WBC 16.85 H RBC 4.19 L Hgb 14.4 Hct 43.4 MCV 103.6 H MCH 34.4 H MCHC 33.2 RDW Std Deviation 51.8 H RDW Coeff of Martinez 13.8 Plt Count 169 MPV 9.7 Immature Gran % (Auto) 0.9 Neut % (Auto) 89.9 Lymph % (Auto) 5.3 [place] % (Auto) 3.7 Eos % (Auto) 0.0 Baso % (Auto) 0.2 Reticulocyte % (Auto) 1.6 Immature Gran # (Auto) 0.15 H Neut # (Auto) 15.16 H Lymph # (Auto) 0.89 L [place] # (Auto) 0.62 H Eos # (Auto) 0.00 Baso # (Auto) 0.03 Reticulocyte # 0.07 RBC Morphology Unremarkable Sodium Potassium Chloride Carbon Dioxide Anion Gap BUN Creatinine Est Cr Clr Drug Dosing Est GFR ( Amer) Est GFR (Non-Af Amer) BUN/Creatinine Ratio Glucose POC Glucose 219 H Calcium Magnesium Iron TIBC Transferrin Total Bilirubin AST ALT Alkaline Phosphatase Troponin I Cancelled Total Protein Albumin Globulin Albumin/Globulin Ratio Vitamin B12 Folate TSH Urine Color Urine Appearance Urine pH Ur Specific [place] Urine Protein Urine Glucose (UA) Urine Ketones Urine Blood Urine Nitrite Urine Bilirubin Urine Urobilinogen Ur Leukocyte Esterase Urine WBC (Auto) Urine RBC (Auto) U Hyaline Cast (Auto) U Epithel Cells (Auto) Urine Bacteria (Auto) Nasal Screen MRSA (PCR) Bld Cult Staph aureus PCR Blood Culture MRSA PCR 06/11/19 15:26 WBC RBC Hgb Hct MCV MCH MCHC RDW Std Deviation RDW Coeff of Martinez Plt Count MPV Immature Gran % (Auto) Neut % (Auto) Lymph % (Auto) [place] % (Auto) Eos % (Auto) Baso % (Auto) Reticulocyte % (Auto) Immature Gran # (Auto) Neut # (Auto) Lymph # (Auto) [place] # (Auto) Eos # (Auto) Baso # (Auto) Reticulocyte # RBC Morphology Sodium Potassium Chloride Carbon Dioxide Anion Gap BUN Creatinine Est Cr Clr Drug Dosing Est GFR ( Amer) Est GFR (Non-Af Amer) BUN/Creatinine Ratio Glucose POC Glucose Calcium Magnesium Iron TIBC Transferrin Total Bilirubin AST ALT Alkaline Phosphatase Troponin I 0.325 H* Total Protein Albumin Globulin Albumin/Globulin Ratio Vitamin B12 Folate TSH Urine Color Urine Appearance Urine pH Ur Specific [place] Urine Protein Urine Glucose (UA) Urine Ketones Urine Blood Urine Nitrite Urine Bilirubin Urine Urobilinogen Ur Leukocyte Esterase Urine WBC (Auto) Urine RBC (Auto) U Hyaline Cast (Auto) U Epithel Cells (Auto) Urine Bacteria (Auto) Nasal Screen MRSA (PCR) Bld Cult Staph aureus PCR Blood Culture MRSA PCR
[2019-06-11 10:49] LABS: BUN Creatinine Ratio 15.2 (10-20); Calcium 8.4 mg/dl (8.5-10.1); Creatinine Clr Calc Pharmacy 46.2 ml/min; Est GFR (African American) 49.2; Est GFR (Non-African American) 42.5; Magnesium 2.1 mg/dl (1.8-2.4); Potassium 5.2 mmol/L (3.5-5.1); Troponin I 0.367 ng/ml (0-0.045)
[2019-06-11 11:08] LABS: Hematocrit (blood only) 43.4 % (42-52); Hemoglobin 14.4 g/dL (14.0-18.0); Mean Corpuscular Hemoglobin 34.4 pg (25-34); Mean Corpuscular Hgb Conc 33.2 g/dL (32-36); Mean Corpuscular Volume 103.6 fL (80-100); Mean Platelet Volume 9.7 fL (7.4-10.4); Platelet Count 169 K/uL (130-400); RDW Coefficient of Variation 13.8 % (11.5-14.5); RDW Standard Deviation 51.8 fL (36.4-46.3); Red Blood Count 4.19 M/uL (4.7-6.1); White Blood Count 16.85 K/uL (4.8-10.8)
[2019-06-11 11:10] LABS: Basophils # (auto) 0.03 K/uL (0-0.2); Basophils % (auto) 0.2 %; Folate (Folic Acid) 8.18 ng/ml (>5.38); Immature Granulocytes # (auto) 0.15 K/uL (0.00-0.02); Immature Granulocytes % (auto) 0.9 %; Lymphocytes # (auto) 0.89 K/uL (1.2-3.4); Lymphocytes % (auto) 5.3 %; Monocytes # (auto) 0.62 K/uL (0.11-0.59); Monocytes % (auto) 3.7 %; Neutrophils # (auto) 15.16 K/uL (1.4-6.5); Neutrophils % (auto) 89.9 %; RBC Morphology Unremarkable; Reticulocyte % 1.6 % (0.5-2.0); Reticulocytes # 0.07 10^6/uL (0.02-0.10)
--- NOTE | 2019-06-11 11:24 | Infectious Disease Consult ---
Date of Consultation June 11, 2019 Assessment & Plan (1) Sepsis: suspect s. aureus, unclear if uti mssa or mrsa, however now with + blood cultures, will repeat. needs echo, concerned fro seeding of graft. will follow. History of Present Illness Attending Physician: Franklyn Garvin MD pt admitted with change in mental status, on 1:1 during my exam, comfortable, answers all questions but does not provide history. per chart he was recently treated with 10 days of bactrim for S. aureus uti, he can not confirm this. no gu symptoms currently. tmax 37.9, currently afebrile. on zosyn and vanco, tolerating well. wbc 12, creat 1.2, procalcitonin negative. CXR negative, ct abd aortoiliac graft in place. UA 5-10 wbc, no bacteria, flu swab negative, 06/10 blood cultures growing gpc in clusters. Allergies Allergy/AdvReac Type Severity Reaction Status Date / Time Iodinated Contrast Media Allergy Intermediate swelling Verified 06/10/19 13:35 Home Medications Home Medications Medication Instructions Recorded Confirmed Type aspirin 81 mg PO QAM 07/16/18 06/10/19 History atorvastatin 40 mg PO HS 07/16/18 06/10/19 History clopidogrel 75 mg PO QAM 07/16/18 06/10/19 History glipizide 10 mg PO BID 07/16/18 06/10/19 History levothyroxine 100 mcg PO MOWEFR 07/16/18 06/10/19 History levothyroxine 200 mcg PO SUTUTHSA 07/16/18 06/10/19 History nitroglycerin [Nitrostat] 1 tab SUBLINGUAL UD 07/16/18 06/10/19 History famotidine 20 mg PO HS 06/10/19 06/10/19 History metformin 1,000 mg PO DAILY 06/10/19 06/10/19 History sulfamethoxazole-trimethoprim 1 tab PO BID 06/10/19 06/10/19 History Patient History Medical History AAA (abdominal aortic aneurysm) Carotid stenosis, non-symptomatic (Chronic) CKD (chronic kidney disease) stage 3, GFR 30-59 ml/min (Chronic) Coronary artery disease (Chronic) Dyslipidemia History of nonmelanoma skin cancer Hypothyroidism (Chronic) Malignant neoplasm of bladder (Chronic) Malignant neoplasm of ureter (Chronic) NC (myocardial infarction) (Chronic) "2008 and 2013 s/p multiple stent placements " Primary cancer of right upper lobe of lung (Chronic) PVD (peripheral vascular disease) (Chronic) Tobacco use disorder (Chronic) Type 2 diabetes mellitus (Chronic) Vascular dementia (Chronic) Surgical History History of left-sided carotid endarterectomy (Chronic) S/P AAA repair (Resolved) S/P appendectomy (Chronic) S/P colonoscopy with polypectomy (Chronic) S/P coronary artery stent placement (Resolved) S/P laparoscopic cholecystectomy (Chronic) "with umbilical hernia repair" S/p nephrectomy (Resolved) "left nephrectomy with partial ureterectomy" S/P rotator cuff repair (Chronic) S/P tonsillectomy and adenoidectomy (Chronic) Family History Father Myocardial infarction Mother Colon cancer Social History Preferred Language: Estonian Communication Ability: Impaired Communication Ability Comment: dementia Fringe Maker Required: No Beliefs That Will Affect Care: None marital status: Current Living Situation: Spouse current occupational status: retired Other Information That Helps Us Care for You: No Feels Safe at Home: Yes Safety Concerns: Feels Safe At This Time Smoking Status: Current every day smoker Tobacco Type: cigarettes ; Cigarettes Per Day: 30 ; Hx Alcohol Use: No Hx Substance Use: No Review of Systems Review of Systems: All systems reviewed & are unremarkable except as noted in HPI & below Physical Exam Constitutional: WD/WN, vitals as above Eyes: PERRL, conjunctivae normal, anicteric sclerae ENMT: external ear and nose normal, oropharynx normal Neck: normal visual inspection Respiratory: normal respiratory effort, lungs clear to auscultation Cardiovascular: RRR, no murmur, no edema Gastrointestinal (Abdomen): normal bowel sounds, soft, nontender, no hepatosplenomegaly Musculoskeletal: no cyanosis or clubbing, extremities motor strength 5/5 Skin: no rashes, warm and dry Psychiatric: A+Ox3, euthymic affect Results & Data Vital Signs (Past 12 Hours) Vital Signs Temp Pulse Pulse Pulse Resp BP BP 06/11/19 11:06 36.6 C 105 H 20 156/89 H 06/11/19 08:00 98 H 06/11/19 07:01 37.0 C 101 H 18 146/80 H 06/11/19 04:00 36.8 C 92 H 19 139/74 06/11/19 00:00 102 H 20 122/76 Pulse Ox 06/11/19 11:06 94 06/11/19 08:00 06/11/19 07:01 90 06/11/19 04:00 87 L 06/11/19 00:00 95 Laboratory Results Microbiology 06/10/19 12:25 Blood Aerobic Blood Culture - Preliminary Gram positive cocci clusters 06/10/19 12:20 Blood Aerobic Blood Culture - Preliminary Gram positive cocci clusters PG Care Time/CCT Total # of Minutes Spent Total Time Spent with Patient: Total time spent is greater than 50% in coordination of care (as documented) at patient's floor/unit and/or counseling patient: Coding Level of Care Code 02056 Inpt Consult Level 4 Diagnoses Sepsis A41.9 Sepsis type: sepsis due to unspecified organism (1) Sepsis Sepsis type: sepsis due to unspecified organism
[2019-06-11] MEDS ORDERED: SODIUM CHLORIDE 0.9% 1000ML 1,000 ML IV SCH (11:30)
[2019-06-11] MEDS ORDERED: GLUCOSE 10 TABS/TUBE PO PRN (15:30)
[2019-06-11] MEDS ORDERED: GLUCAGON FOR INJ 1 MG VIAL IM PRN (15:30)
[2019-06-11] MEDS ORDERED: CARBOHYDRATES FOR HYPOGLYCEMIA PO PRN (15:30)
[2019-06-11] MEDS ORDERED: GLUCOSE 40% GEL 15 GM TUBE PO PRN (15:30)
[2019-06-11] MEDS ORDERED: DEXTROSE 50% 50 ML SYRINGE IV PRN (15:30)
[2019-06-11] MEDS ORDERED: INSULIN GLARGINE SOLOSTAR 100 UNITS/ML 3 ML PEN SC ONE (15:30)
[2019-06-11] MEDS: INSULIN ASPART 100 UNITS/ML 3 ML PEN SC SCH ×2 (16:45→20:51)
[2019-06-11] MEDS ORDERED: XOPENEX/ATROVENT 1.25mg/0.5MG NEB COMBO NEB STA (16:57)
[2019-06-11] MEDS ORDERED: XOPENEX/ATROVENT 1.25mg/0.5MG NEB COMBO NEB PRN (16:59)
[2019-06-11] MEDS ORDERED: LEVALBUTEROL 1.25MG/0.5ML NEB INH PRN (17:00)
[2019-06-11] MEDS ORDERED: IPRATROPIUM BROMIDE NEB SOLN 0.02% 2.5 ML VIAL INH PRN (17:00)
[2019-06-11] MEDS ORDERED: LEVALBUTEROL 1.25MG/0.5ML NEB INH STA (17:13)
[2019-06-11] MEDS ORDERED: IPRATROPIUM BROMIDE NEB SOLN 0.02% 2.5 ML VIAL INH STA (17:13)
--- NOTE | 2019-06-11 17:14 | XRay Report ---
XR chest 1V portable CLINICAL HISTORY: wheezing COMPARISON STUDY: 06/10/2019 FINDINGS: The heart is mildly enlarged. There is aortic tortuosity/ectasia. There is a lower lung zon e interstitial thickening/scarring. There is no acute parenchymal consolidation. There is no overt fa ilure. There are no pleural effusions. There are old clavicular deformities. There is surgical suture material in the region of the right hilum.[ IMPRESSION: No active disease in the chest. ACT 112: Negative or not required by law. Electronically signed by: David Rodriguez M.D. 06/11/2019 5:13 PM
[2019-06-11] MEDS ORDERED: methylPREDNISolone 60 MG in SYRINGE 0 ML IV STA (17:15)
--- NOTE | 2019-06-11 17:37 | Electrocardiogram Report ---
Test Reason : Blood Pressure : / mmHG Vent. Rate : 132 BPM Atrial Rate : 019 BPM P-R Int : 000 ms QRS Dur : 146 ms QT Int : 330 ms P-R-T Axes : 000 -34 135 degrees QTc Int : 488 ms Likely SVT Left axis deviation Right bundle branch block Inferior infarct , age undetermined T wave abnormality, consider lateral ischemia Abnormal ECG When compared with ECG of 24-DEC-2018 21:36, Wide QRS tachycardia has replaced Sinus rhythm Confirmed by Cristóbal Haines ([id number]) on 06/11/2019 5:36:51 PM Referred By: Confirmed By:Gibson Haines
[2019-06-11] MEDS ORDERED: VANCOMYCIN TROUGH ONE (19:30)
[2019-06-11 20:26] LABS: Creatinine Clr Calc Pharmacy 48.3 ml/min; Est GFR (Non-African American) 44.9
--- NOTE | 2019-06-11 20:39 | Pharmacy Report ---
Pharmacy Abx Dose Short Note - Date of Service June 11, 2019 - Assessment & Plan Assessment 73 year old M receiving vancomycin and Zosyn for treatment of sepsis secondary to UTI Day # 2 of antimicrobial therapy. Microbiology: Blood cultures x 2 (06/10): gram positive cocci in clusters Plan Vancomycin * Trough obtained prior to steady-state due to increase in SCr from 1.25 mg/dL - > 1.58 mg/dL * Will continue to follow renal function * Trough level of 12.7 mcg/mL is subtherapeutic * Continue dose of 1250 mg IV q12h * Goal trough level for sepsis : 15 to 20 mcg/mL * Trough or random level ordered for: 06/13/2019 Zosyn * 3.375 g IV q8h appropriate based on BMI and renal function Pharmacy will continue to follow and will adjust dose/frequency as necessary. Thank you.
[2019-06-11] MEDS: VANCOMYCIN HCL 1,250 MG in SODIUM CHLORIDE 0.9% 250 ML IV SCH (20:42)
[2019-06-11] MEDS: FAMOTIDINE 20 MG TAB PO SCH (20:42)
[2019-06-11] MEDS ORDERED: INSULIN GLARGINE SOLOSTAR 100 UNITS/ML 3 ML PEN SC SCH (21:00)
[2019-06-11] MEDS ORDERED: INSULIN GLARGINE SOLOSTAR 100 UNITS/ML 3 ML PEN SC STA (21:42)
[2019-06-11] MEDS ORDERED: INSULIN ASPART 100 UNITS/ML 3 ML PEN SC SCH (21:43)
[2019-06-12] MEDS: PIPERACILLIN/TAZOBACTAM 3.375 GM in DEXTROSE 5% 100 ML IV SCH ×3 (04:39→20:38)
[2019-06-12] MEDS: LEVOTHYROXINE SODIUM 200 MCG TABLET PO SCH (05:52)
[2019-06-12] MEDS ORDERED: VANCOMYCIN TROUGH ONE (07:30)
[2019-06-12] MEDS ORDERED: PERFLUTREN LIPID MICROSPHERE (DEFINITY) IV ONE (07:38)
[2019-06-12] MEDS: VANCOMYCIN HCL 1,250 MG in SODIUM CHLORIDE 0.9% 250 ML IV SCH ×2 (08:28→20:39)
[2019-06-12] MEDS: INSULIN GLARGINE SOLOSTAR 100 UNITS/ML 3 ML PEN SC SCH ×2 (08:33→20:42)
[2019-06-12] MEDS: INSULIN ASPART 100 UNITS/ML 3 ML PEN SC SCH ×4 (08:34→20:46)
--- NOTE | 2019-06-12 09:26 | Infectious Disease Progress Nt ---
Date of Service June 12, 2019 Assessment & Plan (1) Sepsis: suspect s. aureus, unclear if uti mssa or mrsa, however now with + blood cultures, will repeat. needs echo, concerned fro seeding of graft. will follow. Subjective afebrile, remains on vanco and zosyn, tolerating well. initial blood cultures gpc clusters 2/2 sets, repeat pending. cxr negative Results & Data Vital Signs (Past 12 Hours) Vital Signs Temp Pulse Pulse Resp BP Pulse Ox 06/12/19 07:03 36.8 C 86 18 146/90 H 94 06/12/19 03:13 36.7 C 83 18 141/86 H 92 06/11/19 23:24 36.7 C 98 H 23 165/77 H 93 Laboratory Results Microbiology 06/10/19 12:25 Blood Aerobic Blood Culture - Preliminary Staphylococcus aureus 06/10/19 12:25 Blood Anaerobic Blood Culture - Final 06/10/19 12:20 Blood Aerobic Blood Culture - Preliminary Staphylococcus aureus 06/10/19 12:20 Blood Anaerobic Blood Culture - Final PG Care Time/CCT Total # of Minutes Spent Total Time Spent with Patient: Total time spent is greater than 50% in coordination of care (as documented) at patient's floor/unit and/or counseling patient: Coding Level of Care Code 77437 Subseq Hosp Care Lvl 1 Diagnoses Sepsis A41.9 Sepsis type: sepsis due to unspecified organism (1) Sepsis Sepsis type: sepsis due to unspecified organism
--- NOTE | 2019-06-12 09:28 | Hospitalist Progress Note ---
Date of Service Delayed entry date of service noted below June 12, 2019 Assessment & Plan (1) Sepsis: (1) Sepsis, Gram Positive Cocci Clusters - Blood cultures: Staph aureus, MSSA repeat Blood cultures: Positive cocci clusters - fever improving but repeat blood cultures positive - ID consulted recommend echo given aortoiliac graft continue Frahad appreciate Dr. Luo's input (2) Anemia: Suspect due to blood loss since Hgb in December was 16.7. Pt does have a history of multiple adenomatous polyps and is overdue for follow-up colonoscopy. Mother from colon cancer. Personal hx of lung and bladder CA. - Hg 14 no signs of active bleeding (3) Type 2 diabetes mellitus: Per , pt is non-compliant with recommendations and does not monitor glucose at home. Last A1c 05/16/2019 was 10.1 - Insulin sliding scale while admitted - BSG ACHS or Q6hrs if NPO (4) Hypothyroidism: - TSH: normal - Continue outpatient levothyroxine (5) Dyslipidemia: - Continue outpatient statin therapy (6) CKD (chronic kidney disease) stage 3, GFR 30-59 ml/min: Creatinine appears to be at baseline - continue to monitor (7) Coronary artery disease: Trop 0.06--> 0.3--> 0.3 likely from Sepsis no acute ischemia on EKG Echo: pending Disposition pending case discussed in detail and at length with patient and his in person all questions answered they are understanding, agreeable, comfortable with the plan of care Subjective Follow-up for bacteremia Seen resting in bed, seen at the bedside Patient mostly calm and cooperative, mental status at baseline States he feels fine overall No shortness of breath, abdominal pain, problems with urination No other symptoms Review of Systems Review of Systems: All systems reviewed & are unremarkable except as noted in HPI & below Physical Exam Physical Exam: General- oriented x 1-2, not in distress, speaks in sentences with no effort or accessory muscle use Eyes- anicteric Neck- no JVD Lungs-very faint wheezing bilateral bases, good air entry bilaterally Heart- normal rate, regular rhythm; no murmurs Abdomen- normal bowel sounds, nondistended, soft, nontender Extremities- no pretibial edema, no calf tenderness Neuro- alert, oriented x 1-2; no gross focal neurologic deficits Skin- warm & dry Results & Data ([facility]) Vital Signs (Past 12 Hours) Vital Signs Temp Pulse Pulse Resp BP Pulse Ox 06/12/19 07:03 36.8 C 86 18 146/90 H 94 06/12/19 03:13 36.7 C 83 18 141/86 H 92 06/11/19 23:24 36.7 C 98 H 23 165/77 H 93 Laboratory Results All noted and reviewed
[2019-06-12 09:39] LABS: Basophils # (auto) 0.01 K/uL (0-0.2); Basophils % (auto) 0.1 %; Hematocrit (blood only) 44.8 % (42-52); Hemoglobin 15.5 g/dL (14.0-18.0); Immature Granulocytes # (auto) 0.11 K/uL (0.00-0.02); Immature Granulocytes % (auto) 0.8 %; Lymphocytes % (auto) 6.4 %; Mean Corpuscular Hemoglobin 34.8 pg (25-34); Mean Corpuscular Hgb Conc 34.6 g/dL (32-36); Mean Corpuscular Volume 100.4 fL (80-100); Monocytes # (auto) 0.47 K/uL (0.11-0.59); Monocytes % (auto) 3.3 %; Neutrophils # (auto) 12.63 K/uL (1.4-6.5); Neutrophils % (auto) 89.4 %; Platelet Count 159 K/uL (130-400); RDW Coefficient of Variation 13.4 % (11.5-14.5); RDW Standard Deviation 49.1 fL (36.4-46.3); Red Blood Count 4.46 M/uL (4.7-6.1); White Blood Count 14.12 K/uL (4.8-10.8)
[2019-06-12 09:46] LABS: BUN Creatinine Ratio 16.5 (10-20); Calcium 8.5 mg/dl (8.5-10.1); Creatinine Clr Calc Pharmacy 53.2 ml/min; Est GFR (African American) 59.5; Est GFR (Non-African American) 51.4; Potassium 4.8 mmol/L (3.5-5.1)
[2019-06-12] MEDS: NICOTINE 21 MG/24 HR TDSY TD SCH (16:59)
[2019-06-12] MEDS: FAMOTIDINE 20 MG TAB PO SCH (20:30)
[2019-06-12] MEDS ORDERED: INSULIN GLARGINE SOLOSTAR 100 UNITS/ML 3 ML PEN SC STA (20:58)
[2019-06-13] MEDS: PIPERACILLIN/TAZOBACTAM 3.375 GM in DEXTROSE 5% 100 ML IV SCH ×2 (04:45→11:54)
[2019-06-13] MEDS: LEVOTHYROXINE SODIUM 100 MCG TABLET PO SCH (06:28)
[2019-06-13 07:10] LABS: Basophils # (auto) 0.02 K/uL (0-0.2); Basophils % (auto) 0.2 %; Eosinophils # (auto) 0.12 K/uL (0-0.5); Eosinophils % (auto) 1.1 %; Hematocrit (blood only) 43.3 % (42-52); Hemoglobin 14.7 g/dL (14.0-18.0); Immature Granulocytes % (auto) 0.9 %; Lymphocytes # (auto) 1.54 K/uL (1.2-3.4); Lymphocytes % (auto) 14.6 %; Mean Corpuscular Hemoglobin 34.3 pg (25-34); Mean Corpuscular Hgb Conc 33.9 g/dL (32-36); Mean Corpuscular Volume 100.9 fL (80-100); Monocytes # (auto) 0.76 K/uL (0.11-0.59); Monocytes % (auto) 7.2 %; Neutrophils # (auto) 7.99 K/uL (1.4-6.5); Platelet Count 154 K/uL (130-400); RDW Coefficient of Variation 13.6 % (11.5-14.5); RDW Standard Deviation 50.1 fL (36.4-46.3); Red Blood Count 4.29 M/uL (4.7-6.1); White Blood Count 10.53 K/uL (4.8-10.8)
[2019-06-13] MEDS: NICOTINE 21 MG/24 HR TDSY TD SCH (07:47)
[2019-06-13] MEDS: INSULIN ASPART 100 UNITS/ML 3 ML PEN SC SCH ×4 (07:48→20:54)
[2019-06-13] MEDS: INSULIN GLARGINE SOLOSTAR 100 UNITS/ML 3 ML PEN SC SCH ×2 (07:49→20:53)
[2019-06-13 07:53] LABS: BUN Creatinine Ratio 22.6 (10-20); Calcium 8.2 mg/dl (8.5-10.1); Creatinine Clr Calc Pharmacy 54.4 ml/min; Est GFR (African American) 61.2; Est GFR (Non-African American) 52.8
[2019-06-13] MEDS ORDERED: VANCOMYCIN TROUGH ONE (08:30)
[2019-06-13] MEDS: VANCOMYCIN HCL 1,250 MG in SODIUM CHLORIDE 0.9% 250 ML IV SCH (10:19)
--- NOTE | 2019-06-13 12:25 | Pharmacy Report ---
Pharmacy Abx Dose Short Note - Date of Service June 13, 2019 - Assessment & Plan Assessment 73 year old M receiving VANCOMYCIN + ZOSYN for treatment of MSSA bacteremia / UTI Day # 4 of antimicrobial therapy 06/10 BLCXs x2 growing pansensitive MSSA 06/11 BLCX x 1 also growing MSSA 06/12 BLCX - no growth to date TTE reported negative for vegetations Consider deescalation to Cefazolin monotherapy? Plan Vancomycin * Trough level of 17.2 mcg/mL is therapeutic; level was drawn at the appropriate time and likely reflective of steady state * Continue dose of 1250 mg IV every 12 hours * Goal trough level for bacterema : 15 to 20 mcg/mL * Will repeat trough level in 2-3 days if therapy to continue Pharmacy will continue to follow and will adjust dose/frequency as necessary. Thank you.
--- NOTE | 2019-06-13 12:44 | Infectious Disease Progress Nt ---
Date of Service June 13, 2019 Assessment & Plan (1) Sepsis: will change to Rocephin 2 g IV daily, would give 4 weeks due to repeat blood cultures + on 06/11, will need picc will need weekly cbc, cmp, esr. concerned for infected aortic graft, would treat for longer period. Subjective pt remains on IV abx. tolerating well. 06/12 blood cultures negative. 06/10 and 06/11 + MSSA wbc decreased to 10 tolerating abx. creat 1.3, echo negative. solomon pect urine as source, recently treated for uti. Results & Data Vital Signs (Past 12 Hours) Vital Signs Temp Pulse Pulse Resp BP Pulse Ox 06/13/19 10:57 36.6 C 87 18 98/60 L 93 06/13/19 10:31 92 06/13/19 08:00 80 06/13/19 07:10 36.6 C 83 18 110/73 94 06/13/19 03:34 36.6 C 84 20 139/75 91 Laboratory Results Microbiology 06/10/19 12:20 Blood Aerobic Blood Culture - Preliminary Staphylococcus aureus 06/10/19 12:20 Blood Anaerobic Blood Culture - Final 06/11/19 15:26 Blood Aerobic Blood Culture - Preliminary Staphylococcus aureus 06/11/19 15:26 Blood Anaerobic Blood Culture - Final 06/12/19 07:04 Blood Aerobic Blood Culture - Preliminary No growth in Aerobic bottle after 24 hours. 06/12/19 07:04 Blood Anaerobic Blood Culture - Preliminary No growth in Anaerobic bottle after 24 hours. 06/10/19 12:25 Blood Aerobic Blood Culture - Preliminary Staphylococcus aureus 06/10/19 12:25 Blood Anaerobic Blood Culture - Final PG Care Time/CCT Total # of Minutes Spent Total Time Spent with Patient: Total time spent is greater than 50% in coordination of care (as documented) at patient's floor/unit and/or counseling patient: Coding Level of Care Code 99620 Subseq Hosp Care Lvl 1 Diagnoses Sepsis A41.9 Sepsis type: sepsis due to unspecified organism (1) Sepsis Sepsis type: sepsis due to unspecified organism
[2019-06-13] MEDS: cefTRIAXone SODIUM 2,000 MG in DEXTROSE 5% 50 ML IV SCH (14:30)
[2019-06-13] MEDS: LACTOBACILLUS ACIDOPHILUS (FLORANEX) TAB PO SCH ×2 (17:24→20:50)
--- NOTE | 2019-06-13 20:55 | Hospitalist Progress Note ---
Date of Service June 13, 2019 Assessment & Plan (1) Sepsis: (1) Sepsis, Gram Positive Cocci Clusters - Blood cultures: Staph aureus, MSSA repeat Blood cultures: MSSA 1 out of 2 bottles -Echo: No signs of vegetation - fever resolved - ID consulted recommend to transition to ceftriaxone 2 g IV x4 weeks given possibility of infected aortoiliac graft Patient has CKD stage III, patient also has dementia and patient's voiced concern of patient having a PICC line Will discuss further with Dr. Luo regarding possible oral antibiotic upon discharge (2) Anemia: Suspect due to blood loss since Hgb in December was 16.7. Pt does have a history of multiple adenomatous polyps and is overdue for follow-up colonoscopy. Mother from colon cancer. Personal hx of lung and bladder CA. - Hg 14 no signs of active bleeding (3) Type 2 diabetes mellitus: Per , pt is non-compliant with recommendations and does not monitor glucose at home. Last A1c 05/16/2019 was 10.1 - Insulin sliding scale while admitted - BSG ACHS or Q6hrs if NPO (4) Hypothyroidism: - TSH: normal - Continue outpatient levothyroxine (5) Dyslipidemia: - Continue outpatient statin therapy (6) CKD (chronic kidney disease) stage 3, GFR 30-59 ml/min: Creatinine appears to be at baseline - continue to monitor (7) Coronary artery disease: Trop 0.06--> 0.3--> 0.3 likely from Sepsis no acute ischemia on EKG Echo: pending Disposition pending case discussed in detail and at length with patient and his over the phone all questions answered they are understanding, agreeable, comfortable with the plan of care Subjective Follow-up for MSSA bacteremia, sepsis Seen resting in bed, comfortable, watching TV Cooperative, calm States he feels fine overall Denies shortness of breath, cough, chest pain No abdominal pain, nausea vomiting, changes with urination No fever or chills, no other symptoms Review of Systems Review of Systems: All systems reviewed & are unremarkable except as noted in HPI & below Physical Exam Physical Exam: General- oriented x 1, not in distress, speaks in sentences with no effort or accessory muscle use Eyes- anicteric Neck- no JVD Lungs- clear breath sounds bilaterally, no wheezing, no crackles Heart- normal rate, regular rhythm; no murmurs Abdomen- normal bowel sounds, nondistended, soft, nontender Extremities- no pretibial edema, no calf tenderness Neuro- alert, oriented x 1; no gross focal neurologic deficits Skin- warm & dry Results & Data ([facility]) Vital Signs (Past 12 Hours) Vital Signs Temp Pulse Pulse Resp BP Pulse Ox 06/13/19 19:17 36.8 C 94 H 18 133/85 91 06/13/19 16:00 92 H 06/13/19 14:56 36.9 C 81 18 121/75 90 06/13/19 10:57 36.6 C 87 18 98/60 L 93 06/13/19 10:31 92 Laboratory Results Laboratory Results - last 24 hr 06/12/19 06/13/19 06/13/19 20:42 06:45 06:45 WBC 10.53 RBC 4.29 L Hgb 14.7 Hct 43.3 MCV 100.9 H MCH 34.3 H MCHC 33.9 RDW Std Deviation 50.1 H RDW Coeff of Martinez 13.6 Plt Count 154 MPV 10.0 Immature Gran % (Auto) 0.9 Neut % (Auto) 76.0 Lymph % (Auto) 14.6 [place] % (Auto) 7.2 Eos % (Auto) 1.1 Baso % (Auto) 0.2 Immature Gran # (Auto) 0.10 H Neut # (Auto) 7.99 H Lymph # (Auto) 1.54 [place] # (Auto) 0.76 H Eos # (Auto) 0.12 Baso # (Auto) 0.02 Sodium 135 L Potassium Chloride 102 Carbon Dioxide 28 Anion Gap 5.0 BUN 30 H Creatinine 1.32 Est Cr Clr Drug Dosing 54.4 Est GFR ( Amer) 61.2 Est GFR (Non-Af Amer) 52.8 BUN/Creatinine Ratio 22.6 H Glucose 177 H POC Glucose 297 H Calcium 8.2 L Vancomycin Trough 06/13/19 06/13/19 06/13/19 07:47 08:04 08:04 WBC RBC Hgb Hct MCV MCH MCHC RDW Std Deviation RDW Coeff of Martinez Plt Count MPV Immature Gran % (Auto) Neut % (Auto) Lymph % (Auto) [place] % (Auto) Eos % (Auto) Baso % (Auto) Immature Gran # (Auto) Neut # (Auto) Lymph # (Auto) [place] # (Auto) Eos # (Auto) Baso # (Auto) Sodium Potassium 4.1 Chloride Carbon Dioxide Anion Gap BUN Creatinine Est Cr Clr Drug Dosing Est GFR ( Amer) Est GFR (Non-Af Amer) BUN/Creatinine Ratio Glucose POC Glucose 187 H Calcium Vancomycin Trough 17.2 06/13/19 06/13/19 06/13/19 11:04 16:07 19:46 WBC RBC Hgb Hct MCV MCH MCHC RDW Std Deviation RDW Coeff of [place] Plt Count MPV Immature Gran % (Auto) Neut % (Auto) Lymph % (Auto) [place] % (Auto) Eos % (Auto) Baso % (Auto) Immature Gran # (Auto) Neut # (Auto) Lymph # (Auto) [place] # (Auto) Eos # (Auto) Baso # (Auto) Sodium Potassium Chloride Carbon Dioxide Anion Gap BUN Creatinine Est Cr Clr Drug Dosing Est GFR ( Amer) Est GFR (Non-Af Amer) BUN/Creatinine Ratio Glucose POC Glucose 190 H 134 H 174 H Calcium Vancomycin Trough
[2019-06-13] MEDS: FAMOTIDINE 20 MG TAB PO SCH (20:59)
[2019-06-14] MEDS: LEVOTHYROXINE SODIUM 200 MCG TABLET PO SCH (06:31)
[2019-06-14 07:00] LABS: Basophils # (auto) 0.04 K/uL (0-0.2); Basophils % (auto) 0.3 %; Eosinophils # (auto) 0.34 K/uL (0-0.5); Eosinophils % (auto) 2.9 %; Hemoglobin 15.9 g/dL (14.0-18.0); Immature Granulocytes # (auto) 0.17 K/uL (0.00-0.02); Immature Granulocytes % (auto) 1.5 %; Lymphocytes # (auto) 2.63 K/uL (1.2-3.4); Lymphocytes % (auto) 22.6 %; Mean Corpuscular Hemoglobin 34.5 pg (25-34); Mean Corpuscular Hgb Conc 33.8 g/dL (32-36); Monocytes # (auto) 1.07 K/uL (0.11-0.59); Monocytes % (auto) 9.2 %; Neutrophils # (auto) 7.41 K/uL (1.4-6.5); Neutrophils % (auto) 63.5 %; Platelet Count 173 K/uL (130-400); RDW Coefficient of Variation 13.5 % (11.5-14.5); RDW Standard Deviation 50.3 fL (36.4-46.3); Red Blood Count 4.61 M/uL (4.7-6.1); White Blood Count 11.66 K/uL (4.8-10.8)
[2019-06-14 07:35] LABS: BUN Creatinine Ratio 21.3 (10-20); Calcium 8.7 mg/dl (8.5-10.1); Creatinine Clr Calc Pharmacy 55.6 ml/min; Est GFR (African American) 63.5; Est GFR (Non-African American) 54.8; Potassium 3.7 mmol/L (3.5-5.1)
[2019-06-14] MEDS: LACTOBACILLUS ACIDOPHILUS (FLORANEX) TAB PO SCH ×4 (08:47→20:23)
[2019-06-14] MEDS: INSULIN ASPART 100 UNITS/ML 3 ML PEN SC SCH ×5 (08:47→20:56)
[2019-06-14] MEDS: INSULIN GLARGINE SOLOSTAR 100 UNITS/ML 3 ML PEN SC SCH ×2 (08:48→20:55)
[2019-06-14] MEDS: NICOTINE 21 MG/24 HR TDSY TD SCH (09:32)
[2019-06-14] MEDS: cefTRIAXone SODIUM 2,000 MG in DEXTROSE 5% 50 ML IV SCH (12:52)
--- NOTE | 2019-06-14 13:16 | Hospitalist Progress Note ---
Date of Service June 14, 2019 Assessment & Plan (1) Sepsis: (1) Sepsis, Staph Bacteremia - Blood cultures: Staph aureus, MSSA repeat Blood cultures: MSSA 1 out of 2 bottles - Echo: No signs of vegetation - fever resolved - ID consulted transitioned to ceftriaxone 2 g IV x4 weeks given possibility of infected aortoiliac graft cleared for PICC Line placement with Associate Editor Dr. Foster (2) Anemia: Suspect due to blood loss since Hgb in December was 16.7. Pt does have a history of multiple adenomatous polyps and is overdue for follow-up colonoscopy. Mother from colon cancer. Personal hx of lung and bladder CA. - Hg 14 no signs of active bleeding (3) Type 2 diabetes mellitus: Per , pt is non-compliant with recommendations and does not monitor glucose at home. Last A1c 05/16/2019 was 10.1 - Insulin sliding scale while admitted - BSG ACHS or Q6hrs if NPO (4) Hypothyroidism: - TSH: normal - Continue outpatient levothyroxine (5) Dyslipidemia: - Continue outpatient statin therapy (6) CKD (chronic kidney disease) stage 3, GFR 30-59 ml/min: Creatinine appears to be at baseline - continue to monitor (7) Coronary artery disease: Trop 0.06--> 0.3--> 0.3 likely from Sepsis no acute ischemia on EKG Echo: pending Disposition SNF on Sunday when accepted case discussed in detail and at length with patient and his and their children all questions answered they are understanding, agreeable, comfortable with the plan of care Subjective ff up for bacteremia seen resting in bed, comfortable states he feels fine denies abdominal pain, urinary symptoms no SOB, chest pain no other symptoms Review of Systems Review of Systems: All systems reviewed & are unremarkable except as noted in HPI & below Physical Exam Physical Exam: General- oriented x 1-2, not in distress, speaks in sentences with no effort or accessory muscle use Eyes- anicteric Neck- no JVD Lungs- clear breath sounds BL Heart- normal rate, regular rhythm; no murmurs Abdomen- normal bowel sounds, nondistended, soft, nontender Extremities- no pretibial edema, no calf tenderness Neuro- alert, oriented x 1-2; no gross focal neurologic deficits Skin- warm & dry Results & Data ([facility]) Vital Signs (Past 12 Hours) Vital Signs Temp Pulse Pulse Pulse Resp BP BP 06/14/19 11:06 37.3 C 95 H 20 126/62 06/14/19 06:38 36.6 C 96 H 19 111/69 06/14/19 04:00 36.8 C 85 18 126/74 Pulse Ox 06/14/19 11:06 91 06/14/19 06:38 91 06/14/19 04:00 95
[2019-06-14] MEDS: FAMOTIDINE 20 MG TAB PO SCH (20:23)
[2019-06-15] MEDS: LEVOTHYROXINE SODIUM 200 MCG TABLET PO SCH (06:17)
[2019-06-15] MEDS: NICOTINE 21 MG/24 HR TDSY TD SCH (07:46)
[2019-06-15] MEDS: LACTOBACILLUS ACIDOPHILUS (FLORANEX) TAB PO SCH ×4 (07:46→20:59)
[2019-06-15] MEDS: INSULIN ASPART 100 UNITS/ML 3 ML PEN SC SCH ×4 (08:54→20:49)
[2019-06-15] MEDS: INSULIN GLARGINE SOLOSTAR 100 UNITS/ML 3 ML PEN SC SCH ×2 (08:55→20:49)
[2019-06-15] MEDS: cefTRIAXone SODIUM 2,000 MG in DEXTROSE 5% 50 ML IV SCH (14:14)
--- NOTE | 2019-06-15 19:49 | Hospitalist Progress Note ---
Date of Service June 15, 2019 Assessment & Plan (1) Sepsis: (1) Sepsis, Staph Bacteremia - Blood cultures: Staph aureus, MSSA repeat Blood cultures: MSSA 1 out of 2 bottles - Echo: No signs of vegetation - fever resolved - ID consulted transitioned to ceftriaxone 2 g IV x4 weeks given possibility of infected aortoiliac graft cleared for PICC Line placement with Academic Support Assistant Dr. Foster patient declined earlier today, agreed to have it placed when i talked to him PICC line team requested to replace PICC line (2) Anemia: Suspect due to blood loss since Hgb in December was 16.7. Pt does have a history of multiple adenomatous polyps and is overdue for follow-up colonoscopy. Mother from colon cancer. Personal hx of lung and bladder CA. - Hg 14 no signs of active bleeding (3) Type 2 diabetes mellitus: Per , pt is non-compliant with recommendations and does not monitor glucose at home. Last A1c 05/16/2019 was 10.1 - Insulin sliding scale while admitted - BSG ACHS or Q6hrs if NPO (4) Hypothyroidism: - TSH: normal - Continue outpatient levothyroxine (5) Dyslipidemia: - Continue outpatient statin therapy (6) CKD (chronic kidney disease) stage 3, GFR 30-59 ml/min: Creatinine appears to be at baseline - continue to monitor (7) Coronary artery disease: Trop 0.06--> 0.3--> 0.3 likely from Sepsis no acute ischemia on EKG Echo: pending Disposition SNF on Sunday when accepted case discussed in detail and at length with patient and his all questions answered they are understanding, agreeable, comfortable with the plan of care Subjective ff up for bacteremia resting in bed, comfortable states he feels fine overall denies chest pain, dyspnea, palpitations, dizziness no fever/chills declined iv site placement today convinced to have picc line placed, patient agreed Review of Systems Review of Systems: All systems reviewed & are unremarkable except as noted in HPI & below Physical Exam Physical Exam: General- oriented x 1, not in distress, speaks in sentences with no effort or accessory muscle use Eyes- anicteric Neck- no JVD Lungs- clear BS BL Heart- normal rate, regular rhythm; no murmurs Abdomen- normal bowel sounds, nondistended, soft, nontender Extremities- no pretibial edema, no calf tenderness Neuro- alert, oriented x 1; no gross focal neurologic deficits Skin- warm & dry Results & Data ([facility]) Vital Signs (Past 12 Hours) Vital Signs Temp Pulse Pulse Pulse Resp BP Pulse Ox 06/15/19 14:55 36.3 C L 91 H 20 103/71 93 06/15/19 11:03 36.5 C 89 89 18 110/76 94 06/15/19 08:58 83 Laboratory Results Laboratory Results - last 24 hr 06/15/19 06/15/19 06/15/19 07:25 11:24 16:22 POC Glucose 124 H 178 H 165 H Stool Occult Bld Scrn 06/15/19 Unknown POC Glucose Stool Occult Bld Scrn Negative (1) Sepsis Sepsis acute organ dysfunction status: unspecified Sepsis type: sepsis due to unspecified organism Qualified Code(s): A41.9 - Sepsis, unspecified organism
[2019-06-15] MEDS: FAMOTIDINE 20 MG TAB PO SCH (20:59)
[2019-06-16] MEDS: LEVOTHYROXINE SODIUM 100 MCG TABLET PO SCH (05:48)
[2019-06-16] MEDS: LACTOBACILLUS ACIDOPHILUS (FLORANEX) TAB PO SCH ×4 (07:47→20:24)
[2019-06-16] MEDS: NICOTINE 21 MG/24 HR TDSY TD SCH (07:47)
[2019-06-16] MEDS: INSULIN ASPART 100 UNITS/ML 3 ML PEN SC SCH ×5 (08:58→20:43)
[2019-06-16] MEDS: INSULIN GLARGINE SOLOSTAR 100 UNITS/ML 3 ML PEN SC SCH (08:59)
--- NOTE | 2019-06-16 10:13 | Hospitalist Progress Note ---
Date of Service delayed entry date of service noted below June 16, 2019 Assessment & Plan (1) Sepsis: (1) Sepsis, Staph Bacteremia - Blood cultures: MSSA repeat Blood cultures: MSSA 1 out of 2 bottles - Echo: No signs of vegetation - fever resolved - ID consulted transitioned to ceftriaxone 2 g IV x 4 weeks given possibility of infected aortoiliac graft cleared for PICC Line placement with Audit Clerk Dr. Foster PICC line placed (2) Anemia: Suspect due to blood loss since Hgb in December was 16.7. Pt does have a history of multiple adenomatous polyps and is overdue for follow-up colonoscopy. Mother from colon cancer. Personal hx of lung and bladder CA. - Hg 14 no signs of active bleeding (3) Type 2 diabetes mellitus: Per , pt is non-compliant with recommendations and does not monitor glucose at home. Last A1c 05/16/2019 was 10.1 - Insulin sliding scale while admitted - BSG ACHS or Q6hrs if NPO (4) Hypothyroidism: - TSH: normal - Continue outpatient levothyroxine (5) Dyslipidemia: - Continue outpatient statin therapy (6) CKD (chronic kidney disease) stage 3, GFR 30-59 ml/min: Creatinine appears to be at baseline - continue to monitor (7) Coronary artery disease: Trop 0.06--> 0.3--> 0.3 likely from Sepsis no acute ischemia on EKG Echo: EF 40-45%, Grade 1 diastolic dysfunction Euvolemic Disposition transition to [facility] when accepted case discussed in detail and at length with patient and his all questions answered they are understanding, agreeable, comfortable with the plan of care Subjective ff up for bacteremia seen resting in bed, at bedside, not in distress PICC line placed states he feels fine overall no chest pain, dyspnea, dizziness no fever/chills, urinary symptoms no other symptoms Review of Systems Review of Systems: All systems reviewed & are unremarkable except as noted in HPI & below Physical Exam Physical Exam: General- oriented x 2, not in distress, speaks in sentences with no effort or accessory muscle use Eyes- anicteric Neck- no JVD Lungs- clear breath sounds bilaterally Heart- normal rate, regular rhythm; no murmurs Abdomen- normal bowel sounds, nondistended, soft, nontender Extremities- no pretibial edema, no calf tenderness PICC line right arm: no issues Neuro- alert, oriented x 2; no gross focal neurologic deficits mental status at baseline Skin- warm & dry Results & Data ([facility]) Vital Signs (Past 12 Hours) Vital Signs Temp Pulse Resp BP Pulse Ox 06/16/19 07:25 84 18 114/73 92 06/15/19 23:46 36.5 C 89 20 118/83 92 (1) Sepsis Sepsis acute organ dysfunction status: unspecified Sepsis type: sepsis due to unspecified organism Qualified Code(s): A41.9 - Sepsis, unspecified organism
[2019-06-16 10:21] LABS: Basophils # (auto) 0.08 K/uL (0-0.2); Basophils % (auto) 0.6 %; Eosinophils % (auto) 2.3 %; Hematocrit (blood only) 45.2 % (42-52); Hemoglobin 15.6 g/dL (14.0-18.0); Immature Granulocytes # (auto) 0.52 K/uL (0.00-0.02); Lymphocytes # (auto) 2.51 K/uL (1.2-3.4); Lymphocytes % (auto) 19.3 %; Mean Corpuscular Hemoglobin 34.7 pg (25-34); Mean Corpuscular Hgb Conc 34.5 g/dL (32-36); Mean Corpuscular Volume 100.4 fL (80-100); Mean Platelet Volume 9.4 fL (7.4-10.4); Monocytes # (auto) 0.65 K/uL (0.11-0.59); Neutrophils # (auto) 8.92 K/uL (1.4-6.5); Neutrophils % (auto) 68.8 %; Platelet Count 204 K/uL (130-400); RDW Coefficient of Variation 13.4 % (11.5-14.5); RDW Standard Deviation 49.3 fL (36.4-46.3); White Blood Count 12.98 K/uL (4.8-10.8)
[2019-06-16 11:02] LABS: BUN Creatinine Ratio 18.7 (10-20); Creatinine Clr Calc Pharmacy 51.5 ml/min; Est GFR (African American) 57.5; Est GFR (Non-African American) 49.6; Potassium 4.3 mmol/L (3.5-5.1)
[2019-06-16 11:12] LABS: Beta-Hydroxybutyrate 1.03 mg/dl (0.2-2.81)
[2019-06-16] MEDS ORDERED: PHARMACY GLYCEMIC MGMT CONSULT PRN (11:39)
[2019-06-16] MEDS: cefTRIAXone SODIUM 2,000 MG in DEXTROSE 5% 50 ML IV SCH (12:25)
[2019-06-16] MEDS ORDERED: INSULIN GLARGINE SOLOSTAR 100 UNITS/ML 3 ML PEN SC STA ×2 (12:27→12:30)
--- NOTE | 2019-06-16 14:07 | Pharmacy Report ---
Glycemic Control Consultation - Date of Service June 16, 2019 - Scope Scope: Glycemic Pharmacist consulted by Dr Garvin on 06/16 for glycemic control and to write orders per [facility] inpatient glycemic control protocol - Objective Weight: 89.3 kg Accuchecks BSG (last 24hrs): 06/15/19 06/16/19 06/16/19 16:22 04:54 07:50 Glucose POC Glucose 165 H 179 H 288 H 06/16/19 06/16/19 06/16/19 10:03 11:45 11:46 Glucose 332 H* POC Glucose 309 H* 288 H Laboratory Data (last 24hrs): 06/16/19 10:03 Potassium 4.3 Carbon Dioxide 27 Anion Gap 7.0 Creatinine 1.39 Est Cr Clr Drug Dosing 51.5 Beta-Hydroxybutyric Acd 1.03 - Recent Pertinent Medications Outpatient Anti-diabetic Regimen: * glipizide 10 mg po bid, metformin 1000 mg qam * A1c = 10.1 % 05/16/19 The patient is currently receiving: * Basal insulin: Lantus 30 bid * Correctional Insulin: Novolog Correction per scale ACHS Goal Range: Low 110 mg/dL - High 140 mg/dL Correction Factor: 25 mg/dL/unit * Prandial insulin: Per carb ratio of 1 unit per 8 grams CHO consumed Risk Factors for Insulin Resistance: * Diet: T2DM - Assessment & Plan Assessment & Plan: ASSESSMENT: * 73 year old male admitted with bacteremia. PMHx significant for dementia, anemia, hypothyroidism, hld, CAD * Type 2 diabetic managed only on oral agents at home - per provider notes last a1C ~10%; however may be falsely elevated/altered due to hx of anemia, hypothyroidism * During current admission patient requiring both basal/bolus insulin for glucose control * Pharmacy consulted 2/3 - fasting BSG this AM 288 mg/dL ; however appears last night Lantus dose was refused by patient per nurse notes. Will give additional Lantus for now to make up missed dose * Will also tighten CF/CR as BSGs yesterday moderately elevated above goal PLAN FOR INPATIENT GLYCEMIC CONTROL: * Basal insulin * Lantus 30 units (+20 units with lunch) * Bolus insulin * NovoLog per scale ACHS or Q6hrs while NPO * Goal Range: Low 110 mg/dL - High 140 mg/dL * Correction Factor: 20 mg/dL/unit * Nutritional / Prandial insulin per carb ratio of 1 unit per 7 grams CHO consumed PLAN FOR DISCHARGE: * A1C ~10% ; may be falsely elevated altered due to disease states * Goal A1C less than 8% reasonable * To be determined - Ideally insulin likely needed on discharge * Please note that the plan above was derived based on current level of insulin resistance and hospital stress. These recommendations are appropriate for inpatient admission only. Plan of care upon discharge will need to be reassessed to avoid potential outpatient hypo/hyperglycemia. Thank you.
[2019-06-16] MEDS: FAMOTIDINE 20 MG TAB PO SCH (20:26)
[2019-06-17] MEDS: INSULIN ASPART 100 UNITS/ML 3 ML PEN SC SCH ×6 (00:11→20:39)
[2019-06-17] MEDS: LEVOTHYROXINE SODIUM 200 MCG TABLET PO SCH (05:02)
[2019-06-17] MEDS: LACTOBACILLUS ACIDOPHILUS (FLORANEX) TAB PO SCH ×4 (08:30→20:37)
[2019-06-17] MEDS: NICOTINE 21 MG/24 HR TDSY TD SCH (08:31)
--- NOTE | 2019-06-17 09:45 | Pharmacy Report ---
Pharmacy Glycemic Short Note 2 - Date of Service June 17, 2019 - Glycemic Short BSG Results (Last 24 hours): 06/16/19 06/16/19 06/16/19 10:03 11:45 11:46 Glucose 332 H* POC Glucose 309 H* 288 H 06/16/19 06/16/19 06/16/19 16:44 20:38 23:55 Glucose POC Glucose 129 H 128 H 121 H 06/17/19 06/17/19 04:52 07:39 Glucose POC Glucose 100 H 115 H ASSESSMENT: 06/17 * Patient received total of 88 units of insulin yesterday, of which 50 were basal insulin * Fasting BSG improving this morning at 115 mg/dL - much improvement from day prior / will scale back on Lantus this morning and add scale on for this evening * Continue same CF/CR * Patient refusing Lantus this morning - spoke with nurse and patient confused/does not like needles; did end up receiving basal insulin this afternoon 2 * 73 year old male admitted with bacteremia. PMHx significant for dementia, anemia, hypothyroidism, hld, CAD * Type 2 diabetic managed only on oral agents at home - per provider notes last a1C ~10%; however may be falsely elevated/altered due to hx of anemia, hypothyroidism * During current admission patient requiring both basal/bolus insulin for glucose control * Pharmacy consulted 06/16 - fasting BSG this AM 288 mg/dL ; however appears last night Lantus dose was refused by patient per nurse notes. Will give additional Lantus for now to make up missed dose * Will also tighten CF/CR as BSGs yesterday moderately elevated above goal PLAN FOR INPATIENT GLYCEMIC CONTROL: * Basal insulin * Lantus 35 units today * Bolus insulin * NovoLog per scale ACHS or Q6hrs while NPO * Goal Range: Low 110 mg/dL - High 140 mg/dL * Correction Factor: 20 mg/dL/unit * Nutritional / Prandial insulin per carb ratio of 1 unit per 7 grams CHO consumed PLAN FOR DISCHARGE: * A1C ~10% ; may be altered due to disease states * Goal A1C less than 8% reasonable * To be determined - Ideally insulin likely needed on discharge * Please note that the plan above was derived based on current level of insulin resistance and hospital stress. These recommendations are appropriate for inpatient admission only. Plan of care upon discharge will need to be reassessed to avoid potential outpatient hypo/hyperglycemia. Thank you.
[2019-06-17] MEDS: INSULIN GLARGINE SOLOSTAR 100 UNITS/ML 3 ML PEN SC SCH ×2 (12:00→14:57)
[2019-06-17 13:09] LABS: Basophils # (auto) 0.08 K/uL (0-0.2); Basophils % (auto) 0.6 %; Hemoglobin 15.2 g/dL (14.0-18.0); Immature Granulocytes % (auto) 4.5 %; Lymphocytes % (auto) 18.1 %; Mean Corpuscular Hemoglobin 34.1 pg (25-34); Mean Corpuscular Hgb Conc 33.8 g/dL (32-36); Mean Corpuscular Volume 100.9 fL (80-100); Mean Platelet Volume 9.7 fL (7.4-10.4); Monocytes # (auto) 1.11 K/uL (0.11-0.59); Monocytes % (auto) 8.4 %; Neutrophils # (auto) 8.68 K/uL (1.4-6.5); Neutrophils % (auto) 65.4 %; Platelet Count 217 K/uL (130-400); RDW Coefficient of Variation 13.6 % (11.5-14.5); RDW Standard Deviation 49.7 fL (36.4-46.3); Red Blood Count 4.46 M/uL (4.7-6.1); White Blood Count 13.27 K/uL (4.8-10.8)
[2019-06-17 13:42] LABS: BUN Creatinine Ratio 18.2 (10-20); Creatinine Clr Calc Pharmacy 55.1 ml/min; Est GFR (African American) 62.3; Est GFR (Non-African American) 53.8; Potassium 4.1 mmol/L (3.5-5.1)
[2019-06-17] MEDS: cefTRIAXone SODIUM 2,000 MG in DEXTROSE 5% 50 ML IV SCH (13:45)
[2019-06-17] MEDS: FAMOTIDINE 20 MG TAB PO SCH (20:37)
[2019-06-17] MEDS ORDERED: INSULIN GLARGINE SOLOSTAR 100 UNITS/ML 3 ML PEN SC SCH ×2 (21:00)
[2019-06-18] MEDS: INSULIN ASPART 100 UNITS/ML 3 ML PEN SC SCH ×4 (01:59→12:49)
[2019-06-18] MEDS: LEVOTHYROXINE SODIUM 100 MCG TABLET PO SCH (06:16)
--- NOTE | 2019-06-18 06:47 | Hospitalist Progress Note ---
Date of Service delayed entry date of service 06/17/19 June 18, 2019 Assessment & Plan (1) Sepsis: (1) Sepsis, Staph Bacteremia - Blood cultures: MSSA repeat Blood cultures: MSSA 1 out of 2 bottles - Echo: No signs of vegetation - fever resolved - ID consulted transitioned to ceftriaxone 2 g IV x 4 weeks given possibility of infected aortoiliac graft cleared for PICC Line placement with Human Resources Professional Dr. Foster PICC line placed, no issues awaiting to transition to [facility] (2) Anemia: Suspect due to blood loss since Hgb in December was 16.7. Pt does have a history of multiple adenomatous polyps and is overdue for follow-up colonoscopy. Mother from colon cancer. Personal hx of lung and bladder CA. - Hg 14 no signs of active bleeding (3) Type 2 diabetes mellitus: Per , pt is non-compliant with recommendations and does not monitor glucose at home. Last A1c 05/16/2019 was 10.1 - Insulin sliding scale while admitted - BSG ACHS or Q6hrs if NPO (4) Hypothyroidism: - TSH: normal - Continue outpatient levothyroxine (5) Dyslipidemia: - Continue outpatient statin therapy (6) CKD (chronic kidney disease) stage 3, GFR 30-59 ml/min: Creatinine appears to be at baseline - continue to monitor (7) Coronary artery disease: Trop 0.06--> 0.3--> 0.3 likely from Sepsis no acute ischemia on EKG Echo: EF 40-45%, Grade 1 diastolic dysfunction Euvolemic Disposition transition to [facility] when accepted Subjective ff up for bacteremia seen resting in bed, comfortable not in distress states he feels fine overall denies right arm pain no fever/chills, SOB, urinary symptoms mental status at baseline Review of Systems Review of Systems: All systems reviewed & are unremarkable except as noted in HPI & below Physical Exam Physical Exam: General- oriented x 2, not in distress, speaks in sentences w ith no effort or accessory muscle use Eyes- anicteric Neck- no JVD Lungs- clear breath sounds bilaterally Heart- normal rate, regular rhythm; no murmurs Abdomen- normal bowel sounds, nondistended, soft, nontender Extremities- no pretibial edema, no calf tenderness Right upper arm- PICC Line in place, no signs of infection Neuro- alert, oriented x 2; no gross focal neurologic deficits mental status at baseline Skin- warm & dry Results & Data ([facility]) Vital Signs (Past 12 Hours) Vital Signs Temp Pulse Resp BP Pulse Ox 06/17/19 20:45 36.7 C 88 20 115/74 95 Laboratory Results all noted and reviewed (1) Sepsis Sepsis acute organ dysfunction status: unspecified Sepsis type: sepsis due to unspecified organism Qualified Code(s): A41.9 - Sepsis, unspecified organism
[2019-06-18 07:26] LABS: BUN Creatinine Ratio 19.4 (10-20); Calcium 8.8 mg/dl (8.5-10.1); Creatinine Clr Calc Pharmacy 48.7 ml/min; Est GFR (African American) 53.7; Est GFR (Non-African American) 46.3; Potassium 4.4 mmol/L (3.5-5.1)
[2019-06-18] MEDS ORDERED: SODIUM CHLORIDE 0.9% 500 ML IV SCH (07:45)
[2019-06-18] MEDS: LACTOBACILLUS ACIDOPHILUS (FLORANEX) TAB PO SCH ×2 (08:50→12:44)
[2019-06-18] MEDS: NICOTINE 21 MG/24 HR TDSY TD SCH (08:51)
--- NOTE | 2019-06-18 10:50 | Pharmacy Report ---
Pharmacy Glycemic Short Note 2 - Date of Service June 18, 2019 - Glycemic Short BSG Results (Last 24 hours): 06/17/19 06/17/19 06/17/19 11:37 13:00 16:37 Glucose 124 H POC Glucose 165 H 303 H* 06/17/19 06/17/19 06/17/19 16:39 16:42 20:37 Glucose POC Glucose 200 H 195 H 213 H 06/18/19 06/18/19 06/18/19 03:20 06:47 08:13 Glucose 109 H POC Glucose 139 H 111 H ASSESSMENT: 06/18 * Patient received total of 70 units of insulin yesterday, of which 45 were basal insulin * Fasting BSG 109 mg/dL w/in range - plan to continue ~45 units of basal daily * Continue same CF/CR 06/17 * Patient received total of 88 units of insulin yesterday, of which 50 were basal insulin * Fasting BSG improving this morning at 115 mg/dL - much improvement from day prior / will scale back on Lantus this morning and add scale on for this evening * Continue same CF/CR * Patient refusing Lantus this morning - spoke with nurse and patient confused/does not like needles; did end up receiving basal insulin this afternoon 06/16 * 73 year old male admitted with bacteremia. PMHx significant for dementia, anemia, hypothyroidism, hld, CAD * Type 2 diabetic managed only on oral agents at home - per provider notes last a1C ~10%; however may be falsely elevated/altered due to hx of anemia, hypothyroidism * During current admission patient requiring both basal/bolus insulin for glucose control * Pharmacy consulted 2/3 - fasting BSG this AM 288 mg/dL ; however appears last night Lantus dose was refused by patient per nurse notes. Will give additional Lantus for now to make up missed dose * Will also tighten CF/CR as BSGs yesterday moderately elevated above goal PLAN FOR INPATIENT GLYCEMIC CONTROL: * Basal insulin * Lantus 45 daily * Bolus insulin * NovoLog per scale ACHS or Q6hrs while NPO * Goal Range: Low 110 mg/dL - High 140 mg/dL * Correction Factor: 20 mg/dL/unit * Nutritional / Prandial insulin per carb ratio of 1 unit per 7 grams CHO consumed PLAN FOR DISCHARGE: * A1C ~10% ; may be altered due to disease states * Goal A1C less than 8% reasonable * To be determined - Ideally insulin likely needed on discharge * Please note that the plan above was derived based on current level of insulin resistance and hospital stress. These recommendations are appropriate for inpatient admission only. Plan of care upon discharge will need to be reassessed to avoid potential outpatient hypo/hyperglycemia. Thank you.
[2019-06-18] MEDS ORDERED: INSULIN GLARGINE SOLOSTAR 100 UNITS/ML 3 ML PEN SC SCH ×2 (12:30)
[2019-06-18] MEDS: cefTRIAXone SODIUM 2,000 MG in DEXTROSE 5% 50 ML IV SCH (12:43)
--- NOTE | 2019-06-18 13:57 | Hospitalist Progress Note ---
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 Last A1c 05/16/2019 was 10.1 - Insulin sliding scale while admitted with long acting insulcin -PLAN when INPATIENT GLYCEMIC CONTROL: (Basal insulin Lantus 40-45 units daily based upon BSG Bolus insulin NovoLog per scale ACHS or Q6hrs while NPO Goal Range: Low 110 mg/dL - High 140 mg/dL Correction Factor: 20 mg/dL/unit Nutritional / Prandial insulin per carb ratio of 1 unit per 7 grams CHO consumed) -Basal insulin as Lantus 45 units daily on discharge to [facility] based on estimated insulin requirements while inpatient CKD (chronic kidney disease) stage 3, GFR 30-59 ml/min: -RENAL FUNCTION stable Anemia: -initially Suspected blood loss since Hgb in December was 16.7. Pt does have a history of multiple adenomatous polyps and is overdue for follow-up colonoscopy. Mother from colon cancer. Personal hx of lung and bladder CA. -Hemoglobin stable Hg 14 to 15 -no signs of active bleeding -Hypothyroidism: -TSH: normal -Continue outpatient levothyroxine Dyslipidemia: - Continue outpatient statin therapy Tobacco Use -Other discharge medications sent electronically to [facility] [address], [place], [place] [id number] which is the preferred pharmacy for [facility] including nicotine patch, nebulizers as needed for shortness of breath of wheezing because of history of smoking Vascular Dementia Auditory Impairment -due to chronic cognitive and auditory deficits, patient does not have good understanding of current medical situation. This is confirmed by patient's nurse and the gearcase assembler. -he was explained that that he is to be discharged from hospital today to [facility] to complete IV antibiotic course Discharge Diagnosis Sepsis from staphylococcus aureus (MSSA) bacteremia Type 2 diabetes mellitus CKD (chronic kidney disease) stage 3, GFR 30-59 ml/min Hypothyroidism Coronary artery disease Elevated Troponins on this admission Anemia Vascular Dementia, Auditory Impairment Tobacco Use Subjective due to chronic cognitive and auditory deficits, patient does not have good understanding of current medical situation. This is confirmed by patient's nurse and the gearcase assembler. patient does not report new symptoms. no pain. breathing comfortably. he was explained that that he is to be discharged from hospital today to [facility] to complete IV antibiotic course Review of Systems 2 Review of Systems: All systems reviewed & are unremarkable except as noted in HPI & below Physical Exam Constitutional: comfortable Eyes: PERRL, conjunctivae normal, anicteric sclerae EOM intact bilaterally ENMT: external ear and nose normal, oropharynx normal Ears: + hearing impairment Respiratory: normal respiratory effort, lungs clear to auscultation Cardiovascular: RRR, no murmur, no edema Gastrointestinal (Abdomen): normal bowel sounds, soft, nontender, no hepatosplenomegaly Musculoskeletal: Head/Neck/Chest: normocephalic and head atraumatic Neurologic: PERRL, EOMI, accommodation nl, no face palsy, no dysarthria CN's II-XI intact bilaterally and moves all extremities Psychiatric: A+Ox3, euthymic affect Results & Data ([facility]) Vital Signs (Past 12 Hours) Vital Signs Temp Pulse Resp BP Pulse Ox 06/18/19 07:47 36.8 C 75 18 116/73 94 (1) Sepsis Sepsis acute organ dysfunction status: unspecified Sepsis type: sepsis due to unspecified organism Qualified Code(s): A41.9 - Sepsis, unspecified organism
--- NOTE | 2019-06-18 14:27 | Discharge Summary ---
Date of Service June 18, 2019 Admission HPI Per Admitting Provider This is a 73 y/o male with a PMH of DM2, CAD w/ hx of AL, CKD3, dyslipidemia, PVD, hypothyroidism, vascular dementia, hx of bladder CA s/p resection, hx of lung CA s/p resection and AAA who presented to ED today with increased confusion and generalized weakness. History from patient is unobtainable due to worsened confusion with underlying vascular dementia. at bedside provided most of history but pt's [facility] chart was also extensively reviewed. Pt was in his usual state of health yesterday other than diminished appetite. This AM, his noted increased confusion from baseline. He also c/o abdominal pain around 9:30 am. She states that he spent most of the morning on the couch doing nothing. When she attempted to get him up, he was "limp like a rag doll" and seemed to have significant generalized weakness. He was also saturated with urine. She is unsure how long he was sitting in it but thinks it was 3-4 hours. No other complaints of pain. No vomiting or diarrhea. She did not check temperature at home. Of note, pt was recently treated for UTI by PCP. Urine culture from 05/23/2019 grew out staph aureus and pt was started on ten day course of Bactrim, which he was to complete today. Admission Exam Per Admitting Provider Constitutional: + obese; no acute distress Fell asleep during the visit - reported combative earlier in visit but not during our examination Oriented to person and place but not time Eyes: + anicteric sclerae; no conjunctival abnormality ENMT: Ears: + hearing impairment Nose: no external nose abnormality Neck: trachea midline Respiratory: no respiratory distress, no labored breathing and does not use accessory muscles Auscultation: lungs clear to auscultation bilaterally; no rales, no rhonchi and no wheezes Cardiovascular: Rate/Rhythm: regular rhythm and + tachycardic Heart Sounds: no gallop and no cardiac rub Extremities: no pedal edema Gastrointestinal (Abdomen): Inspection/Auscultation: normal bowel sounds; abdomen not distended Percussion/Palpation: abdomen soft Musculoskeletal: Head/Neck/Chest: normocephalic, head atraumatic and neck supple Extremities: no cyanosis and no clubbing Skin: no rashes, warm and dry no jaundice Neurologic: moves all extremities and + confused Psychiatric: Orientation: oriented to person and oriented to place; + not oriented to time Principal Diagnosis Sepsis from staphylococcus aureus (MSSA) bacteremia Type 2 diabetes mellitus CKD (chronic kidney disease) stage 3, GFR 30-59 ml/min Hypothyroidism Coronary artery disease Elevated Troponins on this admission Anemia Vascular Dementia, Auditory Impairment Tobacco Use Discharge Exam Constitutional comfortable Eyes PERRL, conjunctivae normal, anicteric sclerae EOM intact bilaterally ENMT external ear and nose normal, oropharynx normal Ears: + hearing impairment Respiratory normal respiratory effort, lungs clear to auscultation Cardiovascular RRR, no murmur, no edema Gastrointestinal (Abdomen) normal bowel sounds, soft, nontender, no hepatosplenomegaly Musculoskeletal Head/Neck/Chest: normocephalic and head atraumatic Neurologic PERRL, EOMI, accommodation nl, no face palsy, no dysarthria CN's II-XI intact bilaterally and moves all extremities Psychiatric A+Ox3, euthymic affect Discharge Data Allergies Allergy/AdvReac Type Severity Reaction Status Date / Time Iodinated Contrast Media Allergy Intermediate swelling Verified 06/10/19 13:35 Consultations 06/10/19 13:23 ED Decision to Admit Stat 06/10/19 15:53 Consult Voice Data Communications Engineer Routine 06/10/19 17:50 Consult Case Management - Discharge Planning Routine 06/11/19 08:10 Consult Infectious Diseases Routine Ordered Studies 06/10/19 16:37 CT abd pelvis wo con Stat Hospital Course (1) Sepsis: Sepsis from staphylococcus aureus (MSSA) bacteremia -PICC line placed, no issues -positive blood cultures in 06/10/2019 and 06/11/2019, first negative blood culture on 06/12/2019 -no cardiac vegetations -discharge to [facility] [place] to complete IV antibiotic course of Ceftriaxone 2 gram IV daily (a total of 4 weeks of antibiotic given possibility of infected aortoiliac graft - Patient already had 1 week of antibiotics while inpatient -Floranex as gastroinstestinal probiotic because of custodial antibiotic use Coronary artery disease: -on admission Troponin 0.06--> 0.3--> 0.3 likely from Sepsis -no acute ischemia on EKG -Echo: EF 40-45%, Grade 1 diastolic dysfunction, Euvolemic Type 2 diabetes mellitus: -Per , pt is non-compliant with recommendations and does not monitor glucose at home. Last A1c 05/16/2019 was 10.1 - Insulin sliding scale while admitted with long acting insulcin -PLAN when INPATIENT GLYCEMIC CONTROL: (Basal insulin Lantus 40-45 units daily based upon BSG Bolus insulin NovoLog per scale ACHS or Q6hrs while NPO Goal Range: Low 110 mg/dL - High 140 mg/dL Correction Factor: 20 mg/dL/unit Nutritional / Prandial insulin per carb ratio of 1 unit per 7 grams CHO consumed) -Basal insulin as Lantus 45 units daily on discharge to [facility] based on estimated insulin requirements while inpatient CKD (chronic kidney disease) stage 3, GFR 30-59 ml/min: -RENAL FUNCTION stable Anemia: -initially Suspected blood loss since Hgb in December was 16.7. Pt does have a history of multiple adenomatous polyps and is overdue for follow-up colonoscopy. Mother from colon cancer. Personal hx of lung and bladder CA. -Hemoglobin stable Hg 14 to 15 -no signs of active bleeding -Hypothyroidism: -TSH: normal -Continue outpatient levothyroxine Dyslipidemia: - Continue outpatient statin therapy Tobacco Use -Other discharge medications sent electronically to [facility] [address], [place] [address] which is the preferred pharmacy for [facility] including nicotine patch, nebulizers as needed for shortness of breath of wheezing because of history of smoking Vascular Dementia Auditory Impairment -due to chronic cognitive and auditory deficits, patient does not have good understanding of current medical situation. This is confirmed by patient's nurse and the clinical case manager. -he was explained that that he is to be discharged from hospital today to [facility] to complete IV antibiotic course Discharge Diagnosis Sepsis from staphylococcus aureus (MSSA) bacteremia Type 2 diabetes mellitus CKD (chronic kidney disease) stage 3, GFR 30-59 ml/min Hypothyroidism Coronary artery disease Elevated Troponins on this admission Anemia Vascular Dementia, Auditory Impairment Tobacco Use Total Time Total Time Spent Total Time Spent (In Minutes): 40 minutes Total Time Includes: Examination of the Patient, Discharge Planning, Medication Reconciliation and Communication With Other Providers Discharge Plan Discharge Items Patient Disposition: Transfer Long Term Fac Reason For Visit: WEAKNESS Discharge Diagnosis: Sepsis from staphylococcus aureus (MSSA) bacteremia Type 2 diabetes mellitus CKD (chronic kidney disease) stage 3, GFR 30-59 ml/min Hypothyroidism Coronary artery disease Elevated Troponins on this admission Anemia Vascular Dementia, Auditory Impairment Tobacco Use Condition on Discharge: Good Activity: Per Instructions section Non-emergency contact: Primary Care Provider Call non-emergency contact if: you have any medication questions Follow-up/Referrals: Vik Charles MD [Primary Care Provider] - Diet: Carb Consistent or DM2 and Heart Healthy Addtl Attending Provider Instructions: Sepsis from staphylococcus aureus (MSSA) bacteremia (positive blood cultures in 06/10/2019 and 06/11/2019, first negative blood culture on 06/12/2019) discharge to [facility] nursing facility to complete IV antibiotic course of Ceftriaxone 2 gram IV daily (a total of 4 weeks of antibiotic given possibility of infected aortoiliac graft - Patient already had 1 week of antibiotics while inpatient Other discharge medications sent electronically to [facility] [address], [place] [id number] which is the preferred pharmacy for [facility] including nicotine patch, nebulizers as needed for shortness of breath of wheezing because of history of smoking Floranex as gastroinstestinal probiotic because of custodial antibiotic use Basal insulin as Lantus 45 units daily based on estimated insulin requirements while inpatient Addtl Case Managers Provider Instructions: PLAN when INPATIENT GLYCEMIC CONTROL: (Basal insulin Lantus 40-45 units daily based upon BSG Bolus insulin NovoLog per scale ACHS or Q6hrs while NPO Goal Range: Low 110 mg/dL - High 140 mg/dL Correction Factor: 20 mg/dL/unit Nutritional / Prandial insulin per carb ratio of 1 unit per 7 grams CHO consumed) Pending Studies at Discharge: No Stand-Alone Forms: My [facility] Skilled Items Patient informed of condition?: Yes DNR: No Discharge Level of Care: Skilled Communicable Disease: No Discharge Prognosis: Stable Lines: PICC Urinary Catheter: No Medications and DC Order Prescriptions: New ipratropium bromide 0.02 % Solution 0.5 mg inhalation Q4 PRN (Reason: shortness of breath or wheezing) 30 Days Qty: 75 RF: 0 nicotine [Nicoderm CQ] 21 mg/24 hr Patch 24 Hour 21 mg transdermal QAM 30 Days Qty: 30 RF: 0 levalbuterol HCl 1.25 mg/0.5 mL Solution For Nebulization 1.25 mg inhalation Q4 PRN (Reason: shortness of breath or wheezing) 30 Days Qty: 30 RF: 0 Lantus Solostar U-100 Insulin 100 unit/mL (3 mL) Insulin Pen 45 unit SC DAILY 30 Days Qty: 13.5 RF: 0 Lactobacillus acidoph-L.bulgar [Floranex] 1 million cell Tablet 4 tab PO QIDM 10 Days Qty: 40 RF: 0 Continued atorvastatin 40 mg tablet 40 mg PO HS RF: 0 clopidogrel 75 mg tablet 75 mg PO QAM RF: 0 nitroglycerin [Nitrostat] 0.4 mg Tablet, Sublingual 1 tab Sublingual UD RF: 0 levothyroxine 200 mcg tablet 200 mcg PO SUTUTHSA RF: 0 levothyroxine 200 mcg tablet 100 mcg PO MOWEFR RF: 0 aspirin 81 mg Tablet,Delayed Release (Dr/Ec) 81 mg PO QAM RF: 0 famotidine 20 mg Tablet 20 mg PO HS RF: 0 Discontinued glipizide 10 mg tablet extended release 24hr 10 mg PO BID RF: 0 sulfamethoxazole-trimethoprim 800-160 mg tablet 1 tab PO BID RF: 0 metformin 500 mg Tablet Extended Release 24 Hr 1,000 mg PO DAILY RF: 0 Discharge Orders: Discharge Order (Routine); Ordered 06/18/19 Ordered By: Jemal Hodgson Admission Data Admit Date/Time: 06/10/19 15:08 Attending Provider: Jemal Hodgson Admit Provider: Andria Booth I. Primary Care Provider: Vik Charles Other Providers: Lana Arvizu ; Andria Booth I. ; Abigail Garcia ; Cassie Luo ; [facility]
[2019-06-19] MEDS ORDERED: INSULIN ASPART 100 UNITS/ML 3 ML PEN SC SCH
== END 2019-06-18 16:56 | DRG 872 ==
LOC: ED 12:07 → SUATTDRO 15:08 → 2S 15:08 → 2E 23:01 → 4W 06-15 09:06

== ENCOUNTER 2020-06-04 12:12 | Inpatient (IN) ==
--- NOTE | 2020-06-04 12:35 | Emergency Department Note ---
History of Present Illness General Chief complaint: Illness Stated complaint: illness Time Seen by Provider: 06/04/20 12:15 Source: family and EMS Limitations: patient cooperation History of Present Illness Provider complaint: Change in behavior Onset (ago): week(s) Location: head Pain Consistency: + intermittent Quality: + other (Uncooperative) Relieved By: + none Associated symptoms: + chest pain; no cough, no fever/chills, no headaches and no nausea/vomiting History is limited due to the patient's lack of cooperation. He also has a history of dementia. The history is obtained from the patient's as well as his daughter and EMS. The patient has had a change in mental status for approximately 2 weeks. The patient stopped taking his medications from the to the . His daughter states that he does that sometimes and he has since resumed taking his medications. Last week his sugars were over 600 but today they were in the 300s. He has not been eating and drinking very much and well lie down most of the day. He has been unsteady on his feet. His daughter states that he stopped smoking 2 weeks ago and has not asked for a cigarette since. He is typically a pack to 2 pack a day smoker. There is no known history of falls. His states that he generally complains of back and leg pain but last night complained of chest pain. He also has cramping in the right arm and had complained of arm pain yesterday and today. They have been trying to convince him to go to see his doctor or go to the emergency department but he has been unwilling. They finally called the police today. The trooper spoke to the patient for 20 minutes and was able to convince him to come in. EMS states that he was able to walk from the living room to the stretcher although he was somewhat unsteady. The denies any history of fever, difficulty breathing, vomiting, headache, or abdominal pain. She does state that he had an episode of diarrhea 2 days ago. Home Medications Medication Instructions Recorded Confirmed Type aspirin 81 mg PO DAILY 07/16/18 06/04/20 History atorvastatin 40 mg PO DAILY 07/16/18 06/04/20 History clopidogrel 75 mg PO DAILY 07/16/18 06/04/20 History famotidine 20 mg PO HS 06/10/19 06/04/20 History glipizide 10 mg tablet 10 mg PO BID 01/12/20 06/04/20 History metformin 1,000 mg PO DAILY 06/04/20 06/04/20 History Allergies Allergy/AdvReac Type Severity Reaction Status Date / Time Iodinated Contrast Media Allergy Intermediate swelling Verified 01/12/20 11:16 Past Med/Surg History Medical History (Updated 06/04/20 @ 16:36 by Miguel Angel Morales MD) AAA (abdominal aortic aneurysm) Carotid stenosis, non-symptomatic CKD (chronic kidney disease) stage 3, GFR 30-59 ml/min Coronary artery disease Dyslipidemia History of nonmelanoma skin cancer Hypothyroidism 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 DE (myocardial infarction) "2008 and 2013 s/p multiple stent placements " Primary cancer of right upper lobe of lung PVD (peripheral vascular disease) Tobacco use disorder Type 2 diabetes mellitus Vascular dementia Surgical History History of left-sided carotid endarterectomy S/P AAA repair S/P appendectomy S/P colonoscopy with polypectomy S/P coronary artery stent placement S/P laparoscopic cholecystectomy "with umbilical hernia repair" S/p nephrectomy "left nephrectomy with partial ureterectomy" S/P rotator cuff repair S/P tonsillectomy and adenoidectomy Family History Father Myocardial infarction Mother Colon cancer Other Cancer Heart disease Denies family history of Lung disease Asthma Social History Smoking Status: Current every day smoker Tobacco Type: Cigarettes Age Started Using Tobacco: 12; packs per day: 1; Years Smoked: 62; Cigarettes Per Day: 20; Hx Alcohol Use: No Hx Substance Use: No Preferred Language: Cameroonian Communication Ability: Impaired Coal Weigher Required: No Beliefs That Will Affect Care: None marital status: Current Living Situation: Spouse current occupational status: retired Feels Safe at Home: Yes Assistive Devices: Walker Review of Systems See HPI for pertinent positives & negatives. Unobtainable due to cognitive status Physical Exam Vital Signs Vital Signs - 24 hr 06/04/20 12:15 06/04/20 13:56 06/04/20 15:35 Temperature 36.4 C L Temperature Source Oral Pulse Rate 73 Pulse Rate [Finger] 74 86 Respiratory Rate 20 16 16 Respiratory Effort / Characteristics Non-Labored Respiratory Depth Normal Blood Pressure 123/70 Blood Pressure [Right Arm] 93/57 L 104/83 Blood Pressure Mean 87 Blood Pressure Mean [Right Arm] 69 90 Blood Pressure Position [Right Arm] Sitting Pulse Oximetry 92 97 Oxygen Delivery Method Room Air Room Air Sepsis Recent Fever Within 48 Hours No Sepsis New/Unexplained Change in Mental Status N/A Sepsis Action Taken by Nursing No Action Required 06/04/20 15:38 Temperature Temperature Source Pulse Rate Pulse Rate [Finger] Respiratory Rate Respiratory Effort / Characteristics Respiratory Depth Blood Pressure Blood Pressure [Right Arm] Blood Pressure Mean Blood Pressure Mean [Right Arm] Blood Pressure Position [Right Arm] Pulse Oximetry 97 Oxygen Delivery Method Room Air Sepsis Recent Fever Within 48 Hours Sepsis New/Unexplained Change in Mental Status Sepsis Action Taken by Nursing The physical exam is limited due to the patient's lack of cooperation. Constitutional: Vital signs reviewed. Eyes: Pupils are equal round. He will open them briefly to voice but then close them again. Conjunctiva are noninjected. HENT: Normocephalic atraumatic. Respiratory: Clear to auscultation bilaterally. Breath sounds are equal bilaterally. Cardiovascular: Regular rate and rhythm. No murmurs, rubs or gallops. GI: Soft, nondistended and nontender. Bowel sounds are present. Musculoskeletal: No peripheral edema. Integumentary: No cyanosis. Neurological: The patient is not following commands. Psychiatric: Unable to assess. Course Administered Medications Sodium Chloride (Nss) 500 mls @ 100 mls/hr IV .Q5H [facility] Stop: 07/04/20 15:29 Last Admin: 06/04/20 16:23 Dose: Not Given Documented by: [id number] Discontinued Medications Haloperidol Lactate (Haloperidol Lactate 5 Mg/Ml 1 Ml Vial) 5 mg IM NOW STA Stop: 06/04/20 12:57 Last Admin: 06/04/20 13:04 Dose: 5 mg Documented by: [id number] Medical Decision Making Differential Diagnosis ICH, CVA, metabolic derangement, dementia, encephalopathy, pneumonia, UTI Medical Records Attestation: I reviewed the patient's medical records. I did perform a limited focused review of portions of the patient's old chart on the electronic medical record. The patient was admitted last June for sepsis due to MRSA. Home Medications Current Medication List: was personally reviewed by me Laboratory Data Attestation: I reviewed the patient's lab results. Result diagrams: 06/04/20 14:00 06/04/20 16:54 Lab Results 06/04/20 06/04/20 06/04/20 Range/Units 14:00 14:00 14:00 WBC 9.29 (4.8-10.8) K/uL RBC 4.68 L (4.7-6.1) M/uL Hgb 17.0 (14.0-18.0) g/dL Hct 47.4 (42-52) % MCV 101.3 H (80-100) fL MCH 36.3 H (25-34) pg MCHC 35.9 (32-36) g/dL RDW Std Deviation 49.9 H (36.4-46.3) fL RDW Coeff of [place] 13.5 (11.5-14.5) % Plt Count 175 (130-400) K/uL MPV 10.5 H (7.4-10.4) fL Immature Gran % (Auto) 2.7 % Neut % (Auto) 61.1 % Lymph % (Auto) 25.6 % [place] % (Auto) 7.5 % Eos % (Auto) 2.8 % Baso % (Auto) 0.3 % Neut # (Auto) 5.67 (1.4-6.5) K/uL Lymph # (Auto) 2.38 (1.2-3.4) K/uL [place] # (Auto) 0.70 H (0.11-0.59) K/uL Eos # (Auto) 0.26 (0-0.5) K/uL Baso # (Auto) 0.03 (0-0.2) K/uL Immature Gran # (Auto) 0.25 H (0.00-0.02) K/uL PT 10.9 (9.0-12.0) Seconds INR 1.0 (0.9-1.1) Sodium 131 L (136-145) mmol/L Potassium (3.5-5.1) mmol/L Chloride 98 (98-107) mmol/L Carbon Dioxide 26 (21-32) mmol/L Anion Gap 7.0 (3-11) BUN 28 H (7-18) mg/dl Creatinine 1.57 H (0.6-1.4) mg/dl Est Cr Clr Drug Dosing Not Reportable Est GFR ( Amer) 49.2 Est GFR (Non-Af Amer) 42.5 BUN/Creatinine Ratio 17.5 (10-20) Glucose 343 H* (70-99) mg/dl POC Glucose (70-99) mg/dl Calcium 9.0 (8.5-10.1) mg/dl Magnesium (1.8-2.4) mg/dl Total Bilirubin 0.8 (0.2-1) mg/dl AST (15-37) U/L ALT 67 (12-78) U/L Alkaline Phosphatase 178 H (45-117) U/L Troponin I 0.025 (0-0.045) ng/ml Total Protein 6.3 L (6.4-8.2) gm/dl Albumin 3.2 L (3.4-5.0) gm/dl Globulin 3.1 (2.5-4.0) gm/dl Albumin/Globulin Ratio 1.0 (0.9-2) Beta-Hydroxybutyric Acd (0.2-2.81) mg/dl TSH 58.100 H (0.300-4.500) uIu/ml Free T4 0.23 L (0.8-1.6) ng/dl Specimen Hemolysis Urine Color Urine Appearance (Clear) Urine pH (4.5-7.5) Ur Specific [place] (1.000-1.030) Urine Protein (Negative) Urine Glucose (UA) (Negative) Urine Ketones (Negative) Urine Blood (Negative) Urine Nitrite (Negative) Urine Bilirubin (Negative) Urine Urobilinogen (Negative) Ur Leukocyte Esterase (Negative) Urine WBC (Auto) (0-5) /hpf Urine RBC (Auto) (0-4) /hpf U Hyaline Cast (Auto) (0-5) /lpf U Epithel Cells (Auto) (0-5) /lpf Urine Bacteria (Auto) (Negative) COVID-19 Eval Order SARS-CoV-2, RNA, NAAT (NEGATIVE) 06/04/20 06/04/20 06/04/20 Range/Units 16:00 16:00 16:07 WBC (4.8-10.8) K/uL RBC (4.7-6.1) M/uL Hgb (14.0-18.0) g/dL Hct (42-52) % MCV (80-100) fL MCH (25-34) pg MCHC (32-36) g/dL RDW Std Deviation (36.4-46.3) fL RDW Coeff of [place] (11.5-14.5) % Plt Count (130-400) K/uL MPV (7.4-10.4) fL Immature Gran % (Auto) % Neut % (Auto) % Lymph % (Auto) % [place] % (Auto) % Eos % (Auto) % Baso % (Auto) % Neut # (Auto) (1.4-6.5) K/uL Lymph # (Auto) (1.2-3.4) K/uL [place] # (Auto) (0.11-0.59) K/uL Eos # (Auto) (0-0.5) K/uL Baso # (Auto) (0-0.2) K/uL Immature Gran # (Auto) (0.00-0.02) K/uL PT (9.0-12.0) Seconds INR (0.9-1.1) Sodium (136-145) mmol/L Potassium (3.5-5.1) mmol/L Chloride (98-107) mmol/L Carbon Dioxide (21-32) mmol/L Anion Gap (3-11) BUN (7-18) mg/dl Creatinine (0.6-1.4) mg/dl Est Cr Clr Drug Dosing Est GFR ( Amer) Est GFR (Non-Af Amer) BUN/Creatinine Ratio (10-20) Glucose (70-99) mg/dl POC Glucose (70-99) mg/dl Calcium (8.5-10.1) mg/dl Magnesium (1.8-2.4) mg/dl Total Bilirubin (0.2-1) mg/dl AST (15-37) U/L ALT (12-78) U/L Alkaline Phosphatase (45-117) U/L Troponin I (0-0.045) ng/ml Total Protein (6.4-8.2) gm/dl Albumin (3.4-5.0) gm/dl Globulin (2.5-4.0) gm/dl Albumin/Globulin Ratio (0.9-2) Beta-Hydroxybutyric Acd (0.2-2.81) mg/dl TSH (0.300-4.500) uIu/ml Free T4 (0.8-1.6) ng/dl Specimen Hemolysis Urine Color Yellow Urine Appearance Clear (Clear) Urine pH 5.0 (4.5-7.5) Ur Specific [place] 1.028 (1.000-1.030) Urine Protein 1+ H (Negative) Urine Glucose (UA) 3+ H (Negative) Urine Ketones Negative (Negative) Urine Blood Negative (Negative) Urine Nitrite Negative (Negative) Urine Bilirubin Negative (Negative) Urine Urobilinogen Negative (Negative) Ur Leukocyte Esterase Negative (Negative) Urine WBC (Auto) 0 (0-5) /hpf Urine RBC (Auto) 0-4 (0-4) /hpf U Hyaline Cast (Auto) 0 (0-5) /lpf U Epithel Cells (Auto) 0-5 (0-5) /lpf Urine Bacteria (Auto) Negative (Negative) COVID-19 Eval Order Covid19 [facility]Now [facility] SARS-CoV-2, RNA, NAAT NEGATIVE (NEGATIVE) 06/04/20 06/04/20 Range/Units 16:54 17:08 WBC (4.8-10.8) K/uL RBC (4.7-6.1) M/uL Hgb (14.0-18.0) g/dL Hct (42-52) % MCV (80-100) fL MCH (25-34) pg MCHC (32-36) g/dL RDW Std Deviation (36.4-46.3) fL RDW Coeff of [place] (11.5-14.5) % Plt Count (130-400) K/uL MPV (7.4-10.4) fL Immature Gran % (Auto) % Neut % (Auto) % Lymph % (Auto) % [place] % (Auto) % Eos % (Auto) % Baso % (Auto) % Neut # (Auto) (1.4-6.5) K/uL Lymph # (Auto) (1.2-3.4) K/uL [place] # (Auto) (0.11-0.59) K/uL Eos # (Auto) (0-0.5) K/uL Baso # (Auto) (0-0.2) K/uL Immature Gran # (Auto) (0.00-0.02) K/uL PT (9.0-12.0) Seconds INR (0.9-1.1) Sodium (136-145) mmol/L Potassium 4.6 (3.5-5.1) mmol/L Chloride (98-107) mmol/L Carbon Dioxide (21-32) mmol/L Anion Gap (3-11) BUN (7-18) mg/dl Creatinine (0.6-1.4) mg/dl Est Cr Clr Drug Dosing Est GFR ( Amer) Est GFR (Non-Af Amer) BUN/Creatinine Ratio (10-20) Glucose (70-99) mg/dl POC Glucose 338 H* (70-99) mg/dl Calcium (8.5-10.1) mg/dl Magnesium 1.8 (1.8-2.4) mg/dl Total Bilirubin (0.2-1) mg/dl AST 49 H (15-37) U/L ALT (12-78) U/L Alkaline Phosphatase (45-117) U/L Troponin I (0-0.045) ng/ml Total Protein (6.4-8.2) gm/dl Albumin (3.4-5.0) gm/dl Globulin (2.5-4.0) gm/dl Albumin/Globulin Ratio (0.9-2) Beta-Hydroxybutyric Acd (0.2-2.81) mg/dl TSH (0.300-4.500) uIu/ml Free T4 (0.8-1.6) ng/dl Specimen Hemolysis Urine Color Urine Appearance (Clear) Urine pH (4.5-7.5) Ur Specific [place] (1.000-1.030) Urine Protein (Negative) Urine Glucose (UA) (Negative) Urine Ketones (Negative) Urine Blood (Negative) Urine Nitrite (Negative) Urine Bilirubin (Negative) Urine Urobilinogen (Negative) Ur Leukocyte Esterase (Negative) Urine WBC (Auto) (0-5) /hpf Urine RBC (Auto) (0-4) /hpf U Hyaline Cast (Auto) (0-5) /lpf U Epithel Cells (Auto) (0-5) /lpf Urine Bacteria (Auto) (Negative) COVID-19 Eval Order SARS-CoV-2, RNA, NAAT (NEGATIVE) Imaging Data Radiologist's Impression: CT head/brain wo con CLINICAL HISTORY: Acute change in mental status COMPARISON STUDY: July 16, 2018 TECHNIQUE: Axial CT of the brain is performed from the vertex to the skull base. IV contrast was not administered for this examination. A dose lowering technique was utilized adhering to the principles of ALARA. CT DOSE: 2351.77 mGycm FINDINGS: No intra or extra-axial mass lesions are visualized. There is no CT evidence of acute cortical infarction. There is no evidence of midline shift. There is no acute hemorrhage. No calvarial fractures are visualized. There are moderate white matter hypodensities likely on a small vessel basis. There is an old right basal ganglia lacunar infarct. There is no evidence of pathologic ventricular dilatation. There is no evidence of acute sinusitis IMPRESSION: No acute intracranial findings ACT 112: Negative or not required by law. Electronically signed by: David Rodriguez M.D. 06/04/2020 2:58 PM Dictated: 06/04/201456 Transcribed: 06/04/201456 XR chest 1V portable HISTORY: 74 years-old Male weakness acute weakness COMPARISON: Chest radiograph 06/11/2019, chest CT 01/09/2020 TECHNIQUE: Portable AP view of the chest FINDINGS: Cardiac silhouette is enlarged, unchanged. Emphysema with chronic interstitial coarsening. No pneumothorax, pleural effusion, overt pulmonary edema or airspace consolidation to suggest pneumonia. Surgical suture material is noted projecting over the right hilum. Degenerative changes of the shoulders and spine. IMPRESSION: No acute process. ACT 112: Negative or not required by law. The above report was generated using voice recognition software. It may contain grammatical, syntax or spelling errors. Electronically signed by: rAnaldo Medellin M.D. 06/04/2020 2:40 PM Dictated: 06/04/20 1438 Transcribed: 06/04/201437 ECG Data Attestation: I personally reviewed and interpreted this ECG as follows: Indication: + altered mental status Rate (beats per minute): 82 ECG Intervals/blocks: + Right Bundle branch block ECG [place]: + Left axis deviation ECG Findings: no PVCs Comparison ECG Date: from (June 10, 2019) Change: no significant change MDM Narrative I did evaluate the patient as noted above. The patient is not cooperative and will not give me any history. He does have a history of dementia but he did speak to the transit police officer who convinced him to come in. I did obtain the history from the patient's daughter and . He has had worsening change in mental status for about 2 weeks. He stopped smoking cold turkey and stopped taking his meds for period of time. He is refusing to go to the doctor. His states that she can no longer take care of him at home. They brought him in for evaluation and placement. The patient was combative with the staff and so he was given Haldol 5 mg IM to calm him down. IV access was established. I did place an order for continuous cardiac monitoring. The monitor showed normal sinus rhythm at a rate of 84 bpm. I did order and personally review the patient's 12-lead EKG as described above. He has an old right bundle branch block. I did order and personally reviewed the images of the patient's chest x- ray as described above. There is no evidence of acute process. I did order a urine analysis. He does not have a UTI. I did order and review the patient's blood work as noted in the electronic medical record. CBC is unremarkable without leukocytosis or anemia. Electrolytes demonstrate a mild hyponatremia at 131. Kidney function is at baseline at 1.57. Glucose is elevated at 343. He was treated with normal saline IV. He did take his diabetic medications today. TSH is elevated with free T4 low. I did order a CT of the head. I did review the images myself as well as the radiology report as described above. There is no evidence of stroke or acute intracranial abnormality. I did discuss the case with the trimming caser. There is no facility that will take him today. He will be hospitalized for further care and evaluation. I did discuss case with the hospitalist. Impression & Plan Acute alteration in mental status, Hypothyroidism, Hyponatremia, CKD (chronic kidney disease), Drug noncompliance, Acute hyperglycemia Discharge Plan Visit Data Chief Complaint: Illness Stated Complaint: illness ED Provider: Miguel Angel Morales Discharge Problem: Acute alteration in mental status, Hypothyroidism, Hyponatremia, CKD (chronic kidney disease), Drug noncompliance, Acute hyperglycemia Patient Disposition: Being Evaluated by Hospitalist Forms Stand Alone Forms: My [facility] [place] [email or web address] Application Prescriptions Prescriptions: No Action glipizide 10 mg tablet 10 mg PO BID RF: 0 atorvastatin 40 mg tablet 40 mg PO DAILY RF: 0 clopidogrel 75 mg tablet 75 mg PO DAILY RF: 0 aspirin 81 mg Tablet,Delayed Release (Dr/Ec) 81 mg PO DAILY RF: 0 famotidine 20 mg Tablet 20 mg PO HS RF: 0 metformin 500 mg tablet extended release 24 hr 1,000 mg PO DAILY RF: 0 Referrals Referrals: Vik Charles MD [Primary Care Provider] - Discharge Problem: Hypothyroidism Qualifiers: Hypothyroidism type: unspecified Qualified Code(s): E03.9 - Hypothyroidism, unspecified CKD (chronic kidney disease) Qualifiers: Chronic kidney disease stage: unspecified stage Qualified Code(s): N18.9 - Chronic kidney disease, unspecified
[2020-06-04] MEDS ORDERED: HALOPERIDOL LACTATE 5 MG/ML 1 ML VIAL IM STA (12:56)
[2020-06-04 14:12] LABS: Basophils # (auto) 0.03 K/uL (0-0.2); Basophils % (auto) 0.3 %; Eosinophils # (auto) 0.26 K/uL (0-0.5); Eosinophils % (auto) 2.8 %; Hematocrit (blood only) 47.4 % (42-52); Immature Granulocytes # (auto) 0.25 K/uL (0.00-0.02); Immature Granulocytes % (auto) 2.7 %; Lymphocytes # (auto) 2.38 K/uL (1.2-3.4); Lymphocytes % (auto) 25.6 %; Mean Corpuscular Hemoglobin 36.3 pg (25-34); Mean Corpuscular Hgb Conc 35.9 g/dL (32-36); Mean Corpuscular Volume 101.3 fL (80-100); Mean Platelet Volume 10.5 fL (7.4-10.4); Monocytes % (auto) 7.5 %; Neutrophils # (auto) 5.67 K/uL (1.4-6.5); Neutrophils % (auto) 61.1 %; Platelet Count 175 K/uL (130-400); RDW Coefficient of Variation 13.5 % (11.5-14.5); RDW Standard Deviation 49.9 fL (36.4-46.3); Red Blood Count 4.68 M/uL (4.7-6.1); White Blood Count 9.29 K/uL (4.8-10.8)
[2020-06-04 14:22] LABS: Prothrombin Time 10.9 Seconds (9.0-12.0)
[2020-06-04 14:34] LABS: Alanine Aminotransferase 67 U/L (12-78); Albumin Level 3.2 gm/dl (3.4-5.0); BUN Creatinine Ratio 17.5 (10-20); Blood Urea Nitrogen 28 mg/dl (7-18); Carbon Dioxide 26 mmol/L (21-32); Chloride 98 mmol/L (98-107); Est GFR (African American) 49.2; Est GFR (Non-African American) 42.5; Glucose 343 mg/dl (70-99); Sodium 131 mmol/L (136-145)
--- NOTE | 2020-06-04 14:41 | XRay Report ---
XR chest 1V portable HISTORY: 74 years-old Male weakness acute weakness COMPARISON: Chest radiograph 06/11/2019, chest CT 01/09/2020 TECHNIQUE: Portable AP view of the chest FINDINGS: Cardiac silhouette is enlarged, unchanged. Emphysema with chronic interstitial coarsening. No pneumot horax, pleural effusion, overt pulmonary edema or airspace consolidation to suggest pneumonia. Surgic al suture material is noted projecting over the right hilum. Degenerative changes of the shoulders an d spine. IMPRESSION: No acute process. ACT 112: Negative or not required by law. The above report was generated using voice recognition software. It may contain grammatical, syntax o r spelling errors. Electronically signed by: Arnaldo Medellin M.D. 06/04/2020 2:40 PM
[2020-06-04 14:44] LABS: Alkaline Phosphatase 178 U/L (45-117); Bilirubin,Total 0.8 mg/dl (0.2-1); Globulin 3.1 gm/dl (2.5-4.0); Total Protein 6.3 gm/dl (6.4-8.2); Troponin I 0.025 ng/ml (0-0.045)
[2020-06-04 14:57] LABS: T4 Free Thyroxine 0.23 ng/dl (0.8-1.6)
--- NOTE | 2020-06-04 15:00 | CT Scan Report ---
CT head/brain wo con CLINICAL HISTORY: Acute change in mental status COMPARISON STUDY: July 16, 2018 TECHNIQUE: Axial CT of the brain is performed from the vertex to the skull base. IV contrast was not administered for this examination. A dose lowering technique was utilized adhering to the principles of ALARA. CT DOSE: 2351.77 mGycm FINDINGS: No intra or extra-axial mass lesions are visualized. There is no CT evidence of acute cortical infarc tion. There is no evidence of midline shift. There is no acute hemorrhage. No calvarial fractures ar e visualized. There are moderate white matter hypodensities likely on a small vessel basis. There is an old right b christian ganglia lacunar infarct. There is no evidence of pathologic ventricular dilatation. There is no evidence of acute sinusitis IMPRESSION: No acute intracranial findings ACT 112: Negative or not required by law. Electronically signed by: David Rodriguez M.D. 06/04/2020 2:58 PM
[2020-06-04] MEDS ORDERED: SODIUM CHLORIDE 0.9% 500 ML IV SCH (15:30)
[2020-06-04 16:32] LABS: Appearance Urine Clear (Clear); Bacteria Urine Automated Negative (Negative); Bilirubin Urine Negative (Negative); Blood Urine Negative (Negative); Cast Urine Automated 0 /lpf (0-5); Color Urine Yellow; Epithelial Cell Urine Auto 0-5 /lpf (0-5); Glucose Urine UA 3+ (Negative); Ketones Urine Negative (Negative); Leukocyte Esterase Urine Negative (Negative); Nitrite Urine Negative (Negative); Protein Urine 1+ (Negative); RBC Urine Automated 0-4 /hpf (0-4); Specific Gravity Urine 1.028 (1.000-1.030); Urobilinogen Urine Negative (Negative); WBC Urine Automated 0 /hpf (0-5)
[2020-06-04 17:14] LABS: Potassium 4.6 mmol/L (3.5-5.1)
[2020-06-04 17:20] LABS: Magnesium 1.8 mg/dl (1.8-2.4)
--- NOTE | 2020-06-04 17:20 | History & Physical Report ---
Date of Service June 04, 2020 Assessment & Plan (1) Acute alteration in mental status: (2) Medication noncompliance due to cognitive impairment: (3) Vascular dementia: (4) Acute hyperglycemia: (5) Hypothyroidism: (6) Hyponatremia: (7) CKD (chronic kidney disease), stage III: (8) COPD (chronic obstructive pulmonary disease): (9) PVD (peripheral vascular disease): (10) Tobacco use disorder: (11) Type 2 diabetes mellitus: (12) Coronary artery disease: This is a 74yo M with a PMH of vascular dementia, CAD (s/p stents), PVD (s/p R fem pop stent in 2018), CKD III (s/p nephrectomy), DM II, h/o lung cancer (s/p RUL resection), hypothyroidism and other medical problems listed below who presents with increased confusion x 2 months. Acute metabolic encephalopathy Progressed vascular dementia Medication non-compliance Confusion multifactorial due to advanced vascular dementia, medication noncompliance, ? nicotine withdrawal CT head without acute intracranial abnormality. No evidence of infection in urine or on chest x-ray. Covid screen negative Does have significantly elevated TSH and low free T4 in the setting of noncompliance with levothyroxine with hypothyroidism Expect improvement of acute confusion with med compliance although baseline cognitive impairment from dementia no longer able to care for patient at home -has become a hygiene and safety issue. PT/OT evaluation. Case mgmt consult for assistance with placement Psychiatry consult for progressive vascular dementia with behavioral disturbance Continue gentle fluids as tolerated, one-to-one observation Hypothyroidism In setting of medication non-compliance Confirmed levothyroxine dose with and will resume Acute hyperglycemia DM II BSG elevated at 343 Hold home agents SSI while in-patient Glycemic consult placed BSG AC HS CKD III Kidney function at baseline. Monitor with daily BMP Hyponatremia Na 131 - psuedohyponatremia in setting of hyperglycemia. Corrected Na 136 CAD PVD Continue medical mgmt with aspirin, statin and plavix COPD Not taking any home medications, inhalers or nebulizers Tobacco use disorder Smokes 1.5-2 ppd for the past 50 years but recently stopped smoking 7 days ago Possibly contributing to dilirium Nicotine patch DVT Ppx: SQ heparin Code status: DNR per discussion with PCP: Oestervandana Dispo: Admitted to med/surg. Discharge planning ordered. Patient seen in collaboration with Dr. Booth. Please see addendum. History of Present Illness Chief Complaint: [facility] Primary Care Provider: Vik Charles MD This is a 74yo M with a PMH of vascular dementia, CAD (s/p stents), PVD (s/p R fem pop stent in 2018), CKD III (s/p nephrectomy), DM II, h/o lung cancer (s/p RUL resection), hypothyroidism and other medical problems listed below who presents with increased confusion x 2 months. History primarily obtained from and daughter over the phone due to patient's severe dementia. Patient with progressive confusion and increased agitation, per family. Is noncompliant with medications, not taking anything from 05/20-05/28 before resuming some of them. Has not been eating or drinking much. Is too weak to ambulate up the stairs and has therefore been having urinary and fecal incontinence downstairs. Has refused to allow to bathe him for upwards of 1 month, per daughter. Patient also has become more agitated and unsafe over the past week to the point that family is looking for placement due to unable to care for her with progressed condition. Family has been trying to have patient evaluated by PCP over the past few days but patient unwilling. Had to have assistance of police in order to bring patient into ED for evaluation today. Patient demented and hard of hearing so ROS extremely limited but denies pain. Oriented to self but not to place, time or situation. Was agitated in the ED but cooperative after dose of Haldol given prior to our interview. Does endorse feeling weak. Afebrile and hemodynamically stable. No leukocytosis. Hemoglobin at baseline. Sodium slightly low at 131. Creatinine close to baseline at 1.57. Glucose elevated at 343. TSH significantly elevated at 58 with free T4 0.23 in setting of medication noncompliance. Also has significant smoking history of 2 packs/day for the past 50 years but has not smoked for the past week. Allergies Allergy/AdvReac Type Severity Reaction Status Date / Time Iodinated Contrast Media Allergy Intermediate swelling Verified 01/12/20 11:16 Home Medications Medication Instructions Recorded Confirmed Type aspirin 81 mg PO DAILY 07/16/18 06/04/20 History atorvastatin 40 mg PO DAILY 07/16/18 06/04/20 History clopidogrel 75 mg PO DAILY 07/16/18 06/04/20 History famotidine 20 mg PO HS 06/10/19 06/04/20 History glipizide 10 mg tablet 10 mg PO BID 01/12/20 06/04/20 History ipratropium-albuterol [DuoNeb] 3 ml INHALATION Q6H PRN 06/04/20 06/04/20 History levothyroxine 100 mcg PO MOWEFR@0700 06/04/20 06/04/20 History levothyroxine 200 mcg PO SUTUTHSA@0700 06/04/20 06/04/20 History metformin 1,000 mg PO BID 06/04/20 06/04/20 History nitroglycerin [Nitrostat] 0.4 mg SUBLINGUAL UD 06/04/20 06/04/20 History Past Med/Surg History Medical History (Updated 06/04/20 @ 18:44 by Tiesha Rodriguez PA-C) AAA (abdominal aortic aneurysm) Carotid stenosis, non-symptomatic CKD (chronic kidney disease), stage III Coronary artery disease Dyslipidemia History of nonmelanoma skin cancer Hypothyroidism 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 ME (myocardial infarction) "2008 and 2013 s/p multiple stent placements " Primary cancer of right upper lobe of lung PVD (peripheral vascular disease) Tobacco use disorder Type 2 diabetes mellitus Vascular dementia Surgical History (Updated 06/04/20 @ 18:44 by Tiesha Rodriguez PA-C) History of left-sided carotid endarterectomy S/P AAA repair S/P appendectomy S/P colonoscopy with polypectomy S/P coronary artery stent placement S/P cystourethroscopy with dilation of urethral stricture S/P laparoscopic cholecystectomy "with umbilical hernia repair" S/p nephrectomy "left nephrectomy with partial ureterectomy" S/P rotator cuff repair S/P tonsillectomy and adenoidectomy Family History Father Myocardial infarction Mother Colon cancer Other Cancer Heart disease Denies family history of Lung disease Asthma Social History Smoking Status: Former smoker Tobacco Type: Cigarettes Age Started Using Tobacco: 12; packs per day: 1; Years Smoked: 62; Cigarettes Per Day: 20; Smoking End Date: 05/28/20; Second Hand Exposure: Yes; Do You Dip or Chew Tobacco: No; Hx Alcohol Use: No Hx Substance Use: No Preferred Language: Kyrgyz Communication Ability: Impaired Shredder Picker Required: No Beliefs That Will Affect Care: None marital status: Current Living Situation: Spouse current occupational status: retired Other Information That Helps Us Care for You: No Feels Safe at Home: Yes Safety Concerns: Feels Safe At This Time Assistive Devices: None Review of Systems Review of Systems: Unobtainable due to cognitive status Physical Exam Physical Exam: General Appearance: vitals as above, sitting in bedside chair, confused Head: normocephalic, atraumatic Eyes: normal inspection, PERRL, conjunctivae normal, anicteric sclerae ENT: hard of hearing, external ear and nose normal, oropharynx normal Neck: normal visual inspection, trachea midline, no thyromegaly Respiratory: normal respiratory effort, diminished lung sounds, no wheeze, rales, rhonchi. No accessory muscle use Cardiovascular: regular rate, rhythm, no murmur appreciated, normal peripheral pulses, no BLE edema. Vessels: no JVD Chest: normal inspection of chest Abdomen/GI: normal bowel sounds, soft, nontender, no hepatosplenomegaly Extremities/Musculoskeletal: no cyanosis or clubbing, extremities motor strength 5/5 Neurologic: PERRL, EOMI, accommodation nl, no face palsy, no dysarthria, CN's II-XI intact bilaterally and moves all extremities Psychiatric: A+O to self, not to place, time or situation, euthymic affect Skin: no rashes, normal color, warm/dry Results & Data Results & Data ([facility]) Vital Signs (Past 12 Hours) Vital Signs Temp Pulse Pulse Resp BP BP Pulse Ox 06/04/20 15:38 97 06/04/20 15:35 86 16 104/83 97 06/04/20 13:56 74 16 93/57 L 06/04/20 12:15 36.4 C L 73 20 123/70 92 Laboratory Results Short CBC 06/04/20 Range/Units 14:00 WBC 9.29 (4.8-10.8) K/uL Hgb 17.0 (14.0-18.0) g/dL Hct 47.4 (42-52) % Plt Count 175 (130-400) K/uL BMP 06/04/20 06/04/20 14:00 16:54 Sodium 131 L Potassium 4.6 Chloride 98 Carbon Dioxide 26 BUN 28 H Creatinine 1.57 H Glucose 343 H* Calcium 9.0 Cardiac Enzymes 06/04/20 Range/Units 14:00 Troponin I 0.025 (0-0.045) ng/ml Liver Function 06/04/20 06/04/20 Range/Units 14:00 16:54 Total Bilirubin 0.8 (0.2-1) mg/dl AST 49 H (15-37) U/L ALT 67 (12-78) U/L Alkaline Phosphatase 178 H (45-117) U/L Albumin 3.2 L (3.4-5.0) gm/dl Urine 06/04/20 Range/Units 16:07 Urine Color Yellow Urine Appearance Clear (Clear) Urine pH 5.0 (4.5-7.5) Ur Specific [place] 1.028 (1.000-1.030) Urine Protein 1+ H (Negative) Urine Glucose (UA) 3+ H (Negative) Diagnostic Findings Head CT: IMPRESSION: No acute intracranial findings CXR: IMPRESSION: No acute process. Code Status & VTE Plan VTE Prophylaxis Plan VTE Prophylaxis will be ordered: Yes Supervising Physician Co-Signing Physician Notes 74yo M with a PMH of vascular dementia, CAD (s/p stents), PVD (s/p R fem pop stent in 2018), CKD III (s/p nephrectomy), DM II, h/o lung cancer (s/p RUL resection), hypothyroidism and other medical problems listed below who presents with increased confusion x 2 months History as detailed above, obtained mostly from the Physical exam notable for elderly man, in no obvious distress, hearing deficits, alert and oriented to self only, poor insight Lab work notable for elevated TSH 58, free T4 of 0.23, alkaline phosphatase of 178, AST of 49, blood glucose of 343, sodium of 131 [corrected for hyperglycemia is 135] CT head and chest x-ray did not show any acute abnormalities -Progressing dementia with behavioral abnormalities -Poorly controlled hypothyroidism -Poorly controlled diabetes mellitus Baseline history provided by and PCPs record from last visit some months ago, patient likely has progression of his dementia with some behavioral abnormalities Also has poorly controlled hypothyroidism and diabetes due to refusing medications unable to care for patient anymore and would like patient to be placed Case management consult to start working on placement. Will need to follow-up with case sealer to determine if need for psych consult for placement PT/OT evaluation Resume home medications including levothyroxine. Hold antidiabetic's for now and manage with insulin while inpatient. Patient was reported to have significant smoking history but had not smoked for a few days a, start nicotine patch for now Other plans as above (1) Vascular dementia Dementia behavioral disturbance: without behavioral disturbance Qualified Code(s): F01.50 - Vascular dementia without behavioral disturbance (2) Type 2 diabetes mellitus Chronic kidney disease stage: stage 3 (moderate) Diabetes mellitus complication detail: with chronic kidney disease Diabetes mellitus complication status: with kidney complications Diabetes mellitus lobsterman insulin use: without lobsterman use Qualified Code(s): E11.22 - Type 2 diabetes mellitus with diabetic chronic kidney disease; N18.3 - Chronic kidney disease, stage 3 (moderate) (3) Coronary artery disease Associated angina: without angina Coronary Disease-Associated Artery/Lesion type: nikolai artery [place] vs. transplanted heart: nikolai heart Qualified Code(s): I25.10 - Atherosclerotic heart disease of nikolai coronary artery without angina pectoris (4) Hypothyroidism Hypothyroidism type: unspecified Qualified Code(s): E03.9 - Hypothyroidism, unspecified (5) COPD (chronic obstructive pulmonary disease) COPD type: unspecified COPD Qualified Code(s): J44.9 - Chronic obstructive pulmonary disease, unspecified
[2020-06-04] MEDS ORDERED: PHARMACY GLYCEMIC MGMT CONSULT STA (17:21)
[2020-06-04] MEDS ORDERED: PHARMACY GLYCEMIC MGMT CONSULT PRN (17:24)
[2020-06-04] MEDS ORDERED: DEXTROSE 50% 50 ML SYRINGE IV PRN ×2 (18:00→18:33)
[2020-06-04] MEDS ORDERED: GLUCOSE 40% GEL 15 GM TUBE PO PRN ×2 (18:00→18:33)
[2020-06-04] MEDS ORDERED: GLUCAGON FOR INJ 1 MG VIAL IM PRN (18:00)
[2020-06-04] MEDS ORDERED: CARBOHYDRATES FOR HYPOGLYCEMIA PO PRN ×2 (18:00→18:33)
[2020-06-04] MEDS ORDERED: GLUCOSE 10 TABS/TUBE PO PRN ×2 (18:00→18:33)
[2020-06-04] MEDS ORDERED: NITROGLYCERIN SL 0.4 MG/TAB TAB SL PRN (18:30)
[2020-06-04] MEDS ORDERED: POLYETHYLENE (MIRALAX) 17 GM PACK PO PRN (18:33)
[2020-06-04] MEDS ORDERED: ACETAMINOPHEN 325 MG TAB PO PRN (18:33)
[2020-06-04] MEDS ORDERED: GLUCAGON FOR INJ 1 MG VIAL SQ PRN (18:33)
[2020-06-04] MEDS: INSULIN ASPART 100 UNITS/ML 3 ML PEN SC SCH ×2 (19:07→21:28)
[2020-06-04] MEDS ORDERED: INSULIN HUMAN REGULAR PER UNIT 8 UNITS in SYRINGE 7.92 ML IV ONE (19:30)
[2020-06-04] MEDS: HEPARIN SOD 5,000 UNIT/0.5 ML VIAL SQ SCH (21:09)
[2020-06-04] MEDS: FAMOTIDINE 20 MG TAB PO SCH (21:09)
[2020-06-04] MEDS: NICOTINE 14 MG/24 HR PATCH TD SCH (21:52)
--- NOTE | 2020-06-04 22:36 | Pharmacy Report ---
Pharmacy Glycemic Short Note 2 - Date of Service June 04, 2020 - Glycemic Short BSG Results (Last 24 hours): 06/04/20 06/04/20 06/04/20 14:00 17:08 19:04 Glucose 343 H* POC Glucose 338 H* 356 H* 06/04/20 21:13 Glucose POC Glucose 91 OUTPATIENT ANTIDIABETIC REGIMEN: * glipizide 10 mg bid, metformin 1 gm bid * A1c ~10 05/16/2019 per records ASSESSMENT: * 74 year old PMHx of dementia, CAD, CKD III, DM2, h/o lung Ca, hypothyroidism. Presenting with increased confusion x 2 months. Noncompliance noted with medications. * Last A1c over a year ago - elevated ~10%, unclear recent control. A1c ordered for tomorrow AM * Pharmacy consulted for glycemic control. BSG at time of consult 356 mg/dL - plan to start novolog CF/CR between stress of 23 and will plan to give IV insulin bolus (based upon adj bw). Recheck BSG at HS trending down significantly to 91 mg/dL. Patient does not report any changes with mental status/confusion with rapid decrease in BSG * Plan to hold basal for now, will reassess in AM if necessary PLAN FOR INPATIENT GLYCEMIC CONTROL: * Hold outpatient oral diabetes medications * Basal insulin * Lantus - hold for tonight / reassess in AM * Bolus insulin * NovoLog per scale ACHS or Q6hrs while NPO * Goal Range: Low 110 mg/dL - High 140 mg/dL * Correction Factor: 20 mg/dL/unit * Nutritional / Prandial insulin per carb ratio of 1 unit per 7 grams CHO consumed PLAN FOR DISCHARGE: * tbd
[2020-06-05] MEDS: INSULIN ASPART 100 UNITS/ML 3 ML PEN SC SCH ×6 (00:08→21:29)
[2020-06-05 06:06] LABS: Hematocrit (blood only) 48.3 % (42-52); Hemoglobin 16.9 g/dL (14.0-18.0); Mean Corpuscular Hemoglobin 35.6 pg (25-34); Mean Corpuscular Volume 101.7 fL (80-100); Mean Platelet Volume 10.4 fL (7.4-10.4); Platelet Count 158 K/uL (130-400); RDW Coefficient of Variation 13.5 % (11.5-14.5); RDW Standard Deviation 49.9 fL (36.4-46.3); Red Blood Count 4.75 M/uL (4.7-6.1); White Blood Count 10.52 K/uL (4.8-10.8)
[2020-06-05] MEDS: HEPARIN SOD 5,000 UNIT/0.5 ML VIAL SQ SCH ×3 (06:28→19:57)
[2020-06-05] MEDS: LEVOTHYROXINE SODIUM 200 MCG TABLET PO SCH (06:29)
[2020-06-05 06:43] LABS: Estimated Average Glucose 321 mg/dl; Hemoglobin A1C 12.8 % (4.5-5.6)
[2020-06-05 06:48] LABS: BUN Creatinine Ratio 17.4 (10-20); Calcium 9.1 mg/dl (8.5-10.1); Creatinine Clr Calc Pharmacy 43.6 ml/min; Est GFR (African American) 47.4; Est GFR (Non-African American) 40.9; Potassium 4.2 mmol/L (3.5-5.1)
--- NOTE | 2020-06-05 07:39 | Electrocardiogram Report ---
Test Reason : Blood Pressure : / mmHG Vent. Rate : 082 BPM Atrial Rate : 082 BPM P-R Int : 224 ms QRS Dur : 164 ms QT Int : 430 ms P-R-T Axes : 074 -86 067 degrees QTc Int : 502 ms Sinus rhythm with 1st degree A-V block Left axis deviation Right bundle branch block Inferior infarct (cited on or before 11-JAN-2016) Abnormal ECG When compared with ECG of 10-JUN-2019 12:19, Sinus rhythm has replaced Supraventricular tachycardia Confirmed by Ray Lorenzana ([id number]) on 06/05/2020 7:39:16 AM Referred By: REFERRED SELF Confirmed By:Ray Lorenzana
[2020-06-05] MEDS: ATORVASTATIN 40 MG TAB PO SCH (07:56)
[2020-06-05] MEDS: ASPIRIN 81 MG ECTAB PO SCH (07:57)
[2020-06-05] MEDS: CLOPIDOGREL BISULFATE 75 MG TAB PO SCH (07:57)
[2020-06-05] MEDS: NICOTINE 14 MG/24 HR PATCH TD SCH (08:00)
--- NOTE | 2020-06-05 08:51 | Pharmacy Report ---
Pharmacy Glycemic Short Note 2 - Date of Service June 05, 2020 - Glycemic Short BSG Results (Last 24 hours): 06/04/20 06/04/20 06/04/20 14:00 17:08 19:04 Glucose 343 H* POC Glucose 338 H* 356 H* 06/04/20 06/04/20 06/04/20 21:13 22:59 23:42 Glucose POC Glucose 91 90 110 H 06/05/20 06/05/20 06/05/20 05:37 05:41 07:29 Glucose 128 H POC Glucose 131 H 196 H OUTPATIENT ANTIDIABETIC REGIMEN: * glipizide 10 mg bid, metformin 1 gm bid * A1c ~10 05/16/2019 per records * A1c = 12.8% on 06/05/20 ASSESSMENT: 06/05: * AM fasting BSG elevated this morning at 196mg/dl. Basal insulin will be required based on AM fasting BSG and A1c >10% * Since BSG dropped so dramatically last evening with one dose of IV insulin will start conservatively with basal insulin and titrate based on BSG trends. Start with moderate stress weight based dosing and titrate based on BSG trends * Will try to keep basal insulin once daily to prep for DC. Pt will need insulin at discharge. 06/04 * 74 year old PMHx of dementia, CAD, CKD III, DM2, h/o lung Ca, hypothyroidism. Presenting with increased confusion x 2 months. Noncompliance noted with medications. * Last A1c over a year ago - elevated ~10%, unclear recent control. A1c ordered for tomorrow AM * Pharmacy consulted for glycemic control. BSG at time of consult 356 mg/dL - plan to start novolog CF/CR between stress of 06/16 and will plan to give IV insulin bolus (based upon adj bw). Recheck BSG at HS trending down significantly to 91 mg/dL. Patient does not report any changes with mental status/confusion with rapid decrease in BSG * Plan to hold basal for now, will reassess in AM if necessary PLAN FOR INPATIENT GLYCEMIC CONTROL: * Hold outpatient oral diabetes medications * Basal insulin * Start Lantus 17 units (~0.2 units/kg) SQ daily in AM * Bolus insulin * NovoLog per scale ACHS or Q6hrs while NPO * Goal Range: Low 110 mg/dL - High 140 mg/dL * Correction Factor: 25 mg/dL/unit * Nutritional / Prandial insulin per carb ratio of 1 unit per 8 grams CHO consumed PLAN FOR DISCHARGE: * A1c = 12.8% on 06/05/20 * Goal A1c = 7-8% based on age/co-morbidities * A1c is greater than or equal to 10% consider triple therapy with metformin + basal insulin + (GLP1-RA OR prandial insulin OR may continue glipizide). Doses TBD based on inpatient insulin data
[2020-06-05] MEDS ORDERED: INSULIN GLARGINE SOLOSTAR 100 UNITS/ML 3 ML PEN SC SCH (09:00)
--- NOTE | 2020-06-05 09:16 | Hospitalist Progress Note ---
Date of Service June 05, 2020 Assessment & Plan (1) Acute alteration in mental status: (2) Medication noncompliance due to cognitive impairment: (3) Vascular dementia: (4) Acute hyperglycemia: (5) Hypothyroidism: (6) Hyponatremia: (7) CKD (chronic kidney disease), stage III: (8) COPD (chronic obstructive pulmonary disease): (9) PVD (peripheral vascular disease): (10) Tobacco use disorder: (11) Type 2 diabetes mellitus: (12) Coronary artery disease: This is a 74yo M with a PMH of vascular dementia, CAD (s/p stents), PVD (s/p R fem pop stent in 2018), CKD III (s/p nephrectomy), DM II, h/o lung cancer (s/p RUL resection), hypothyroidism and other medical problems listed below who presents with increased confusion x 2 months. Acute metabolic encephalopathy Progressed vascular dementia Medication non-compliance Confusion multifactorial due to advanced vascular dementia, medication noncompliance, ? nicotine withdrawal CT head without acute intracranial abnormality. No evidence of infection in urine or on chest x-ray. Covid screen negative Does have significantly elevated TSH and low free T4 in the setting of noncompliance with levothyroxine with hypothyroidism Expect improvement of acute confusion with med compliance although baseline cognitive impairment from dementia no longer able to care for patient at home -has become a hygiene and safety issue. PT/OT evaluation. Case mgmt consult for assistance with placement Psychiatry consult for progressive vascular dementia with behavioral disturbance Continue gentle fluids as tolerated, one-to-one observation This AM (06/05) pt is calm and able to answer simple questions. He is able to tell me his name but can't say where he is or where he lives. Hypothyroidism TSH 58 In setting of medication non-compliance Confirmed levothyroxine dose with , and resumed Will need follow up TSH in 3-4 weeks Acute hyperglycemia DM II , uncontrolled Current Hgb A1c 12.8% BSG elevated on admission at 343 Hold home agents SSI while in-patient Glycemic consult placed BSG AC HS CKD III Kidney function at baseline. Monitor with daily BMP Hyponatremia Na 131 - psuedohyponatremia in setting of hyperglycemia. Corrected Na 136 Current Na improved (also blood glc level improved) CAD PVD Continue medical mgmt with aspirin, statin and plavix COPD Not taking any home medications, inhalers or nebulizers Tobacco use disorder Smokes 1.5-2 ppd for the past 50 years but recently stopped smoking 7 days ago Possibly contributing to dilirium Nicotine patch DVT Ppx: SQ heparin Code status: DNR per discussion with PCP: Araceli Dispo: Admitted to med/surg. Discharge planning ordered. Admission and Anticipated Discharge Date Admission Date: June 04, 2020 Subjective Pt seen in follow up of AMS in the setting of dementia, uncontrolled DM type 2 , hypothyroidism. Currently pt is laying in bed in NAD. He is able to tell me his name and his age but he is not sure about where he is or where he lives. He is calm, hard of hearing, 1:1 sitter present - she reports pt sleeps then likes to walk in hallways and then takes a nap again. So far no major behavioral issues. Review of Systems Review of Systems: All systems reviewed & are unremarkable except as noted in HPI & below Constitutional: no fever and no chills Respiratory: no cough and no dyspnea Cardiovascular: no chest pain and no palpitations Gastrointestinal: no abdominal pain, no nausea and no vomiting Physical Exam Physical Exam: General Appearance: vitals as above, sitting in bedside chair, confused Head: normocephalic, atraumatic Eyes: normal inspection, PERRL, EOMI, conjunctivae normal, anicteric sclerae ENT: hard of hearing, external ear and nose normal, oropharynx normal Neck: normal visual inspection, trachea midline, no thyromegaly Respiratory: normal respiratory effort, diminished lung sounds, no wheeze, rales, rhonchi. No accessory muscle use Cardiovascular: regular rate, rhythm, no murmur appreciated, normal peripheral pulses, no BLE edema. Vessels: no JVD Chest: normal inspection of chest Abdomen/GI: normal bowel sounds, soft, nontender, nondistended, obese Extremities/Musculoskeletal: no cyanosis or clubbing, moves extremities Neurologic: PERRL, EOMI, no face palsy, no dysarthria, moves all extremities Psychiatric: A+O to self, not to place, time or situation, euthymic affect Skin: no rashes, normal color, warm/dry Results & Data Results & Data ([facility]) Vital Signs (Past 12 Hours) Vital Signs Temp Pulse Resp BP Pulse Ox 06/05/20 07:49 80 18 119/75 92 06/04/20 23:03 36.6 C 62 16 147/83 H 93 Laboratory Results 06/05/20 06/05/20 06/05/20 Range/Units 07:29 05:41 05:37 WBC (4.8-10.8) K/uL RBC (4.7-6.1) M/uL Hgb (14.0-18.0) g/dL Hct (42-52) % MCV (80-100) fL MCH (25-34) pg MCHC (32-36) g/dL RDW Std Deviation (36.4-46.3) fL RDW Coeff of [place] (11.5-14.5) % Plt Count (130-400) K/uL MPV (7.4-10.4) fL Immature Gran % (Auto) % Neut % (Auto) % Lymph % (Auto) % [place] % (Auto) % Eos % (Auto) % Baso % (Auto) % Neut # (Auto) (1.4-6.5) K/uL Lymph # (Auto) (1.2-3.4) K/uL [place] # (Auto) (0.11-0.59) K/uL Eos # (Auto) (0-0.5) K/uL Baso # (Auto) (0-0.2) K/uL Immature Gran # (Auto) (0.00-0.02) K/uL PT (9.0-12.0) Seconds INR (0.9-1.1) Sodium (136-145) mmol/L Potassium (3.5-5.1) mmol/L Chloride (98-107) mmol/L Carbon Dioxide (21-32) mmol/L Anion Gap (3-11) BUN (7-18) mg/dl Creatinine (0.6-1.4) mg/dl Est Cr Clr Drug Dosing Est GFR ( Amer) Est GFR (Non-Af Amer) BUN/Creatinine Ratio (10-20) Glucose (70-99) mg/dl POC Glucose 196 H 131 H (70-99) mg/dl Estimat Average Glucose 321 mg/dl Hemoglobin A1c 12.8 H (4.5-5.6) % Calcium (8.5-10.1) mg/dl Magnesium (1.8-2.4) mg/dl Total Bilirubin (0.2-1) mg/dl AST (15-37) U/L ALT (12-78) U/L Alkaline Phosphatase (45-117) U/L Troponin I (0-0.045) ng/ml Total Protein (6.4-8.2) gm/dl Albumin (3.4-5.0) gm/dl Globulin (2.5-4.0) gm/dl Albumin/Globulin Ratio (0.9-2) Beta-Hydroxybutyric Acd (0.2-2.81) mg/dl TSH (0.300-4.500) uIu/ml Free T4 (0.8-1.6) ng/dl Specimen Hemolysis Urine Color Urine Appearance (Clear) Urine pH (4.5-7.5) Ur Specific [place] (1.000-1.030) Urine Protein (Negative) Urine Glucose (UA) (Negative) Urine Ketones (Negative) Urine Blood (Negative) Urine Nitrite (Negative) Urine Bilirubin (Negative) Urine Urobilinogen (Negative) Ur Leukocyte Esterase (Negative) Urine WBC (Auto) (0-5) /hpf Urine RBC (Auto) (0-4) /hpf U Hyaline Cast (Auto) (0-5) /lpf U Epithel Cells (Auto) (0-5) /lpf Urine Bacteria (Auto) (Negative) COVID-19 Eval Order SARS-CoV-2, RNA, NAAT (NEGATIVE) 06/05/20 06/05/20 06/04/20 Range/Units 05:37 05:37 23:42 WBC 10.52 (4.8-10.8) K/uL RBC 4.75 (4.7-6.1) M/uL Hgb 16.9 (14.0-18.0) g/dL Hct 48.3 (42-52) % MCV 101.7 H (80-100) fL MCH 35.6 H (25-34) pg MCHC 35.0 (32-36) g/dL RDW Std Deviation 49.9 H (36.4-46.3) fL RDW Coeff of [place] 13.5 (11.5-14.5) % Plt Count 158 (130-400) K/uL MPV 10.4 (7.4-10.4) fL Immature Gran % (Auto) % Neut % (Auto) % Lymph % (Auto) % [place] % (Auto) % Eos % (Auto) % Baso % (Auto) % Neut # (Auto) (1.4-6.5) K/uL Lymph # (Auto) (1.2-3.4) K/uL [place] # (Auto) (0.11-0.59) K/uL Eos # (Auto) (0-0.5) K/uL Baso # (Auto) (0-0.2) K/uL Immature Gran # (Auto) (0.00-0.02) K/uL PT (9.0-12.0) Seconds INR (0.9-1.1) Sodium 136 (136-145) mmol/L Potassium 4.2 (3.5-5.1) mmol/L Chloride 102 (98-107) mmol/L Carbon Dioxide 29 (21-32) mmol/L Anion Gap 5.0 (3-11) BUN 28 H (7-18) mg/dl Creatinine 1.62 H (0.6-1.4) mg/dl Est Cr Clr Drug Dosing 43.6 Est GFR ( Amer) 47.4 Est GFR (Non-Af Amer) 40.9 BUN/Creatinine Ratio 17.4 (10-20) Glucose 128 H (70-99) mg/dl POC Glucose 110 H (70-99) mg/dl Estimat Average Glucose mg/dl Hemoglobin A1c (4.5-5.6) % Calcium 9.1 (8.5-10.1) mg/dl Magnesium (1.8-2.4) mg/dl Total Bilirubin (0.2-1) mg/dl AST (15-37) U/L ALT (12-78) U/L Alkaline Phosphatase (45-117) U/L Troponin I (0-0.045) ng/ml Total Protein (6.4-8.2) gm/dl Albumin (3.4-5.0) gm/dl Globulin (2.5-4.0) gm/dl Albumin/Globulin Ratio (0.9-2) Beta-Hydroxybutyric Acd (0.2-2.81) mg/dl TSH (0.300-4.500) uIu/ml Free T4 (0.8-1.6) ng/dl Specimen Hemolysis Urine Color Urine Appearance (Clear) Urine pH (4.5-7.5) Ur Specific [place] (1.000-1.030) Urine Protein (Negative) Urine Glucose (UA) (Negative) Urine Ketones (Negative) Urine Blood (Negative) Urine Nitrite (Negative) Urine Bilirubin (Negative) Urine Urobilinogen (Negative) Ur Leukocyte Esterase (Negative) Urine WBC (Auto) (0-5) /hpf Urine RBC (Auto) (0-4) /hpf U Hyaline Cast (Auto) (0-5) /lpf U Epithel Cells (Auto) (0-5) /lpf Urine Bacteria (Auto) (Negative) COVID-19 Eval Order SARS-CoV-2, RNA, NAAT (NEGATIVE) 06/04/20 06/04/20 06/04/20 Range/Units 22:59 21:13 19:04 WBC (4.8-10.8) K/uL RBC (4.7-6.1) M/uL Hgb (14.0-18.0) g/dL Hct (42-52) % MCV (80-100) fL MCH (25-34) pg MCHC (32-36) g/dL RDW Std Deviation (36.4-46.3) fL RDW Coeff of [place] (11.5-14.5) % Plt Count (130-400) K/uL MPV (7.4-10.4) fL Immature Gran % (Auto) % Neut % (Auto) % Lymph % (Auto) % [place] % (Auto) % Eos % (Auto) % Baso % (Auto) % Neut # (Auto) (1.4-6.5) K/uL Lymph # (Auto) (1.2-3.4) K/uL [place] # (Auto) (0.11-0.59) K/uL Eos # (Auto) (0-0.5) K/uL Baso # (Auto) (0-0.2) K/uL Immature Gran # (Auto) (0.00-0.02) K/uL PT (9.0-12.0) Seconds INR (0.9-1.1) Sodium (136-145) mmol/L Potassium (3.5-5.1) mmol/L Chloride (98-107) mmol/L Carbon Dioxide (21-32) mmol/L Anion Gap (3-11) BUN (7-18) mg/dl Creatinine (0.6-1.4) mg/dl Est Cr Clr Drug Dosing Est GFR ( Amer) Est GFR (Non-Af Amer) BUN/Creatinine Ratio (10-20) Glucose (70-99) mg/dl POC Glucose 90 91 356 H* (70-99) mg/dl Estimat Average Glucose mg/dl Hemoglobin A1c (4.5-5.6) % Calcium (8.5-10.1) mg/dl Magnesium (1.8-2.4) mg/dl Total Bilirubin (0.2-1) mg/dl AST (15-37) U/L ALT (12-78) U/L Alkaline Phosphatase (45-117) U/L Troponin I (0-0.045) ng/ml Total Protein (6.4-8.2) gm/dl Albumin (3.4-5.0) gm/dl Globulin (2.5-4.0) gm/dl Albumin/Globulin Ratio (0.9-2) Beta-Hydroxybutyric Acd (0.2-2.81) mg/dl TSH (0.300-4.500) uIu/ml Free T4 (0.8-1.6) ng/dl Specimen Hemolysis Urine Color Urine Appearance (Clear) Urine pH (4.5-7.5) Ur Specific [place] (1.000-1.030) Urine Protein (Negative) Urine Glucose (UA) (Negative) Urine Ketones (Negative) Urine Blood (Negative) Urine Nitrite (Negative) Urine Bilirubin (Negative) Urine Urobilinogen (Negative) Ur Leukocyte Esterase (Negative) Urine WBC (Auto) (0-5) /hpf Urine RBC (Auto) (0-4) /hpf U Hyaline Cast (Auto) (0-5) /lpf U Epithel Cells (Auto) (0-5) /lpf Urine Bacteria (Auto) (Negative) COVID-19 Eval Order SARS-CoV-2, RNA, NAAT (NEGATIVE) 06/04/20 06/04/20 06/04/20 Range/Units 17:08 16:54 16:07 WBC (4.8-10.8) K/uL RBC (4.7-6.1) M/uL Hgb (14.0-18.0) g/dL Hct (42-52) % MCV (80-100) fL MCH (25-34) pg MCHC (32-36) g/dL RDW Std Deviation (36.4-46.3) fL RDW Coeff of [place] (11.5-14.5) % Plt Count (130-400) K/uL MPV (7.4-10.4) fL Immature Gran % (Auto) % Neut % (Auto) % Lymph % (Auto) % [place] % (Auto) % Eos % (Auto) % Baso % (Auto) % Neut # (Auto) (1.4-6.5) K/uL Lymph # (Auto) (1.2-3.4) K/uL [place] # (Auto) (0.11-0.59) K/uL Eos # (Auto) (0-0.5) K/uL Baso # (Auto) (0-0.2) K/uL Immature Gran # (Auto) (0.00-0.02) K/uL PT (9.0-12.0) Seconds INR (0.9-1.1) Sodium (136-145) mmol/L Potassium 4.6 (3.5-5.1) mmol/L Chloride (98-107) mmol/L Carbon Dioxide (21-32) mmol/L Anion Gap (3-11) BUN (7-18) mg/dl Creatinine (0.6-1.4) mg/dl Est Cr Clr Drug Dosing Est GFR ( Amer) Est GFR (Non-Af Amer) BUN/Creatinine Ratio (10-20) Glucose (70-99) mg/dl POC Glucose 338 H* (70-99) mg/dl Estimat Average Glucose mg/dl Hemoglobin A1c (4.5-5.6) % Calcium (8.5-10.1) mg/dl Magnesium 1.8 (1.8-2.4) mg/dl Total Bilirubin (0.2-1) mg/dl AST 49 H (15-37) U/L ALT (12-78) U/L Alkaline Phosphatase (45-117) U/L Troponin I (0-0.045) ng/ml Total Protein (6.4-8.2) gm/dl Albumin (3.4-5.0) gm/dl Globulin (2.5-4.0) gm/dl Albumin/Globulin Ratio (0.9-2) Beta-Hydroxybutyric Acd (0.2-2.81) mg/dl TSH (0.300-4.500) uIu/ml Free T4 (0.8-1.6) ng/dl Specimen Hemolysis Urine Color Yellow Urine Appearance Clear (Clear) Urine pH 5.0 (4.5-7.5) Ur Specific [place] 1.028 (1.000-1.030) Urine Protein 1+ H (Negative) Urine Glucose (UA) 3+ H (Negative) Urine Ketones Negative (Negative) Urine Blood Negative (Negative) Urine Nitrite Negative (Negative) Urine Bilirubin Negative (Negative) Urine Urobilinogen Negative (Negative) Ur Leukocyte Esterase Negative (Negative) Urine WBC (Auto) 0 (0-5) /hpf Urine RBC (Auto) 0-4 (0-4) /hpf U Hyaline Cast (Auto) 0 (0-5) /lpf U Epithel Cells (Auto) 0-5 (0-5) /lpf Urine Bacteria (Auto) Negative (Negative) COVID-19 Eval Order SARS-CoV-2, RNA, NAAT (NEGATIVE) 06/04/20 06/04/20 06/04/20 Range/Units 16:00 16:00 14:00 WBC (4.8-10.8) K/uL RBC (4.7-6.1) M/uL Hgb (14.0-18.0) g/dL Hct (42-52) % MCV (80-100) fL MCH (25-34) pg MCHC (32-36) g/dL RDW Std Deviation (36.4-46.3) fL RDW Coeff of [place] (11.5-14.5) % Plt Count (130-400) K/uL MPV (7.4-10.4) fL Immature Gran % (Auto) % Neut % (Auto) % Lymph % (Auto) % [place] % (Auto) % Eos % (Auto) % Baso % (Auto) % Neut # (Auto) (1.4-6.5) K/uL Lymph # (Auto) (1.2-3.4) K/uL [place] # (Auto) (0.11-0.59) K/uL Eos # (Auto) (0-0.5) K/uL Baso # (Auto) (0-0.2) K/uL Immature Gran # (Auto) (0.00-0.02) K/uL PT 10.9 (9.0-12.0) Seconds INR 1.0 (0.9-1.1) Sodium (136-145) mmol/L Potassium (3.5-5.1) mmol/L Chloride (98-107) mmol/L Carbon Dioxide (21-32) mmol/L Anion Gap (3-11) BUN (7-18) mg/dl Creatinine (0.6-1.4) mg/dl Est Cr Clr Drug Dosing Est GFR ( Amer) Est GFR (Non-Af Amer) BUN/Creatinine Ratio (10-20) Glucose (70-99) mg/dl POC Glucose (70-99) mg/dl Estimat Average Glucose mg/dl Hemoglobin A1c (4.5-5.6) % Calcium (8.5-10.1) mg/dl Magnesium (1.8-2.4) mg/dl Total Bilirubin (0.2-1) mg/dl AST (15-37) U/L ALT (12-78) U/L Alkaline Phosphatase (45-117) U/L Troponin I (0-0.045) ng/ml Total Protein (6.4-8.2) gm/dl Albumin (3.4-5.0) gm/dl Globulin (2.5-4.0) gm/dl Albumin/Globulin Ratio (0.9-2) Beta-Hydroxybutyric Acd (0.2-2.81) mg/dl TSH (0.300-4.500) uIu/ml Free T4 (0.8-1.6) ng/dl Specimen Hemolysis Urine Color Urine Appearance (Clear) Urine pH (4.5-7.5) Ur Specific [place] (1.000-1.030) Urine Protein (Negative) Urine Glucose (UA) (Negative) Urine Ketones (Negative) Urine Blood (Negative) Urine Nitrite (Negative) Urine Bilirubin (Negative) Urine Urobilinogen (Negative) Ur Leukocyte Esterase (Negative) Urine WBC (Auto) (0-5) /hpf Urine RBC (Auto) (0-4) /hpf U Hyaline Cast (Auto) (0-5) /lpf U Epithel Cells (Auto) (0-5) /lpf Urine Bacteria (Auto) (Negative) COVID[facility]19 [facility] SARS-[facility]-2, RNA, NAAT NEGATIVE (NEGATIVE) 06/04/20 06/04/20 Range/Units 14:00 14:00 WBC 9.29 (4.8-10.8) K/uL RBC 4.68 L (4.7-6.1) M/uL Hgb 17.0 (14.0-18.0) g/dL Hct 47.4 (42-52) % MCV 101.3 H (80-100) fL MCH 36.3 H (25-34) pg MCHC 35.9 (32-36) g/dL RDW Std Deviation 49.9 H (36.4-46.3) fL RDW Coeff of [place] 13.5 (11.5-14.5) % Plt Count 175 (130-400) K/uL MPV 10.5 H (7.4-10.4) fL Immature Gran % (Auto) 2.7 % Neut % (Auto) 61.1 % Lymph % (Auto) 25.6 % [place] % (Auto) 7.5 % Eos % (Auto) 2.8 % Baso % (Auto) 0.3 % Neut # (Auto) 5.67 (1.4-6.5) K/uL Lymph # (Auto) 2.38 (1.2-3.4) K/uL [place] # (Auto) 0.70 H (0.11-0.59) K/uL Eos # (Auto) 0.26 (0-0.5) K/uL Baso # (Auto) 0.03 (0-0.2) K/uL Immature Gran # (Auto) 0.25 H (0.00-0.02) K/uL PT (9.0-12.0) Seconds INR (0.9-1.1) Sodium 131 L (136-145) mmol/L Potassium (3.5-5.1) mmol/L Chloride 98 (98-107) mmol/L Carbon Dioxide 26 (21-32) mmol/L Anion Gap 7.0 (3-11) BUN 28 H (7-18) mg/dl Creatinine 1.57 H (0.6-1.4) mg/dl Est Cr Clr Drug Dosing Not Reportable Est GFR ( Amer) 49.2 Est GFR (Non-Af Amer) 42.5 BUN/Creatinine Ratio 17.5 (10-20) Glucose 343 H* (70-99) mg/dl POC Glucose (70-99) mg/dl Estimat Average Glucose mg/dl Hemoglobin A1c (4.5-5.6) % Calcium 9.0 (8.5-10.1) mg/dl Magnesium (1.8-2.4) mg/dl Total Bilirubin 0.8 (0.2-1) mg/dl AST (15-37) U/L ALT 67 (12-78) U/L Alkaline Phosphatase 178 H (45-117) U/L Troponin I 0.025 (0-0.045) ng/ml Total Protein 6.3 L (6.4-8.2) gm/dl Albumin 3.2 L (3.4-5.0) gm/dl Globulin 3.1 (2.5-4.0) gm/dl Albumin/Globulin Ratio 1.0 (0.9-2) Beta-Hydroxybutyric Acd (0.2-2.81) mg/dl TSH 58.100 H (0.300-4.500) uIu/ml Free T4 0.23 L (0.8-1.6) ng/dl Specimen Hemolysis Urine Color Urine Appearance (Clear) Urine pH (4.5-7.5) Ur Specific [place] (1.000-1.030) Urine Protein (Negative) Urine Glucose (UA) (Negative) Urine Ketones (Negative) Urine Blood (Negative) Urine Nitrite (Negative) Urine Bilirubin (Negative) Urine Urobilinogen (Negative) Ur Leukocyte Esterase (Negative) Urine WBC (Auto) (0-5) /hpf Urine RBC (Auto) (0-4) /hpf U Hyaline Cast (Auto) (0-5) /lpf U Epithel Cells (Auto) (0-5) /lpf Urine Bacteria (Auto) (Negative) COVID-19 Eval Order SARS-CoV-2, RNA, NAAT (NEGATIVE) Medications Administered Current Inpatient Medications Acetaminophen (Acetaminophen 325 Mg Tab) 650 mg PO Q4H PRN PRN Reason: Pain or Fever Stop: 07/04/20 18:32 Aspirin (Aspirin 81 Mg Ectab) 81 mg PO DAILY [facility] Stop: 07/05/20 08:59 Last Admin: 06/05/20 07:57 Dose: 81 mg Documented by: Atorvastatin Calcium (Atorvastatin 40 Mg Tab) 40 mg PO DAILY [facility] Stop: 07/05/20 08:59 Last Admin: 06/05/20 07:56 Dose: 40 mg Documented by: Clopidogrel Bisulfate (Clopidogrel Bisulfate 75 Mg Tab) 75 mg PO DAILY [facility] Stop: 07/05/20 08:59 Last Admin: 06/05/20 07:57 Dose: 75 mg Documented by: Dextrose (Dextrose 50% 50 Ml Syringe) 25 - 50 ml IV UD PRN; Protocol PRN Reason: Hypoglycemia Protocol Stop: 07/04/20 17:59 Famotidine (Famotidine 20 Mg Tab) 20 mg PO HS [facility] Stop: 07/04/20 20:59 Last Admin: 06/04/20 21:09 Dose: Not Given Documented by: Glucagon (Glucagon For Inj 1 Mg Vial) 1 mg IM UD PRN; Protocol PRN Reason: Hypoglycemia Protocol Stop: 07/04/20 17:59 Glucose (Glucose 40% Gel 15 Gm Tube) 15 - 30 gm PO UD PRN; Protocol PRN Reason: Hypoglycemia Protocol Stop: 07/04/20 17:59 Glucose (Glucose 10 Tabs/Tube) 4 - 8 tabs PO UD PRN; Protocol PRN Reason: Hypoglycemia Protocol Stop: 07/04/20 17:59 Heparin Sodium (Porcine) (Heparin Sod 5,000 Unit/0.5 Ml Vial) 5,000 units SQ Q8 EUN Stop: 07/04/20 21:59 Last Admin: 06/05/20 06:28 Dose: Not Given Documented by: Insulin Aspart (Insulin Aspart 100 Units/Ml 3 Ml Pen) 0 units SC ACHS [facility] Stop: 07/04/20 17:44 Last Admin: 06/05/20 07:59 Dose: 7 units Documented by: Insulin Glargine (Insulin Glargine Solostar 100 Units/Ml 3 Ml Pen) 17 units SC DAILY [facility] Stop: 07/05/20 08:59 Last Admin: 06/05/20 08:00 Dose: 17 units Documented by: Levothyroxine Sodium (Levothyroxine Sodium 100 Mcg Tablet) 100 mcg PO MOWEFR@0700 [facility] Stop: 07/07/20 06:59 Levothyroxine Sodium (Levothyroxine Sodium 200 Mcg Tablet) 200 mcg PO SUTUTHSA @0700 [facility] Stop: 07/05/20 06:59 Last Admin: 06/05/20 06:29 Dose: 200 mcg Documented by: Miscellaneous (Carbohydrates For Hypoglycemia ) 15 - 30 gm PO UD PRN PRN Reason: Hypoglycemia Treatment Stop: 07/04/20 17:59 Miscellaneous (Remove Nicoderm Patch) 1 ea N/A DAILY@0859 [facility] Stop: 07/05/20 08:58 Last Admin: 06/05/20 08:00 Dose: 1 ea Documented by: Miscellaneous Information (Pharmacy Glycemic Mgmt Consult) 1 ea N/A UD PRN; Protocol PRN Reason: Consult Stop: 07/04/20 17:23 Nicotine (Nicotine 14 Mg/24 Hr Patch) 14 mg TD QAM [facility] Stop: 07/04/20 20:59 Last Admin: 06/05/20 08:00 Dose: 14 mg Documented by: Nitroglycerin (Nitroglycerin Sl 0.4 Mg/Tab Tab) 0.4 mg SL UD PRN PRN Reason: chest pain Stop: 07/04/20 18:29 Polyethylene Glycol (Polyethylene (Miralax) 17 Gm Pack) 17 gm PO DAILY PRN PRN Reason: Constipation Stop: 07/04/20 18:32 (1) Vascular dementia Dementia behavioral disturbance: without behavioral disturbance Qualified Code(s): F01.50 - Vascular dementia without behavioral disturbance (2) Hypothyroidism Hypothyroidism type: unspecified Qualified Code(s): E03.9 - Hypothyroidism, unspecified (3) COPD (chronic obstructive pulmonary disease) COPD type: unspecified COPD Qualified Code(s): J44.9 - Chronic obstructive pulmonary disease, unspecified (4) Type 2 diabetes mellitus Diabetes mellitus exterminator insulin use: without exterminator use Diabetes mellitus complication status: with kidney complications Diabetes mellitus complication detail: with chronic kidney disease Chronic kidney disease stage: stage 3 (moderate) Qualified Code(s): E11.22 - Type 2 diabetes mellitus with diabetic chronic kidney disease; N18.3 - Chronic kidney disease, stage 3 (moderate) (5) Coronary artery disease Coronary Disease-Associated Artery/Lesion type: [place] artery [place] vs. transplanted heart: [place] heart Associated angina: without angina Qualified Code(s): I25.10 - Atherosclerotic heart disease of [place] coronary artery without angina pectoris
[2020-06-05] MEDS: SODIUM CHLORIDE 0.9% 500 ML IV SCH ×3 (09:50→21:03)
[2020-06-05] MEDS ORDERED: INSULIN GLARGINE SOLOSTAR 100 UNITS/ML 3 ML PEN SC ONE (12:00)
--- NOTE | 2020-06-05 15:37 | Psychiatric Consultation ---
Date of Consultation June 05, 2020 Impression / Recommendations Impression The patient is a 74yo MWM with a h/o multiple medical problems to include vascular dementia, and current profound hypothyroidism and abrupt nicotine cessation. Agree with medical teams thorough efforts to restart meds most importantly regarding cognition/mood/volition/cooperativity is his thyroid medication and covering nicotine withdrawal to assist with cognition and reduce agitation and restore to whatever degree patient's cognition and volition. 1. Keep 1:to1 at the bedside for verbal orientation, redirection and verbal de- escalation when possible, even to signal the nurse when patient is awake to coordinate care when he is most likely to accept "being bothered." 2. ORIENTATION - Please ask to bring his hearing aids and glasses. - Please keep both on in the day to facilitate his abiltiy to engage with his environment. -Please Keep lights on in day, lights off at night, minimize night disturbances - consider out of bed to chair in the day to facilitate day/night schedule if he is willing. - allow him to walk in the day if stable when he wishes as the acitivty is good for his global wellbeing and will facilitate sleep at night 3. Behavioral DIsturbances - most likely due to profound hypothyroidism on top of vascular dementia best intervention is his thyroid hormone as you are doing, this should make a profound difference - agree with nicotine patch - Orienting as above - If he becomes agitated, haldol 2mg IV q6 hours prn severe agitation please consider having him on telemetry, optimizing potassium and magnesium and following QTc there is a sedation risk and mortality risk using antipsychotis in elderly and those with vascular dementia. If patient is agitated and unable to receive his medical care he is also at increased mortality risk. This is a risk/benefit calculation and the haldol should only be used for severe agitation that is precluding medical care/safety where the above behavioral and verbal de- escalation strategies have failed. -( if agitation persists consistently while waiting for normalization of thyroid, or above strategies are not fully effective, or patient is moved to SNF, please consider low dose sertraline 25mg po qday to reduce i rritability/agitation) CPT Code 13679 Psych History Identifying Data This is a 74yo M with a complicated medical history including vascular dementia, CAD (s/p stents), PVD (s/p R fem pop stent in 2018), CKD III (s/p nephrectomy), DM II, h/o lung cancer (s/p RUL resection), hypothyroidism and other medical problems listed below who presents with increased confusion x 2 months to include inability to comply with medications and is no longer able to support his physical/medical needs in the home. Chief Complaint "Come back later.....(later) Okay". History of Present Illness The patient is a 74-year-old male with history of multiple medical concerns. Collateral obtained from outpatient health nurse liaison for patient's Alida the patient began to refuse taking his medications started at the beginning of May 2020. In addition he had become incontinent of urine and feces at which time she tried to use depends. Patient became agitated and then yesterday when she attempted to change soiled depends. He was declining breathing and his blood sugars have been elevated in an attic. She was carefully stating she felt unable to continue to care for his needs at home Feeling sad that he may need increased level of care. Per medical notes kamila's altered mental status possibly due to vascular dementia and may be further complicated by poor compliance with medications to include significant hypothyroidism with a TSH of 58 as well as nicotine withdrawal having abruptly discontinued smoking after 50+ pack years a week ago. Nicotine patch was placed patient has been restarted on his outpatient medications. With nursing staff he has been noted to be alert to person only and at times can become verbally hostile with staff. He does have one-to-one at the bedside and is noted mainly to sleep. He did receive Haldol 5 mg IM on Sunday, 04 June at 104 for agitation. Psychiatry was consulted with the question regarding recommendations for behavioral disturbances in a patient with dementia. Met with patient at the bedside first attempt in seeing him today he declined to be seen and will devote back to sleep. I did go back about 30 minutes later and he reluctantly agreed to talk with me. He is notably hard of hearing. History is limited the patient states he has never seen a psychiatrist before often saying "I do not know." To questions he knows he is in a hospital he knows his name but otherwise is not oriented to the year day date or season. First said it was bring. Even when I prompted him it was snowing he did not answer what season he thought it might be. When I ask if he was feeling down or low or sad he stated "I do not know." He denied thoughts of wanting to harm himself or downtime. When asked if he was tired he said "yes." But really did not participate meaningfully in the remainder of the interview. He did state, "you ask so many questions." He denied feeling and present physical pain. He denied feeling angry. He denied feeling paranoid. He cannot participate meaningfully regarding his refusal to take medications, nor his intermittant irritability. Patient does not have a known mental health primary history per patient or family. Medical work up is thorough to include head imaging with no acute intracranial processes. Past Psychiatric History Previous Psych History: no formal psychiatric history Allergies Allergy/AdvReac Type Severity Reaction Status Date / Time Iodinated Contrast Media Allergy Intermediate swelling Verified 01/12/20 11:16 Home Medications Medication Instructions Recorded Confirmed Type aspirin 81 mg PO DAILY 07/16/18 06/04/20 History atorvastatin 40 mg PO DAILY 07/16/18 06/04/20 History clopidogrel 75 mg PO DAILY 07/16/18 06/04/20 History famotidine 20 mg PO HS 06/10/19 06/04/20 History glipizide 10 mg tablet 10 mg PO BID 01/12/20 06/04/20 History ipratropium-albuterol [DuoNeb] 3 ml INHALATION Q6H PRN 06/04/20 06/04/20 History levothyroxine 100 mcg PO MOWEFR@0700 06/04/20 06/04/20 History levothyroxine 200 mcg PO SUTUTHSA@0700 06/04/20 06/04/20 History metformin 1,000 mg PO BID 06/04/20 06/04/20 History nitroglycerin [Nitrostat] 0.4 mg SUBLINGUAL UD 06/04/20 06/04/20 History Personal History Living Arrangements: Home (with who is presently overwhelmed with patient's medical needs) Marital Status: Beliefs That Will Affect Care: None Patient History Medical History (Updated 06/04/20 @ 18:44 by Tiesha Rodriguez PA-C) AAA (abdominal aortic aneurysm) Carotid stenosis, non-symptomatic CKD (chronic kidney disease), stage III Coronary artery disease Dyslipidemia History of nonmelanoma skin cancer Hypothyroidism 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 IA (myocardial infarction) "2008 and 2014 s/p multiple stent placements " Primary cancer of right upper lobe of lung PVD (peripheral vascular disease) Tobacco use disorder Type 2 diabetes mellitus Vascular dementia Surgical History (Updated 06/04/20 @ 18:44 by Tiesha Rodriguez PA-C) History of left-sided carotid endarterectomy S/P AAA repair S/P appendectomy S/P colonoscopy with polypectomy S/P coronary artery stent placement S/P cystourethroscopy with dilation of urethral stricture S/P laparoscopic cholecystectomy "with umbilical hernia repair" S/p nephrectomy "left nephrectomy with partial ureterectomy" S/P rotator cuff repair S/P tonsillectomy and adenoidectomy Family History Father Myocardial infarction Mother Colon cancer Other Cancer Heart disease Denies family history of Lung disease Asthma Social History Smoking Status: Former smoker Tobacco Type: Cigarettes Age Started Using Tobacco: 12; packs per day: 1; Years Smoked: 62; Cigarettes Per Day: 20; Smoking End Date: 05/28/20; Second Hand Exposure: Yes; Do You Dip or Chew Tobacco: No; Hx Alcohol Use: No Hx Substance Use: No Preferred Language: Frisian Communication Ability: Impaired 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 Consultant Required: No Beliefs That Will Affect Care: None marital status: Current Living Situation: Spouse current occupational status: retired How many Children do You have: 4 Other Information That Helps Us Care for You: No Feels Safe at Home: Yes Safety Concerns: Feels Safe At This Time Assistive Devices: None Physical Exam Psychiatric: Orientation: oriented to person and oriented to place ("hospital" but said "Yelena" told him he was at the [facility]); + not oriented to time he arouses to verbal stimuli (yelling volume due to hearing impairment), and then second interview did keep eyes open while provider engaged him promptly closed them once provider said goodby Apperance: + disheveled Eye Contact: + fair eye contact Motor Behavior: no abnormal motor movements Speech: normal rate/rhythm/volume of speech (weary tone) blunted, he was irritable tone first interaction then more gruff non-descript feeling of indifference second visit "I don't know" appears tired and easily on edge minimal spontaneous speech answers in 1-2 word answers denies IOR, AVH, paranoia, minimal spontaneous content saying "no" or "I don't know" to many questions Suicidal Thoughts: denies suicidal thoughts Homicidal Thoughts: denies homicidal thoughts Hallucinations: no auditory hallucinations and no visual hallucinations attention is fair, but very poor memory, very poor orientation difficult to assess given limited engagement and hearing loss Insight: + poor insight Judgement: + poor judgement Vital Signs (Past 24 Hours): Last Vital Signs Temp 36.2 C L 06/05/20 15:12 Pulse 82 06/05/20 15:12 Resp 20 06/05/20 15:12 BP 114/75 06/05/20 15:12 Pulse Ox 93 06/05/20 15:12 Results & Data (PSY) Medications Administered Aspirin (Aspirin 81 Mg Ectab) 81 mg PO DAILY [facility] Stop: 07/05/20 08:59 Last Admin: 06/05/20 07:57 Dose: 81 mg Documented by: [id number] Atorvastatin Calcium (Atorvastatin 40 Mg Tab) 40 mg PO DAILY [facility] Stop: 07/05/20 08:59 Last Admin: 06/05/20 07:56 Dose: 40 mg Documented by: [id number] Clopidogrel Bisulfate (Clopidogrel Bisulfate 75 Mg Tab) 75 mg PO DAILY [facility] Stop: 07/05/20 08:59 Last Admin: 06/05/20 07:57 Dose: 75 mg Documented by: [id number] Famotidine (Famotidine 20 Mg Tab) 20 mg PO HS [facility] Stop: 07/04/20 20:59 Last Admin: 06/04/20 21:09 Dose: Not Given Documented by: [id number] Heparin Sodium (Porcine) (Heparin Sod 5,000 Unit/0.5 Ml Vial) 5,000 units SQ Q8 [facility] Stop: 07/04/20 21:59 Last Admin: 06/05/20 14:39 Dose: Not Given Documented by: [id number] Admin: 06/05/20 06:28 Dose: Not Given Documented by: [id number] Admin: 06/04/20 21:09 Dose: Not Given Documented by: [id number] Sodium Chloride (Nss) 500 mls @ 100 mls/hr IV .Q5H [facility] Stop: 07/05/20 09:29 Last Infusion: 06/05/20 15:04 Dose: 0 mls/hr Documented by: [id number] Admin: 06/05/20 09:50 Dose: 100 mls/hr Documented by: [id number] Insulin Aspart (Insulin Aspart 100 Units/Ml 3 Ml Pen) 0 units SC ACHS [facility] Stop: 07/04/20 17:44 Last Admin: 06/05/20 12:09 Dose: 5 units Documented by: [id number] Cosigned by: [id number] Admin: 06/05/20 07:59 Dose: 7 units Documented by: [id number] Cosigned by: [id number] Admin: 06/04/20 21:28 Dose: Not Given Documented by: [id number] Admin: 06/04/20 19:07 Dose: 11 units Documented by: [id number] Cosigned by: [id number] Levothyroxine Sodium (Levothyroxine Sodium 200 Mcg Tablet) 200 mcg PO SUTUTHSA@0700 [facility] Stop: 07/05/20 06:59 Last Admin: 06/05/20 06:29 Dose: 200 mcg Documented by: [id number] Miscellaneous (Remove Nicoderm Patch) 1 ea N/A DAILY@0859 [facility] Stop: 07/05/20 08:58 Last Admin: 06/05/20 08:00 Dose: 1 ea Documented by: [id number] Nicotine (Nicotine 14 Mg/24 Hr Patch) 14 mg TD QAM [facility] Stop: 07/04/20 20:59 Last Admin: 06/05/20 08:00 Dose: 14 mg Documented by: [id number] Admin: 06/04/20 21:52 Dose: 14 mg Documented by: [id number] Coding Level of Care Code 78495 U Intl Hosp Care Lvl 2
[2020-06-05] MEDS: FAMOTIDINE 20 MG TAB PO SCH (19:57)
[2020-06-06] MEDS: HEPARIN SOD 5,000 UNIT/0.5 ML VIAL SQ SCH ×3 (05:52→20:25)
[2020-06-06] MEDS: LEVOTHYROXINE SODIUM 200 MCG TABLET PO SCH (06:01)
[2020-06-06 06:15] LABS: Hematocrit (blood only) 49.5 % (42-52); Hemoglobin 17.2 g/dL (14.0-18.0); Mean Corpuscular Hemoglobin 35.5 pg (25-34); Mean Corpuscular Hgb Conc 34.7 g/dL (32-36); Mean Corpuscular Volume 102.1 fL (80-100); Mean Platelet Volume 10.1 fL (7.4-10.4); Platelet Count 166 K/uL (130-400); RDW Coefficient of Variation 13.5 % (11.5-14.5); RDW Standard Deviation 50.3 fL (36.4-46.3); Red Blood Count 4.85 M/uL (4.7-6.1); White Blood Count 10.71 K/uL (4.8-10.8)
[2020-06-06 06:43] LABS: BUN Creatinine Ratio 16.6 (10-20); Calcium 8.9 mg/dl (8.5-10.1); Creatinine Clr Calc Pharmacy 43.9 ml/min; Est GFR (African American) 47.8; Est GFR (Non-African American) 41.2; Magnesium 1.6 mg/dl (1.8-2.4); Phosphorus 3.1 mg/dl (2.5-4.9); Potassium 4.1 mmol/L (3.5-5.1)
[2020-06-06] MEDS: INSULIN ASPART 100 UNITS/ML 3 ML PEN SC SCH ×4 (08:03→20:26)
[2020-06-06] MEDS: CLOPIDOGREL BISULFATE 75 MG TAB PO SCH (08:04)
[2020-06-06] MEDS: ASPIRIN 81 MG ECTAB PO SCH (08:04)
[2020-06-06] MEDS: ATORVASTATIN 40 MG TAB PO SCH (08:04)
[2020-06-06] MEDS: NICOTINE 14 MG/24 HR PATCH TD SCH (08:05)
[2020-06-06] MEDS ORDERED: INSULIN GLARGINE SOLOSTAR 100 UNITS/ML 3 ML PEN SC SCH (09:00)
--- NOTE | 2020-06-06 09:25 | Pharmacy Report ---
Pharmacy Glycemic Short Note 2 - Date of Service June 06, 2020 - Glycemic Short BSG Results (Last 24 hours): 06/05/20 06/05/20 06/05/20 11:38 16:37 21:27 Glucose POC Glucose 190 H 174 H 158 H 06/06/20 06/06/20 05:59 07:13 Glucose 134 H POC Glucose 136 H OUTPATIENT ANTIDIABETIC REGIMEN: * glipizide 10 mg bid, metformin 1 gm bid * A1c ~10 05/16/2019 per records * A1c = 12.8% on 06/05/20 ASSESSMENT: 06/06/20: * Pt has received 58 units of insulin over the past 24hrs * 34 units of basal insulin with Lantus * 24 units of bolus insulin with NovoLog per CF+CR * BSGs [phone] mg/dl * BSGs adequately controlled with current regimen * AF fasting BSG is in goal range * Post-prandial BSGs in goal range * Will continue current dosing and titrate based on BSG trends. May need to adjust insulin dosing as TSH normalizes. 06/05: * AM fasting BSG elevated this morning at 196mg/dl. Basal insulin will be required based on AM fasting BSG and A1c >10% * Since BSG dropped so dramatically last evening with one dose of IV insulin will start conservatively with basal insulin and titrate based on BSG trends. Start with moderate stress weight based dosing and titrate based on BSG trends * Will try to keep basal insulin once daily to prep for DC. Pt will need insulin at discharge. 06/04 * 74 year old PMHx of dementia, CAD, CKD III, DM2, h/o lung Ca, hypothyroidism. Presenting with increased confusion x 2 months. Noncompliance noted with medications. * Last A1c over a year ago - elevated ~10%, unclear recent control. A1c ordered for tomorrow AM * Pharmacy consulted for glycemic control. BSG at time of consult 356 mg/dL - plan to start novolog CF/CR between stress of 2/3 and will plan to give IV insulin bolus (based upon adj bw). Recheck BSG at HS trending down significantly to 91 mg/dL. Patient does not report any changes with mental status/confusion with rapid decrease in BSG * Plan to hold basal for now, will reassess in AM if necessary PLAN FOR INPATIENT GLYCEMIC CONTROL: * Hold outpatient oral diabetes medications * Basal insulin * Lantus 35 units SQ daily in AM * Bolus insulin * NovoLog per scale ACHS or Q6hrs while NPO * Goal Range: Low 110 mg/dL - High 140 mg/dL * Correction Factor: 25 mg/dL/unit * Nutritional / Prandial insulin per carb ratio of 1 unit per 8 grams CHO consumed PLAN FOR DISCHARGE: * A1c = 12.8% on 06/05/20 * Goal A1c = 7-8% based on age/co-morbidities * A1c is greater than or equal to 10% consider triple therapy with metformin + basal insulin + (GLP1-RA OR prandial insulin OR may continue glipizide) * Doses TBD based on inpatient insulin data; but patient seems to be tolerating Lantus 35 units SQ daily + NovoLog 8 units SQ TIDM * Re-evaluate metformin based on renal function at DC * May consider stopping glipizide if NovoLog is initiated at DC
[2020-06-06] MEDS ORDERED: MAGNESIUM SULFATE / D5W 1 GM/100 ML BAG IV ONE (11:30)
--- NOTE | 2020-06-06 11:46 | Hospitalist Progress Note ---
Date of Service June 06, 2020 Assessment & Plan (1) Acute alteration in mental status: (2) Medication noncompliance due to cognitive impairment: (3) Vascular dementia: (4) Acute hyperglycemia: (5) Hypothyroidism: (6) Hyponatremia: (7) CKD (chronic kidney disease), stage III: (8) COPD (chronic obstructive pulmonary disease): (9) PVD (peripheral vascular disease): (10) Tobacco use disorder: (11) Type 2 diabetes mellitus: (12) Coronary artery disease: This is a 74yo M with a PMH of vascular dementia, CAD (s/p stents), PVD (s/p R fem pop stent in 2018), CKD III (s/p nephrectomy), DM II, h/o lung cancer (s/p RUL resection), hypothyroidism and other medical problems listed below who presents with increased confusion x 2 months. Acute metabolic encephalopathy Progressed vascular dementia Medication non-compliance Confusion multifactorial due to advanced vascular dementia, medication noncompliance, ? nicotine withdrawal CT head without acute intracranial abnormality. No evidence of infection in urine or on chest x-ray. Covid screen negative Does have significantly elevated TSH and low free T4 in the setting of noncompliance with levothyroxine with hypothyroidism Expect improvement of acute confusion with med compliance although baseline cognitive impairment from dementia no longer able to care for patient at home -has become a hygiene and safety issue. PT/OT evaluation. Case mgmt consult for assistance with placement Psychiatry consult for progressive vascular dementia with behavioral disturbance Continue gentle fluids as tolerated, one-to-one observation Pt is calm and able to answer simple questions. He is able to tell me his name but can't say where he is or where he lives. However pulled his IV access out again, will try to give medications PO Hypothyroidism TSH 58 In setting of medication non-compliance Confirmed levothyroxine dose with , and resumed Will need follow up TSH in 3-4 weeks Acute hyperglycemia DM II , uncontrolled Current Hgb A1c 12.8% BSG elevated on admission at 343 Hold home agents SSI while in-patient Glycemic consult placed BSG AC HS CKD III Kidney function at baseline. Monitor with daily BMP Hyponatremia Na 131 - psuedohyponatremia in setting of hyperglycemia. Corrected Na 136 Current Na improved (also blood glc level improved) CAD PVD Continue medical mgmt with aspirin, statin and plavix COPD Not taking any home medications, inhalers or nebulizers Tobacco use disorder Smokes 1.5-2 ppd for the past 50 years but recently stopped smoking 7 days ago Possibly contributing to dilirium Nicotine patch DVT Ppx: SQ heparin Code status: DNR per discussion with PCP: Dr. Charles Dispo: Admitted to med/surg. Discharge planning ordered. Admission and Anticipated Discharge Date Admission Date: June 04, 2020 Subjective Pt seen in follow up of AMS in the setting of dementia, uncontrolled DM type 2 , hypothyroidism. Currently pt is laying in bed in NAD. He is able to tell me his name. He is calm, hard of hearing, 1:1 sitter present - she reports pt is more sleepy today. Yesterday he was walking in hallways more. So far no major behavioral issues but pulled out his IV access again. Seen by psychiatry yesterday. CM involved in DC planning. Review of Systems Review of Systems: All systems reviewed & are unremarkable except as noted in HPI & below Constitutional: no fever and no chills Respiratory: no cough and no dyspnea Cardiovascular: no chest pain and no palpitations Gastrointestinal: no abdominal pain, no nausea and no vomiting Physical Exam Physical Exam: General Appearance: obese male resting in bed, in NAD, does not communicate much but answers simple questions Head: normocephalic, atraumatic Eyes: normal inspection, PERRL, EOMI, conjunctivae normal, anicteric sclerae ENT: hard of hearing, external ear and nose normal, oropharynx normal Neck: normal visual inspection, trachea midline, no thyromegaly Respiratory: normal respiratory effort, diminished lung sounds, no wheeze, rales, rhonchi. No accessory muscle use Cardiovascular: regular rate, rhythm, no murmur appreciated, normal peripheral pulses, no BLE edema. Vessels: no JVD Chest: normal inspection of chest Abdomen/GI: normal bowel sounds, soft, nontender, nondistended, obese Extremities/Musculoskeletal: no cyanosis or clubbing, moves extremities Neurologic: PERRL, EOMI, no face palsy, no dysarthria, moves all extremities Psychiatric: A+O to self, not to place, time or situation, euthymic affect Skin: no rashes, normal color, warm/dry Results & Data Results & Data ([facility]) Vital Signs (Past 12 Hours) Vital Signs Temp Pulse Resp BP Pulse Ox 06/06/20 07:10 36.4 C L 92 H 19 106/65 93 Laboratory Results 06/06/20 06/06/20 06/06/20 Range/Units 11:41 11:40 07:13 WBC (4.8-10.8) K/uL RBC (4.7-6.1) M/uL Hgb (14.0-18.0) g/dL Hct (42-52) % MCV (80-100) fL MCH (25-34) pg MCHC (32-36) g/dL RDW Std Deviation (36.4-46.3) fL RDW Coeff of Martinez (11.5-14.5) % Plt Count (130-400) K/uL MPV (7.4-10.4) fL Sodium (136-145) mmol/L Potassium (3.5-5.1) mmol/L Chloride (98-107) mmol/L Carbon Dioxide (21-32) mmol/L Anion Gap (3-11) BUN (7-18) mg/dl Creatinine (0.6-1.4) mg/dl Est Cr Clr Drug Dosing ml/min Est GFR ( Amer) Est GFR (Non-Af Amer) BUN/Creatinine Ratio (10-20) Glucose (70-99) mg/dl POC Glucose 300 H 310 H* 136 H (70-99) mg/dl Calcium (8.5-10.1) mg/dl Phosphorus (2.5-4.9) mg/dl Magnesium (1.8-2.4) mg/dl 06/06/20 06/06/20 06/05/20 Range/Units 05:59 05:59 21:27 WBC 10.71 (4.8-10.8) K/uL RBC 4.85 (4.7-6.1) M/uL Hgb 17.2 (14.0-18.0) g/dL Hct 49.5 (42-52) % MCV 102.1 H (80-100) fL MCH 35.5 H (25-34) pg MCHC 34.7 (32-36) g/dL RDW Std Deviation 50.3 H (36.4-46.3) fL RDW Coeff of [place] 13.5 (11.5-14.5) % Plt Count 166 (130-400) K/uL MPV 10.1 (7.4-10.4) fL Sodium 136 (136-145) mmol/L Potassium 4.1 (3.5-5.1) mmol/L Chloride 101 (98-107) mmol/L Carbon Dioxide 27 (21-32) mmol/L Anion Gap 7.0 (3-11) BUN 27 H (7-18) mg/dl Creatinine 1.61 H (0.6-1.4) mg/dl Est Cr Clr Drug Dosing 43.9 ml/min Est GFR ( Amer) 47.8 Est GFR (Non-Af Amer) 41.2 BUN/Creatinine Ratio 16.6 (10-20) Glucose 134 H (70-99) mg/dl POC Glucose 158 H (70-99) mg/dl Calcium 8.9 (8.5-10.1) mg/dl Phosphorus 3.1 (2.5-4.9) mg/dl Magnesium 1.6 L (1.8-2.4) mg/dl 06/05/20 Range/Units 16:37 WBC (4.8-10.8) K/uL RBC (4.7-6.1) M/uL Hgb (14.0-18.0) g/dL Hct (42-52) % MCV (80-100) fL MCH (25-34) pg MCHC (32-36) g/dL RDW Std Deviation (36.4-46.3) fL RDW Coeff of [place] (11.5-14.5) % Plt Count (130-400) K/uL MPV (7.4-10.4) fL Sodium (136-145) mmol/L Potassium (3.5-5.1) mmol/L Chloride (98-107) mmol/L Carbon Dioxide (21-32) mmol/L Anion Gap (3-11) BUN (7-18) mg/dl Creatinine (0.6-1.4) mg/dl Est Cr Clr Drug Dosing ml/min Est GFR ( Amer) Est GFR (Non-Af Amer) BUN/Creatinine Ratio (10-20) Glucose (70-99) mg/dl POC Glucose 174 H (70-99) mg/dl Calcium (8.5-10.1) mg/dl Phosphorus (2.5-4.9) mg/dl Magnesium (1.8-2.4) mg/dl Medications Administered Current Inpatient Medications Acetaminophen (Acetaminophen 325 Mg Tab) 650 mg PO Q4H PRN PRN Reason: Pain or Fever Stop: 07/04/20 18:32 Aspirin (Aspirin 81 Mg Ectab) 81 mg PO DAILY EUN Stop: 07/05/20 08:59 Last Admin: 06/06/20 08:04 Dose: 81 mg Documented by: Atorvastatin Calcium (Atorvastatin 40 Mg Tab) 40 mg PO DAILY EUN Stop: 07/05/20 08:59 Last Admin: 06/06/20 08:04 Dose: 40 mg Documented by: Clopidogrel Bisulfate (Clopidogrel Bisulfate 75 Mg Tab) 75 mg PO DAILY EUN Stop: 07/05/20 08:59 Last Admin: 06/06/20 08:04 Dose: 75 mg Documented by: Dextrose (Dextrose 50% 50 Ml Syringe) 25 - 50 ml IV UD PRN; Protocol PRN Reason: Hypoglycemia Protocol Stop: 07/04/20 17:59 Famotidine (Famotidine 20 Mg Tab) 20 mg PO HS EUN Stop: 07/04/20 20:59 Last Admin: 06/05/20 19:57 Dose: 20 mg Documented by: Glucagon (Glucagon For Inj 1 Mg Vial) 1 mg IM UD PRN; Protocol PRN Reason: Hypoglycemia Protocol Stop: 07/04/20 17:59 Glucose (Glucose 40% Gel 15 Gm Tube) 15 - 30 gm PO UD PRN; Protocol PRN Reason: Hypoglycemia Protocol Stop: 07/04/20 17:59 Glucose (Glucose 10 Tabs/Tube) 4 - 8 tabs PO UD PRN; Protocol PRN Reason: Hypoglycemia Protocol Stop: 07/04/20 17:59 Heparin Sodium (Porcine) (Heparin Sod 5,000 Unit/0.5 Ml Vial) 5,000 units SQ Q8 EUN Stop: 07/04/20 21:59 Last Admin: 06/06/20 05:52 Dose: Not Given Documented by: Magnesium Sulfate/Dextrose (Magnesium Sulfate / D5w) 1 gm in 100 mls @ 50 mls/hr IV ONE ONE Stop: 06/06/20 13:29 Insulin Aspart (Insulin Aspart 100 Units/Ml 3 Ml Pen) 0 units SC ACHS EUN Stop: 07/04/20 17:44 Last Admin: 06/06/20 08:03 Dose: 6 units Documented by: Insulin Glargine (Insulin Glargine Solostar 100 Units/Ml 3 Ml Pen) 35 units SC DAILY [facility] Stop: 07/06/20 08:59 Last Admin: 06/06/20 08:04 Dose: 35 units Documented by: Levothyroxine Sodium (Levothyroxine Sodium 100 Mcg Tablet) 100 mcg PO MOWEFR@0700 [facility] Stop: 07/07/20 06:59 Levothyroxine Sodium (Levothyroxine Sodium 200 Mcg Tablet) 200 mcg PO SUTUTHSA@0700 [facility] Stop: 07/05/20 06:59 Last Admin: 06/06/20 06:01 Dose: 200 mcg Documented by: Magnesium Oxide (Magnesium Oxide 400 Mg Tab) 400 mg PO BID [facility] Stop: 07/06/20 11:44 Miscellaneous (Carbohydrates For Hypoglycemia ) 15 - 30 gm PO UD PRN PRN Reason: Hypoglycemia Treatment Stop: 07/04/20 17:59 Miscellaneous (Remove Nicoderm Patch) 1 ea N/A DAILY@0859 [facility] Stop: 07/05/20 08:58 Last Admin: 06/06/20 08:04 Dose: 1 ea Documented by: Miscellaneous Information (Pharmacy Glycemic Mgmt Consult) 1 ea N/A UD PRN; Protocol PRN Reason: Consult Stop: 07/04/20 17:23 Nicotine (Nicotine 14 Mg/24 Hr Patch) 14 mg TD QAM [facility] Stop: 07/04/20 20:59 Last Admin: 06/06/20 08:05 Dose: 14 mg Documented by: Nitroglycerin (Nitroglycerin Sl 0.4 Mg/Tab Tab) 0.4 mg SL UD PRN PRN Reason: chest pain Stop: 07/04/20 18:29 Polyethylene Glycol (Polyethylene (Miralax) 17 Gm Pack) 17 gm PO DAILY PRN PRN Reason: Constipation Stop: 07/04/20 18:32 (1) Vascular dementia Dementia behavioral disturbance: without behavioral disturbance Qualified Code(s): F01.50 - Vascular dementia without behavioral disturbance (2) Type 2 diabetes mellitus Chronic kidney disease stage: stage 3 (moderate) Diabetes mellitus complication detail: with chronic kidney disease Diabetes mellitus complication status: with kidney complications Diabetes mellitus watermaster insulin use: without watermaster use Qualified Code(s): E11.22 - Type 2 diabetes mellitus with diabetic chronic kidney disease; N18.3 - Chronic kidney disease, stage 3 (moderate) (3) Coronary artery disease Associated angina: without angina Coronary Disease-Associated Artery/Lesion type: [place] artery [place] vs. transplanted heart: [place] heart Qualified Code(s): I25.10 - Atherosclerotic heart disease of [place] coronary artery without angina pectoris (4) Hypothyroidism Hypothyroidism type: unspecified Qualified Code(s): E03.9 - Hypothyroidism, unspecified (5) COPD (chronic obstructive pulmonary disease) COPD type: unspecified COPD Qualified Code(s): J44.9 - Chronic obstructive pulmonary disease, unspecified
[2020-06-06] MEDS: MAGNESIUM OXIDE 400 MG TAB PO SCH ×2 (12:06→20:25)
[2020-06-06] MEDS: FAMOTIDINE 20 MG TAB PO SCH (20:27)
[2020-06-07] MEDS: INSULIN ASPART 100 UNITS/ML 3 ML PEN SC SCH ×6 (00:11→20:25)
[2020-06-07] MEDS: HEPARIN SOD 5,000 UNIT/0.5 ML VIAL SQ SCH ×3 (05:21→20:30)
[2020-06-07] MEDS: LEVOTHYROXINE SODIUM 100 MCG TABLET PO SCH (05:46)
[2020-06-07 06:01] LABS: Hematocrit (blood only) 49.5 % (42-52); Hemoglobin 17.2 g/dL (14.0-18.0); Mean Corpuscular Hemoglobin 35.8 pg (25-34); Mean Corpuscular Hgb Conc 34.7 g/dL (32-36); Mean Corpuscular Volume 102.9 fL (80-100); Mean Platelet Volume 10.5 fL (7.4-10.4); Platelet Count 184 K/uL (130-400); RDW Coefficient of Variation 13.6 % (11.5-14.5); RDW Standard Deviation 51.7 fL (36.4-46.3); Red Blood Count 4.81 M/uL (4.7-6.1); White Blood Count 8.98 K/uL (4.8-10.8)
[2020-06-07 06:41] LABS: BUN Creatinine Ratio 15.5 (10-20); Calcium 8.4 mg/dl (8.5-10.1); Creatinine Clr Calc Pharmacy 37.2 ml/min; Est GFR (African American) 39.1; Est GFR (Non-African American) 33.7; Magnesium 2.2 mg/dl (1.8-2.4); Phosphorus 3.5 mg/dl (2.5-4.9); Potassium 4.4 mmol/L (3.5-5.1)
[2020-06-07] MEDS: MAGNESIUM OXIDE 400 MG TAB PO SCH ×2 (08:06→20:23)
[2020-06-07] MEDS: ATORVASTATIN 40 MG TAB PO SCH (08:06)
[2020-06-07] MEDS: ASPIRIN 81 MG ECTAB PO SCH (08:06)
[2020-06-07] MEDS: CLOPIDOGREL BISULFATE 75 MG TAB PO SCH (08:06)
[2020-06-07] MEDS: NICOTINE 14 MG/24 HR PATCH TD SCH (08:08)
[2020-06-07] MEDS: INSULIN GLARGINE SOLOSTAR 100 UNITS/ML 3 ML PEN SC SCH (08:44)
[2020-06-07] MEDS ORDERED: SODIUM CHLORIDE 0.9% 1000ML 500 ML IV ONE (11:42)
--- NOTE | 2020-06-07 11:50 | Hospitalist Progress Note ---
Date of Service June 07, 2020 Assessment & Plan (1) Acute alteration in mental status: (2) Medication noncompliance due to cognitive impairment: (3) Vascular dementia: (4) Acute hyperglycemia: (5) Hypothyroidism: (6) Hyponatremia: (7) CKD (chronic kidney disease), stage III: (8) COPD (chronic obstructive pulmonary disease): (9) PVD (peripheral vascular disease): (10) Tobacco use disorder: (11) Type 2 diabetes mellitus: (12) Coronary artery disease: This is a 74yo M with a PMH of vascular dementia, CAD (s/p stents), PVD (s/p R fem pop stent in 2018), CKD III (s/p nephrectomy), DM II, h/o lung cancer (s/p RUL resection), hypothyroidism and other medical problems listed below who presents with increased confusion x 2 months. Acute metabolic encephalopathy Progressed vascular dementia Medication non-compliance Confusion multifactorial due to advanced vascular dementia, medication noncompliance, ? nicotine withdrawal CT head without acute intracranial abnormality. No evidence of infection in urine or on chest x-ray. Covid screen negative Does have significantly elevated TSH and low free T4 in the setting of noncompliance with levothyroxine with hypothyroidism Expect improvement of acute confusion with med compliance although baseline cognitive impairment from dementia no longer able to care for patient at home -has become a hygiene and safety issue. PT/OT evaluation. Case mgmt consult for assistance with placement Psychiatry consult for progressive vascular dementia with behavioral disturbance Continue gentle fluids as tolerated, one-to-one observation Pt is calm and able to answer simple questions. He is able to tell me his name but can't say where he is or where he lives. However pulled his IV access out again, will try to give medications PO Hypothyroidism TSH 58 In setting of medication non-compliance Confirmed levothyroxine dose with , and resumed Will need follow up TSH in 3-4 weeks Acute hyperglycemia DM II , uncontrolled Current Hgb A1c 12.8% BSG elevated on admission at 343 Hold home agents SSI while in-patient Glycemic consult placed BSG AC HS CKD III Kidney function at baseline on admission. Now Cr elevated from baseline at 1.9 will bladder scan and will obtain renal US will further discuss w/ nephrology Encourage PO intake and fluids Monitor with daily BMP Hyponatremia Na 131 - psuedohyponatremia in setting of hyperglycemia. Corrected Na 136 Current Na improved (also blood glc level improved) CAD PVD Continue medical mgmt with aspirin, statin and plavix COPD Not taking any home medications, inhalers or nebulizers Tobacco use disorder Smokes 1.5-2 ppd for the past 50 years but recently stopped smoking 7 days ago Possibly contributing to dilirium Nicotine patch DVT Ppx: SQ heparin Code status: DNR per discussion with PCP: Dr. Charles Dispo: Admitted to med/surg. Discharge planning ordered. Admission and Anticipated Discharge Date Admission Date: June 04, 2020 Subjective Pt seen in follow up of AMS in the setting of dementia, uncontrolled DM type 2 , hypothyroidism, medication non-compliance. Currently pt is laying in bed in NAD. He is not very talkative but appears in no distress. He is calm, hard of hearing, 1:1 sitter present - she reports pt is more sleepy today. No major behavioral issues but pulled out his IV access twice. CM involved in DC planning. Review of Systems Review of Systems: All systems reviewed & are unremarkable except as noted in HPI & below however pt does not speak much, he does not appear in any distress Physical Exam Physical Exam: General Appearance: obese male resting in bed, in NAD, does not communicate much but answers simple questions Head: normocephalic, atraumatic Eyes: normal inspection, PERRL, EOMI, conjunctivae normal, anicteric sclerae ENT: hard of hearing, external ear and nose normal, oropharynx normal Neck: normal visual inspection, trachea midline, no thyromegaly Respiratory: normal respiratory effort, diminished lung sounds, no wheeze, rales, rhonchi. No accessory muscle use Cardiovascular: regular rate, rhythm, no murmur appreciated, normal peripheral pulses, no BLE edema. Vessels: no JVD Chest: normal inspection of chest Abdomen/GI: normal bowel sounds, soft, nontender, nondistended, obese Extremities/Musculoskeletal: no cyanosis or clubbing, moves extremities Neurologic: PERRL, EOMI, no face palsy, no dysarthria, moves all extremities Psychiatric: A+O to self, not to place, time or situation, euthymic affect Skin: no rashes, normal color, warm/dry Results & Data Results & Data ([facility]) Vital Signs (Past 12 Hours) Vital Signs Temp Pulse Resp BP Pulse Ox 06/07/20 10:59 36.5 C 84 20 104/65 91 Laboratory Results 06/07/20 06/07/20 06/07/20 Range/Units 08:21 05:28 05:28 WBC 8.98 (4.8-10.8) K/uL RBC 4.81 (4.7-6.1) M/uL Hgb 17.2 (14.0-18.0) g/dL Hct 49.5 (42-52) % MCV 102.9 H (80-100) fL MCH 35.8 H (25-34) pg MCHC 34.7 (32-36) g/dL RDW Std Deviation 51.7 H (36.4-46.3) fL RDW Coeff of Martinez 13.6 (11.5-14.5) % Plt Count 184 (130-400) K/uL MPV 10.5 H (7.4-10.4) fL Sodium 136 (136-145) mmol/L Potassium 4.4 (3.5-5.1) mmol/L Chloride 103 (98-107) mmol/L Carbon Dioxide 30 (21-32) mmol/L Anion Gap 3.0 (3-11) BUN 29 H (7-18) mg/dl Creatinine 1.90 H (0.6-1.4) mg/dl Est Cr Clr Drug Dosing 37.2 ml/min Est GFR ( Amer) 39.1 Est GFR (Non-Af Amer) 33.7 BUN/Creatinine Ratio 15.5 (10-20) Glucose 112 H (70-99) mg/dl POC Glucose 126 H (70-99) mg/dl Calcium 8.4 L (8.5-10.1) mg/dl Phosphorus 3.5 (2.5-4.9) mg/dl Magnesium 2.2 (1.8-2.4) mg/dl 06/07/20 06/07/20 06/06/20 Range/Units 05:19 00:06 20:09 WBC (4.8-10.8) K/uL RBC (4.7-6.1) M/uL Hgb (14.0-18.0) g/dL Hct (42-52) % MCV (80-100) fL MCH (25-34) pg MCHC (32-36) g/dL RDW Std Deviation (36.4-46.3) fL RDW Coeff of [place] (11.5-14.5) % Plt Count (130-400) K/uL MPV (7.4-10.4) fL Sodium (136-145) mmol/L Potassium (3.5-5.1) mmol/L Chloride (98-107) mmol/L Carbon Dioxide (21-32) mmol/L Anion Gap (3-11) BUN (7-18) mg/dl Creatinine (0.6-1.4) mg/dl Est Cr Clr Drug Dosing ml/min Est GFR ( Amer) Est GFR (Non-Af Amer) BUN/Creatinine Ratio (10-20) Glucose (70-99) mg/dl POC Glucose 119 H 125 H 146 H (70-99) mg/dl Calcium (8.5-10.1) mg/dl Phosphorus (2.5-4.9) mg/dl Magnesium (1.8-2.4) mg/dl 06/06/20 Range/Units 16:34 WBC (4.8-10.8) K/uL RBC (4.7-6.1) M/uL Hgb (14.0-18.0) g/dL Hct (42-52) % MCV (80-100) fL MCH (25-34) pg MCHC (32-36) g/dL RDW Std Deviation (36.4-46.3) fL RDW Coeff of Martinez (11.5-14.5) % Plt Count (130-400) K/uL MPV (7.4-10.4) fL Sodium (136-145) mmol/L Potassium (3.5-5.1) mmol/L Chloride (98-107) mmol/L Carbon Dioxide (21-32) mmol/L Anion Gap (3-11) BUN (7-18) mg/dl Creatinine (0.6-1.4) mg/dl Est Cr Clr Drug Dosing ml/min Est GFR ( Amer) Est GFR (Non-Af Amer) BUN/Creatinine Ratio (10-20) Glucose (70-99) mg/dl POC Glucose 98 (70-99) mg/dl Calcium (8.5-10.1) mg/dl Phosphorus (2.5-4.9) mg/dl Magnesium (1.8-2.4) mg/dl Medications Administered Current Inpatient Medications Acetaminophen (Acetaminophen 325 Mg Tab) 650 mg PO Q4H PRN PRN Reason: Pain or Fever Stop: 07/04/20 18:32 Aspirin (Aspirin 81 Mg Ectab) 81 mg PO DAILY EUN Stop: 07/05/20 08:59 Last Admin: 06/07/20 08:06 Dose: 81 mg Documented by: Atorvastatin Calcium (Atorvastatin 40 Mg Tab) 40 mg PO DAILY EUN Stop: 07/05/20 08:59 Last Admin: 06/07/20 08:06 Dose: 40 mg Documented by: Clopidogrel Bisulfate (Clopidogrel Bisulfate 75 Mg Tab) 75 mg PO DAILY EUN Stop: 07/05/20 08:59 Last Admin: 06/07/20 08:06 Dose: 75 mg Documented by: Dextrose (Dextrose 50% 50 Ml Syringe) 25 - 50 ml IV UD PRN; Protocol PRN Reason: Hypoglycemia Protocol Stop: 07/04/20 17:59 Famotidine (Famotidine 20 Mg Tab) 20 mg PO HS [facility] Stop: 07/04/20 20:59 Last Admin: 06/06/20 20:27 Dose: 20 mg Documented by: Glucagon (Glucagon For Inj 1 Mg Vial) 1 mg IM UD PRN; Protocol PRN Reason: Hypoglycemia Protocol Stop: 07/04/20 17:59 Glucose (Glucose 40% Gel 15 Gm Tube) 15 - 30 gm PO UD PRN; Protocol PRN Reason: Hypoglycemia Protocol Stop: 07/04/20 17:59 Glucose (Glucose 10 Tabs/Tube) 4 - 8 tabs PO UD PRN; Protocol PRN Reason: Hypoglycemia Protocol Stop: 07/04/20 17:59 Heparin Sodium (Porcine) (Heparin Sod 5,000 Unit/0.5 Ml Vial) 5,000 units SQ Q8 EUN Stop: 07/04/20 21:59 Last Admin: 06/07/20 05:21 Dose: Not Given Documented by: Sodium Chloride (Nss 1000ml) 500 mls @ 999 mls/hr IV .Q31M ONE Stop: 06/07/20 12:12 Insulin Aspart (Insulin Aspart 100 Units/Ml 3 Ml Pen) 0 units SC ACHS EUN Stop: 07/04/20 17:44 Last Admin: 06/07/20 08:44 Dose: 8 units Documented by: Insulin Glargine (Insulin Glargine Solostar 100 Units/Ml 3 Ml Pen) 30 units SC DAILY [facility] Stop: 07/07/20 08:59 Last Admin: 06/07/20 08:44 Dose: 30 units Documented by: Levothyroxine Sodium (Levothyroxine Sodium 100 Mcg Tablet) 100 mcg PO MOWEFR@0700 [facility] Stop: 07/07/20 06:59 Last Admin: 06/07/20 05:46 Dose: 100 mcg Documented by: Levothyroxine Sodium (Levothyroxine Sodium 200 Mcg Tablet) 200 mcg PO SUTUTHSA@0700 [facility] Stop: 07/05/20 06:59 Last Admin: 06/06/20 06:01 Dose: 200 mcg Documented by: Magnesium Oxide (Magnesium Oxide 400 Mg Tab) 400 mg PO BID [facility] Stop: 07/06/20 12:14 Last Admin: 06/07/20 08:06 Dose: 400 mg Documented by: Miscellaneous (Carbohydrates For Hypoglycemia ) 15 - 30 gm PO UD PRN PRN Reason: Hypoglycemia Treatment Stop: 07/04/20 17:59 Miscellaneous (Remove Nicoderm Patch) 1 ea N/A DAILY@0859 [facility] Stop: 07/05/20 08:58 Last Admin: 06/07/20 08:08 Dose: 1 ea Documented by: Miscellaneous Information (Pharmacy Glycemic Mgmt Consult) 1 ea N/A UD PRN; Protocol PRN Reason: Consult Stop: 07/04/20 17:23 Nicotine (Nicotine 14 Mg/24 Hr Patch) 14 mg TD QAM [facility] Stop: 07/04/20 20:59 Last Admin: 06/07/20 08:08 Dose: 14 mg Documented by: Nitroglycerin (Nitroglycerin Sl 0.4 Mg/Tab Tab) 0.4 mg SL UD PRN PRN Reason: chest pain Stop: 07/04/20 18:29 Polyethylene Glycol (Polyethylene (Miralax) 17 Gm Pack) 17 gm PO DAILY PRN PRN Reason: Constipation Stop: 07/04/20 18:32 (1) Vascular dementia Dementia behavioral disturbance: without behavioral disturbance Qualified Code(s): F01.50 - Vascular dementia without behavioral disturbance (2) Type 2 diabetes mellitus Chronic kidney disease stage: stage 3 (moderate) Diabetes mellitus complication detail: with chronic kidney disease Diabetes mellitus complication status: with kidney complications Diabetes mellitus terminal gauger supervisor insulin use: without jail use Qualified Code(s): E11.22 - Type 2 diabetes mellitus with diabetic chronic kidney disease; N18.3 - Chronic kidney disease, stage 3 (moderate) (3) Coronary artery disease Associated angina: without angina Coronary Disease-Associated Artery/Lesion type: [place] artery [place] vs. transplanted heart: [place] heart Qualified Code(s): I25.10 - Atherosclerotic heart disease of [place] coronary artery without angina pectoris (4) Hypothyroidism Hypothyroidism type: unspecified Qualified Code(s): E03.9 - Hypothyroidism, unspecified (5) COPD (chronic obstructive pulmonary disease) COPD type: unspecified COPD Qualified Code(s): J44.9 - Chronic obstructive pulmonary disease, unspecified
--- NOTE | 2020-06-07 13:40 | Pharmacy Report ---
Glycemic Control Progress Note - Date of Service June 07, 2020 - Scope Glycemic Pharmacist consulted for glycemic control to write orders per [facility] inpatient glycemic control protocol. - Objective Accuchecks BSG(last 24 hours):: 06/06/20 06/06/20 06/07/20 16:34 20:09 00:06 Glucose POC Glucose 98 146 H 125 H 06/07/20 06/07/20 06/07/20 05:19 05:28 08:21 Glucose 112 H POC Glucose 119 H 126 H HbA1c:: Hemoglobin A1c 12.8 % (4.5-5.6) H 06/05/20 05:37 - Recent Pertinent Medications The patient is currently receiving: * Basal insulin: Lantus 35 units every 24 hours * Correctional Insulin: Novolog Correction per scale ACHS Goal Range: Low 110 mg/dL - High 140 mg/dL Correction Factor: 20 mg/dL/unit * Prandial insulin: Per carb ratio of 1 unit per 6 grams CHO consumed - Outpatient Anti-Diabetic Meds glipizide 10 mg BID metformin 1 gm PO BIDM - Assessment & Plan ASSESSMENT: * See progress note from 06/04/20 for more background info, in short: * Pt receiving SQ basal bolus insulin regimen for hyperglycemia secondary to baseline DM (outpatient regimen on hold). * Patient is currently receiving an average of 63 units of insulin per day * 35 units of basal insulin * 28 units of prandial/correctional insulin * BSGs ranging 98 - 300 mg/dl over the past 24hrs * Changes needed to insulin regimen: * AM Fasting BSG = 126 mg/dl. This is in goal range for patient based on inpatient targets and co-morbidities. Will reduce basal by 15% sine patient's fastings are trending down. * Post-prandial BSGs were reasonably controlled yesterday. Patient refused lunch check and insulin today so continue to monitor. * Total daily dose is currently TBD --- only have 1 day of data where patient received around 60 units PLAN FOR INPATIENT GLYCEMIC CONTROL: * DECREASING Lantus to 30 units SQ qAM * Continuing correction factor of 20 mg/dl/unit * Continuing carb ratio of 1 unit per 6 grams CHO consumed * Continuing goal range of Low 110 mg/dL - High 140 mg/dL * Please note that the plan above was derived based on current level of insulin resistance and hospital stress. These recommendations are appropriate for in patient admission only. Plan of care upon discharge will need to be reassessed to avoid potential outpatient hypo/hyperglycemia. Thank you.
--- NOTE | 2020-06-07 15:10 | Ultrasound Report ---
EXAMINATION: RENAL ULTRASOUND CLINICAL HISTORY: Acute renal insufficiency COMPARISON STUDY: Noncontrast CT scan dated 06/02/2019 FINDINGS: The right kidney measures 13.5 cm. The left kidney is surgically absent . There is no evid ence of hydronephrosis. There are no renal masses. No bladder abnormalities are visualized. A right ureteral jet was visualized.. There is mild prostatomegaly IMPRESSION : 1. Surgically absent left kidney 2. No right renal abnormalities identified. No evidence of hydronephrosis ACT 112: Negative or not required by law. Electronically signed by: David Rodriguez M.D. 06/07/2020 3:08 PM
[2020-06-07] MEDS: FAMOTIDINE 20 MG TAB PO SCH (20:24)
[2020-06-08] MEDS: LEVOTHYROXINE SODIUM 200 MCG TABLET PO SCH (05:53)
[2020-06-08] MEDS: HEPARIN SOD 5,000 UNIT/0.5 ML VIAL SQ SCH ×3 (05:53→21:23)
[2020-06-08] MEDS: MAGNESIUM OXIDE 400 MG TAB PO SCH (08:16)
[2020-06-08] MEDS: ATORVASTATIN 40 MG TAB PO SCH (08:16)
[2020-06-08] MEDS: ASPIRIN 81 MG ECTAB PO SCH (08:17)
[2020-06-08] MEDS: CLOPIDOGREL BISULFATE 75 MG TAB PO SCH (08:17)
[2020-06-08] MEDS: NICOTINE 14 MG/24 HR PATCH TD SCH (08:17)
[2020-06-08] MEDS: INSULIN GLARGINE SOLOSTAR 100 UNITS/ML 3 ML PEN SC SCH (08:24)
--- NOTE | 2020-06-08 09:16 | Hospitalist Progress Note ---
Date of Service June 08, 2020 Assessment & Plan (1) Acute alteration in mental status: (2) Medication noncompliance due to cognitive impairment: (3) Vascular dementia: (4) Acute hyperglycemia: (5) Hypothyroidism: (6) Hyponatremia: (7) CKD (chronic kidney disease), stage III: (8) COPD (chronic obstructive pulmonary disease): (9) PVD (peripheral vascular disease): (10) Tobacco use disorder: (11) Type 2 diabetes mellitus: (12) Coronary artery disease: This is a 74yo M with a PMH of vascular dementia, CAD (s/p stents), PVD (s/p R fem pop stent in 2018), CKD III (s/p nephrectomy), DM II, h/o lung cancer (s/p RUL resection), hypothyroidism and other medical problems listed below who presents with increased confusion x 2 months. Acute metabolic encephalopathy Progressed vascular dementia Medication non-compliance Confusion multifactorial due to advanced vascular dementia, medication noncompliance, ? nicotine withdrawal CT head without acute intracranial abnormality. No evidence of infection in urine or on chest x-ray. Covid screen negative Does have significantly elevated TSH and low free T4 in the setting of noncompliance with levothyroxine with hypothyroidism Expect improvement of acute confusion with med compliance although baseline cognitive impairment from dementia no longer able to care for patient at home -has become a hygiene and safety issue. PT/OT evaluation. Case mgmt consult for assistance with placement Psychiatry consult for progressive vascular dementia with behavioral disturbance Continue gentle fluids as tolerated, one-to-one observation Pt is calm and able to answer simple questions. He is able to tell me his name but can't say where he is or where he lives. However pulled his IV access x2, will try to give medications PO Hypothyroidism TSH 58 In setting of medication non-compliance Confirmed levothyroxine dose with , and resumed Will need follow up TSH in 3-4 weeks Acute hyperglycemia DM II , uncontrolled Current Hgb A1c 12.8% BSG elevated on admission at 343 Hold home agents SSI while in-patient Glycemic consult placed BSG AC HS CKD III Kidney function at baseline on admission. Now Cr elevated from baseline at 1.9 Obtained renal US - no hydronephrosis Discussed w/ nephrology - encourage PO intake and fluids Monitor with daily BMP Hyponatremia Na 131 - psuedohyponatremia in setting of hyperglycemia. Corrected Na 136 Current Na improved (also blood glc level improved) CAD PVD Continue medical mgmt with aspirin, statin and plavix COPD Not taking any home medications, inhalers or nebulizers Tobacco use disorder Smokes 1.5-2 ppd for the past 50 years but recently stopped smoking 7 days ago Possibly contributing to delirium Nicotine patch DVT Ppx: SQ heparin Code status: DNR per discussion with PCP: Dr. Charles Dispo: Admitted to med/surg. Discharge planning ordered. Admission and Anticipated Discharge Date Admission Date: June 04, 2020 Subjective Pt seen in follow up of AMS in the setting of dementia, uncontrolled DM type 2 , hypothyroidism, medication non-compliance. Currently pt is laying in bed in NAD. He is pleasant and more talkative today, cooperative. Asking for coffee, having no complaints. CM involved in DC planning. Review of Systems Review of Systems: All systems reviewed & are unremarkable except as noted in HPI & below Constitutional: no fever and no chills Respiratory: no cough and no dyspnea Cardiovascular: no chest pain and no palpitations Gastrointestinal: no abdominal pain, no nausea and no vomiting Physical Exam Physical Exam: General Appearance: obese male resting in bed, in NAD, does not communicate much but answers simple questions Head: normocephalic, atraumatic Eyes: normal inspection, PERRL, EOMI, conjunctivae normal, anicteric sclerae ENT: hard of hearing, external ear and nose normal, oropharynx normal Neck: normal visual inspection, trachea midline, no thyromegaly Respiratory: normal respiratory effort, diminished lung sounds, no wheeze, rales, rhonchi. No accessory muscle use Cardiovascular: regular rate, rhythm, no murmur appreciated, normal peripheral pulses, no BLE edema. Vessels: no JVD Chest: normal inspection of chest Abdomen/GI: normal bowel sounds, soft, nontender, nondistended, obese Extremities/Musculoskeletal: no cyanosis or clubbing, moves extremities Neurologic: PERRL, EOMI, no face palsy, no dysarthria, moves all extremities Psychiatric: A+O to self, not to place, time or situation, euthymic affect Skin: no rashes, normal color, warm/dry Results & Data Results & Data ([facility]) Vital Signs (Past 12 Hours) Vital Signs Temp Pulse Resp BP Pulse Ox 06/08/20 08:31 97 H 18 108/71 06/07/20 23:09 36.4 C L 83 20 147/88 H 98 Laboratory Results 06/08/20 06/08/20 06/08/20 Range/Units 11:29 09:33 08:23 Sodium 137 (136-145) mmol/L Potassium 4.1 (3.5-5.1) mmol/L Chloride 103 (98-107) mmol/L Carbon Dioxide 30 (21-32) mmol/L Anion Gap 4.0 (3-11) BUN 32 H (7-18) mg/dl Creatinine 1.86 H (0.6-1.4) mg/dl Est Cr Clr Drug Dosing 38.0 ml/min Est GFR ( Amer) 40.1 Est GFR (Non-Af Amer) 34.6 BUN/Creatinine Ratio 17.2 (10-20) Glucose 195 H (70-99) mg/dl POC Glucose 265 H 121 H (70-99) mg/dl Calcium 8.2 L (8.5-10.1) mg/dl Phosphorus 3.4 (2.5-4.9) mg/dl Magnesium 2.4 (1.8-2.4) mg/dl 06/07/20 06/07/20 Range/Units 19:59 15:59 Sodium (136-145) mmol/L Potassium (3.5-5.1) mmol/L Chloride (98-107) mmol/L Carbon Dioxide (21-32) mmol/L Anion Gap (3-11) BUN (7-18) mg/dl Creatinine (0.6-1.4) mg/dl Est Cr Clr Drug Dosing ml/min Est GFR ( Amer) Est GFR (Non-Af Amer) BUN/Creatinine Ratio (10-20) Glucose (70-99) mg/dl POC Glucose 196 H 262 H (70-99) mg/dl Calcium (8.5-10.1) mg/dl Phosphorus (2.5-4.9) mg/dl Magnesium (1.8-2.4) mg/dl Medications Administered Current Inpatient Medications Acetaminophen (Acetaminophen 325 Mg Tab) 650 mg PO Q4H PRN PRN Reason: Pain or Fever Stop: 07/04/20 18:32 Aspirin (Aspirin 81 Mg Ectab) 81 mg PO DAILY EUN Stop: 07/05/20 08:59 Last Admin: 06/08/20 08:17 Dose: 81 mg Documented by: Atorvastatin Calcium (Atorvastatin 40 Mg Tab) 40 mg PO DAILY EUN Stop: 07/05/20 08:59 Last Admin: 06/08/20 08:16 Dose: 40 mg Documented by: Clopidogrel Bisulfate (Clopidogrel Bisulfate 75 Mg Tab) 75 mg PO DAILY EUN Stop: 07/05/20 08:59 Last Admin: 06/08/20 08:17 Dose: 75 mg Documented by: Dextrose (Dextrose 50% 50 Ml Syringe) 25 - 50 ml IV UD PRN; Protocol PRN Reason: Hypoglycemia Protocol Stop: 07/04/20 17:59 Famotidine (Famotidine 20 Mg Tab) 20 mg PO HS EUN Stop: 07/04/20 20:59 Last Admin: 06/07/20 20:24 Dose: 20 mg Documented by: Glucagon (Glucagon For Inj 1 Mg Vial) 1 mg IM UD PRN; Protocol PRN Reason: Hypoglycemia Protocol Stop: 07/04/20 17:59 Glucose (Glucose 40% Gel 15 Gm Tube) 15 - 30 gm PO UD PRN; Protocol PRN Reason: Hypoglycemia Protocol Stop: 07/04/20 17:59 Glucose (Glucose 10 Tabs/Tube) 4 - 8 tabs PO UD PRN; Protocol PRN Reason: Hypoglycemia Protocol Stop: 07/04/20 17:59 Heparin Sodium (Porcine) (Heparin Sod 5,000 Unit/0.5 Ml Vial) 5,000 units SQ Q8 EUN Stop: 07/04/20 21:59 Last Admin: 06/08/20 05:53 Dose: Not Given Documented by: Insulin Aspart (Insulin Aspart 100 Units/Ml 3 Ml Pen) 0 units SC ACHS EUN Stop: 07/04/20 17:44 Last Admin: 06/08/20 12:37 Dose: 12 units Documented by: Insulin Glargine (Insulin Glargine Solostar 100 Units/Ml 3 Ml Pen) 30 units SC DAILY EUN Stop: 07/07/20 08:59 Last Admin: 06/08/20 08:24 Dose: 30 units Documented by: Levothyroxine Sodium (Levothyroxine Sodium 100 Mcg Tablet) 100 mcg PO MOWEFR@0 700 EUN Stop: 07/07/20 06:59 Last Admin: 06/07/20 05:46 Dose: 100 mcg Documented by: Levothyroxine Sodium (Levothyroxine Sodium 200 Mcg Tablet) 200 mcg PO SUTUTHSA@0700 [facility] Stop: 07/05/20 06:59 Last Admin: 06/08/20 05:53 Dose: 200 mcg Documented by: Magnesium Oxide (Magnesium Oxide 400 Mg Tab) 400 mg PO BID [facility] Stop: 07/06/20 12:14 Last Admin: 06/08/20 08:16 Dose: 400 mg Documented by: Miscellaneous (Carbohydrates For Hypoglycemia ) 15 - 30 gm PO UD PRN PRN Reason: Hypoglycemia Treatment Stop: 07/04/20 17:59 Miscellaneous (Remove Nicoderm Patch) 1 ea N/A DAILY@0859 [facility] Stop: 07/05/20 08:58 Last Admin: 06/08/20 08:18 Dose: 1 ea Documented by: Miscellaneous Information (Pharmacy Glycemic Mgmt Consult) 1 ea N/A UD PRN; Protocol PRN Reason: Consult Stop: 07/04/20 17:23 Nicotine (Nicotine 14 Mg/24 Hr Patch) 14 mg TD QAM [facility] Stop: 07/04/20 20:59 Last Admin: 06/08/20 08:17 Dose: 14 mg Documented by: Nitroglycerin (Nitroglycerin Sl 0.4 Mg/Tab Tab) 0.4 mg SL UD PRN PRN Reason: chest pain Stop: 07/04/20 18:29 Polyethylene Glycol (Polyethylene (Miralax) 17 Gm Pack) 17 gm PO DAILY PRN PRN Reason: Constipation Stop: 07/04/20 18:32 (1) Vascular dementia Dementia behavioral disturbance: without behavioral disturbance Qualified Code(s): F01.50 - Vascular dementia without behavioral disturbance (2) Type 2 diabetes mellitus Chronic kidney disease stage: stage 3 (moderate) Diabetes mellitus complication detail: with chronic kidney disease Diabetes mellitus complication status: with kidney complications Diabetes mellitus custodial insulin use: without intermediate teacher use Qualified Code(s): E11.22 - Type 2 diabetes mellitus with diabetic chronic kidney disease; N18.3 - Chronic kidney disease, stage 3 (moderate) (3) Coronary artery disease Associated angina: without angina Coronary Disease-Associated Artery/Lesion type: [place] artery [place] vs. transplanted heart: [place] heart Qualified Code(s): I25.10 - Atherosclerotic heart disease of [place] coronary artery without angina pectoris (4) Hypothyroidism Hypothyroidism type: unspecified Qualified Code(s): E03.9 - Hypothyroidism, unspecified (5) COPD (chronic obstructive pulmonary disease) COPD type: unspecified COPD Qualified Code(s): J44.9 - Chronic obstructive pulmonary disease, unspecified
[2020-06-08 10:09] LABS: BUN Creatinine Ratio 17.2 (10-20); Calcium 8.2 mg/dl (8.5-10.1); Est GFR (African American) 40.1; Est GFR (Non-African American) 34.6; Magnesium 2.4 mg/dl (1.8-2.4); Potassium 4.1 mmol/L (3.5-5.1)
[2020-06-08 10:10] LABS: Phosphorus 3.4 mg/dl (2.5-4.9)
[2020-06-08] MEDS: INSULIN ASPART 100 UNITS/ML 3 ML PEN SC SCH ×4 (10:28→20:23)
--- NOTE | 2020-06-08 10:34 | Consultation Report ---
DATE OF CONSULTATION: 06/08/2020 NEPHROLOGY CONSULTATION NOTE REASON FOR CONSULT: Acute renal failure in a patient with single kidney. HISTORY OF PRESENT ILLNESS: The patient is a 74-year-old male who has vascular dementia, coronary artery disease, status post stents, peripheral vascular disease, chronic kidney disease stage III, status post unilateral nephrectomy with a baseline creatinine in the mid 1, diabetes, history of lung cancer and various other medical problems who was admitted because of worsening confusion. Creatinine has been trending up slowly. It was 1.57 at the time of admission, which is pretty much his baseline and has steadily gone up to the peak of 1.90 yesterday, after which I have been consulted. The patient is refusing a lot of things including labs as well as IV lines. However, he is eating and drinking fairly good and his vital signs appear to be stable. He is also making urine, although I do not know the exact amount. Renal ultrasound has been done yesterday and does not show any hydronephrosis in his kidney. It is hard to obtain any meaningful history from the patient, so history was mainly constructed from the chart. PAST MEDICAL AND SURGICAL HISTORY: Includes vascular dementia, coronary artery disease, status post stent, peripheral vascular disease, status post right femoral popliteal stent, chronic kidney disease stage III, status post left nephrectomy, type 2 diabetes, history of lung cancer, status post right upper lobe resection, hypothyroidism, COPD, history of malignant neoplasm of bladder, history of malignant neoplasm of ureter, status post AAA repair, appendicectomy, laparoscopic cholecystectomy, rotator cuff repair. SOCIAL HISTORY: The patient smoked for 50 years and has recently stopped smoking a few days ago. FAMILY HISTORY: Negative for renal disease or dialysis. REVIEW OF SYSTEMS: Unable to obtain due to cognitive status. PHYSICAL EXAMINATION: GENERAL: Elderly white male who appears without any distress in resting position. He is awake, alert, but could not really test orientation. HEENT: Mucous membranes moist. NECK: Supple. No jugular venous distention. CHEST: Bilaterally decreased breath sounds, poor inspiratory effort. He did not take deep breathing at all. CARDIOVASCULAR: S1, S2 regular. ABDOMEN: Soft, nontender. EXTREMITIES: Show no edema. VITAL SIGNS: Include blood pressure of 108/71, pulse rate 97, temperature 36.4 degrees Celsius, 98% on room air. LABORATORY TESTS: At baseline, his creatinine seems to be 1.5 range. At that time he had a baseline creatinine, which has since gone up slightly to the peak of 1.90. This morning, creatinine is down slightly to 1.86, BUN is 32. Electrolytes otherwise unremarkable. Hemoglobin 17.2, WBC count 9, platelet count 184. Urine test at the time of admission was bland with no blood and no cells, but did have some protein. Renal ultrasound is reviewed, shows one kidney without hydronephrosis. Chest x-ray was unremarkable. ASSESSMENT AND PLAN: A 74-year-old male with single kidney status as his left kidney was removed together with some ureter for his malignant bladder and at baseline, he does have chronic kidney disease III. I have been consulted for abnormal kidney function. Acute renal failure: I doubt this is acute renal failure as the acute component is very, very minimal. His baseline creatinine seems to be around 1.5. At this time, it went up to 1.90, but is now trending down. He does not want IV line, IV fluids and is even refusing laboratories. Fortunately, he appears to be quite comfortable. Vital signs appear to be stable. He is making urine and his laboratories seem to be fairly stable as the creatinine today is about the same as yesterday. I do not think we need to do any further workup. Encourage adequate food and fluid intake. Daily laboratories while he is in the hospital. When he gets discharged, I would suggest laboratories at least once a week in the beginning to make sure he does not get in to dehydration from lack of intake.
[2020-06-08] MEDS: FAMOTIDINE 20 MG TAB PO SCH (20:20)
[2020-06-09] MEDS: LEVOTHYROXINE SODIUM 100 MCG TABLET PO SCH (05:55)
[2020-06-09] MEDS: HEPARIN SOD 5,000 UNIT/0.5 ML VIAL SQ SCH ×4 (05:56→21:06)
[2020-06-09 06:32] LABS: BUN Creatinine Ratio 16.3 (10-20); Calcium 9.1 mg/dl (8.5-10.1); Est GFR (African American) 38.9; Est GFR (Non-African American) 33.5; Potassium 4.6 mmol/L (3.5-5.1)
[2020-06-09] MEDS: ATORVASTATIN 40 MG TAB PO SCH (07:26)
[2020-06-09] MEDS: ASPIRIN 81 MG ECTAB PO SCH (07:27)
[2020-06-09] MEDS: CLOPIDOGREL BISULFATE 75 MG TAB PO SCH (07:28)
[2020-06-09] MEDS: NICOTINE 14 MG/24 HR PATCH TD SCH (07:30)
[2020-06-09] MEDS: INSULIN ASPART 100 UNITS/ML 3 ML PEN SC SCH ×4 (08:21→20:33)
[2020-06-09] MEDS: INSULIN GLARGINE SOLOSTAR 100 UNITS/ML 3 ML PEN SC SCH (08:21)
--- NOTE | 2020-06-09 11:19 | Progress Notes ---
DATE: 06/09/2020 NEPHROLOGY PROGRESS NOTE SUBJECTIVE: Overnight, no new issues. Blood pressure seems to be running somewhat low. The patient is eating, but I am not so sure how much he is drinking. OBJECTIVE: VITAL SIGNS: Blood pressure 97/67, pulse rate 87, temperature 36.6, 97% on room air. HEENT: Mucous membranes moist. NECK: Supple. No jugular venous distention. CHEST: Bilaterally decreased breath sounds, but poor inspiratory effort. CARDIOVASCULAR: S1, S2 regular. ABDOMEN: Soft, nontender. EXTREMITIES: Show no edema. 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 Acute renal failure: I doubt this is really acute renal failure as the acute component is very, very minimal. His most recent baseline creatinine seems to be around 1.5. At this time, creatinine is about stable around 1.90. He is making urine and his laboratories otherwise seem reasonable. Blood pressure is running somewhat low, so consider giving about 1 liter of normal saline if the patient is agreeable to IV line. He previously refused to have IV line and even removed his IV line. Continue daily laboratories, but I have a suspicion this is his new baseline kidney function.
--- NOTE | 2020-06-09 13:16 | Pharmacy Report ---
Glycemic Control Progress Note - Date of Service June 09, 2020 - Scope Glycemic Pharmacist consulted for glycemic control to write orders per [facility] inpatient glycemic control protocol. - Objective Accuchecks BSG(last 24 hours):: 06/08/20 06/08/20 06/09/20 17:14 20:22 05:26 Glucose 125 H POC Glucose 241 H 178 H 06/09/20 06/09/20 07:37 11:39 Glucose POC Glucose 145 H 227 H HbA1c:: Hemoglobin A1c 12.8 % (4.5-5.6) H 06/05/20 05:37 - Recent Pertinent Medications The patient is currently receiving: * Basal insulin: Lantus [] units every [] hours * Correctional Insulin: Novolog Correction per scale ACHS Goal Range: Low [] mg/dL - High [] mg/dL Correction Factor: [] mg/dL/unit * Prandial insulin: Per carb ratio of 1 unit per [] grams CHO consumed * Oral Agents: - Outpatient Anti-Diabetic Meds glipizide 10 mg bid metformin 1 gm bid - Assessment & Plan ASSESSMENT: * See progress note from 06/04/20 for more background info, in short: * Pt receiving SQ basal bolus insulin regimen for hyperglycemia secondary to baseline DM (outpatient regimen on hold). * Patient is currently receiving an average of 55 units of insulin per day * 30 units of basal insulin * 25 units of prandial/correctional insulin * BSGs ranging 121 - 265 mg/dl over the past 24hrs * Changes needed to insulin regimen: * AM Fasting BSG = 145 mg/dl. This is slightly above goal range for patient based on inpatient targets and co-morbidities. Therefore Basal insulin will be increased by 10% to 33 units. * Post-prandial BSGs were elevated yesterday but it appeared that patient refused morning Novolog. Today patient had similar hyperglycemia at lunch even though he took morning Novolog. Tighten both parameters. * Total daily dose = ~60 units. Increased insulin doses. PLAN FOR INPATIENT GLYCEMIC CONTROL: * Increasing Lantus to 33 units SQ daily * TIGHTENING correction factor to 18 mg/dl/unit * TIGHTENING carb ratio to 1 unit per 5 grams CHO consumed * Continuing goal range of Low 110 mg/dL - High 140 mg/dL * Please note that the plan above was derived based on current level of insulin resistance and hospital stress. These recommendations are appropriate for inpatient admission only. Plan of care upon discharge will need to be reassessed to avoid potential outpatient hypo/hyperglycemia. Thank you.
--- NOTE | 2020-06-09 16:40 | Hospitalist Progress Note ---
Date of Service June 09, 2020 Assessment & Plan (1) Acute alteration in mental status: (2) Medication noncompliance due to cognitive impairment: (3) Vascular dementia: (4) Acute hyperglycemia: (5) Hypothyroidism: (6) Hyponatremia: (7) CKD (chronic kidney disease), stage III: (8) COPD (chronic obstructive pulmonary disease): (9) PVD (peripheral vascular disease): (10) Tobacco use disorder: (11) Type 2 diabetes mellitus: (12) Coronary artery disease: Patient is 74yo M with a PMH of vascular dementia, CAD (s/p stents), PVD (s/p R fem pop stent in 2018), CKD III (s/p nephrectomy), DM II, h/o lung cancer (s/p RUL resection), hypothyroidism and other medical problems listed below who presented with confusion that has been going on for the last 2 months. Acute metabolic encephalopathy -multifactorial Progressed vascular dementia Medication non-compliance CT head was obtained on admission which did not reveal any concerning findings. Chest x-ray was negative. COVID-19 was negative. Urine cultures have been negative. Patient is afebrile. White count is within normal limits. Elevated TSH and low free T4. Levothyroxine was started. Patient does have history of noncompliance. Appreciate psychiatric input. Continues to have his one-to-one sitter at bedside. Hypothyroidism History of noncompliance ESS of 58 on admission. Free T4 was low. Will continue with the levothyroxine 300 mcg daily. Follow-up with TSH in the next 3 to 4 weeks. Acute hyperglycemia DM II , uncontrolled Current Hgb A1c 12.8% CKD III Kidney function at baseline on admission. Creatinine at 1.83 today. Renal ultrasound without any concerns. Hold any nephrotoxic agents. Monitor daily BMP. Hyponatremia - resolved CAD PVD Continue medical mgmt with aspirin, statin and plavix COPD Not taking any home medications, inhalers or nebulizers Tobacco use disorder Smokes 1.5-2 ppd for the past 50 years but recently stopped smoking 7 days ago Possibly contributing to delirium Nicotine patch DVT Ppx: SQ heparin Code status: DNR per discussion with PCP: Dr. Charles Admission and Anticipated Discharge Date Admission Date: June 04, 2020 Subjective Patient was lying comfortably. He had one-to-one sitter at bedside. Earlier thi magana was called due to patient being agitated. He did not appear to be in any distress. Did not answer review the system questions due to his baseline mental status. However he was awake and alert. Review of Systems Review of Systems: All systems reviewed & are unremarkable except as noted in HPI & below Physical Exam Physical Exam: General: Awake and alert, does not appear to be in any distress HENT: NCAT, MMM, EOMI Eyes: PERRLA Neck: Supple, normal range of motion CVS: normal rate and rhythm Resp: b/l good breath sounds Abdomen: Soft, distended and nontender Extremities: No c/c/e Neuro: No gross focal deficits appreciated Skin: warm and dry, no rashes/lesions/errythema MSK: normal ROM, no joint swelling/erythema Results & Data Results & Data ([facility]) Vital Signs (Past 12 Hours) Vital Signs Temp Pulse Resp BP Pulse Ox 06/09/20 15:31 36.5 C 90 18 123/77 90 06/09/20 07:00 36.6 C 87 16 97/67 L 97 (1) Vascular dementia Dementia behavioral disturbance: without behavioral disturbance Qualified Code(s): F01.50 - Vascular dementia without behavioral disturbance (2) Type 2 diabetes mellitus Chronic kidney disease stage: stage 3 (moderate) Diabetes mellitus complication detail: with chronic kidney disease Diabetes mellitus complication status: with kidney complications 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 transplanted heart: [place] heart Qualified Code(s): I25.10 - Atherosclerotic heart disease of [place] coronary artery without angina pectoris (4) Hypothyroidism Hypothyroidism type: unspecified Qualified Code(s): E03.9 - Hypothyroidism, unspecified (5) COPD (chronic obstructive pulmonary disease) COPD type: unspecified COPD Qualified Code(s): J44.9 - Chronic obstructive pulmonary disease, unspecified
[2020-06-09] MEDS ORDERED: OLANZapine 10 MG/2.1 ML SDV IM STA (20:10)
[2020-06-09] MEDS ORDERED: OLANZapine 10 MG/2.1 ML SDV IM PRN (20:10)
[2020-06-09] MEDS: FAMOTIDINE 20 MG TAB PO SCH (20:25)
[2020-06-10] MEDS: LEVOTHYROXINE SODIUM 200 MCG TABLET PO SCH (06:13)
[2020-06-10] MEDS: HEPARIN SOD 5,000 UNIT/0.5 ML VIAL SQ SCH ×3 (06:18→20:49)
[2020-06-10 07:25] LABS: Hematocrit (blood only) 51.5 % (42-52); Hemoglobin 17.8 g/dL (14.0-18.0); Mean Corpuscular Hgb Conc 34.6 g/dL (32-36); Mean Corpuscular Volume 104.3 fL (80-100); Mean Platelet Volume 10.2 fL (7.4-10.4); Platelet Count 182 K/uL (130-400); RDW Coefficient of Variation 13.5 % (11.5-14.5); RDW Standard Deviation 51.7 fL (36.4-46.3); Red Blood Count 4.94 M/uL (4.7-6.1); White Blood Count 10.71 K/uL (4.8-10.8)
[2020-06-10] MEDS: ATORVASTATIN 40 MG TAB PO SCH (07:53)
[2020-06-10] MEDS: NICOTINE 14 MG/24 HR PATCH TD SCH (07:53)
[2020-06-10] MEDS: ASPIRIN 81 MG ECTAB PO SCH (07:53)
[2020-06-10] MEDS: INSULIN GLARGINE SOLOSTAR 100 UNITS/ML 3 ML PEN SC SCH (07:54)
[2020-06-10] MEDS: CLOPIDOGREL BISULFATE 75 MG TAB PO SCH (07:54)
[2020-06-10] MEDS: INSULIN ASPART 100 UNITS/ML 3 ML PEN SC SCH ×4 (07:54→20:46)
[2020-06-10 08:05] LABS: BUN Creatinine Ratio 17.9 (10-20); Calcium 9.2 mg/dl (8.5-10.1); Creatinine Clr Calc Pharmacy 38.6 ml/min; Est GFR (African American) 40.9; Est GFR (Non-African American) 35.3
[2020-06-10] MEDS ORDERED: INSULIN GLARGINE SOLOSTAR 100 UNITS/ML 3 ML PEN SC SCH (09:00)
--- NOTE | 2020-06-10 09:20 | Nephrology Progress Note ---
Date of Service NEPHROLOGY PROGRESS NOTE SUBJECTIVE: Overnight, no new issues. Blood pressure seems to be running somewhat low. The patient is eating, but I am not so sure how much he is drinking. OBJECTIVE room air. HEENT: Mucous membranes moist. NECK: Supple. No jugular venous distention. CHEST: Bilaterally decreased breath sounds, but poor inspiratory effort. CARDIOVASCULAR: S1, S2 regular. ABDOMEN: Soft, nontender. EXTREMITIES: Show no edema. 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 Acute renal failure: I doubt this is really acute renal failure as the acute component is very, very minimal. At this time, creatinine is about stable around 1.8 to 1.9. He is making urine and his laboratories otherwise seem reasonable. Continue daily laboratories, but I have a suspicion this is his new baseline kidney function. Not sure why his Hgb is so high at 17.8. Consider hematology input if felt needed by Primary team. June 10, 2020 Assessment & Plan Admission and Anticipated Discharge Date Admission Date: June 04, 2020 Results & Data ([facility]) Vital Signs (Past 12 Hours) Vital Signs Temp Pulse Resp BP Pulse Ox 06/10/20 07:06 36.4 C L 92 H 18 102/75 95 06/10/20 00:54 100 H 20 148/99 H 93
--- NOTE | 2020-06-10 14:13 | Hospitalist Progress Note ---
Date of Service June 10, 2020 Assessment & Plan (1) Acute alteration in mental status: (2) Medication noncompliance due to cognitive impairment: (3) Vascular dementia: (4) Acute hyperglycemia: (5) Hypothyroidism: (6) Hyponatremia: (7) CKD (chronic kidney disease), stage III: (8) COPD (chronic obstructive pulmonary disease): (9) PVD (peripheral vascular disease): (10) Tobacco use disorder: (11) Type 2 diabetes mellitus: (12) Coronary artery disease: Patient is 74yo M with a PMH of vascular dementia, CAD (s/p stents), PVD (s/p R fem pop stent in 2018), CKD III (s/p nephrectomy), DM II, h/o lung cancer (s/p RUL resection), hypothyroidism and other medical problems listed below who presented with confusion that has been going on for the last 2 months. Acute metabolic encephalopathy -multifactorial Progressed vascular dementia Medication non-compliance CT head was obtained on admission which did not reveal any concerning findings. Chest x-ray was negative. COVID-19 was negative. Patient is afebrile. White count is within normal limits. Elevated TSH and low free T4. Levothyroxine was started. Patient does have history of noncompliance. Appreciate psychiatric input. Continues to have his one-to-one sitter at bedside. Currently awaiting placement. Hypothyroidism History of noncompliance ESS of 58 on admission. Free T4 was low. Will continue with the levothyroxine 300 mcg daily. Follow-up with TSH in the next 3 to 4 weeks. Acute hyperglycemia DM II , uncontrolled Current Hgb A1c 12.8% CKD III Kidney function at baseline on admission. Creatinine at 1.83 today. Renal ultrasound without any concerns. Hold any nephrotoxic agents. Monitor daily BMP. Hyponatremia - resolved CAD PVD Continue medical mgmt with aspirin, statin and plavix COPD Not taking any home medications, inhalers or nebulizers Tobacco use disorder Smokes 1.5-2 ppd for the past 50 years but recently stopped smoking 7 days ago Possibly contributing to delirium Nicotine patch DVT Ppx: SQ heparin Code status: DNR per discussion with PCP: Dr. Charles Admission and Anticipated Discharge Date Admission Date: June 04, 2020 Subjective Patient resting comfortably. Could not obtain full review of system given his baseline mental status. Did not appear to be in any distress. Hemodynamically patient is doing fine. Physical Exam Physical Exam: General: Awake and alert, does not appear to be in any distress HENT: NCAT, MMM, EOMI Eyes: PERRLA Neck: Supple, normal range of motion CVS: normal rate and rhythm Resp: b/l good breath sounds Abdomen: Soft, distended and nontender Extremities: No c/c/e Neuro: No gross focal deficits appreciated Skin: warm and dry, no rashes/lesions/errythema MSK: normal ROM, no joint swelling/erythema Results & Data Results & Data ([facility]) Vital Signs (Past 12 Hours) Vital Signs Temp Pulse Resp BP Pulse Ox 06/10/20 07:06 36.4 C L 92 H 18 102/75 95 (1) Vascular dementia Dementia behavioral disturbance: without behavioral disturbance Qualified Code(s): F01.50 - Vascular dementia without behavioral disturbance (2) Hypothyroidism Hypothyroidism type: unspecified Qualified Code(s): E03.9 - Hypothyroidism, unspecified (3) COPD (chronic obstructive pulmonary disease) COPD type: unspecified COPD Qualified Code(s): J44.9 - Chronic obstructive pulmonary disease, unspecified (4) Type 2 diabetes mellitus 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 transplanted heart: [place] heart Associated angina: without angina Qualified Code(s): I25.10 - Atherosclerotic heart disease of [place] coronary artery without angina pectoris
[2020-06-10] MEDS: FAMOTIDINE 20 MG TAB PO SCH (20:49)
[2020-06-11] MEDS: LEVOTHYROXINE SODIUM 100 MCG TABLET PO SCH ×2 (05:53→06:23)
[2020-06-11] MEDS: HEPARIN SOD 5,000 UNIT/0.5 ML VIAL SQ SCH ×2 (05:54→13:51)
[2020-06-11] MEDS: NICOTINE 14 MG/24 HR PATCH TD SCH (09:00)
[2020-06-11] MEDS: ATORVASTATIN 40 MG TAB PO SCH (09:00)
[2020-06-11] MEDS: CLOPIDOGREL BISULFATE 75 MG TAB PO SCH (09:00)
[2020-06-11] MEDS: ASPIRIN 81 MG ECTAB PO SCH (09:00)
[2020-06-11] MEDS: INSULIN GLARGINE SOLOSTAR 100 UNITS/ML 3 ML PEN SC SCH (09:03)
[2020-06-11] MEDS: INSULIN ASPART 100 UNITS/ML 3 ML PEN SC SCH ×2 (09:05→13:51)
--- NOTE | 2020-06-11 09:40 | Pharmacy Report ---
Pharmacy Glycemic Short Note 2 - Date of Service June 11, 2020 - Glycemic Short BSG Results (Last 24 hours): 06/10/20 06/10/20 06/10/20 12:01 16:52 20:21 POC Glucose 210 H 194 H 209 H 06/11/20 07:30 POC Glucose 139 H OUTPATIENT ANTIDIABETIC REGIMEN: * glipizide 10 mg bid, metformin 1 gm bid * A1c ~10 05/16/2019 per records * A1c = 12.8% on 06/05/20 ASSESSMENT: 06/11: * BSGs elevated yesterday, 133, 210, 194, and 209 mg/dL * Will tighten Novolog parameters today * Fasting BSG of 139 mg/dL this morning 06/04: * 74 year old PMHx of dementia, CAD, CKD III, DM2, h/o lung Ca, hypothyroidism. Presenting with increased confusion x 2 months. Noncompliance noted with medications. * Last A1c over a year ago - elevated ~10%, unclear recent control. A1c ordered for tomorrow AM * Pharmacy consulted for glycemic control. BSG at time of consult 356 mg/dL - plan to start novolog CF/CR between stress of 2 and will plan to give IV insulin bolus (based upon adj bw). Recheck BSG at HS trending down sig nificantly to 91 mg/dL. Patient does not report any changes with mental status/confusion with rapid decrease in BSG * Plan to hold basal for now, will reassess in AM if necessary PLAN FOR INPATIENT GLYCEMIC CONTROL: * Hold outpatient oral diabetes medications * Basal insulin - increase * Lantus 30 units SC qAM * Lantus 5 units x 1 added at lunchtime (will plan to give 35 units SC daily tomorrow) * Bolus insulin - tighten * NovoLog per scale ACHS or Q6hrs while NPO * Goal Range: Low 110 mg/dL - High 140 mg/dL * Correction Factor: 12 mg/dL/unit * Nutritional / Prandial insulin per carb ratio of 1 unit per 4 grams CHO consumed PLAN FOR DISCHARGE: * A1c = 12.8% on 06/05/20 * Goal A1c = 7-8% based on age/co-morbidities * A1c is greater than or equal to 10% consider triple therapy with metformin + basal insulin + (GLP1-RA OR prandial insulin OR may continue glipizide) * Doses TBD based on inpatient insulin data; but patient seems to be tolerating Lantus 35 units SQ daily + NovoLog 8 units SQ TIDM * Re-evaluate metformin based on renal function at DC * May consider stopping glipizide if NovoLog is initiated at DC
--- NOTE | 2020-06-11 10:57 | Nephrology Progress Note ---
Date of Service SUBJECTIVE: Overnight, no new issues. Blood pressure now good. OBJECTIVE room air. HEENT: Mucous membranes moist. NECK: Supple. No jugular venous distention. CHEST: Bilaterally decreased breath sounds, but poor inspiratory effort. CARDIOVASCULAR: S1, S2 regular. ABDOMEN: Soft, nontender. EXTREMITIES: Show no edema. 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 Acute renal failure: I doubt this is really acute renal failure as the acute component is very, very minimal. At this time, creatinine is about stable around 1.8 to 1.9. He is making urine and his laboratories otherwise seem reasonable. Continue daily laboratories, but I believe this is his new baseline kidney function. Not sure why his Hgb is so high at 17.8. Consider hematology input if felt needed by Primary team. June 11, 2020 Assessment & Plan Admission and Anticipated Discharge Date Admission Date: June 04, 2020 Results & Data ([facility]) Vital Signs (Past 12 Hours) Vital Signs Temp Pulse Resp BP Pulse Ox 06/11/20 00:10 36.7 C 98 H 16 124/94 95
[2020-06-11] MEDS ORDERED: INSULIN GLARGINE SOLOSTAR 100 UNITS/ML 3 ML PEN SC ONE (12:00)
--- NOTE | 2020-06-11 14:20 | Discharge Summary ---
Date of Service June 11, 2020 Admission HPI Per Admitting Provider This is a 74yo M with a PMH of vascular dementia, CAD (s/p stents), PVD (s/p R fem pop stent in 2018), CKD III (s/p nephrectomy), DM II, h/o lung cancer (s/p RUL resection), hypothyroidism and other medical problems listed below who presents with increased confusion x 2 months. History primarily obtained from and daughter over the phone due to patient's severe dementia. Patient with progressive confusion and increased agitation, per family. Is noncompliant with medications, not taking anything from 05/20-05/28 before resuming some of them. Has not been eating or drinking much. Is too weak to ambulate up the stairs and has therefore been having urinary and fecal incontinence downstairs. Has refused to allow to bathe him for upwards of 1 month, per daughter. Patient also has become more agitated and unsafe over the past week to the point that family is looking for placement due to unable to care for her with progressed condition. Family has been trying to have patient evaluated by PCP over the past few days but patient unwilling. Had to have assistance of police in order to bring patient into ED for evaluation today. Patient demented and hard of hearing so ROS extremely limited but denies pain. Oriented to self but not to place, time or situation. Was agitated in the ED but cooperative after dose of Haldol given prior to our interview. Does endorse feeling weak. Afebrile and hemodynamically stable. No leukocytosis. Hemoglobin at baseline. Sodium slightly low at 131. Creatinine close to baseline at 1.57. Glucose elevated at 343. TSH significantly elevated at 58 with free T4 0.23 in setting of medication noncompliance. Also has significant smoking history of 2 packs/day for the past 50 years but has not smoked for the past week. Admission Exam Per Admitting Provider General Appearance: vitals as above, sitting in bedside chair, confused Head: normocephalic, atraumatic Eyes: normal inspection, PERRL, conjunctivae normal, anicteric sclerae ENT: hard of hearing, external ear and nose normal, oropharynx normal Neck: normal visual inspection, trachea midline, no thyromegaly Respiratory: normal respiratory effort, diminished lung sounds, no wheeze, rales, rhonchi. No accessory muscle use Cardiovascular: regular rate, rhythm, no murmur appreciated, normal peripheral pulses, no BLE edema. Vessels: no JVD Chest: normal inspection of chest Abdomen/GI: normal bowel sounds, soft, nontender, no hepatosplenomegaly Extremities/Musculoskeletal: no cyanosis or clubbing, extremities motor strength 5/5 Neurologic: PERRL, EOMI, accommodation nl, no face palsy, no dysarthria, CN's II-XI intact bilaterally and moves all extremities Psychiatric: A+O to self, not to place, time or situation, euthymic affect Skin: no rashes, normal color, warm/dry Principal Diagnosis (1) Acute alteration in mental status: (2) Medication noncompliance due to cognitive impairment: (3) Vascular dementia: (4) Acute hyperglycemia: (5) Hypothyroidism: (6) Hyponatremia: (7) CKD (chronic kidney disease), stage III: (8) COPD (chronic obstructive pulmonary disease): (9) PVD (peripheral vascular disease): (10) Tobacco use disorder: (11) Type 2 diabetes mellitus: (12) Coronary artery disease: Discharge Exam General: Awake and alert, does not appear to be in any distress HENT: NCAT, MMM, EOMI Eyes: PERRLA Neck: Supple, normal range of motion CVS: normal rate and rhythm Resp: b/l good breath sounds Abdomen: Soft, distended and nontender Extremities: No c/c/e Neuro: No gross focal deficits appreciated Skin: warm and dry, no rashes/lesions/errythema MSK: normal ROM, no joint swelling/erythema Discharge Data Allergies Allergy/AdvReac Type Severity Reaction Status Date / Time Iodinated Contrast Media Allergy Intermediate swelling Verified 01/12/20 11:16 Consultations 06/04/20 16:40 ED Decision to Admit Stat 06/04/20 18:33 Consult Case Management - Discharge Planning Routine 06/04/20 20:34 Consult Psychiatry Routine 06/07/20 11:45 Consult Nephrology Routine Ordered Studies 06/04/20 12:28 CT head/brain wo con Stat 06/07/20 15:00 US renal/blad retro comp Routine Hospital Course (1) Acute alteration in mental status: (2) Medication noncompliance due to cognitive impairment: (3) Vascular dementia: (4) Acute hyperglycemia: (5) Hypothyroidism: (6) Hyponatremia: (7) CKD (chronic kidney disease), stage III: (8) COPD (chronic obstructive pulmonary disease): (9) PVD (peripheral vascular disease): (10) Tobacco use disorder: (11) Type 2 diabetes mellitus: (12) Coronary artery disease: Patient is 74yo M with a PMH of vascular dementia, CAD (s/p stents), PVD (s/p R fem pop stent in 2018), CKD III (s/p nephrectomy), DM II, h/o lung cancer (s/p RUL resection), hypothyroidism and other medical problems listed below who presented with confusion that has been going on for the last 2 months. Acute metabolic encephalopathy -multifactorial Progressed vascular dementia Medication non-compliance CT head was obtained on admission which did not reveal any concerning findings. Chest x-ray was negative. COVID-19 was negative. Patient is afebrile. White count is within normal limits. Elevated TSH and low free T4. Levothyroxine was started. Patient does have history of noncompliance. Appreciate psychiatric input. On the day of discharge patient was doing okay. Hemodynamically patient was doing fine. Patient was discharged in stable condition. Hypothyroidism History of noncompliance TSH of 58 on admission. Free T4 was low. Will continue with the levothyroxine 300 mcg daily. Patient will need TSH and free T4 rechecked in 3 weeks. Acute hyperglycemia DM II , uncontrolled Current Hgb A1c 12.8% Patient was started on Lantus 35 units at bedtime daily. Metformin was discontinued at discharge. We will continue with the glipizide. Please continue to monitor blood glucose daily for further adjustment. CKD III Nephrology was on board. His new baseline is likely 1.8-1.9. Hyponatremia - resolved CAD PVD Continue medical mgmt with aspirin, statin and plavix COPD Not taking any home medications, inhalers or nebulizers Tobacco use disorder Smokes 1.5-2 ppd for the past 50 years but recently stopped smoking 7 days ago Possibly contributing to delirium Nicotine patch Total Time Total Time Spent Total Time Spent (In Minutes): 35 Discharge Plan Discharge Items Patient Disposition: Transfer Alf Fac Reason For Visit: MED NONCOMPLIANCE, AMS Discharge Diagnosis: (1) Acute alteration in mental status: (2) Medication noncompliance due to cognitive impairment: (3) Vascular dementia: (4) Acute hyperglycemia: (5) Hypothyroidism: (6) Hyponatremia: Activity: Resume your previous activity Non-emergency contact: Primary Care Provider Call non-emergency contact if: your symptoms worsen Follow-up/Referrals: Vik Charles MD [Primary Care Provider] - Diet: Carb Consistent or DM2 Addtl Attending Provider Instructions: Patient was started on Lantus 35 units at bedtime. Metformin was stopped at discharge. Continue with glipizide. Continue to monitor daily blood glucose levels for further adjustment. Patient will need repeat TSH levels in the next 3 weeks. Pending Studies at Discharge: No Stand-Alone Forms: [facility] Skilled Items Patient informed of condition?: Yes DNR: Yes Discharge Level of Care: Skilled Discharge Prognosis: Stable Lines: None Urinary Catheter: No Medications and DC Order Prescriptions: New Lantus Solostar U-100 Insulin 100 unit/mL (3 mL) Insulin Pen 35 unit SC DAILY Qty: 30 RF: 0 Continued glipizide 10 mg tablet 10 mg PO BID RF: 0 atorvastatin 40 mg tablet 40 mg PO DAILY RF: 0 clopidogrel 75 mg tablet 75 mg PO DAILY RF: 0 aspirin 81 mg Tablet,Delayed Release (Dr/Ec) 81 mg PO DAILY RF: 0 famotidine 20 mg Tablet 20 mg PO HS RF: 0 ipratropium-albuterol [DuoNeb] 0.5 mg-3 mg(2.5 mg base)/3 mL Solution For Nebulization 3 ml INHALATION Q6H PRN (Reason: Insomnia) RF: 0 levothyroxine 100 mcg Tablet 100 mcg PO MOWEFR@0700 RF: 0 nitroglycerin [Nitrostat] 0.4 mg Tablet, Sublingual 0.4 mg sublingual UD RF: 0 levothyroxine 200 mcg tablet 200 mcg PO SUTUTHSA@0700 RF: 0 Discontinued metformin 500 mg tablet extended release 24 hr 1,000 mg PO BID RF: 0 Discharge Orders: Discharge Order (Routine); Ordered 06/11/20 Ordered By: Donte Arroyo Admission Data Admit Date/Time: 06/04/20 17:19 Attending Provider: Donte Arroyo Admit Provider: Andria Booth I. Primary Care Provider: Vik Charles Other Providers: Andria Booth I. ; Bobo Ann ; Mirella Escalante ; Enrrique Lackey ; Lucio Phillips ; Martin Sinclair ; Violetta Terry ; Celio Simeon ; Anjana Díaz ; Gilda Gibson ; Carlie Wellington ; Peyman Lopez I. ; Belkis Keane ; Violette Kuhn ; Tianna Russell ; Onofre Le ; [facility] ; [facility],
== END 2020-06-11 15:14 | DRG 884 ==
LOC: ED 12:12 → 2N 17:19 → SUATTDRO 17:19 → 2N 18:14

== ENCOUNTER 2020-07-19 19:13 | Inpatient (IN) ==
[2020-07-19] MEDS ORDERED: NOREPINEPHRINE/D5W 8 MG/508 ML IV ONE (21:18)
[2020-07-19] MEDS ORDERED: fentaNYL citrate 100 MCG/2 ML VIAL IV PRN (21:41)
[2020-07-19] MEDS ORDERED: ICU PROTOCOL FOR HYPERGLYCEMIA PRN ×2 (21:41→22:36)
[2020-07-19] MEDS ORDERED: ACETAMINOPHEN 1,000 MG/100 ML VIAL IV PRN (21:41)
[2020-07-19] MEDS ORDERED: STAT IV Infusion **Titration per Protocol STA (21:41)
[2020-07-19] MEDS ORDERED: ALBUT/IPRATROP 3MG/0.5MG NEB 3 ML VIAL INH PRN ×2 (21:41→22:36)
[2020-07-19] MEDS ORDERED: PROPOFOL BOLUS FROM BAG IV PRN (21:41)
[2020-07-19] MEDS ORDERED: NORMOSOL-R 1,000 ML IV SCH (21:45)
--- NOTE | 2020-07-19 21:52 | Critical Care Consultation ---
Date of Consultation July 19, 2020 Assessment & Plan (1) Admitted to intensive care unit: Reason Critically Ill: 75-year-old male with extensive past medical history who is status post respiratory arrest followed by cardiac arrest with brief loss of pulses and ROSC within 90 seconds requiring close hemodynamic monitoring and ongoing airway management status post choking episode. NEURO - * CAM ICU: Unable to assess secondary to sedation. * Sedation: Propofol gtt * Pain: Fentanyl PRN * s/p Respiratory Arrest with brief loss of pulses: * Patient performing hand squeezing and nodding his head prior to sedation at [facility]. * No focal neurological deficits on exam upon arrival. * Withdraws appropriately to painful stimuli. * Opens eyes with noxious stimuli. * Extremely hard of hearing. * Will continue with sedation overnight. * Vascular Dementia: * Currently institutionalized in a geriatric psychiatric facility. * Patient will likely need to be placed back in institution if successfully discharged from this hospitalization. CARDIAC/VASCULAR - * Cardiac arrest: * Likely secondary to profound hypoxia and acidemia in the setting of respiratory arrest. * EKG without significant findings. * Likely degree of cardiogenic shock requiring low-dose Levophed. * Titrate down pressors as tolerated. * Extensive cardiac history including coronary artery disease status post PTCI, hypertension, hyperlipidemia, prior abdominal AAA repair, peripheral vascular disease, and LEFT carotid endarterectomy. * Continue with home medications as practical. * Monitor on telemetry. RESPIRATORY - * Respiratory arrest secondary to choking episode: * Unfortunate in the demented COPD patient. * Will obtain ABG initially to wean ventilator settings as tolerated. * Will repeat chest x-ray to evaluate for pulmonary pathology * Currently saturating well on settings. * Will titrate down FiO2 as tolerated. * Goal FiO2 88 to 92% in the known COPD patient. * As needed DuoNebs. * h/o RUL Wedge Resection 2/2 lung CA. GI/NUTRITION - * Prophylaxis: Famotidine RENAL/LYTES - * CKD III * h/o LEFT nephrectomy 2/2 bladder/ureteral CA * IVF: Normosol @80mL/hr - * Toure in place - Strict I&Os. ENDO - * DMII, DI, Hypothyroid * BSGs per unit protocol. ISS --> gtt per unit policy. HEME - * Stable H&H ID - * Likely aspiration pneumonitis: * Continue w/ Zozyn * AM PCT * Lactate WNL LINES/IV ACCESS - * PIVs x2 * ET Tube * Toure * OG DVT PROPHYLAXIS: * SCDs CODE Status: * I did have an extensive conversation with the patient's and daughter via phone. They report the patient currently is residing in a geriatric psychiatric facility. He is demented at baseline. He does not communicate with them regularly. They have not seen him in over a 2 months. * Initially, the patient was a DNR/DNI at [facility]. Despite this, the patient underwent emergent endotracheal intubation in the setting of choking episode. Since airway is in place, family wishes to continue with treatment currently and does wish to extend his CODE STATUS to FULL CODE in the interim. * I did discuss with them that despite his current improvements in oxygenation, his complex past medical history and baseline health status does not lend itself well to resuscitative efforts in the event of a repeat arrest. They understand, and despite this, they wish to proceed with full code measures. I did recommend that after they are able to see the patient and be with him further, that we could consider reinstituting DNR status as I do feel in his clinical scenario that would be most appropriate in the event that he were to undergo cardiac arrest again. Family is open to further discussion with this, but likely only after they are able to see the patient. I have personally spent 45 minutes of critical care time in the direct management of this patient. This is a life/limb threatening event. This includes time spent evaluating patient, direct bedside care, chart review, placing orders, interpretation of diagnostic studies, discussion with consultants, patient, and family members, as well as other required patient management act ivities. This time is exclusive of all separately billable procedures, and teaching time and separate from and in addition to any other critical care service time. Thank you for allowing us to participate in the care of this patient. Please refer to my attending physician's documentation for any further recommendations. 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: (15) S/P AAA repair: (16) S/p nephrectomy: (17) S/P coronary artery stent placement: (18) History of left-sided carotid endarterectomy: History of Present Illness Attending Physician: Edd Gomes MD History of Present Illness Patient is a 75-year-old male with a complicated past medical history including coronary artery disease, hypertension, hyperlipidemia, prior coronary artery stenting, prior laparoscopic abdominal AAA repair, LEFT-sided carotid endarterectomy, bladder cancer status post nephrectomy, lung cancer status post RIGHT upper lobe wedge resection, peripheral vascular disease, COPD, hypothyroidism, diabetes, chronic kidney disease, dementia. Patient currently lives in an inpatient psychiatric unit. Unfortunately, while celebrating his birthday, the patient choked on birthday cake and resulted in a respiratory arrest. The patient was subsequently intubated by emergency department staff. Patient underwent approximately 90 seconds of chest compressions after losing his pulse. Since then, the patient has required low-dose Levophed and sedation medications. He is moving extremities appropriately. Family request transfer to this institution for ongoing management. Upon arrival in the ICU, the patient is intubated and sedated. He does awaken to noxious stimuli. Unable to participate in HPI. I did speak with the patient's daughter and . Apparently, the patient has been living in the inpatient psych unit for some time now. They have not been able to see him or speak with him for at least 2 months. They state that he is demented at baseline and does not tend to have meaningful conversations. He is extremely hard of hearing. Allergies Allergy/AdvReac Type Severity Reaction Status Date / Time Iodinated Contrast Media Allergy Intermediate swelling Verified 01/12/20 11:16 Home Medications Medication Instructions Recorded Confirmed Type aspirin 81 mg PO DAILY 07/16/18 06/04/20 History atorvastatin 40 mg PO DAILY 07/16/18 06/04/20 History clopidogrel 75 mg PO DAILY 07/16/18 06/04/20 History famotidine 20 mg PO HS 06/10/19 06/04/20 History glipizide 10 mg tablet 10 mg PO BID 01/12/20 06/04/20 History ipratropium-albuterol 3 ml INHALATION Q6H PRN 06/04/20 06/04/20 History levothyroxine 100 mcg PO MOWEFR@0700 06/04/20 06/04/20 History levothyroxine 200 mcg PO SUTUTHSA@0700 06/04/20 06/04/20 History nitroglycerin [Nitrostat] 0.4 mg SUBLINGUAL UD 06/04/20 06/04/20 History insulin glargine [Lantus Solostar 35 unit SC DAILY #30 ml 06/11/20 Rx U-100 Insulin] Patient History Medical History AAA (abdominal aortic aneurysm) Carotid stenosis, non-symptomatic CKD (chronic kidney disease), stage III Coronary artery disease Dyslipidemia History of nonmelanoma skin cancer Hypothyroidism 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 CT (myocardial infarction) "2008 and 2013 s/p multiple stent placements " Primary cancer of right upper lobe of lung PVD (peripheral vascular disease) Tobacco use disorder Type 2 diabetes mellitus Vascular dementia Surgical History History of left-sided carotid endarterectomy S/P AAA repair S/P appendectomy S/P colonoscopy with polypectomy S/P coronary artery stent placement S/P cystourethroscopy with dilation of urethral stricture S/P laparoscopic cholecystectomy "with umbilical hernia repair" S/p nephrectomy "left nephrectomy with partial ureterectomy" S/P rotator cuff repair S/P tonsillectomy and adenoidectomy Family History Father Myocardial infarction Mother Colon cancer Other Cancer Heart disease Denies family history of Lung disease Asthma Social History Smoking Status: Former smoker Tobacco Type: Cigarettes Age Started Using Tobacco: 12; packs per day: 1; Years Smoked: 62; Cigarettes Per Day: 20; Second Hand Exposure: Yes; Hx Alcohol Use: No Hx Substance Use: No Preferred Language: Luxembourgish Communication Ability: Impaired 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 GENERAL - 75-year-old male appearing his stated age who is intubated and sedated. SKIN - Without rashes. HEAD - NC/AT. EYES - PERRL. Sclera anicteric. EARS - No deformities of external structures noted on gross examination bilaterally. NOSE - Midline and without cyanosis. MOUTH/OROPHARYNX - ET Tube in place. Without perioral cyanosis. NECK - Supple to palpation. No nuchal rigidity. LUNGS - TTP to the LEFT sided chest wall. Coarse breath sounds noted to the RIGHT sided lung [place] and LEFT upper lobe. CARDIAC - RRR with S1/S2. No murmur, rubs, or gallops appreciated. ABDOMEN - Abdominal contour obese without pulsations or visible masses. BS normoactive all four quadrants. No tenderness, palpable masses, hepatosplenomegaly, or ascites noted. EXTREMITIES - No clubbing or peripheral cyanosis. No pretibial edema present. +3/5 radial and dorsalis pedis pulses palpated throughout. NEUROLOGIC - No focal neurological deficits appreciated. Coding Level of Care Code Critical Care 1st 30-74 mins Diagnoses Admitted to intensive care unit Z78.9 Choking due to foreign body T17.900A Respiratory arrest before cardiac arrest I46.9; R09.2 Aspiration into airway T17.908A CKD (chronic kidney disease), stage III N18.30 Hypothyroidism E03.9 Hypothyroidism type: unspecified Hyponatremia E87.1 COPD (chronic obstructive pulmonary disease) J44.9 COPD type: unspecified COPD Hypothyroidism E03.9 Hypothyroidism type: unspecified Vascular dementia F01.50 Dementia behavioral disturbance: without behavioral disturbance Primary cancer of right upper lobe of lung C34.11 CT (myocardial infarction) I21.9 Coronary artery disease I25.10 Associated angina: without angina Coronary Disease-Associated Artery/Lesion type: [place] artery [place] vs. transplanted heart: [place] heart Malignant neoplasm of ureter C66.9 S/P AAA repair Z98.890; Z86.79 S/p nephrectomy Z90.5 S/P coronary artery stent placement Z95.5 History of left-sided carotid endarterectomy Z98.890 Time Spent (min) 45 (1) Vascular dementia Dementia behavioral disturbance: without behavioral disturbance Qualified Code(s): F01.50 - Vascular dementia without behavioral disturbance (2) Coronary artery disease Associated angina: without angina Coronary Disease-Associated Artery/Lesion type: [place] artery [place] vs. transplanted heart: [place] heart Qualified Code(s): I25.10 - Atherosclerotic heart disease of [place] coronary artery without angina pectoris (3) Hypothyroidism Hypothyroidism type: unspecified Qualified Code(s): E03.9 - Hypothyroidism, unspecified (4) Hypothyroidism Hypothyroidism type: unspecified Qualified Code(s): E03.9 - Hypothyroidism, unspecified (5) COPD (chronic obstructive pulmonary disease) COPD type: unspecified COPD Qualified Code(s): J44.9 - Chronic obstructive pu lmonary disease, unspecified
[2020-07-19] MEDS ORDERED: PIPERACILLIN/TAZOBACTAM 3.375 GM in DEXTROSE 5% 100 ML IV SCH (22:36)
[2020-07-19] MEDS ORDERED: NITROGLYCERIN SL 0.4 MG/TAB TAB SL PRN (22:36)
[2020-07-19] MEDS ORDERED: PIPERACILL/TAZOBAC CONSULT ACTIVE PRN (22:36)
[2020-07-19 22:38] LABS: Basophils # (auto) 0.02 K/uL (0-0.2); Basophils % (auto) 0.1 %; Eosinophils # (auto) 0.09 K/uL (0-0.5); Eosinophils % (auto) 0.6 %; Hematocrit (blood only) 43.3 % (42-52); Hemoglobin 14.4 g/dL (14.0-18.0); Immature Granulocytes # (auto) 0.16 K/uL (0.00-0.02); Immature Granulocytes % (auto) 1.1 %; Lymphocytes # (auto) 1.22 K/uL (1.2-3.4); Lymphocytes % (auto) 8.5 %; Mean Corpuscular Hemoglobin 34.8 pg (25-34); Mean Corpuscular Volume 104.6 fL (80-100); Mean Platelet Volume 9.8 fL (7.4-10.4); Monocytes # (auto) 1.04 K/uL (0.11-0.59); Monocytes % (auto) 7.3 %; Neutrophils # (auto) 11.77 K/uL (1.4-6.5); Neutrophils % (auto) 82.4 %; Platelet Count 197 K/uL (130-400); RDW Coefficient of Variation 13.5 % (11.5-14.5); RDW Standard Deviation 51.8 fL (36.4-46.3); Red Blood Count 4.14 M/uL (4.7-6.1)
[2020-07-19 22:42] LABS: Mean Corpuscular Hgb Conc 33.3 g/dL (32-36)
[2020-07-19] MEDS: FAMOTIDINE 20 MG in SYRINGE 3 ML IV SCH (22:42)
[2020-07-19] MEDS: propofoL 1,000 MG/100 ML VIAL IV SCH (22:43)
[2020-07-19] MEDS ORDERED: GLUCOSE 40% GEL 15 GM TUBE PO PRN (22:45)
[2020-07-19] MEDS ORDERED: GLUCOSE 10 TABS/TUBE PO PRN (22:45)
[2020-07-19] MEDS ORDERED: DEXTROSE 50% 50 ML SYRINGE IV PRN (22:45)
[2020-07-19] MEDS ORDERED: CARBOHYDRATES FOR HYPOGLYCEMIA PO PRN (22:45)
[2020-07-19] MEDS ORDERED: GLUCAGON FOR INJ 1 MG VIAL IM PRN (22:45)
[2020-07-19] MEDS: NOREPINEPHRINE/D5W 8 MG/508 ML BAG IV SCH (22:46)
[2020-07-19 22:48] LABS: iSTAT Art Bld Gas pCO2 Correct 69 mmHg (35-46); iSTAT Art Bld Gas pH Corrected 7.229 (7.35-7.45); iSTAT Arterial Blood Gas HCO3 29 meg/L (19-24); iSTAT Arterial Blood Gas pCO2 70 mmHg (35-46); iSTAT Arterial Blood Gas pH 7.23 (7.35-7.45); iSTAT Arterial Blood Gas pO2 114 mmHg (80-95); iSTAT Arterial Blood Gas pO2 C 113; iSTAT Carbon Dioxide 31 mmol/L (24-31); iSTAT FiO2 80 %; iSTAT Hematocrit 43 % (42-52); iSTAT Hemoglobin 14.6 g/dl (14.0-18.0); iSTAT Site R Radial; iSTAT Sodium 138 mmol/L (135-144)
[2020-07-19 22:49] LABS: Chloride 106 mmol/L (98-107); Potassium 4.9 mmol/L (3.5-5.1); Sodium 139 mmol/L (136-145)
[2020-07-19 22:55] LABS: Alanine Aminotransferase 61 U/L (12-78); Albumin Level 3.5 gm/dl (3.4-5.0); Aspartate Aminotransferase 44 U/L (15-37); BUN Creatinine Ratio 18.3 (10-20); Bilirubin Direct < 0.1 mg/dl (0-0.2); Blood Urea Nitrogen 33 mg/dl (7-18); Calcium 8.8 mg/dl (8.5-10.1); Carbon Dioxide 27 mmol/L (21-32); Creatinine Clr Calc Pharmacy 37.2 ml/min; Est GFR (African American) 41.2; Est GFR (Non-African American) 35.5; Glucose 227 mg/dl (70-99); Magnesium 1.9 mg/dl (1.8-2.4)
[2020-07-19 23:07] LABS: Alkaline Phosphatase 106 U/L (45-117); Bilirubin,Total 0.8 mg/dl (0.2-1); Phosphorus 4.8 mg/dl (2.5-4.9); Total Protein 6.6 gm/dl (6.4-8.2); Troponin I 0.231 ng/ml (0-0.045)
[2020-07-19] MEDS ORDERED: PIPERACILLIN/TAZOBACTAM 4.5 GM in DEXTROSE 5% 100 ML IV ONE (23:15)
[2020-07-19 23:26] LABS: T4 Free Thyroxine 0.86 ng/dl (0.8-1.6)
--- NOTE | 2020-07-20 01:39 | History and Physical Report ---
DATE OF ADMISSION: 07/19/2020 CHIEF COMPLAINT: Aspiration, respiratory arrest, status post intubation. HISTORY OF PRESENT ILLNESS: This is a 75-year-old male with past medical history significant for vascular dementia, CAD status post stent, peripheral vascular disease, status post right femoral popliteal stent in 2018, chronic kidney disease stage III, status post nephrectomy, diabetes, history of lung cancer, status post right upper lung resection, history of bladder and urothelial cancer status post resection in 2016 , hypothyroidism, history of abdominal aneurysm repair and stent placement. Presents from a senior retirement with psych unit with aspiration. The patient had today his birthday and he choked on his cake. He then went in to respiratory arrest. They coded him for about 90 seconds as per the records and he was given 2 epis and was intubated and brought in here. Currently, he is on pressors. Initially, ABGs pH was 7.2. The patient is currently nonresponsive. Could not get much history from the patient. The patient has DNR bracelet on his wrist, but now family wanted to be full code. We could not get much history. ALLERGIES: IODINATED CONTRAST MEDIA. PAST MEDICAL HISTORY: As mentioned above. PAST SURGICAL HISTORY: Cardiac catheterization, status post stent placement, colonoscopies, cystoscopy, cystourethroscopy, repair of abdominal aortic aneurysm, femoral popliteal artery revascularization with stent and angioplasty, laparoscopic cholecystectomy, laparoscopic nephrectomy, appendectomy, left nephrectomy, tonsillectomy and adenoidectomy, rotator cuff repair, right upper lobe resection, left carotid endarterectomy. MEDICATIONS: The patient is currently on aspirin 81 mg p.o. daily, atorvastatin 40 mg p.o. daily, Plavix 75 mg p.o. daily, famotidine 20 mg p.o. at bedtime, glipizide 10 mg p.o. b.i.d., Lantus 35 units subcutaneous daily, DuoNebs q. 6 hours p.r.n., levothyroxine 100 mcg p.o. on Sunday, Sunday, and Sunday, and 200 mcg p.o. on Sunday, Sunday, , and Sunday, nitroglycerin 0.4 mg sublingual p.r.n. FAMILY HISTORY: Significant for aunt has colon cancer, mother had colon cancer, father from [place], sister has obesity, paternal grandfather had stroke. SOCIAL HISTORY: , currently living at a senior retirement with psych unit. Smoked 1-2 packets daily. No alcohol, no drug use. REVIEW OF SYSTEMS: Unobtainable. PHYSICAL EXAMINATION: GENERAL: The patient is status post intubated, unresponsive currently. VITAL SIGNS: Temperature afebrile, pulse 109, respiratory rate 27, oxygen 92% on mechanical ventilation. HEENT: Atraumatic. Pupils are pinpoint, no pallor, no icterus. NECK: No JVD seen, no neck masses seen. CARDIOVASCULAR: S1, S2 heard, regular rate and rhythm, no murmur, no gallop. RESPIRATORY SYSTEM: Normal AP diameter. No accessory muscle use. No wheezing, no crackles heard. ABDOMEN: Soft, bowel sounds present. No distention. CENTRAL NERVOUS SYSTEM: Status post intubated. EXTREMITIES: No edema, no erythema seen. LABORATORY DATA: WBC 14.3, hemoglobin 14.4, hematocrit 43, platelets 197. ABGs, pH of 7.2, pCO2 of 69, bicarbonate 29, oxygen 97%. Sodium 139, potassium 4.9, chloride 106, bicarbonate 27, BUN 33, creatinine 1.8, serum glucose 227, lactate 1.8, calcium 8.8, phosphorus 4.8, magnesium 1.9, total bilirubin 0.8, direct bilirubin less than 0.1, AST 44, ALT 61, alkaline phosphatase 106. Troponin 1 of 0.2. TSH 18.5, free T4 of 0.8. SARS-CoV-2 RNA negative. IMAGING DATA: Chest x-ray, no acute findings seen. ET tube above the mp seen. ASSESSMENT AND PLAN: A 75-year-old male who presents with respiratory arrest from aspiration. 1. Aspiration and respiratory arrest: Had CPR and status post 2 epis as per the records and status post intubation. Currently on pressors, started on Zosyn and IV fluids. Vent management as per Critical Care. We will continue to monitor and adjust his vent settings as per Critical Care. Closely monitor. 2. History of diabetes: We will cut back his Lantus to [address] on insulin sliding scale. Hold his home p.o. medications. 3. History of coronary artery disease status post stent: Continue his aspirin, statin, Plavix by NG tube if possible. 4. Gastroesophageal reflux disease: We will place on IV Pepcid. 5. Hypothyroidism: We will place him on IV Synthroid. 6. History of peripheral vascular disease: Continue aspirin, Plavix, and statin by NG tube if possible 7. History of lung cancer and history of bladder cancer: Follow up with urology and pulmonary. 8. Severe dementia with behavioral issues: Transfer back to senior behavioral unit whenever patient is stable. Will monitor for any delirium when the patient is more awake. 9. Chronic kidney disease stage III, presently with creatinine of 1.8, seemed close to baseline. 10. Chronic obstructive pulmonary disease: Nebs as needed. 11. History of tobacco abuse. 12. Deep venous thromboembolic prophylaxis: Sequential compression devices for now. 13. Disposition: Closely monitor in the ICU for now. Level 1 full code. MTDD
[2020-07-20] MEDS: SODIUM CHLORIDE 0.9% 1000ML 1,000 ML IV SCH ×2 (04:02→09:56)
[2020-07-20] MEDS ORDERED: ALBUT/IPRATROP 3MG/0.5MG NEB 3 ML VIAL NEB ONE (04:24)
[2020-07-20 04:55] LABS: Appearance Urine Clear (Clear); Bilirubin Urine Negative (Negative); Blood Urine 1+ (Negative); Color Urine Yellow; Glucose Urine UA 1+ (Negative); Ketones Urine Negative (Negative); Leukocyte Esterase Urine Negative (Negative); Nitrite Urine Negative (Negative); Protein Urine 2+ (Negative); Specific Gravity Urine 1.014 (1.000-1.030); Urobilinogen Urine Negative (Negative)
[2020-07-20] MEDS ORDERED: ONDANSETRON INJ 2 MG/ML 2 ML VIAL IV PRN (05:00)
[2020-07-20 05:27] LABS: Prothrombin Time 10.3 Seconds (9.0-12.0)
[2020-07-20 05:28] LABS: Basophils # (auto) 0.01 K/uL (0-0.2); Basophils % (auto) 0.1 %; Eosinophils # (auto) 0.02 K/uL (0-0.5); Eosinophils % (auto) 0.2 %; Hematocrit (blood only) 42.8 % (42-52); Hemoglobin 14.5 g/dL (14.0-18.0); Immature Granulocytes # (auto) 0.09 K/uL (0.00-0.02); Immature Granulocytes % (auto) 0.7 %; Lymphocytes # (auto) 0.96 K/uL (1.2-3.4); Lymphocytes % (auto) 7.2 %; Mean Corpuscular Hgb Conc 33.9 g/dL (32-36); Mean Corpuscular Volume 103.4 fL (80-100); Monocytes # (auto) 1.05 K/uL (0.11-0.59); Monocytes % (auto) 7.9 %; Neutrophils # (auto) 11.16 K/uL (1.4-6.5); Neutrophils % (auto) 83.9 %; Platelet Count 229 K/uL (130-400); RDW Coefficient of Variation 13.6 % (11.5-14.5); RDW Standard Deviation 51.4 fL (36.4-46.3); Red Blood Count 4.14 M/uL (4.7-6.1); White Blood Count 13.29 K/uL (4.8-10.8)
[2020-07-20 05:51] LABS: BUN Creatinine Ratio 16.7 (10-20); Est GFR (African American) 36.9; Est GFR (Non-African American) 31.9; Potassium 5.5 mmol/L (3.5-5.1)
[2020-07-20 06:03] LABS: Troponin I 0.289 ng/ml (0-0.045)
--- NOTE | 2020-07-20 06:28 | XRay Report ---
XR chest 1V portable HISTORY: 75 years-old Male aspiration, intubation from outside facility acute shortness of breath wi th respiratory failure COMPARISON: Chest radiograph 06/04/2020, chest CT 01/09/2020. TECHNIQUE: Semierect portable AP view of the chest FINDINGS: Cardiac silhouette is mildly enlarged, unchanged. Endotracheal tube terminates 3.6 cm superior to the mp. Enteric tube courses below the diaphragm outside the [id number]. Emphysema with chronic i nterstitial coarsening. No pneumothorax, large pleural effusion or overt pulmonary edema. Mild ill-de fined left greater then right bibasilar opacities. Healed chronic left-sided rib fractures. Degenerat betty changes of the shoulders and spine. IMPRESSION: 1. Lines and tubes as above. 2. Mild left greater than right bibasilar opacities suggest atelectasis versus pneumonitis. 3. Emphysema. ACT 112: Negative or not required by law. The above report was generated using voice recognition software. It may contain grammatical, syntax o r spelling errors. Electronically signed by: Arnaldo Medellin M.D. 07/20/2020 6:27 AM
[2020-07-20] MEDS ORDERED: CALCIUM GLUCONATE 10% 1,000 MG in SODIUM CHLORIDE 0.9% 50 ML IV ONE (06:36)
[2020-07-20] MEDS: PIPERACILLIN/TAZOBACTAM 4.5 GM in DEXTROSE 5% 100 ML IV SCH ×3 (06:45→21:19)
[2020-07-20] MEDS ORDERED: PHARMACY GLYCEMIC MGMT CONSULT PRN (06:45)
[2020-07-20] MEDS ORDERED: INSULIN HUMAN REGULAR PER UNIT 3.5 UNITS in SYRINGE 3.465 ML IV STA (06:50)
--- NOTE | 2020-07-20 06:52 | Critical Care Progress Note ---
Date of Service July 20, 2020 Assessment & Plan (1) Admitted to intensive care unit: Reason critically ill: 75M hx of CAD (s/p stent), PVD, CKD3 (s/p L nephrectomy for bladder/urothelial cancer), COPD, HLD, hypothyroidism, RUL cancer (s/p wedge resection), DM2, and vascular dementia who presented as a transfer from [facility] on evening of 07/19 after he coded for 90 seconds after choking on a meal, obtained ROSC, and was subsequently intubated and vented. Vent day 2, ICU day 2. Neuro - sedated. propofol 15/mcg/kg/min - pain control: IV fentanyl 25 mcg q2h prn Cardiac/Vascular - 0.07 mcg/kg/min levophed - cardiac arrest likely 2/2 resp arrest in setting of aspiration. Mild pressor requirement may be from mild cardiogenic shock. - tachycardia 106 on monitor - HR low 100s. 110s-120s / 60s-90s. had lows of 93/55 (MAP 68) around 2330. - ecg: sinus tach 106. PA .206. LAD. RBBB. qrs 150 - 1/30 echo: ef 40-45, mild global hypokineses of LV - trop 0.231H->0.289H, likely 2/2 demand ischemia from cardiac arrest - 07/20 continue home Plavix, Lipitor, and 81 mg aspirin Respiratory - mechanical ventilation. vc. 500 vt. 20 rr. 10 peep. fio2 80 (as of 930am). 0844 bronchoscopy. Piece of celery removed from left lower lobe of lung. - Patient may have received valsalva s/p choking episode: No obvious fx on cxr. Did not obtain rib series. Monitor clinically when off vent. - ABG. 07/19 7.23L/70H/114H/29H. 07/20 7.38/44/57L/26H/27. Improvement of respiratory acidosis. No anion gap. Acute hypoxic resp failure 2/2 aspiration. - 07/19 cxr: mild L>R bibasilar airspace opacities: atelectasis vs pneumonitis. Emphysema. 07/20 cxr: unchanged. Tubes/lines reviewed. GI/Nutrition - NPO - AST 44H on 07/19. Renal/Lytes - bun 33, stable. Cr 1.81H->1.98H - Normosol 80 mL/hr changed to LR 80 mL/hr on 07/20 - K 5.5H. Ca, Mg appropriate. Phos 4.8>3.2. Genitourinary - hernandez. Is/Os as of 07/20 AM: 142mL in 1L out (600 emesis, 400 hernandez) Endo - levothyroxine 50 mcg q72h. - high BSG on admission, 200s, s/p. IV and SQ insulin and lantus. will start insulin drip for more controlled management. Patient is hyperkalemic at 5.5. Most recent BSG in mid 300s. - TSH 18.5H. Free T4 0.86 wnl. continue home levothyroxine Heme - Hb 14.4->14.5, stable. baseline was 17s in May 2020. pt 10.3. INR 1.0 ID - continue Zosyn for presumed aspiration pneumonitis. Lactate 1.8 on 07/19, wnl - bronch cultures sent - wbc 14.30H->13.29H - Procalc 2.16H. - afebrile overnight - covid neg 07/19 Lines/IV Access: PIVs x2, ET tube, hernandez, OG DVT Prophylaxis: SCDs. 07/20 starting sq heparin 5000 BID GI PPX: famotidine 20 mg IV q12h. pharmacy will renally dose code: full, for now, continue discussion w/ family (2) Aspiration into airway: (3) CKD (chronic kidney disease), stage III: (4) Hypothyroidism: (5) Dyslipidemia: (6) Anemia: (7) Hypothyroidism: (8) PVD (peripheral vascular disease): (9) COPD (chronic obstructive pulmonary disease): (10) Vascular dementia: (11) Type 2 diabetes mellitus: Admission and Anticipated Discharge Date Admission Date: July 19, 2020 Supervising Physician Co-Signing Physician Notes Patient seen and examined. Discussed with critical care DIEGO overnight and with family practice resident this morning. Case was discussed on multidisciplinary rounds and with bedside critical care nurse. 75-year-old male with advanced dementia currently in a behavioral health unit with an aspiration event requiring short CPR and intubation mechanical ventilation. It appears that the patient had an existing DNR bracelet in place however providers on the scene elected to pursue ACLS interventions despite the patient's DNR status. He has required a low-dose vasopressor agents. Bronchoscopy was performed today with removal of foreign body/aspirated food material in the airway. There did appear to be evidence of some inflammation in the airways and postobstructive pneumonia. Antibiotics of been initiated. The patient's is reportedly to be here this afternoon. We will discuss status with them at that point in time. Given his need for institutional care and underlying neurocognitive dysfunction, I would not favor additional aggressive life-sustaining therapies at this point time. If the family elects to pursue comfort care measures, the patient can be terminally extubated and pressors discontinued. Alternatively, we could proceed with extubating the patient once he has received optimal therapy with plans to not reintubate him and not pursue additional ACLS interventions. For now we will continue antibiotics. Given the inflammation in the airways and the potential traumatic intubation, will place on dexamethasone 4 mg for 4 doses His overall prognosis is quite guarded. A total of 55 minutes critical care time exclusive of procedures was spent in evaluation management and stabilization of this patient Subjective Patient was transferred from [facility] where he was intubated and sedated after achieving ROSC s/p coding for 90 seconds after choking on a meal. He had 2 emesis episodes of foodstuffs overnight and desaturation after the second episode. Review of Systems Review of Systems: ROS limited by patient's sedation and baseline dementia. Physical Exam Physical Exam: General: Sedated, but responds to pain. Stays sleeping. HEENT: Pupils symmetric. Pulm: Mechanical ventilation. R anterior lung medrano are coarse on inspiration. On repeat auscultation after bronchoscopy, lung sounds were clear. Cardiac: RRR, -mrg. Abdominal: Nondistended, soft. OG tube. : Has hernandez. Results & Data Results & Data ([facility]) Vital Signs (Past 12 Hours) Vital Signs Temp Pulse Pulse Resp BP BP Pulse Ox 07/20/20 03:12 85 20 89 L 07/19/20 23:22 96 H 25 H 93/55 L 92 07/19/20 23:10 109 H 27 H 92 07/19/20 23:07 104 H 23 109/60 90 07/19/20 22:53 108 H 23 112/64 92 07/19/20 22:38 109 H 26 H 93/61 L 93 07/19/20 22:22 103 H 25 H 94/64 L 96 07/19/20 22:07 86 21 109/75 94 07/19/20 22:01 36.9 C 110 H 18 129/95 86 L 07/19/20 21:53 108 H 07/19/20 21:52 110 H 21 115/81 86 L 07/19/20 21:41 36.9 C 113 H 25 H 154/125 H 86 L 07/19/20 21:26 104 H 20 124/94 86 L 07/19/20 20:55 112 H 20 92 Resident Activity Tracking Resident Involvement: Resident Care Provided Care Provided: Adult [facility] Medicine (1) Vascular dementia Dementia behavioral disturbance: without behavioral disturbance Qualified Code(s): F01.50 - Vascular dementia without behavioral disturbance (2) Type 2 diabetes mellitus Chronic kidney disease stage: stage 3 (moderate) Diabetes mellitus complication detail: with chronic kidney disease Diabetes mellitus complication status: with kidney complications Diabetes mellitus baccarat dealer insulin use: without baccarat dealer use Qualified Code(s): E11.22 - Type 2 diabetes mellitus with diabetic chronic kidney disease; N18.3 - Chronic kidney disease, stage 3 (moderate) (3) Anemia Anemia type: unspecified type Qualified Code(s): D64.9 - Anemia, unspecified (4) Hypothyroidism Hypothyroidism type: unspecified Qualified Code(s): E03.9 - Hypothyroidism, unspecified (5) Hypothyroidism Hypothyroidism type: unspecified Qualified Code(s): E03.9 - Hypothyroidism, unspecified (6) COPD (chronic obstructive pulmonary disease) COPD type: unspecified COPD Qualified Code(s): J44.9 - Chronic obstructive pulmonary disease, unspecified
[2020-07-20] MEDS ORDERED: INSULIN GLARGINE SOLOSTAR 100 UNITS/ML 3 ML PEN SC STA (07:06)
[2020-07-20 07:23] LABS: iSTAT Allen Test Pass; iSTAT Arterial Blood Gas HCO3 26 meg/L (19-24); iSTAT Arterial Blood Gas pCO2 44 mmHg (35-46); iSTAT Arterial Blood Gas pH 7.38 (7.35-7.45); iSTAT Arterial Blood Gas pO2 57 mmHg (80-95); iSTAT Carbon Dioxide 27 mmol/L (24-31); iSTAT FiO2 70 %; iSTAT Site R Radial
[2020-07-20] MEDS ORDERED: INSULIN ASPART 100 UNITS/ML 3 ML PEN SC SCH ×2 (07:30→08:00)
--- NOTE | 2020-07-20 07:32 | Hospitalist Progress Note ---
Date of Service July 20, 2020 Assessment & Plan Admission and Anticipated Discharge Date Admission Date: July 19, 2020 Subjective Mild elevation of troponin mostly demand ischemia. Will follow repeat labs. Results & Data Results & Data ([facility]) Vital Signs (Past 12 Hours) Vital Signs Temp Pulse Pulse Resp BP BP Pulse Ox 07/20/20 05:00 36.9 C 89 20 116/85 90 07/20/20 04:00 36.9 C 98 H 22 125/62 98 07/20/20 03:12 85 20 89 L 07/19/20 23:22 96 H 25 H 93/55 L 92 07/19/20 23:10 109 H 27 H 92 07/19/20 23:07 104 H 23 109/60 90 07/19/20 22:53 108 H 23 112/64 92 07/19/20 22:38 109 H 26 H 93/61 L 93 07/19/20 22:22 103 H 25 H 94/64 L 96 07/19/20 22:07 86 21 109/75 94 07/19/20 22:01 36.9 C 110 H 18 129/95 86 L 07/19/20 21:53 108 H 07/19/20 21:52 110 H 21 115/81 86 L 07/19/20 21:41 36.9 C 113 H 25 H 154/125 H 86 L 07/19/20 21:26 104 H 20 124/94 86 L 07/19/20 20:55 112 H 20 92
[2020-07-20 07:34] LABS: Phosphorus 3.2 mg/dl (2.5-4.9)
--- NOTE | 2020-07-20 08:05 | XRay Report ---
XR chest 1V portable HISTORY: Intubation. Shortness of breath. Follow-up. COMPARISON: Chest 07/19/2020. FINDINGS: Endotracheal tube terminates 4 cm from the mp. Nasogastric tube terminates below the di aphragm. The tip is not included on this study. The heart remains mildly enlarged. There are low lung volumes. Hazy bibasilar airspace opacities persist. No pneumothorax. No pleural effusions. There are old, healed bilateral clavicle fractures. Suspect mild emphysema. IMPRESSION: 1. Satisfactory support line placement. 2. No change in the hazy bibasilar airspace opacities. This could represent atelectasis or a pneumoni a. ACT 112: Negative or not required by law. Electronically signed by: Miko Vazquez M.D. 07/20/2020 8:04 AM
--- NOTE | 2020-07-20 08:10 | Procedure Note ---
Procedure Note Date of Service July 20, 2020 Procedure: Flushing and access of right-sided tunneled pleural catheter Customer Sales Representative Dr. Li Anesthesia none Estimated blood loss none Indication: Failure of Pleurx catheter to drain. Procedure: Pleurx catheter was accessed technique. The exit site appeared slightly erythematous but there was no fluctuance or discharge. It was nontender to palpation. Once the catheter was accessed, is able to flush the catheter with 20 cc of sterile saline. There initially was some resistance however then we were. The catheter was then attached to the drainage system and unfortunately minimal fluid was able to be drained. We will proceed with a CT scan of the chest (noncontrast) to evaluate catheter positioning although it appears to be in good position on the CT of the abdomen and pelvis and institute the mist 2 protocol. If this fails to result in functionality of the catheter, it may need to be removed and replaced. Procedure was discussed with the patient at the bedside and she agreed with the plan as outlined Coding CPT Codes Pulmonary/Thoracic - Pulmonary and Thoracic: 53640 Lyse chest fibrin initial day ([id number]) [facility] Procedure Codes (Charges) Pulmonary/Thoracic Procedure 1: Pulmonary and Thoracic: 42475 Lyse chest fibrin initial day
[2020-07-20] MEDS ORDERED: INSULIN GLARGINE SOLOSTAR 100 UNITS/ML 3 ML PEN SC SCH ×2 (09:00→21:00)
[2020-07-20] MEDS ORDERED: LEVOTHYROXINE SODIUM 50 MCG in SYRINGE 0 ML IV SCH (09:00)
[2020-07-20] MEDS ORDERED: FAMOTIDINE 20 MG in SYRINGE 3 ML IV SCH (09:00)
--- NOTE | 2020-07-20 09:26 | Procedure Note ---
Procedure Note: Bronchoscopy Procedure Procedure: Fiberoptic bronchoscopy Removal of foreign body Therapeutic aspiration of secretions, initial Provider: Robson Li MD Consent: Procedure was emergent. Patient was unable to sign consent due to being intubated sedated and on mechanical ventilator. Patient was sedated on mechanical ventilator with propofol. Procedure: Was in the ICU intubated. He apparently suffered an aspiration event last evening. He has had increasing oxygen requirements overnight. Bronchoscopy was indicated to clear the airways and evaluate for foreign body. He was placed on 100% FiO2 and the Bodai adapter was placed in line. After topical anesthesia of the airways per respiratory therapy protocol, the fiberoptic scope was advanced through the existing endotracheal tube. The tube was sounded and found to be approximately 2 cm off the mp. There did appear to be significant particulate matter outside the tube in the oropharynx and proximal trachea compressed against the tracheal wall. Main mp was sharp. Tracheal mucosa appeared normal. A systematic inspection of the airways was conducted. There was large particulate vegetable appearing matter obscuring the right lower lobe. Eventually a large piece of vegetable matter was able to be removed with a combination of forceps and basket retrieval. There was some purulent material distal to the obstruction which was collected for microbiologic analysis. Once the airways were cleared, it did appear that the right upper lobe bronchus was stenotic and I was unable to pass the scope beyond this. This was consistent with the patient's history of right upper lobectomy. Attention was then turned to the left-sided airways. The left mainstem bronchus was widely patent. Left upper lobe was patent however there was significant aspirated material obscuring the left lower lobe bronchus and superior segment of the left lower lobe. Again combinations of saline lavage, forceps, and basket retrieval were used to eventually clear the airways. After the airways were cleared, a repeat inspection was conducted. The airways appeared erythematous with some mucopurulent secretions but no additional foreign bodies or material was identified. The bronchoscope was then removed from the airways. The patient tolerated the p rocedure well without obvious complication. Remained intubated in the ICU. Impression: 1. Endotracheal tube in good position. 2. Significant aspirated material obscuring the right lower lobe and left lower lobe status post therapeutic aspiration of secretions 3. Removal of aspirated foreign material 4. Possible postobstructive pneumonia, await cultures 5. Status post right upper lobe resection
[2020-07-20] MEDS: FAMOTIDINE 20 MG in SYRINGE 3 ML IV SCH (10:04)
[2020-07-20] MEDS ORDERED: INSULIN PROTOCOL GOAL RANGE ONE (10:15)
[2020-07-20] MEDS ORDERED: HEPARIN SOD 5,000 UNIT/0.5 ML VIAL SQ ONE (10:30)
[2020-07-20] MEDS: INSULIN REGULAR 250 UNITS in SODIUM CHLORIDE 0.9% 247.5 ML IV SCH (10:52)
--- NOTE | 2020-07-20 10:57 | Pharmacy Report ---
Pharmacy Glycemic Short Note 2 - Date of Service July 20, 2020 - Glycemic Short BSG Results (Last 24 hours): 07/19/20 07/19/20 07/20/20 21:49 22:28 04:57 Glucose 227 H 257 H POC Glucose 218 H 07/20/20 07/20/20 07/20/20 08:28 08:29 10:15 Glucose POC Glucose 317 H* 296 H 359 H* OUTPATIENT ANTIDIABETIC REGIMEN: * Lantus 35 units daily * Glipizide 10mg PO BID * A1c = 12.8% 06/05/20 ASSESSMENT: * Type 2 diabetic admitted to ICU following aspiration, respiratory arrest, requiring intubation * Patient remains intubated at this time, norepi infusing at 0.05mcg/kg/min, broad-spectrum abx ordered, no enteral feeds at this time * BSGs have been climbing since admission, given patient's critical illness and sustained BSGs > 180 along w/ hyperkalemia an insulin drip would be best suited to quickly gain control of hyperglycemia. Will give some basal insulin this AM however to assist with transition to SQ regimen in the future. PLAN FOR INPATIENT GLYCEMIC CONTROL: * Hold outpatient oral diabetes medications (glipizide) * Check BSGs using iSTAT due to vasopressor use * Basal insulin * Lantus 23 units SQ x 1, then 10 units BID with the IV insulin infusion * IV insulin infusion, goal range 110-180mg/dL, adjust per rate adjustment calculator * Prandial insulin: per carb ratio calculated by rate adjustment calculator PLAN FOR DISCHARGE: * to be determined
[2020-07-20] MEDS: LACTATED RINGER'S 1,000 ML IV SCH ×2 (10:58→22:13)
--- NOTE | 2020-07-20 11:36 | Electrocardiogram Report ---
Test Reason : Blood Pressure : / mmHG Vent. Rate : 106 BPM Atrial Rate : 106 BPM P-R Int : 208 ms QRS Dur : 150 ms QT Int : 350 ms P-R-T Axes : 064 -87 058 degrees QTc Int : 464 ms Sinus tachycardia Left anterior fascicular block Right bundle branch block Abnormal ECG When compared with ECG of 04-JUN-2020 13:53, No significant change Confirmed by Sergo Mcadams ([id number]) on 07/20/2020 11:36:19 AM Referred By: Edd Gomes Confirmed By:Sergo Mcadams
[2020-07-20] MEDS: INSULIN ASPART 100 UNITS/ML 3 ML PEN SC SCH ×3 (13:15→21:16)
--- NOTE | 2020-07-20 13:37 | Billing Data ---
Date of Service July 20, 2020 Coding Level of Care Code Critical Care 1st 30-74 mins Time Spent (min) 55
--- NOTE | 2020-07-20 15:28 | Hospitalist Progress Note ---
Date of Service July 20, 2020 Assessment & Plan (1) Aspiration into airway: this a 75 yo M with baseline advanced dementia admitted after sustaining cardiac arrest while chocking on his birthday cake intubated for air way protection s/p bronch today -large amount of food removed -suggestive of chronic aspiration over all prognosis poor plan to extubate in AM pt is DNR/DNI (2) Respiratory arrest before cardiac arrest: due to chocking on food on mechanical ventilation overall very poor prognoisis (3) Choking due to foreign body: (4) Admitted to intensive care unit: (5) Acute renal failure superimposed on stage 3 chronic kidney disease: Acute kidney failure CKD stage 3 : baseline cr of 1.57 per May 2020 Pt presented with Cr of 1.81 worsening of Cr 1.98 due to respiratory failure leading to cardiac arrest , hypotension due to cardiogenic shock requiring IV pressors ( Levophed ) pt is continued with IV fluid , supportive care over all prognosis remains guarded Goals of care : pt will be extubated tomorrow AM , if able to breath spontaneously on supplemental 02 , supportive care will be continued and eventually dc on hospice ( no feeding tube /pt will not be able to tolerate PO ) if respiratory failure noted post extubation -pt will be transitioned to comfort care in patient Admission and Anticipated Discharge Date Admission Date: July 19, 2020 Subjective pt seen in ICU room 107 remains intubated still on Levophed , sbp in 130's plan to wean off pressors Bronchoscopy this AM by block engraver: large amount of aspirated food noted - removed /suggestive of chronic severe aspiration baseline advanced dementia with possible severe dysphagia goal of care d/w family members -daughter and does not want escalate care plan for extubation in am pt is DNR /DNI if pt survives extubation -supportive care will be continued and later transition care to hospice no feeding tube Review of Systems Review of Systems: Unobtainable due to endotracheal tube Physical Exam Constitutional: WD/WN, vitals as above ENMT: intubated Respiratory: Auscultation: + diminished lung sounds ET tube present Results & Data Results & Data ([facility]) Vital Signs (Past 12 Hours) Vital Signs Temp Pulse Pulse Resp BP BP Pulse Ox 07/20/20 15:09 91 H 87/58 L 91 07/20/20 14:18 94 H 129/80 92 07/20/20 13:58 38.3 C H 07/20/20 13:49 93 07/20/20 13:18 93 H 114/74 92 07/20/20 12:18 96 H 110/70 94 07/20/20 11:48 96 H 115/71 94 07/20/20 11:18 97 H 133/78 93 07/20/20 11:00 97 H 20 93 07/20/20 10:48 99 H 138/77 93 07/20/20 09:45 103 H 126/73 94 07/20/20 09:31 103 H 117/68 95 07/20/20 09:30 107 H 07/20/20 09:21 106 H 143/80 H 95 07/20/20 09:19 108 H 169/90 H 95 07/20/20 09:17 113 H 158/83 H 94 07/20/20 09:15 113 H 153/92 H 94 07/20/20 09:13 115 H 139/93 93 07/20/20 09:11 109 H 118/82 95 07/20/20 09:09 103 H 121/95 96 07/20/20 09:07 102 H 73/58 L 97 07/20/20 09:05 105 H 111/72 96 07/20/20 09:03 105 H 88/71 L 97 07/20/20 09:01 107 H 102/79 95 07/20/20 08:30 97 H 95 07/20/20 08:05 98 H 122/72 95 07/20/20 07:20 103 H 22 91 07/20/20 07:00 103 H 07/20/20 05:00 36.9 C 89 20 116/85 90 07/20/20 04:00 36.9 C 98 H 22 125/62 98
[2020-07-20] MEDS: propofoL 1,000 MG/100 ML VIAL IV SCH ×2 (16:32→21:16)
[2020-07-20] MEDS: dexAMETHasone 4 MG in SYRINGE 0 ML IV SCH (16:36)
--- NOTE | 2020-07-20 17:16 | Communication Note ---
Date of Service: July 20, 2020 Met with patient's and stepdaughter. Reviewed case. They clearly state that the patient had advanced directives and was a DO NOT INTUBATE DO NOT RESU SCITATE prior to this event. They are unclear how he actually got resuscitated from the outside facility. He had expressed previous wishes to not be maintained on life support. They understand the gravity of his current situation. They state that his quality of life prior to this event was quite poor. He was unable to see family and interacting quite agitated and combative requiring institutionalization. We reviewed his current case and discussed options moving forward. His is quite clear that the patient would not want to be maintained in this current state. We discussed extubating him and reassessing. If it looks like he will do okay, we can continue supportive care. If it appears that he would not do clinically well, we could can transition quickly to palliative care measures. They are comfortable with proceeding with this option. His CODE STATUS will be changed to DO NOT INTUBATE DO NOT RESUSCITATE. We will continue supportive care for now. We will plan on extubating him tomorrow at 9:00 in the morning. If he is successful in breathing and maintaining vital signs which are appropriate, will continue supportive care otherwise will transition rapidly to comfort care measures. Additional critical care time, 50 minutes including end-of-life discussion Coding Level of Care Code Critical Care chelsie greco'l 30 min
[2020-07-20] MEDS: HEPARIN SOD 5,000 UNIT/0.5 ML VIAL SQ SCH (21:14)
[2020-07-20] MEDS: NOREPINEPHRINE/D5W 8 MG/508 ML BAG IV SCH (21:18)
[2020-07-21 04:41] LABS: Basophils # (auto) 0.01 K/uL (0-0.2); Basophils % (auto) 0.1 %; Hematocrit (blood only) 36.1 % (42-52); Hemoglobin 12.3 g/dL (14.0-18.0); Immature Granulocytes # (auto) 0.08 K/uL (0.00-0.02); Immature Granulocytes % (auto) 0.5 %; Lymphocytes # (auto) 1.05 K/uL (1.2-3.4); Lymphocytes % (auto) 7.1 %; Mean Corpuscular Hemoglobin 34.6 pg (25-34); Mean Corpuscular Hgb Conc 34.1 g/dL (32-36); Mean Corpuscular Volume 101.7 fL (80-100); Mean Platelet Volume 9.8 fL (7.4-10.4); Monocytes # (auto) 0.96 K/uL (0.11-0.59); Monocytes % (auto) 6.5 %; Neutrophils # (auto) 12.76 K/uL (1.4-6.5); Neutrophils % (auto) 85.8 %; Platelet Count 175 K/uL (130-400); RDW Coefficient of Variation 13.7 % (11.5-14.5); RDW Standard Deviation 51.4 fL (36.4-46.3); Red Blood Count 3.55 M/uL (4.7-6.1); White Blood Count 14.86 K/uL (4.8-10.8)
[2020-07-21 05:01] LABS: BUN Creatinine Ratio 20.1 (10-20); Calcium 8.5 mg/dl (8.5-10.1); Creatinine Clr Calc Pharmacy 37.2 ml/min; Est GFR (African American) 41.7; Magnesium 2.2 mg/dl (1.8-2.4); Potassium 4.3 mmol/L (3.5-5.1)
[2020-07-21] MEDS: PIPERACILLIN/TAZOBACTAM 4.5 GM in DEXTROSE 5% 100 ML IV SCH (05:06)
[2020-07-21] MEDS: dexAMETHasone 4 MG in SYRINGE 0 ML IV SCH ×2 (05:07→16:24)
[2020-07-21 05:14] LABS: Phosphorus 2.7 mg/dl (2.5-4.9); Troponin I 0.134 ng/ml (0-0.045)
[2020-07-21 05:40] LABS: iSTAT Allen Test Pass; iSTAT Art Bld Gas pCO2 Correct 41 mmHg (35-46); iSTAT Art Bld Gas pH Corrected 7.439 (7.35-7.45); iSTAT Arterial Blood Gas HCO3 27 meg/L (19-24); iSTAT Arterial Blood Gas pCO2 40 mmHg (35-46); iSTAT Arterial Blood Gas pH 7.45 (7.35-7.45); iSTAT Arterial Blood Gas pO2 87 mmHg (80-95); iSTAT Arterial Blood Gas pO2 C 91; iSTAT Carbon Dioxide 29 mmol/L (24-31); iSTAT FiO2 40 %; iSTAT Hematocrit 34 % (42-52); iSTAT Hemoglobin 11.6 g/dl (14.0-18.0); iSTAT Potassium 4.2 mmol/L (3.3-5.0); iSTAT Site R Radial; iSTAT Sodium 136 mmol/L (135-144)
[2020-07-21] MEDS ORDERED: LEVOTHYROXINE SODIUM 100 MCG TABLET PO SCH (06:30)
--- NOTE | 2020-07-21 07:12 | Critical Care Progress Note ---
Date of Service July 21, 2020 Assessment & Plan (1) Admitted to intensive care unit: Reason critically ill: 75M hx of CAD (s/p stent), PVD, CKD3 (s/p L nephrectomy for bladder/urothelial cancer), COPD, HLD, hypothyroidism, RUL cancer (s/p wedge resection), DM2, and vascular dementia who presented as a transfer from [facility] on evening of 07/19 after he coded for 90 seconds after choking on a meal, obtained ROSC, and was subsequently intubated and vented. Vent day 3, ICU day 3. Update: extubated 07/21 1030. Neuro - sedated. propofol 15/mcg/kg/min. Update: off sedation AM of 1030. Cardiac/Vascular - off of vasopressors. 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 - 06/12 echo: ef 40-45, mild global hypokineses of LV - trop 0.231H->0.289H->0.135, likely 2/2 demand ischemia from cardiac arrest. Since peaked, no further workup indicated - 07/20 continue home Plavix, Lipitor, and 81 mg aspirin Respiratory - mechanical ventilation settings at 0800 vc vt500 rr 20 peep 8 fio2 40. update: since extubated - extubated 07/21 1030. oxymask 15L O2. satting 89%. Will monitor clinically. - 07/20 s/p bronschoscopy. Piece of celery removed from left lower lobe of lung. 07/21 upon extubation, piece of green galvan removed. - Patient may have received valsalva s/p choking episode: No obvious fx on cxr. Did not obtain rib series. Monitor clinically when off vent. - ABG. 07/20 7.38/44/57L/26H/27. 07/21 7.45/40/87/27H. metabolic alkalosis. AG 6.0, not elevated. - 07/21 cxr unchanged bibasilar opacities. Per my read, R side looks slightly worse than yesterday. - continue IV dexamethasone 4 mg for airway inflammation GI/Nutrition - NPO. Continue as patient is aspiration risk. Renal/Lytes - bun 33, stable. Cr 1.81H->1.98H->1.79. Kidney function is ok and can continue to monitor clinically. Patient is slightly oliguric, but not anuric. - Normosol 80 mL/hr changed to LR 80 mL/hr on 07/20 - replete electrolytes as needed Genitourinary - hernandez. 24 hr Is/O2 0700 07/20-07/21 2.8L in. 945 mL out. rate 0.43 ml/kg/hr. cumulative 3.7L in 2.7L out. continue hernandez and monitoring Is/Os. Endo - continue insulin drip per protocol - TSH 18.5H. Free T4 0.86 wnl. continue levothyroxine Heme - Hb 14.4->14.5->12.3, stable, monitor clinically. baseline was 17s in May 2020. ID - continue Zosyn for presumed aspiration pneumonitis. Lactate 1.8 on 07/19, wnl - bronch cultures sent on 07/20. gram stain: many wbcs. rare yeast. bronch culture prelim light normal claudette. - wbc 14.3->13.29->14.86 - Procalc 2.16H on admission - tmax 38.3C 07/20 afternoon. 07/21 AM afebrile 36.7C. Follow fever curve. - covid neg 07/19 Lines/IV Access: PIVs x2, ET tube, hernandez, OG DVT Prophylaxis: SCDs. 07/20 starting sq heparin 5000 BID GI PPX: famotidine 20 mg IV q12h. pharmacy will renally dose code: switched to DNR/DNI 07/20. Continued goals of care discussions w/ family. Family at bedside. (2) Aspiration into airway: (3) CKD (chronic kidney disease), stage III: (4) Hypothyroidism: (5) Dyslipidemia: (6) Anemia: (7) PVD (peripheral vascular disease): (8) COPD (chronic obstructive pulmonary disease): (9) Vascular dementia: (10) Type 2 diabetes mellitus: Admission and Anticipated Discharge Date Admission Date: July 19, 2020 Supervising Physician Co-Signing Physician Notes Patient seen and examined. Discussed on multidisciplinary rounds and with staff at bedside as well as with family members. The patient has done reasonably well overnight. He is off vasopressor agents and we have been able to wean his ventilatory support. Sedation was discontinued and he was extubated around 930 o'clock this morning. He is on supplemental oxygen. Plans are to not pursue reintubation or aggressive measures in the event that he clinically deteriorates. If he does well, may consider swallow evaluation in the future. Would continue antibiotics unless we transition to full palliative care. Will transition to sliding scale insulin off the insulin drip. I think it is reasonable to potentially transfer the patient out of the intensive care unit to the floor at this point in time. Will sign off once he leaves the ICU. Feel free to contact us if we can be of additional assistance. 45 minutes critical care time evaluating and managing patients including potential end-of-life discussions. Subjective No acute events overnight. His blood pressures were acceptable w/o Levophed since yesterday afternoon. Review of Systems Review of Systems: ROS was limited by patient sedation during my evaluation at 0730. Physical Exam Physical Exam: General: A&Ox3. NAD. Cooperative. HEENT: Atraumatic, normocephalic. EOMI Pulm: Mechanical venilation (when examined at 0730). Brief expiratory wheeze diffusely on anterior lung medrano. Cardiac: RRR, -mrg. No LE edema, but there is trace pitting at bilateral shins. Abdominal: Soft, nondistended Integumentary: Has PIV in each antecubital fossa; sites are nonerythematous. Results & Data Results & Data ([facility]) Vital Signs (Past 12 Hours) Vital Signs Pulse Resp Pulse Ox Pulse Ox 07/21/20 02:47 81 20 95 07/21/20 00:05 71 07/20/20 23:07 73 20 90 07/20/20 21:42 95 07/20/20 20:18 85 20 91 Resident Activity Tracking Resident Involvement: Resident Care Provided Care Provided: Adult Hospital Medicine (1) Vascular dementia Dementia behavioral disturbance: without behavioral disturbance Qualified Code(s): F01.50 - Vascular dementia without behavioral disturbance (2) Type 2 diabetes mellitus Chronic kidney disease stage: stage 3 (moderate) Diabetes mellitus complication detail: with chronic kidney disease Diabetes mellitus complication status: with kidney complications 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
--- NOTE | 2020-07-21 07:40 | XRay Report ---
XR chest 1V portable HISTORY: 75 years-old Male f/u acute respiratory failure COMPARISON: Chest radiograph 07/20/2020, chest CT 01/09/2020. TECHNIQUE: Portable AP view of the chest FINDINGS: Endotracheal tube overlies the midline, 4.7 cm superior to the mp. An enteric tube courses below the diaphragm with distal tip outside the [id number]. Moderate enlargement of the cardiac silhouet te. Emphysema with chronic interstitial coarsening. There are persistent left greater than right biba silar opacities. Degenerative changes of the shoulders and spine. IMPRESSION: 1. Life-support lines and tubes as above. 2. Emphysema with persistent left greater than right bibasilar opacities. 3. Cardiomegaly. ACT 112: Negative or not required by law. The above report was generated using voice recognition software. It may contain grammatical, syntax o r spelling errors. Electronically signed by: Arnaldo Medellin M.D. 07/21/2020 7:39 AM
[2020-07-21] MEDS ORDERED: CLOPIDOGREL BISULFATE 75 MG TAB PO SCH (09:00)
[2020-07-21] MEDS ORDERED: ASPIRIN 81 MG CHEW NG SCH (09:00)
[2020-07-21] MEDS ORDERED: ATORVASTATIN 40 MG TAB PO SCH (09:00)
[2020-07-21] MEDS ORDERED: FAMOTIDINE 20 MG in SYRINGE 3 ML IV SCH (09:00)
[2020-07-21] MEDS: INSULIN ASPART 100 UNITS/ML 3 ML PEN SC SCH ×4 (09:21→22:02)
[2020-07-21] MEDS: propofoL 1,000 MG/100 ML VIAL IV SCH (09:24)
[2020-07-21] MEDS: HEPARIN SOD 5,000 UNIT/0.5 ML VIAL SQ SCH ×3 (09:30→22:02)
[2020-07-21] MEDS ORDERED: INSULIN GLARGINE SOLOSTAR 100 UNITS/ML 3 ML PEN SC ONE (10:15)
[2020-07-21] MEDS: LACTATED RINGER'S 1,000 ML IV SCH (11:15)
[2020-07-21] MEDS: INSULIN REGULAR 250 UNITS in SODIUM CHLORIDE 0.9% 247.5 ML IV SCH (11:16)
--- NOTE | 2020-07-21 11:17 | Pharmacy Report ---
Pharmacy Glycemic Short Note 2 - Date of Service July 21, 2020 - Glycemic Short BSG Results (Last 24 hours): 07/20/20 07/20/20 07/20/20 12:05 13:05 14:05 Glucose POC Glucose 336 H* 393 H* 325 H* 07/20/20 07/20/20 07/20/20 14:59 16:29 17:25 Glucose POC Glucose 312 H* 199 H 206 H 07/20/20 07/20/20 07/20/20 18:35 20:12 20:34 Glucose POC Glucose 174 H 88 109 H 07/20/20 07/20/20 07/20/20 21:07 22:10 22:57 Glucose POC Glucose 124 H 136 H 133 H 07/21/20 07/21/20 07/21/20 00:13 01:04 02:47 Glucose POC Glucose 156 H 136 H 142 H 07/21/20 07/21/20 07/21/20 04:25 05:02 09:18 Glucose 133 H POC Glucose 141 H 147 H OUTPATIENT ANTIDIABETIC REGIMEN: * Lantus 35 units daily * Glipizide 10mg PO BID * A1c = 12.8% 06/05/20 ASSESSMENT: 07/21 * Dexamethasone 4 mg IV q12 x4 doses started yesterday evening, with last dose scheduled for tomorrow AM * Patient remains NPO and plan is to extubate this AM due to clarification of DNR/DNI status. Patient may be transitioned to comfort measures after extubation, depending on clinical status * OK to transition off insulin drip this AM per ICU rounds discussion * Patient only required Lantus 30 units daily on previous admissions when he was consuming a diet. Although patient will remain NPO after extubation, will still increase this as his insulin requirements at this time are still significant and he is currently on steroids. Hesitant to increase much more based on NPO status and possibility of initiating comfort measures later today if necessary * Will utilize tight Novolog parameters after transition based on review of previous hospitalization data 07/20 * Type 2 diabetic admitted to ICU following aspiration, respiratory arrest, requiring intubation * Patient remains intubated at this time, norepi infusing at 0.05mcg/kg/min, broad-spectrum abx ordered, no enteral feeds at this time * BSGs have been climbing since admission, given patient's critical illness and sustained BSGs > 180 along w/ hyperkalemia an insulin drip would be best suited to quickly gain control of hyperglycemia. Will give some basal insulin this AM however to assist with transition to SQ regimen in the future. PLAN FOR INPATIENT GLYCEMIC CONTROL: * Hold outpatient oral diabetes medications (glipizide) * Check BSGs using iSTAT due to vasopressor use * Basal insulin * Lantus 40 units SC x1 now. Additional 5 units tonight for BSG > 140 mg/dL, 10 units for BSG >180 mg/dL, or 15 units for BSG > 250 mg/dL * Discontinue IV insulin infusion @ 1800 today. Until then, goal range 110- 180mg/dL, adjust per rate adjustment calculator * Bolus insulin (starting at 1999) * Novolog q4h * Goal range 120-150 mg/dL * Correction factor: 20 mg/dL/unit * Carb ratio: 5 g CHO/unit PLAN FOR DISCHARGE: * to be determined
--- NOTE | 2020-07-21 13:14 | Billing Data ---
Date of Service July 21, 2020 Coding Level of Care Code Critical Care 1st 30-74 mins Time Spent (min) 45
[2020-07-21] MEDS: AMPICILLIN/SULBACTAM SOD 3,000 MG in 0.9 % SODIUM CHLORIDE 100 ML IV SCH ×2 (14:03→22:02)
--- NOTE | 2020-07-21 19:06 | Hospitalist Progress Note ---
Date of Service July 21, 2020 Assessment & Plan (1) Aspiration into airway: per Dr. Garza: this a 75 yo M with baseline advanced dementia admitted after sustaining cardiac arrest while chocking on his birthday cake intubated for air way protection s/p bronch today -large amount of food removed -suggestive of chronic aspiration over all prognosis poor plan to extubate in AM pt is DNR/DNI 07/21/20 extubated today on 3 L NC continue IV abx for now, Decadron d/c IV fluids PRN suctioning discussed with staff (2) Respiratory arrest before cardiac arrest: due to chocking on food (3) Choking due to foreign body: (4) Admitted to intensive care unit: (5) Acute renal failure superimposed on stage 3 chronic kidney disease: Acute kidney failure CKD stage 3 : per Dr. Garza: baseline cr of 1.57 per May 2020 Pt presented with Cr of 1.81 worsening of Cr 1.98 due to respiratory failure leading to cardiac arrest , hypotension due to cardiogenic shock requiring IV pressors ( Levophed ) -- crea 1.7 mostly back to baseline d/c IV fluids Disposition pending Admission and Anticipated Discharge Date Admission Date: July 19, 2020 Subjective ff up for aspiration, cardiopulmonary arrest, etc seen resting in bed, comfortable on 3 L NC not in distress non verbal awake, alert, tried to shake examiner's hand no signs of pain, distress no other symptoms Review of Systems Review of Systems: All systems reviewed & are unremarkable except as noted in Subjective Physical Exam Physical Exam: General- oriented x 0, not in distress, speaks in sentences with no effort or accessory muscle use Eyes- anicteric Neck- no JVD Lungs- (+) mild rales bilaterally no wheezing Heart- normal rate, regular rhythm; no murmurs Abdomen- normal bowel sounds, nondistended, soft, nontender Extremities- no pretibial edema, no calf tenderness Neuro- alert, oriented x 0; non verbal no other gross focal neurologic deficits Skin- warm & dry Results & Data Results & Data ([facility]) Vital Signs (Past 12 Hours) Vital Signs Temp Pulse Pulse Resp BP BP Pulse Ox 07/21/20 17:50 36.8 C 105 H 106 H 20 157/93 H 95 07/21/20 17:19 104 H 21 162/87 H 94 07/21/20 16:19 100 H 18 140/79 91 07/21/20 16:12 94 H 07/21/20 15:19 96 H 16 142/84 H 94 07/21/20 14:19 101 H 21 153/106 H 95 07/21/20 14:16 37.1 C 07/21/20 13:19 100 H 22 163/91 H 94 07/21/20 12:23 96 H 19 152/90 H 91 07/21/20 12:00 36.8 C 96 H 07/21/20 10:50 89 24 90 07/21/20 10:19 77 151/77 H 89 L 07/21/20 09:55 76 16 97 07/21/20 09:19 69 123/74 94 07/21/20 08:19 62 98/60 L 93 07/21/20 08:00 70 90 07/21/20 07:49 73 143/89 H 92 07/21/20 07:20 36.7 C 07/21/20 07:19 78 152/77 H 98 07/21/20 07:07 66 20 89 L 07/21/20 07:00 80 92 all noted and reviewed including below Laboratory Results Laboratory Results - last 24 hr 07/20/20 07/20/20 07/20/20 20:12 20:34 21:07 WBC RBC Hgb POC Hgb Hct POC Hct MCV MCH MCHC RDW Std Deviation RDW Coeff of Martinez Plt Count MPV Immature Gran % (Auto) Neut % (Auto) Lymph % (Auto) Evans % (Auto) Eos % (Auto) Baso % (Auto) Neut # (Auto) Lymph # (Auto) Evans # (Auto) Eos # (Auto) Baso # (Auto) Immature Gran # (Auto) Sample Site POC pH POC pCO2 POC pO2 POC HCO3 POC Total CO2 POC Base Excess ABG pH (Temp Correct) ABG pCO2 (Temp Corrct POC ABG pO2 at Pt Temp POC ABG O2 Sat Farrukh Test O2 Delivery Device POC O2 Rate Minute Ventilation POC FiO2 Tidal Volume PEEP POC Sodium Sodium POC Potassium Potassium Chloride Carbon Dioxide Anion Gap BUN Creatinine Est Cr Clr Drug Dosing Est GFR ( Amer) Est GFR (Non-Af Amer) BUN/Creatinine Ratio Glucose POC Glucose 88 109 H 124 H Calcium Phosphorus Magnesium Troponin I 07/20/20 07/20/20 07/21/20 22:10 22:57 00:13 WBC RBC Hgb POC Hgb Hct POC Hct MCV MCH MCHC RDW Std Deviation RDW Coeff of Martinez Plt Count MPV Immature Gran % (Auto) Neut % (Auto) Lymph % (Auto) Evans % (Auto) Eos % (Auto) Baso % (Auto) Neut # (Auto) Lymph # (Auto) Evans # (Auto) Eos # (Auto) Baso # (Auto) Immature Gran # (Auto) Sample Site POC pH POC pCO2 POC pO2 POC HCO3 POC Total CO2 POC Base Excess ABG pH (Temp Correct) ABG pCO2 (Temp Corrct POC ABG pO2 at Pt Temp POC ABG O2 Sat Farrukh Test O2 Delivery Device POC O2 Rate Minute Ventilation POC FiO2 Tidal Volume PEEP POC Sodium Sodium POC Potassium Potassium Chloride Carbon Dioxide Anion Gap BUN Creatinine Est Cr Clr Drug Dosing Est GFR ( Amer) Est GFR (Non-Af Amer) BUN/Creatinine Ratio Glucose POC Glucose 136 H 133 H 156 H Calcium Phosphorus Magnesium Troponin I 07/21/20 07/21/20 07/21/20 01:04 02:47 04:25 WBC 14.86 H RBC 3.55 L Hgb 12.3 L POC Hgb Hct 36.1 L POC Hct MCV 101.7 H MCH 34.6 H MCHC 34.1 RDW Std Deviation 51.4 H RDW Coeff of Martinez 13.7 Plt Count 175 MPV 9.8 Immature Gran % (Auto) 0.5 Neut % (Auto) 85.8 Lymph % (Auto) 7.1 Evans % (Auto) 6.5 Eos % (Auto) 0.0 Baso % (Auto) 0.1 Neut # (Auto) 12.76 H Lymph # (Auto) 1.05 L Evans # (Auto) 0.96 H Eos # (Auto) 0.00 Baso # (Auto) 0.01 Immature Gran # (Auto) 0.08 H Sample Site POC pH POC pCO2 POC pO2 POC HCO3 POC Total CO2 POC Base Excess ABG pH (Temp Correct) ABG pCO2 (Temp Corrct POC ABG pO2 at Pt Temp POC ABG O2 Sat Farrukh Test O2 Delivery Device POC O2 Rate Minute Ventilation POC FiO2 Tidal Volume PEEP POC Sodium Sodium POC Potassium Potassium Chloride Carbon Dioxide Anion Gap BUN Creatinine Est Cr Clr Drug Dosing Est GFR ( Amer) Est GFR (Non-Af Amer) BUN/Creatinine Ratio Glucose POC Glucose 136 H 142 H Calcium Phosphorus Magnesium Troponin I 07/21/20 07/21/20 07/21/20 04:25 05:02 05:17 WBC RBC Hgb POC Hgb 11.6 L Hct POC Hct 34 L MCV MCH MCHC RDW Std Deviation RDW Coeff of Martinez Plt Count MPV Immature Gran % (Auto) Neut % (Auto) Lymph % (Auto) Evans % (Auto) Eos % (Auto) Baso % (Auto) Neut # (Auto) Lymph # (Auto) Evans # (Auto) Eos # (Auto) Baso # (Auto) Immature Gran # (Auto) Sample Site R Radial POC pH 7.45 POC pCO2 40 POC pO2 87 POC HCO3 27 H POC Total CO2 29 POC Base Excess 3.0 H ABG pH (Temp Correct) 7.439 ABG pCO2 (Temp Corrct 41 POC ABG pO2 at Pt Temp 91 POC ABG O2 Sat 97.0 H Farrukh Test Pass O2 Delivery Device Ventilator POC O2 Rate 20 Minute Ventilation 9.7 POC FiO2 40 Tidal Volume 500 PEEP 10 POC Sodium 136 Sodium 139 POC Potassium 4.2 Potassium 4.3 D Chloride 105 Carbon Dioxide 28 Anion Gap 6.0 BUN 36 H Creatinine 1.79 H Est Cr Clr Drug Dosing 37.2 Est GFR ( Amer) 41.7 Est GFR (Non-Af Amer) 36.0 BUN/Creatinine Ratio 20.1 H Glucose 133 H POC Glucose 141 H Calcium 8.5 Phosphorus 2.7 Magnesium 2.2 Troponin I 0.134 H* 07/21/20 07/21/20 07/21/20 09:18 11:19 14:06 WBC RBC Hgb POC Hgb Hct POC Hct MCV MCH MCHC RDW Std Deviation RDW Coeff of Martinez Plt Count MPV Immature Gran % (Auto) Neut % (Auto) Lymph % (Auto) Evans % (Auto) Eos % (Auto) Baso % (Auto) Neut # (Auto) Lymph # (Auto) Evans # (Auto) Eos # (Auto) Baso # (Auto) Immature Gran # (Auto) Sample Site POC pH POC pCO2 POC pO2 POC HCO3 POC Total CO2 POC Base Excess ABG pH (Temp Correct) ABG pCO2 (Temp Corrct POC ABG pO2 at Pt Temp POC ABG O2 Sat Farrukh Test O2 Delivery Device POC O2 Rate Minute Ventilation POC FiO2 Tidal Volume PEEP POC Sodium Sodium POC Potassium Potassium Chloride Carbon Dioxide Anion Gap BUN Creatinine Est Cr Clr Drug Dosing Est GFR ( Amer) Est GFR (Non-Af Amer) BUN/Creatinine Ratio Glucose POC Glucose 147 H 130 H 106 H Calcium Phosphorus Magnesium Troponin I 07/21/20 16:24 WBC RBC Hgb POC Hgb Hct POC Hct MCV MCH MCHC RDW Std Deviation RDW Coeff of Martinez Plt Count MPV Immature Gran % (Auto) Neut % (Auto) Lymph % (Auto) Evans % (Auto) Eos % (Auto) Baso % (Auto) Neut # (Auto) Lymph # (Auto) Evans # (Auto) Eos # (Auto) Baso # (Auto) Immature Gran # (Auto) Sample Site POC pH POC pCO2 POC pO2 POC HCO3 POC Total CO2 POC Base Excess ABG pH (Temp Correct) ABG pCO2 (Temp Corrct POC ABG pO2 at Pt Temp POC ABG O2 Sat Farrukh Test O2 Delivery Device POC O2 Rate Minute Ventilation POC FiO2 Tidal Volume PEEP POC Sodium Sodium POC Potassium Potassium Chloride Carbon Dioxide Anion Gap BUN Creatinine Est Cr Clr Drug Dosing Est GFR ( Amer) Est GFR (Non-Af Amer) BUN/Creatinine Ratio Glucose POC Glucose 103 H Calcium Phosphorus Magnesium Troponin I
[2020-07-21] MEDS: NOREPINEPHRINE/D5W 8 MG/508 ML BAG IV SCH (19:22)
[2020-07-21] MEDS ORDERED: XOPENEX/ATROVENT 1.25mg/0.5MG NEB COMBO NEB STA (20:06)
[2020-07-21] MEDS ORDERED: OLANZapine 10 MG/2.1 ML SDV IM PRN (20:07)
[2020-07-21] MEDS ORDERED: IPRATROPIUM BROMIDE NEB SOLN 0.02% 2.5 ML VIAL INH STA (20:08)
[2020-07-21] MEDS ORDERED: LEVALBUTEROL 1.25MG/0.5ML NEB INH STA (20:09)
[2020-07-21] MEDS: methylPREDNISolone 40 MG in SYRINGE 0 ML IV ONE ×2 (20:35→22:02)
[2020-07-21] MEDS: INSULIN GLARGINE SOLOSTAR 100 UNITS/ML 3 ML PEN SC ONE ×2 (20:37→22:02)
[2020-07-21 20:45] LABS: Base Excess ABG 2.3 mEq/L (-9-1.8); HCO3 ABG 28 mmol/L (19-24); Oxygen Saturation ABG 84.1 % (90-95); PCO2 ABG 46 mmHg (35-46); PO2 ABG 48 mmHg (80-95)
[2020-07-21 20:56] LABS: Allen Test POS (Pos)
--- NOTE | 2020-07-21 22:00 | Communication Note ---
Date of Service: July 21, 2020 Notified by RN of patient agitation and refusal of medications. Patient updated of developments over the phone. She requests for patient to be transition to to comfort measures. Will relay to AM provider.
[2020-07-21] MEDS ORDERED: LORazepam 1 MG/2 ML VIAL IV PRN (22:08)
[2020-07-21] MEDS ORDERED: MoRPHine SULFATE 4 MG/ML 1 ML CARP\\VIAL IV PRN (22:08)
[2020-07-21] MEDS ORDERED: SCOPOLAMINE 1 MG TDSY TD SCH (22:45)
[2020-07-22] MEDS ORDERED: LEVALBUTEROL 1.25MG/0.5ML NEB INH SCH (01:00)
[2020-07-22] MEDS ORDERED: IPRATROPIUM BROMIDE NEB SOLN 0.02% 2.5 ML VIAL INH SCH (01:00)
[2020-07-22] MEDS ORDERED: XOPENEX/ATROVENT 1.25mg/0.5MG NEB COMBO NEB SCH (01:00)
[2020-07-22] MEDS ORDERED: LEVOTHYROXINE SODIUM 200 MCG TABLET PO SCH (06:30)
--- NOTE | 2020-07-22 06:51 | XRay Report ---
XR chest 1V portable CLINICAL HISTORY: Hypoxia COMPARISON STUDY: 07/21/2020 FINDINGS: The endotracheal tube and enteric tubes have been removed. The heart is enlarged. There is pulmonary emphysema. There is persistent interstitial thickening with a basilar predominance. There a re no large pleural effusions. IMPRESSION: 1. Stable interstitial thickening with a basilar predominance 2. Interval removal of the endotracheal tube and enteric tube. ACT 112: Negative or not required by law. Electronically signed by: David Rodriguez M.D. 07/22/2020 6:50 AM
[2020-07-22] MEDS ORDERED: CHECK SCOPOLAMINE PATCH PLACEMENT SCH (08:00)
[2020-07-22 08:04] LABS: Creatinine Clr Calc Pharmacy 43.4 ml/min; Est GFR (African American) 50.4; Est GFR (Non-African American) 43.5
[2020-07-22] MEDS ORDERED: ATROPINE SULFATE 1% OP SOLN 5 ML BTL SL PRN (08:15)
[2020-07-22] MEDS ORDERED: LORazepam 0.5 MG TAB ONE (10:48)
[2020-07-22] MEDS ORDERED: MoRPHine SULFATE 15 MG/0.75 ML UDP PO PRN (11:04)
[2020-07-22] MEDS ORDERED: LORazepam 0.5 MG TAB SL PRN (11:04)
[2020-07-22] MEDS ORDERED: Nursing to Pharmacy Communication SCH ×2 (11:15→14:30)
[2020-07-22] MEDS: MoRPHine SULFATE 5 MG/0.25 ML UDP PO PRN ×2 (12:30→19:34)
--- NOTE | 2020-07-22 13:34 | Palliative Care Consultation ---
Date of Consultation July 22, 2020 Assessment & Plan (1) Palliative care encounter: This is a 75 year old gentleman who unfortunately presented to the [facility] ED on his birthday after a piece of his birthday cake lodged in his throat, causing respiratory arrest. Additional PMH includes: vascular dementia, CAD s/p stent, PVD s/p stent in 2018, CKD III s/p nephrectomy, DM2, lung cancer s/p RUL resection, and bladder and urothelial cancer. Upon his cardiac arrest, he coded for a minute and a half and was intubated and brought to the ED and transitioned to the ICU. His mental status did improve and they were able to extubated him yesterday with no escalation of care. Overnight last night, he became hypoxic and was refusing to eat and take medications. His decided to transition to a more comfort approach in his care. Palliative care was consulted to assist with support for his and provide symptom management. I met with Mr. Reeves who had his legs out of the bed, was mumbling and speaking non-sensical verbage. He was using accessory muscles to breathe and had auditory secretions. He is unable to participate in meaningful conversation, but does not appear to be at a comfort state. I called his , Alida, who visited this morning at [phone]. She had been in this morning to see him and was tearful throughout the call. I explained that sometimes we unfortunately have to reach sedation in order to achieve comfort level. She understands this and just wants him comfortable. Unfortunately, he pulls his IV's out and, at times, spits his medications out. This does limit med administration from a comfort standpoint. Will continue to monitor the patient and continue to work towards him being as awake and interactive as possible while keeping him comfortable in the process; hard to tell his life expectancy right now, but anticipate it to be days to a week or so. Should he stabilize, we can revisit discharge plans home with hospice. Pt is DNR/DNI. Palliative will follow. (2) Malignant neoplasm of bladder: now comfort measures (3) Primary cancer of right upper lobe of lung: now on comfort measures (4) Respiratory arrest before cardiac arrest: choked while eating birthday cake. Was intubated and extubated yesterday. Now on Comfort Measures Only (5) Agitation: Pt with increasing confusion. Trying to get out of bed. Has pulled out multiple IV's. He does spit out any medications, etc. PRN meds include: Ativan 1mg SL Q4 PRN, Zyprexa 2.5 mg Q 6 PRN and Haldol 1mg IM Q8 PRN. Note written and communicated with Pharmacy and nursing that Haldol to be administered if Zyprexa ineffective. (6) Hypoxia: Pt was intubated post respiratory and cardiac arrest and was intubated. Extubated yesterday 07/21/20 with no escalation of care. Pt became hypoxic overnight and was refusing medications and food. Pt is not keeping oxygen on. latest SpO2 80%. Last evening, transitioned to LEATHER WHITENER. Patient is increasingly confused, likely related to hypoxia, dementia, and carotid stenosis. Roxanol now scheduled for air hunger/pain 5mg Q8 EUN and then additional Roxanol 5 mg Q2h PRN. (7) Dysphagia: Was evaluated by Speech Therapy today. Continuous aspiration noted and diet would not be recommended unless risk vs benefit was discussed. I talked with his about this and stated he would not be suitable to try to eat anything at this point, due to his agitation and restlessness. Would revisit comfort feedings if we could get him to a more comfortable state and he was awake and interactive enough; again, realizing risk. History of Present Illness Reason for Consultation: Goals of Care Requesting Physician: Dr. Garvin Attending Physician: Franklyn Garvin MD History of Present Illness This is a 75 year old gentleman who unfortunately presented to the [facility] ED on his birthday after a piece of his birthday cake lodged in his throat, causing respiratory arrest. Additional PMH includes: vascular dementia, CAD s/p stent, PVD s/p stent in 2018, CKD III s/p nephrectomy, DM2, lung cancer s/p RUL resection, and bladder and urothelial cancer. Upon his cardiac arrest, he coded for a minute and a half and was intubated and brought to the ED and transitioned to the ICU. His mental status did improve and they were able to extubated him yesterday with no escalation of care. Overnight last night, he became hypoxic and was refusing to eat and take medications. His decided to transition to a more comfort approach in his care. Palliative care was consulted to assist with support for his and provide symptom management. Please see A/P for further details. Thank you for involving us with this unfortunate case. Allergies Allergy/AdvReac Type Severity Reaction Status Date / Time Iodinated Contrast Media Allergy Intermediate swelling Verified 01/12/20 11:16 Home Medications Medication Instructions Recorded Confirmed Type aspirin 81 mg PO DAILY 07/16/18 06/04/20 History atorvastatin 40 mg PO DAILY 07/16/18 06/04/20 History clopidogrel 75 mg PO DAILY 07/16/18 06/04/20 History famotidine 20 mg PO HS 06/10/19 06/04/20 History glipizide 10 mg tablet 10 mg PO BID 01/12/20 06/04/20 History ipratropium-albuterol 3 ml INHALATION Q6H PRN 06/04/20 06/04/20 History levothyroxine 100 mcg PO MOWEFR@0700 06/04/20 06/04/20 History levothyroxine 200 mcg PO SUTUTHSA@0700 06/04/20 06/04/20 History nitroglycerin [Nitrostat] 0.4 mg SUBLINGUAL UD 06/04/20 06/04/20 History insulin glargine [Lantus Solostar 35 unit SC DAILY #30 ml 06/11/20 Rx U-100 Insulin] Patient History Medical History (Updated 07/22/20 @ 14:24 by MESFIN Borja) AAA (abdominal aortic aneurysm) Agitation Carotid stenosis, non-symptomatic CKD (chronic kidney disease), stage III Coronary artery disease Dyslipidemia Dysphagia History of nonmelanoma skin cancer Hypothyroidism Hypoxia 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 MS (myocardial infarction) "2008 and 2013 s/p multiple stent placements " Palliative care encounter Primary cancer of right upper lobe of lung PVD (peripheral vascular disease) Tobacco use disorder Type 2 diabetes mellitus Vascular dementia Surgical History History of left-sided carotid endarterectomy S/P AAA repair S/P appendectomy S/P colonoscopy with polypectomy S/P coronary artery stent placement S/P cystourethroscopy with dilation of urethral stricture S/P laparoscopic cholecystectomy "with umbilical hernia repair" S/p nephrectomy "left nephrectomy with partial ureterectomy" S/P rotator cuff repair S/P tonsillectomy and adenoidectomy Family History Father Myocardial infarction Mother Colon cancer Other Cancer Heart disease Denies family history of Lung disease Asthma Social History Smoking Status: Unknown if ever smoked Tobacco Type: Cigarettes Age Started Using Tobacco: 12; packs per day: 1; Years Smoked: 62; Cigarettes Per Day: 20; Second Hand Exposure: Yes; Preferred Language: Albanian Communication Ability: Unable Proposal Engineer Required: No Beliefs That Will Affect Care: None marital status: Current Living Situation: Detention current occupational status: retired How many Children do You have: 4 Feels Safe at Home: Yes Assistive Devices: None Review of Systems Review of Systems: [place] System Assessment Scale: Drowsiness: 0/3 Shortness of breath: 2/3 Anxiety: 3/3 Palliative Performance Scale: 30% Physical Exam Constitutional: + acute distress and + in distress Respiratory: + labored breathing and + uses accessory muscles Auscultation: + crackles and + rhonchi Cardiovascular: Rate/Rhythm: regular rate and + tachycardic Heart Sounds: normal S1 and normal S2 Extremities: normal capillary refill; no edema Gastrointestinal (Abdomen): Percussion/Palpation: abdomen soft; abdomen nontender Skin: no rashes, warm and dry + pallor Psychiatric: Orientation: alert and oriented to person; + uncooperative Hallucinations: + visual hallucinations Insight: + impaired insight Judgement: + impaired judgement PG Care Time/CCT Total # of Minutes Spent Total Time Spent with Patient: Total time spent is greater than 50% in coordination of care (as documented) at patient's floor/unit and/or counseling patient: 70 minutes with > 50% of that time spent assessing the patient, discussing goals of care, providing symptom management, and collaborating with IDT Coding Level of Care Code 96324 Inpt Consult Level 3 Diagnoses Palliative care encounter Z51.5 Malignant neoplasm of bladder C67.9 Primary cancer of right upper lobe of lung C34.11 Respiratory arrest before cardiac arrest I46.9; R09.2 Agitation R45.1 Hypoxia R09.02 Dysphagia R13.10 Time Spent (min) 70
[2020-07-22] MEDS ORDERED: MoRPHine SULFATE 5 MG/0.25 ML UDP PO PRN (13:42)
[2020-07-22] MEDS ORDERED: OLANZAPINE 2.5 MG TAB PO PRN (13:44)
[2020-07-22] MEDS ORDERED: HALOPERIDOL LACTATE 5 MG/ML 1 ML VIAL IM PRN ×2 (13:51→14:08)
[2020-07-22] MEDS ORDERED: MoRPHine SULFATE 5 MG/0.25 ML UDP PO SCH (14:15)
[2020-07-22] MEDS: MoRPHine SULFATE 5 MG/0.25 ML UDP PO SCH ×2 (14:20→22:34)
[2020-07-22] MEDS: ATROPINE SULFATE 1% OP SOLN 5 ML BTL SL PRN ×2 (15:52→19:28)
[2020-07-22] MEDS: LORazepam 1 MG TAB SL PRN ×2 (15:55→20:03)
--- NOTE | 2020-07-22 19:03 | Hospitalist Progress Note ---
Date of Service July 22, 2020 Assessment & Plan (1) Aspiration into airway: per Dr. Garza: this a 75 yo M with baseline advanced dementia admitted after sustaining cardiac arrest while chocking on his birthday cake intubated for air way protection s/p bronch today -large amount of food removed -suggestive of chronic aspiration over all prognosis poor plan to extubate in AM pt is DNR/DNI 07/21/20 extubated today on 3 L NC continue IV abx for now, Decadron d/c IV fluids PRN suctioning discussed with staff 07/22/20 transitioned to comfort measures status only speech therapist consulted- strict NPO recommended, but may give pudding if patient requests palliative care service consulted- comfort measures medications ordered (2) Respiratory arrest before cardiac arrest: due to chocking on food (3) Choking due to foreign body: (4) Admitted to intensive care unit: (5) Acute renal failure superimposed on stage 3 chronic kidney disease: Acute kidney failure CKD stage 3 : per Dr. Garza: baseline cr of 1.57 per May 2020 Pt presented with Cr of 1.81 worsening of Cr 1.98 due to respiratory failure leading to cardiac arrest , hypotension due to cardiogenic shock requiring IV pressors ( Levophed ) -- crea 1.7 mostly back to baseline d/c IV fluids Disposition pending Admission and Anticipated Discharge Date Admission Date: July 19, 2020 Subjective ff for aspiration, respiratory arrest transitioned to comfort measures overnight seen with patient's Alida at bedside awake, alert, pleasantly confused denies SOB reported chest pain to his earlier no signs of distress, or pain on my exam trying to converse with his Review of Systems Review of Systems: All systems reviewed & are unremarkable except as noted in Subjective Physical Exam Physical Exam: General- oriented x 1, not in distress, speaks in sentences with no effort or accessory muscle use Eyes- anicteric Neck- no JVD Lungs- (+) rales at the bases Heart- normal rate, regular rhythm; no murmurs Abdomen- normal bowel sounds, nondistended, soft, nontender Extremities- no pretibial edema, no calf tenderness Neuro- alert, oriented x 1; no new gross focal neurologic deficits Skin- warm & dry Results & Data Results & Data ([facility]) Vital Signs (Past 12 Hours) Laboratory Results - last 24 hr 07/21/20 07/21/20 07/22/20 19:59 20:25 07:12 ABG pH 7.40 ABG pCO2 46 ABG pO2 48 L ABG HCO3 28 H ABG O2 Saturation 84.1 L ABG Base Excess 2.3 H Farrukh Test POS Barometric Pressure 738.5 Oxygen Given ROOM AIR Creatinine 1.53 H Est Cr Clr Drug Dosing 43.4 Est GFR ( Amer) 50.4 Est GFR (Non-Af Amer) 43.5 POC Glucose 177 H
[2020-07-22] MEDS ORDERED: FAMOTIDINE 20 MG TAB PO SCH (21:00)
[2020-07-22] MEDS ORDERED: SCOPOLAMINE 1 MG TDSY TD SCH (21:51)
[2020-07-23] MEDS: ATROPINE SULFATE 1% OP SOLN 5 ML BTL SL PRN ×3 (02:58→22:49)
[2020-07-23] MEDS: MoRPHine SULFATE 5 MG/0.25 ML UDP PO SCH ×3 (05:30→22:48)
[2020-07-23] MEDS ORDERED: CHECK SCOPOLAMINE PATCH PLACEMENT SCH (08:00)
--- NOTE | 2020-07-23 10:52 | Palliative Care Progress Note ---
Date of Service July 23, 2020 Assessment & Plan (1) Dysphagia: with aspiration. Now npo and lethargic. Continue comfort directed care. (2) Agitation: Will d/c scopolamine patch which frequently increase agitation with anticholinergic effect. Continue atropine drops as needed. Continue routine morphine for pain and dyspnea with prn dosing. He does have sublingual ativan and zyprexa available for increased agitation. He has hernandez catheter to eliminate urinary retention as potential cause. (3) Palliative care encounter: Plan is comfort directed care. Anticipate discharge to SNF with hospice care. Met with his and case management to review plan of care. He will be transferred to SNF with [facility]. Answered questions about prognosis and feeding/hydration. POLST completed. (4) Respiratory arrest before cardiac arrest: (5) COPD (chronic obstructive pulmonary disease): (6) PVD (peripheral vascular disease): (7) Vascular dementia: (8) Type 2 diabetes mellitus: (9) Coronary artery disease: Admission and Anticipated Discharge Date Admission Date: July 19, 2020 Subjective Does not respond to voice or touch. Appears comfortable. Has had restlessness and agitation. Had prn lorazepam last night. Review of Systems Review of Systems: Unobtainable due to reduced consciousness [place] Symptom Assessment Scale Pain 0/3 Dyspnea 0/3 Palliative Performance Score 20% Physical Exam Constitutional: + lethargic; no acute distress ENMT: Mouth: + dry oral mucous membranes Respiratory: normal respiratory effort; no labored breathing Auscultation: + rhonchi Cardiovascular: Rate/Rhythm: regular rate and regular rhythm Gastrointestinal (Abdomen): Percussion/Palpation: abdomen nontender Musculoskeletal: Extremities: extremities normal to inspection and + muscle atrophy Skin: no mottling Neurologic: + obtunded PG Care Time/CCT Total # of Minutes Spent Total Time Spent with Patient: Total time spent is greater than 50% in coordination of care (as documented) at patient's floor/unit and/or counseling patient: Coding Level of Care Code 92793 Subseq Hosp Care Lvl 3 Diagnoses Dysphagia R13.10 Agitation R45.1 Palliative care encounter Z51.5 Respiratory arrest before cardiac arrest I46.9; R09.2 COPD (chronic obstructive pulmonary disease) J44.9 COPD type: unspecified COPD PVD (peripheral vascular disease) I73.9 Vascular dementia F01.50 Dementia behavioral disturbance: without behavioral disturbance Type 2 diabetes mellitus E11.22; N18.3 Chronic kidney disease stage: stage 3 (moderate) Diabetes mellitus complication detail: with chronic kidney disease Diabetes mellitus complication status: with kidney complications Diabetes mellitus remote computer terminal operator insulin use: without remote computer terminal operator use Coronary artery disease I25.10 Associated angina: without angina Coronary Disease-Associated Artery/Lesion type: [place] artery [place] vs. transplanted heart: [place] heart (1) Vascular dementia Dementia behavioral disturbance: without behavioral disturbance Qualified Code(s): F01.50 - Vascular dementia without behavioral disturbance (2) Type 2 diabetes mellitus Chronic kidney disease stage: stage 3 (moderate) Diabetes mellitus complication detail: with chronic kidney disease Diabetes mellitus complication status: with kidney complications Diabetes mellitus mcfp insulin use: without remote computer terminal operator use Qualified Code(s): E11.22 - Type 2 diabetes mellitus with diabetic chronic kidney disease; N18.3 - Chronic kidney disease, stage 3 (moderate) (3) Coronary artery disease Associated angina: without angina Coronary Disease-Associated Artery/Lesion type: [place] artery [place] vs. transplanted heart: [place] heart Qualified Code(s): I25.10 - Atherosclerotic heart disease of [place] coronary artery without angina pectoris (4) COPD (chronic obstructive pulmonary disease) COPD type: unspecified COPD Qualified Code(s): J44.9 - Chronic obstructive pulmonary disease, unspecified
--- NOTE | 2020-07-23 12:12 | Hospitalist Progress Note ---
Date of Service delayed entry date of service noted below July 23, 2020 Assessment & Plan (1) Aspiration into airway: per Dr. Garza: this a 75 yo M with baseline advanced dementia admitted after sustaining cardiac arrest while chocking on his birthday cake intubated for air way protection s/p bronch today -large amount of food removed -suggestive of chronic aspiration over all prognosis poor plan to extubate in AM pt is DNR/DNI 07/21/20 extubated today on 3 L NC continue IV abx for now, Decadron d/c IV fluids PRN suctioning discussed with staff 07/22/20 transitioned to comfort measures status only speech therapist consulted- strict NPO recommended, but may give pudding if patient requests palliative care service consulted- comfort measures medications ordered 07/23/20 comfortable overall continue present medications discussed with RN (2) Respiratory arrest before cardiac arrest: due to chocking on food (3) Choking due to foreign body: (4) Admitted to intensive care unit: (5) Acute renal failure superimposed on stage 3 chronic kidney disease: Acute kidney failure CKD stage 3 : per Dr. Garza: baseline cr of 1.57 per May 2020 Pt presented with Cr of 1.81 worsening of Cr 1.98 due to respiratory failure leading to cardiac arrest , hypotension due to cardiogenic shock requiring IV pressors ( Levophed ) -- crea 1.7 mostly back to baseline d/c IV fluids Disposition pending Admission and Anticipated Discharge Date Admission Date: July 19, 2020 Subjective ff up for aspiration ,etc seen resting in bed, lethargic comfortable, not in distress no signs of pain Review of Systems Review of Systems: Unobtainable due to cognitive status Physical Exam Physical Exam: General- lethargic, not in distress Lungs- clear breath sounds bilaterally Extremities- no pretibial edema Neuro- lethargic
[2020-07-24] MEDS: ATROPINE SULFATE 1% OP SOLN 5 ML BTL SL PRN ×7 (01:59→22:59)
[2020-07-24] MEDS: MoRPHine SULFATE 5 MG/0.25 ML UDP PO PRN (02:08)
[2020-07-24] MEDS: MoRPHine SULFATE 5 MG/0.25 ML UDP PO SCH ×3 (06:38→22:33)
--- NOTE | 2020-07-24 20:23 | Hospitalist Progress Note ---
Date of Service Delayed entry Date of service noted below July 24, 2020 Assessment & Plan (1) Aspiration into airway: per Dr. Garza: this a 75 yo M with baseline advanced dementia admitted after sustaining cardiac arrest while chocking on his birthday cake intubated for air way protection s/p bronch today -large amount of food removed -suggestive of chronic aspiration over all prognosis poor plan to extubate in AM pt is DNR/DNI 07/21/20 extubated today on 3 L NC continue IV abx for now, Decadron d/c IV fluids PRN suctioning discussed with staff 07/22/20 transitioned to comfort measures status only speech therapist consulted- strict NPO recommended, but may give pudding if patient requests palliative care service consulted- comfort measures medications ordered 07/23/20 comfortable overall continue present medications discussed with RN 07/24/2020 Remains stable Comfortable Continue present regimen Discussed with RN (2) Respiratory arrest before cardiac arrest: due to chocking on food (3) Choking due to foreign body: (4) Admitted to intensive care unit: (5) Acute renal failure superimposed on stage 3 chronic kidney disease: Acute kidney failure CKD stage 3 : per Dr. Garza: baseline cr of 1.57 per May 2020 Pt presented with Cr of 1.81 worsening of Cr 1.98 due to respiratory failure leading to cardiac arrest , hypotension due to cardiogenic shock requiring IV pressors ( Levophed ) -- crea 1.7 mostly back to baseline d/c IV fluids Disposition pending Admission and Anticipated Discharge Date Admission Date: July 19, 2020 Subjective Follow-up for aspiration pneumonia, etc. Seen resting in bed, lethargic No signs of acute distress or discomfort No other issues per ammonia refrigeration worker of Systems Review of Systems: Unobtainable due to cognitive status Physical Exam Physical Exam: General-lethargic, breathing with no effort Lungs-mild crackles noted Extremities-trace pretibial edema
[2020-07-25] MEDS: ATROPINE SULFATE 1% OP SOLN 5 ML BTL SL PRN ×5 (04:21→20:09)
[2020-07-25] MEDS: MoRPHine SULFATE 5 MG/0.25 ML UDP PO SCH ×4 (06:08→20:09)
[2020-07-25] MEDS: MoRPHine SULFATE 5 MG/0.25 ML UDP PO PRN ×2 (08:50→11:40)
[2020-07-25] MEDS ORDERED: SCOPOLAMINE 1 MG TDSY TD SCH (09:15)
[2020-07-25] MEDS: CHECK SCOPOLAMINE PATCH PLACEMENT SCH (15:09)
--- NOTE | 2020-07-25 17:56 | Hospitalist Progress Note ---
Date of Service July 25, 2020 Assessment & Plan (1) Aspiration into airway: per Dr. Garza: this a 75 yo M with baseline advanced dementia admitted after sustaining cardiac arrest while chocking on his birthday cake intubated for air way protection s/p bronch today -large amount of food removed -suggestive of chronic aspiration over all prognosis poor plan to extubate in AM pt is DNR/DNI 07/21/20 extubated today on 3 L NC continue IV abx for now, Decadron d/c IV fluids PRN suctioning discussed with staff 07/22/20 transitioned to comfort measures status only speech therapist consulted- strict NPO recommended, but may give pudding if patient requests palliative care service consulted- comfort measures medications ordered 07/23/20 comfortable overall continue present medications discussed with RN 07/24/2020 Remains stable Comfortable Continue present regimen Discussed with RN 07/25/2020 Patient noted to be having more gurgling sounds Roxanol increased to every 4 hours, scopolamine patch ordered Continue other medications Discussed with RN Discussed in detail at length with patient's family, and daughter All questions answered They are understanding, agreeable, comfortable with plan of care (2) Respiratory arrest before cardiac arrest: due to chocking on food (3) Choking due to foreign body: (4) Admitted to intensive care unit: (5) Acute renal failure superimposed on stage 3 chronic kidney disease: Acute kidney failure CKD stage 3 : per Dr. Garza: baseline cr of 1.57 per May 2020 Pt presented with Cr of 1.81 worsening of Cr 1.98 due to respiratory failure leading to cardiac arrest , hypotension due to cardiogenic shock requiring IV pressors ( Levophed ) -- crea 1.7 mostly back to baseline d/c IV fluids Disposition pending Admission and Anticipated Discharge Date Admission Date: July 19, 2020 Subjective Follow-up for aspiration pneumonia, comfort measures Patient seen resting in bed Lethargic, occasionally opens eyes Some gurgling appreciated Not in acute distress Does not appear to be in pain or discomfort Review of Systems Review of Systems: Unobtainable due to cognitive status Physical Exam Physical Exam: General-lethargic, not in distress Lungs-crackles noted Extremities-mild edema
[2020-07-26] MEDS: CHECK SCOPOLAMINE PATCH PLACEMENT SCH ×2 (00:06→08:40)
[2020-07-26] MEDS: MoRPHine SULFATE 5 MG/0.25 ML UDP PO SCH ×11 (00:06→23:48)
[2020-07-26] MEDS: ATROPINE SULFATE 1% OP SOLN 5 ML BTL SL PRN ×3 (03:06→11:49)
[2020-07-26] MEDS ORDERED: MoRPHine SULFATE 5 MG/0.25 ML UDP PO PRN ×2 (09:52→10:21)
--- NOTE | 2020-07-26 11:31 | Palliative Care Progress Note ---
Date of Service July 26, 2020 Assessment & Plan (1) Dysphagia: Continue comfort directed care. (2) Agitation: Pt has reached a more comfortable state. Increased grimacing and furrowed brow. Routine Roxanol scheduled now to every 2 hours and increased dose to 10mg. Unfortunately, no IV access present, will continue SL approach which does appear to have him in a more comfort focused state. (3) Palliative care encounter: Patient remains on comfort care. At this time, he is unstable for transport out of facility, mottling on feet and knees, breathing changes. He does continue to make some urine, although it is becoming more concentrated and dark. I spoke with his Alida on the phone who has decided not to come in today. POLST completed if patient does transfer out of facility. Expect patient to pass away in hospital, likely hours to a day or two. (4) Respiratory arrest before cardiac arrest: choked while eating birthday cake. Was intubated and extubated yesterday. Now on Comfort Measures Only (5) COPD (chronic obstructive pulmonary disease): (6) PVD (peripheral vascular disease): (7) Vascular dementia: (8) Type 2 diabetes mellitus: (9) Coronary artery disease: (10) Excessive oral secretions: Patient now with increased audible secretions. Will schedule Atropine gtts. No central or peripheral IV access. Admission and Anticipated Discharge Date Admission Date: July 19, 2020 Subjective Pt resting with no signs of agitation. Patient using some accessory muscles for breathing audible secretions present He continues to make urine Some mottling noted on knees and on the bottom of his feet Review of Systems Review of Systems: [place] [facility] Assessment Scale: Tiredness: 2/3 Drowsiness: 1/3 Shortness of breath: 1/3 Pain: 1/3 Palliative Performance Scale: 10% Physical Exam Constitutional: + acute distress Respiratory: + labored breathing and + uses accessory muscles Auscultation: + crackles and + rhonchi Cardiovascular: Rate/Rhythm: regular rate and + tachycardic Heart Sounds: normal S1 and normal S2 Extremities: normal capillary refill; no edema Skin: no rashes, warm and dry + mottling and + pallor Psychiatric: Orientation: alert and oriented to person; + uncooperative Hallucinations: + visual hallucinations Insight: + impaired insight Judgement: + impaired judgement PG Care Time/CCT Total # of Minutes Spent Total Time Spent with Patient: Total time spent is greater than 50% in coordination of care (as documented) at patient's floor/unit and/or counseling patient: 35 minutes with > 50% of that time spent assessing the patient, providing symptom management and collaborating with IDT Coding Level of Care Code 89617 Subseq Hosp Care Lvl 3 Diagnoses Dysphagia R13.10 Agitation R45.1 Palliative care encounter Z51.5 Respiratory arrest before cardiac arrest I46.9; R09.2 COPD (chronic obstructive pulmonary disease) J44.9 COPD type: unspecified COPD PVD (peripheral vascular disease) I73.9 Vascular dementia F01.50 Dementia behavioral disturbance: without behavioral disturbance Type 2 diabetes mellitus E11.22; N18.3 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 transplanted heart: elem heart Associated angina: without angina Qualified Code(s): I25.10 - Atherosclerotic heart disease of elem coronary artery without angina pectoris
[2020-07-26] MEDS: ATROPINE SULFATE 1% OP SOLN 5 ML BTL SL SCH ×4 (14:00→22:07)
--- NOTE | 2020-07-26 18:32 | Hospitalist Progress Note ---
Date of Service July 26, 2020 Assessment & Plan (1) Aspiration into airway: per Dr. Garza: this a 75 yo M with baseline advanced dementia admitted after sustaining cardiac arrest while chocking on his birthday cake intubated for air way protection s/p bronch today -large amount of food removed -suggestive of chronic aspiration over all prognosis poor plan to extubate in AM pt is DNR/DNI 07/21/20 extubated today on 3 L NC continue IV abx for now, Decadron d/c IV fluids PRN suctioning discussed with staff 07/22/20 transitioned to comfort measures status only speech therapist consulted- strict NPO recommended, but may give pudding if patient requests palliative care service consulted- comfort measures medications ordered 07/23/20 comfortable overall continue present medications discussed with RN 07/24/2020 Remains stable Comfortable Continue present regimen Discussed with RN 07/25/2020 Patient noted to be having more gurgling sounds Roxanol increased to every 4 hours, scopolamine patch ordered Continue other medications Discussed with RN 07/26/20 increase Morphine SL to 10mg q2h and PRN Scopolamine patch d/c'd discussed with Palliative Care Service (2) Respiratory arrest before cardiac arrest: due to chocking on food (3) Choking due to foreign body: (4) Admitted to intensive care unit: (5) Acute renal failure superimposed on stage 3 chronic kidney disease: Acute kidney failure CKD stage 3 : per Dr. Garza: baseline cr of 1.57 per May 2020 Pt presented with Cr of 1.81 worsening of Cr 1.98 due to respiratory failure leading to cardiac arrest , hypotension due to cardiogenic shock requiring IV pressors ( Levophed ) -- crea 1.7 mostly back to baseline d/c IV fluids Disposition pending Admission and Anticipated Discharge Date Admission Date: July 19, 2020 Subjective ff up for aspiration, comfort measures status seen resting in bed, not in distress does seem to have increased RR than yesterday otherwise no signs of pain, distress patient appears peaceful Review of Systems Review of Systems: Unobtainable due to cognitive status Physical Exam Physical Exam: general- mild tachypnea lungs- (+) crackles extremities- mild edema
[2020-07-27] MEDS: MoRPHine SULFATE 5 MG/0.25 ML UDP PO SCH ×8 (02:06→21:00)
[2020-07-27] MEDS: ATROPINE SULFATE 1% OP SOLN 5 ML BTL SL SCH ×8 (02:06→22:32)
--- NOTE | 2020-07-27 12:51 | Palliative Care Progress Note ---
Date of Service July 27, 2020 Assessment & Plan (1) Dysphagia: He is NPO. Per his wishes, family has decided against artificial feeding and prefers focus on comfort care. (2) Agitation: Resting comfortably. Continue routine morphine dosing for pain and dyspnea. (3) Excessive oral secretions: Controlled on routine atropine drops. (4) Palliative care encounter: He is likely to within the next few days. I spoke with his on the phone and gave her an update. She will be coming to see him this afternoon. She understands his prognosis and is tearful but has good family support. Palliative care will follow. Admission and Anticipated Discharge Date Admission Date: July 19, 2020 Subjective No response to voice or touch. Appears comfortable Review of Systems Review of Systems: Unobtainable due to reduced consciousness [place] Symptom Assessment Scale Pain 0/3 Dyspnea 0/3 Drowsiness 3/3 Palliative Performance Score 10% Physical Exam Constitutional: + lethargic; no acute distress ENMT: Mouth: + dry oral mucous membranes Respiratory: no labored breathing and does not use accessory muscles no audible rhonchi Cardiovascular: Extremities: + edema (upper extremities) Gastrointestinal (Abdomen): Percussion/Palpation: abdomen nontender Skin: warm and dry, vascular skin changes distal LEs Neurologic: + obtunded PG Care Time/CCT Total # of Minutes Spent Total Time Spent with Patient: Total time spent is greater than 50% in co ordination of care (as documented) at patient's floor/unit and/or counseling patient: Coding Level of Care Code 34649 Subseq Hosp Care Lvl 2 Diagnoses Dysphagia R13.10 Agitation R45.1 Excessive oral secretions R68.89 Palliative care encounter Z51.5
--- NOTE | 2020-07-27 18:32 | Hospitalist Progress Note ---
Date of Service July 27, 2020 Assessment & Plan (1) Aspiration into airway: per Dr. Garza: this a 75 yo M with baseline advanced dementia admitted after sustaining cardiac arrest while chocking on his birthday cake intubated for air way protection s/p bronch today -large amount of food removed -suggestive of chronic aspiration over all prognosis poor plan to extubate in AM pt is DNR/DNI 07/21/20 extubated , was on 3 L NC 07/22/20 transitioned to comfort measures status only Palliative service on board: comfortable overall now on Morphine SL 10mg q4h and q1h PRN (2) Respiratory arrest before cardiac arrest: due to chocking on food (3) Choking due to foreign body: (4) Admitted to intensive care unit: (5) Acute renal failure superimposed on stage 3 chronic kidney disease: Acute kidney failure CKD stage 3 : per Dr. Garza: baseline cr of 1.57 per May 2020 Pt presented with Cr of 1.81 worsening of Cr 1.98 due to respiratory failure leading to cardiac arrest , hypotension due to cardiogenic shock requiring IV pressors ( Levophed ) -- crea 1.7 mostly back to baseline d/c IV fluids Disposition on comfort measures status Admission and Anticipated Discharge Date Admission Date: July 19, 2020 Subjective ff up for comfort measures status only non responsive no signs of distress or pain peaceful , comfortable patient's and daughter at bedside discussed plan of care with them Review of Systems Review of Systems: All systems reviewed & are unremarkable except as noted in Subjective Physical Exam Physical Exam: General- not in distress, comfortable Lungs- mild rales BL Ext- (+) gen edema
--- NOTE | 2020-07-27 21:03 | Death Pronouncement Note ---
Date of Service July 27, 2020 Pronouncement Note Admission Date Admission Date: July 19, 2020 Date and Time of Date of : 07/27/20 Time of : 21:10 PCOD Preliminary cause of : Aspiration pneumonia Contributing Factors (1) Aspiration into airway: (2) Respiratory arrest before cardiac arrest: (3) Choking due to foreign body: (4) Admitted to intensive care unit: (5) Acute renal failure superimposed on stage 3 chronic kidney disease: Summary Additional details: Discharge summary to be accomplished by Dr. Garvin. Additional Data Confirmation of : no pulse, no respirations, no heart sounds and pupils fixed and dilated Attending/PCP notified?: No Attending physician: Franklyn Garvin MD
--- NOTE | 2020-08-10 14:44 | Discharge Summary ---
Date of Service August 10, 2020 Admission HPI Per Admitting Provider CHIEF COMPLAINT: Aspiration, respiratory arrest, status post intubation. HISTORY OF PRESENT ILLNESS: This is a 75-year-old male with past medical history significant for vascular dementia, CAD status post stent, peripheral vascular disease, status post right femoral popliteal stent in 2018, chronic kidney disease stage III, status post nephrectomy, diabetes, history of lung cancer, status post right upper lung resection, history of bladder and urothelial cancer status post resection in 2016 , hypothyroidism, history of abdominal aneurysm repair and stent placement. Presents from a senior correction with psych unit with aspiration. The patient had today his birthday and he choked on his cake. He then went in to respiratory arrest. They coded him for about 90 seconds as per the records and he was given 2 epis and was intubated and brought in here. Currently, he is on pressors. Initially, ABGs pH was 7.2. The patient is currently nonresponsive. Could not get much history from the patient. The patient has DNR bracelet on his wrist, but now family wanted to be full code. We could not get much history. Admission Exam Per Admitting Provider GENERAL: The patient is status post intubated, unresponsive currently. VITAL SIGNS: Temperature afebrile, pulse 109, respiratory rate 27, oxygen 92% on mechanical ventilation. HEENT: Atraumatic. Pupils are pinpoint, no pallor, no icterus. NECK: No JVD seen, no neck masses seen. CARDIOVASCULAR: S1, S2 heard, regular rate and rhythm, no murmur, no gallop. RESPIRATORY SYSTEM: Normal AP diameter. No accessory muscle use. No wheezing, no crackles heard. ABDOMEN: Soft, bowel sounds present. No distention. CENTRAL NERVOUS SYSTEM: Status post intubated. EXTREMITIES: No edema, no erythema seen. Principal Diagnosis GENERAL: The patient is status post intubated, unresponsive currently. VITAL SIGNS: Temperature afebrile, pulse 109, respiratory rate 27, oxygen 92% on mechanical ventilation. HEENT: Atraumatic. Pupils are pinpoint, no pallor, no icterus. NECK: No JVD seen, no neck masses seen. CARDIOVASCULAR: S1, S2 heard, regular rate and rhythm, no murmur, no gallop. RESPIRATORY SYSTEM: Normal AP diameter. No accessory muscle use. No wheezing, no crackles heard. ABDOMEN: Soft, bowel sounds present. No distention. CENTRAL NERVOUS SYSTEM: Status post intubated. EXTREMITIES: No edema, no erythema seen. Discharge Exam patient Discharge Data Allergies Allergy/AdvReac Type Severity Reaction Status Date / Time Iodinated Contrast Media Allergy Intermediate swelling Verified 01/12/20 11:16 Consultations 07/19/20 22:36 Consult Case Management - Discharge Planning Routine Consult Valve Repairer Routine 07/22/20 11:04 Consult Palliative Care Routine Hospital Course (1) Aspiration into airway: per Dr. Garza: this a 75 yo M with baseline advanced dementia admitted after sustaining cardiac arrest while chocking on his birthday cake intubated for air way protection s/p bronch today -large amount of food removed -suggestive of chronic aspiration over all prognosis poor plan to extubate in AM pt is DNR/DNI 07/21/20 extubated , was on 3 L NC transitioned to comfort measures status only Palliative service on board: comfortable overall Morphine SL titrated 07/27/20 patient pronounced (2) Respiratory arrest before cardiac arrest: due to chocking on food (3) Choking due to foreign body: (4) Admitted to intensive care unit: (5) Acute renal failure superimposed on stage 3 chronic kidney disease: Acute kidney failure CKD stage 3 : per Dr. Garza: baseline cr of 1.57 per May 2020 Pt presented with Cr of 1.81 worsening of Cr 1.98 due to respiratory failure leading to cardiac arrest , hypotension due to cardiogenic shock requiring IV pressors ( Levophed ) -- crea 1.7 back to baseline Total Time Total Time Spent Total Time Spent (In Minutes): < 30 minutes Discharge Plan Discharge Items Patient Disposition:
== END 2020-07-27 23:00 | disposition expired | DRG 163 ==
LOC: 1E 21:02 → SUATTDRO 21:02 → 2W 07-21 16:31